=== PATIENT | female | born 1970 | race Caucasian/White ===

== ENCOUNTER → 2017-04-01 | Outpatient (CLI) | payer OTHER ==
[~2017-04-01] MED LIST: CATHETER FLUSH 10 ML SYR IV PRN; IOHEXOL 350 MG/ML 100 ML (OMNIPAQUE 350) VIAL IV ONE; NS 100 ML (IVPB) BAG IV ONE
--- NOTE | 2017-04-01 17:33 | Diagnostic Imaging Report ---
CLINICAL INDICATION: Patient with lump, right-sided tenderness under right jaw and throat. EXAM: Axial CT scan of the neck soft tissue performed with 75 cc of Omnipaque 350 IV contrast. Coronal and sagittal reformatted images are created. COMPARISON: None. FINDINGS: There is no significant neck soft tissue abnormality. There is no neck mass or lymphadenopathy. There is no fluid collection or fat stranding seen. There is no significant abnormality seen beneath the right neck skin marker of concern. There are lymph nodes in both sides of the neck which are within normal limits and subcentimeter in short axis. The bilateral salivary glands and thyroid gland shows no significant abnormality. Streak artifact obscures portions of the thyroid gland. Visualized neck vascular structures are patent. The nasopharynx, oropharynx, hypopharynx, and laryngeal soft tissue structures are relatively symmetric and unremarkable. The oral cavity, tongue, sublingual and submandibular regions show no gross abnormality. Cervical spine is unremarkable. Limited visualization of upper lung hernandez are clear. Limited visualization of intracranial structures are unremarkable. There is mild mucosal thickening involving both maxillary sinuses and ethmoid sinus. IMPRESSION: 1: There is no significant neck soft tissue abnormality. There is no abnormality seen in the right neck region of concern. 2: Paranasal sinus disease. Dictated by: Dictated on workstation # [id number]
== END ==
LOC: RAD 14:52
PROVIDERS: ATTEND Internal Medicine
DX: R22.1 Localized swelling, mass and lump, neck (principal); J32.9 Chronic sinusitis, unspecified
CPT/HCPCS: 70491

== ENCOUNTER → 2019-01-08 | Outpatient (CLI) | payer OTHER ==
[2019-01-08 12:43] LABS: BUN/CREATININE RATIO 21; CALCIUM 9.6 MG/DL (8.5-10.1); CARBON DIOXIDE 24 MMOL/L (21-32); CHLORIDE 106 MMOL/L (98-107); CREATININE SERUM 0.91 MG/DL (0.60-1.30); GFR ESTIMATED > 60; GLUCOSE 90 MG/DL (70-105); POTASSIUM 4.1 MMOL/L (3.6-5.0); SODIUM 140 MMOL/L (135-145)
--- NOTE | 2019-01-08 13:13 | Diagnostic Imaging Report ---
PROCEDURE: CT neck soft tissue with contrast. TECHNIQUE: Multiple contiguous axial images were obtained through the neck after the administration of contrast. Auto Exposure Controls were utilized during the CT exam to meet ALARA standards for radiation dose reduction. INDICATION: Lump in the right side of the neck. COMPARISON: Correlation is made with prior CT neck from 04/01/2017. FINDINGS: A BB marker was placed at the area of palpable abnormality in the right neck. At the area of the marker, no underlying abnormality is seen. No mass or fluid collection is identified. No thyroid masses are seen apart from a tiny low-density nodule in the posterior right lobe measuring 4 mm. No definite enlarged jugulodigastric or posterior cervical lymph nodes are seen. The submandibular and parotid glands are symmetric bilaterally. The posterior nasopharynx, oropharynx and larynx are unremarkable. Retropharyngeal tissues are unremarkable. Upper lung hernandez appear to be clear. IMPRESSION: Unremarkable CT soft tissue neck study. No mass is identified. Dictated by: Dictated on workstation # [id number]
== END ==
LOC: RAD 12:14
PROVIDERS: ATTEND Pediatrics
DX: R22.1 Localized swelling, mass and lump, neck (principal)
CPT/HCPCS: 36415; 70491; 80048

== ENCOUNTER → 2019-05-13 | Outpatient (CLI) | payer OTHER ==
--- NOTE | 2019-05-13 14:21 | Diagnostic Imaging Report ---
PROCEDURE: MRI lumbar spine. TECHNIQUE: Multiplanar, multisequence MRI of the lumbar spine was performed without contrast. INDICATION: Low back pain. COMPARISON: No prior studies are available for comparison. Curvature and alignment of the lumbar spine is normal. Vertebral body heights are maintained. The marrow signal intensity is unremarkable. No fracture or geographic marrow lesion is seen. Mild disc desiccation at the L3-L4 and L4-L5 levels is noted compatible with degenerative change. The conus is unremarkable at the T12-L1 level. T12-L1: Central canal and neural foramina are widely patent. L1-L2: Central canal and neural foramina are widely patent. L2-L3: Central canal and neural foramina are widely patent. L3-L4: There is some ligamentous thickening and facet changes. Central canal remains widely patent. There is some narrowing of the lateral recesses bilaterally. Neural foramina are widely patent. L4-L5: Broad-based disc/osteophyte complex is noted. There is also ligamentous thickening and hypertrophic facet degenerative changes. There is a hypoechoic circumscribed ovoid mass which appears to be extradural in location in the left lateral recess. This measures 10 mm transverse x 11 mm cephalocaudal x 6 mm AP. This most likely represents a synovial cyst arising from the left-sided facet versus partially calcified extruded disc fragment. This does occupy the left lateral recess. No neuroforaminal stenosis is seen. There is significant central canal stenosis. L5-S1: Broad-based midline disc bulging indents the ventral thecal sac. This does result in [id number] central canal narrowing. There are degenerative facet changes noted. This does narrow the lateral recesses bilaterally. Neural foramina are patent. Paraspinous tissues are unremarkable. IMPRESSION: Lower lumbar spondylosis and facet arthropathy. There is an extramedullary ovoid mass in the left lateral recess at L4-L5, as described above, most suggestive of a synovial cyst versus extruded disc fragment. There is severe trefoil stenosis of the central canal at this level as well. Bilateral lateral recess narrowing at the L3-L4 level as well as L5-S1 level with central canal narrowing is noted and described above. Dictated by: Dictated on workstation # [id number]
== END ==
LOC: RAD 12:59
PROVIDERS: ATTEND Internal Medicine
DX: M51.17 Intervertebral disc disorders with radiculopathy, lumbosacral region (principal); M48.07 Spinal stenosis, lumbosacral region; M47.27 Other spondylosis with radiculopathy, lumbosacral region; M48.8X6 Other specified spondylopathies, lumbar region
CPT/HCPCS: 72148

== ENCOUNTER → 2019-08-25 | Outpatient (CLI) | payer OTHER ==
--- NOTE | 2019-08-25 15:11 | Diagnostic Imaging Report ---
EXAMINATION: Lumbar spine at 2:17 PM. INDICATION: Postop fusion. TECHNIQUE: AP and lateral views of the lumbar spine were obtained. COMPARISON: There are no prior plain film examinations available for comparison. FINDINGS: The MRI lumbar spine exam of 05/13/2019 did show spinal stenosis at the L4-L5 level as well as a synovial cyst on the left. In the interval since the prior exam, the patient has undergone a surgical procedure. There has been a laminectomy at the L4-L5 level and there are now bilateral pedicle screws in place as well as an interbody device. The orthopedic hardware seems to be in good position. As seen on the prior exam, there is slight anterior translation of L4 with respect to L3. The alignment of the other vertebral bodies is within normal limits. The intervertebral spaces are fairly well-maintained. There is no fracture or acute bony abnormality noted. There is no sign of a paraspinal mass. IMPRESSION: 1. There are postop changes, consistent with a laminectomy and fusion, at the L4-L5 level. The orthopedic hardware appears to be in good position. 2. There is no acute bony abnormality noted. Dictated by: Dictated on workstation # [id number]
== END ==
LOC: RAD 13:56
PROVIDERS: ATTEND Neurological Surgery
DX: Z48.89 Encounter for other specified surgical aftercare (principal); M48.062 Spinal stenosis, lumbar region with neurogenic claudication; Z98.1 Arthrodesis status
CPT/HCPCS: 72100

== ENCOUNTER 2019-10-01 11:44 | Outpatient (RCR) | payer OTHER ==
[~2019-10-01] VITALS: Ht 167 cm; Wt 73.6 kg
[~2019-10-01 11:44] MED LIST changes: -CATHETER FLUSH 10 ML SYR IV PRN; +CHOL200059 PO; -IOHEXOL 350 MG/ML 100 ML (OMNIPAQUE 350) VIAL IV ONE; +LEVO100T7 PO; +METH54TA4 PO; +NF-LAMO200 PO; +NORE1CAP PO; -NS 100 ML (IVPB) BAG IV ONE
[2019-10-05] MEDS ORDERED: OXYC1TAB87 PO (08:51)
[2019-10-05] MEDS ORDERED: IBUP-1780 PO (08:51)
[2019-10-05] MEDS ORDERED: DOXY100T2 PO (08:51)
== END 2019-12-30 | disposition home or self-care (01) ==
LOC: PREOP 11:44
PROVIDERS: ATTEND Obstetrics & Gynecology
DX: Z01.818 Encounter for other preprocedural examination (principal)

== ENCOUNTER 2019-10-05 06:04 | Day surgery (SDC) | payer OTHER ==
[~2019-10-05] VITALS: Ht 167 cm; Wt 73.6 kg
[2019-10-05] VITALS (8 sets, daily range): BP systolic 130–186; BP diastolic 75–100
[2019-10-05] MEDS ORDERED: LACTATED RINGERS 1,000 ML IV PRN (06:11)
--- OUTSIDE RECORDS SUMMARY | 2019-10-05 06:18 | XMS REPORT ---
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 Name Role Phone VIKKI DINERO Unavailable PROBLEMS Type Condition ICD9-CM Code BMR05-TG Code Onset Dates Condition S tatus SNOMED Code Problem Hypothyroid E03.9 Active 81039540 Problem Systemic lupus M32.9 Active 86835 009 Problem PTSD (post-traumatic stress disorder) F43.10 Active 11976142 Problem Major depressive disorder, recurrent episode, severe F33.2 Active 220883615476 Problem ADHD, predominantly inattentive type F90.0 Active 02566386 Problem Lumbago with sciatica, right side M54.41 Active 33181367 Problem Social anxiety disorder F40.10 Active 99028701 Problem Other chronic pain G89.29 Active 8 3542276 Problem Irregular menses N92.6 Active 801 82611 Problem Moderate episode of recurrent major depressive disorder F33.1 Active 786189461 Problem Pure hypercholesterolemia E78.00 Acti ve 322297405 Problem Rosacea L71.9 Active 811433673 Problem Lumbago with sciatica, left side M54.42 Active 72749801 ALLERGIES No Information ENCOUNTERS Encounter Location Date Diagnosis [facility] [address] [facility] [id number] [address] [place] [id number] 18 Oct, 2018 [facility] [address] [facility] [id number] [address] [place] [phone] Oct, [address] [address] Oct, Breast cancer screening Z12.[address] [address] Oct, Well woman exam with routine gynecologic al exam Z01.419 and Breakthrough bleeding on control pills N92.1 [facility] [address] [facility] [id number] [address] [place] [id number] Sep, Breast cancer screening Z12. 39 [facility] [address] [id number] [address] [place] [phone] Sep, [facility] [address] [id number] [address] [place] [id number] Sep, Hypothyroid E03.9 [facility] [address] [id number] [address] [place] [phone] Sep, [facility] [address] [id number] [address] [place] [phone] Sep, Exercise counseling Z71.82 [facility] [address] [facility] [id number] [address] [place] [phone] August, Exercise counseling Z71.82 [facility] [address] [facility] [id number] [address] [place] [phone] August, Lumbago with sciatica, right side M54.41 and Lumbago with sciatica, left side M54.42 [facility] [address] [facility] [id number] [address] [place] [phone] August, Other chronic pain G89.29 ; Lumbago with sciatica, right side M54.41 and Lumbago with sciatica, left side M54.42 [facility] [address] [facility] [id number] [address] [place] [phone] August, Exercise counseling Z71.82 [facility] [address] [facility] [id number] [address] [place] [phone] August, [facility] [address] [facility] [id number] [address] [place] [phone] August, [facility] [address] [facility] [id number] [address] [place] [phone] Jul, [facility] [address] [facility] [id number] [address] [place] [id number] Jul, Lumbar radiculopathy M54.16 [facility] [address] [id number] [address] [place] [phone] Jun, [facility] [address] [id number] [address] [place] [phone] Jun, [facility] [address] [id number] [address] [place] [phone] Jun, [facility] [address] [id number] [address] [place] [id number] May, [facility] [address] [id number] [address] [place] [id number] Apr, [facility] [address] [id number] [address] [place] [phone] Feb, [facility] [address] [id number] [address] [place] [phone] Feb, Encounter for immunization Z 23 [facility] [address] [id number] [address] [place] [phone] Jan, [facility] [address] [id number] [address] [place] [phone] Jan, Encounter for immunization Z 23 [facility] [address] [id number] [address] [place] [phone] Jan, [facility] [address] [id number] [address] [place] [phone] Jan, [facility] [address] [id number] [address] [place] [phone] Dec, [facility] [address] [id number] [address] [place] [phone] Dec, Moderate episode of recurren t major depressive disorder F33.1 ; ADHD, predominantly inattentive type F90.0 ; PTSD (post-traumatic stress disorder) F43.10 and Social anxiety disorder F40.10 [facility] [address] [id number] [address] [place] [phone] Nov, [facility] [address] [id number] [address] [place] [address] Oct, Bruise T14.8XXA [facility] [address] [id number] [address] [place] [phone] Oct, Bruise T14.8XXA [facility] [address] [id number] [address] [place] [phone] Oct, [facility] [address] [id number] [address] [place] [phone] Oct, [facility] [address] [id number] [address] [place] [id number] Oct, [facility] [address] [id number] [address] [place] [phone] Sep, [facility] [address] [id number] [address] [place] [phone] Sep, Hypothyroid E03.9 [facility] [address] [id number] [address] [place] [phone] Sep, [facility] [address] [id number] [address] [place] [id number] Sep, [facility] [address] [id number] [address] [place] [phone] August, [facility] [address] [id number] [address] [place] [phone] August, PTSD (post-traumatic stress disorder) F43.10 ; Moderate episode of recurrent major depressive disorder F33.1 ; ADHD, predominantly inattentive type F90.0 and Social anxiety disorder F40.10 [facility] [address] [id number] [address] [place] [phone] August, [facility] [address] [facility] [id number] [address] [place] [phone] August, [facility] [address] [id number] [address] [place] [id number] 16 Jul, 2017 [facility] [address] [id number] [address] [place] [phone] Jul, [facility] [address] [facility] [id number] [address] [place] [id number] Jul, Rosacea L71.9 [facility] [address] [id number] [address] [place] [phone] Jun, PTSD (post-traumatic stress disorder) F43.10 [facility] [address] [id number] [address] [place] [phone] Jun, [facility] [address] [facility] [id number] [address] [place] [phone] Jun, [facility] [address] [id number] [address] [place] [phone] Jun, [facility] [address] [id number] [address] [place] [phone] Jun, [facility] [address] [id number] [address] [place] [phone] Apr, [facility] [address] [facility] [id number] [address] [place] [address] Apr, Hypothyroid E03.9 ; Pure hyp ercholesterolemia E78.00 and Systemic lupus M32.9 [facility] [address] [id number] [address] [place] [id number] Apr, Hypothyroid E03.9 ; Systemic lupus M32.9 and Pure hypercholesterolemia E78.00 [facility] [address] [id number] [address] [place] [phone] Apr, [facility] [address] [facility] [id number] [address] [place] [phone] Mar, [facility] [address] [facility] [id number] [address] [place] [id number] Mar, Pulsatile neck mass R22.1 [facility] [address] [facility] [id number] [address] [place] [phone] Feb, [facility] [address] [facility] [id number] [address] [place] [id number] Feb, Contact dermatitis and eczem a due to plant L24.7 [facility] [address] [id number] [address] [place] [phone] Feb, Systemic lupus M32.9 [facility] [address] [facility] [id number] [address] [place] [phone] Jan, [facility] [address] [id number] [address] [place] [id number] Jan, Dental examination Z01.20 [facility] [address] [id number] [address] [place] [phone] 06 Jan, 2017 Encounter for immunization Z 23 [facility] [address] [facility] [id number] [address] [place] [id number] 20 Dec, 2016 [facility] [address] [id number] [address] [place] [phone] Nov, Hypothyroid E03.9 [facility] [address] [id number] [address] [place] [phone] Nov, PTSD (post-traumatic stress disorder) F43.10 ; ADHD, predominantly inattentive type F90.0 ; Social anxiety disorder F40.10 and Moderate episode of recurrent major depressive disorder F33.1 [facility] [address] [facility] [id number] [address] [place] [phone] Nov, ADHD, predominantly inattent marzena type F90.0 [facility] [address] [facility] [id number] [address] [place] [id number] Oct, Acquired hypothyroidism E03. 9 [facility] [address] [facility] [id number] [address] [place] [phone] Oct, ADHD, predominantly inattent marzena type F90.0 [facility] [address] [id number] [address] [place] [phone] Oct, Acquired hypothyroidism E03. 9 [facility] [address] [id number] [address] [place] [address] Sep, Well woman exam Z01.419 ; Sy stemic lupus M32.9 ; Irregular menses N92.6 ; PTSD (post-traumatic stress disorder) F43.10 ; Social anxiety disorder F40.10 ; ADHD, predominantly inattentive type F90.0 ; Hypothyroid E03.9 and Generalized headaches R51 [facility] [address] [id number] [address] [place] [phone] August, ADHD, predominantly inattent marzena type F90.0 [facility] [address] [id number] [address] [place] [phone] August, [facility] [address] [id number] [address] [place] [phone] Jul, [facility] [address] [id number] [address] [place] [id number] Jun, [facility] [address] [id number] [address] [place] [phone] Jun, Hypothyroid E03.9 [facility] [address] [id number] [address] [place] [id number] Jun, ADHD, predominantly inattent marzena type F90.0 and Social anxiety disorder F40.10 [facility] [address] [id number] [address] [place] [phone] Jun, [facility] [address] [id number] [address] [place] [phone] Jun, [facility] [address] [id number] [address] [place] [id number] May, Dental examination Z01.20 [facility] [address] [id number] [address] [place] [phone] May, ADHD, predominantly inattent marzena type F90.0 ; Recurrent major depressive disorder, in partial remission F33.41 ; Social anxiety disorder F40.10 and PTSD (post-traumatic stress disorder) F43.10 [facility] [address] [id number] [address] [place] [phone] Apr, Social anxiety disorder F40. 10 [facility] [address] [id number] [address] [place] [phone] Apr, ADHD, predominantly inattent marzena type F90.0 [facility] [address] [id number] [address] [place] [phone] Apr, [facility] [address] [id number] [address] [place] [phone] Apr, [facility] [address] [id number] [address] [place] [phone] Mar, Dental examination Z01.20 [facility] [address] [id number] [address] [place] [phone] Mar, [facility] [address] [id number] [address] [place] [phone] Feb, [facility] [address] [id number] [address] [place] [phone] Feb, [facility] [address] [id number] [address] [place] [phone] Jan, Encounter for immunization Z 23 [facility] [address] [id number] [address] [place] [phone] Jan, [facility] [address] [id number] [address] [place] [phone] Jan, [facility] [address] [id number] [address] [place] [phone] Jan, Dental examination Z01.20 [facility] [address] [id number] [address] [place] [phone] Jan, [facility] [address] [id number] [address] [place] [address] Jan, Dental examination Z01.20 [facility] [address] [id number] [address] [place] [phone] 13 Jan, 2016 [facility] [address] [id number] [address] [place] [id number] 16 Dec, 2015 [facility] [address] [id number] [address] [place] [address] [id number] 16 Dec, 2015 Dental examination Z01.20 [facility] [address] [id number] [address] [place] [phone] Nov, [facility] [address] [facility] [id number] [address] [place] [phone] Nov, Social anxiety disorder F40. 10 ; PTSD (post-traumatic stress disorder) F43.10 and ADHD, predominantly inattentive type F90.0 [facility] [address] [id number] [address] [place] [phone] Oct, Social anxiety disorder F40. 10 [facility] [address] [id number] [address] [place] [phone] Oct, Hypothyroidism, unspecified type E03.9 [facility] [address] [id number] [address] [place] [phone] Oct, Hypothyroid E03.9 [facility] [address] [id number] [address] [place] [phone] Oct, Hypothyroid E03.9 [facility] [address] [id number] [address] [place] [phone] Sep, Hypothyroid E03.9 [facility] [address] [facility] [id number] [address] [place] [id number] Sep, [facility] [address] [facility] [id number] [address] [place] [phone] Sep, ADHD, predominantly inattent marzena type F90.0 [facility] [address] [id number] [address] [place] [phone] Jul, ADHD, predominantly inattent marzena type F90.0 [facility] [address] [id number] [address] [place] [phone] Jun, [facility] [address] [id number] [address] [place] [phone] Jun, Major depressive disorder, r ecurrent episode, severe F33.2 ; ADHD, predominantly inattentive type F90.0 ; PTSD (post-traumatic stress disorder) F43.10 and Social anxiety disorder F40.10 [facility] [address] [id number] [address] [place] [phone] Jun, [facility] [address] [id number] [address] [place] [phone] May, Encounter for screening mamm ogram for breast cancer Z12.31 [facility] [address] [id number] [address] [place] [phone] 15 May, 2015 [facility] [address] [id number] [address] [place] [phone] May, [facility] [address] [id number] [address] [place] [phone] May, Major depressive disorder, r ecurrent episode, severe F33.2 ; PTSD (post-traumatic stress disorder) F43.10 ; Social anxiety disorder F40.10 and ADHD, predominantly inattentive type F90.0 [facility] [address] [id number] [address] [place] [phone] Apr, [facility] [address] [id number] [address] [place] [id number] Mar, [facility] [address] [id number] [address] [place] [id number] Mar, Major depressive disorder, r ecurrent episode, severe F33.2 ; PTSD (post-traumatic stress disorder) F43.10 ; Social anxiety disorder F40.10 and ADHD, predominantly inattentive type F90.0 [facility] [id number] [place] [phone] Feb, [facility] [address] [id number] [address] [place] [phone] Feb, [facility] [address] [phone] Feb, [facility] [id number] [place] [phone] Feb, Lupus M32.9 ; Hypothyroid E0 3.9 and Irregular menses N92.6 [facility] [id number] [place] [phone] Feb, Lupus M32.9 and Hypothyroid E03.9 [facility] [address] [phone] Jan, Encounter for immunization Z 23 [facility] [id number] [place] [phone] 14 Jul, 2014 [facility] [id number] [place] [phone] Jul, [facility] [address] [id number] [address] [place] [phone] Feb, [facility] [address] [id number] [address] [place] [phone] Feb, [facility] [address] [id number] [address] [place] [phone] Feb, [facility] [id number] [place] [phone] Feb, [facility] [address] [id number] [address] [place] [phone] August, [facility] [id number] [place] [phone] Jun, [facility] [address] [id number] [address] [place] [phone] Jun, [facility] [address] [id number] [address] [place] [phone] Jun, [facility] [address] [id number] [address] [place] [phone] Jun, [facility] [address] [id number] [address] [place] [phone] May, [facility] [address] [id number] [address] [place] [phone] May, [facility] [address] [id number] [address] [place] [phone] May, [facility] [address] [id number] [address] [place] [phone] May, [facility] [address] [id number] [address] [place] [phone] Mar, [facility] [address] [id number] [address] [place] [phone] Jan, [facility] [address] [id number] [address] [place] [phone] Jan, [facility] [address] [id number] [address] [place] [phone] Jan, [facility] [address] [id number] [address] [place] [phone] Jan, [facility] [address] [id number] [address] [place] [phone] Jan, [facility] [address] [id number] [address] [place] [phone] Jan, IMMUNIZATIONS No Known Immunizations SOCIAL HISTORY Never Assessed REASON FOR VISIT [facility] 07/08/18 PLAN OF CARE VITAL SIGNS MEDICATIONS Medication Instructions Dosage Frequency Start Date End Date Elyse S tito Concerta 54 MG Orally Once a day for ADHD 1 tablet in the morning Jun, 28 days Active RESULTS No Results PROCEDURES No Known procedures INSTRUCTIONS MEDICATIONS ADMINISTERED No Known Medications MEDICAL (GENERAL) HISTORY Type Description Date Medical History Systemic lupus erythematosus, unspecifie d Medical History Hypothyroidism, unspecified Surgical History inguinal hernia repair Surgical History section Surgical History cholecystectomy Surgical History ovarian cyst resection Hospitalization History dystonia Hospitalization History pylenephritis
--- OUTSIDE RECORDS SUMMARY | 2019-10-05 06:18 | XMS REPORT ---
Author Author [facility] [place] Address [address] [address] Care Team Providers Care Cat Driver Name Role Phone BAR VIKKI Unavailable Unavailable KELLY LYNNE Unavailable Unavailable ZAHEER WORLEYE Unavailable Unavailable TONY VEGA Unavailable Unavailable KELLY LYNNE Unavailable KAVYA ROBERTS Unavailable Unavailable TONA SETH Unavailable Unavailable BAR, VIKKI Unavailable BAR, VIKKI Unavailable BAR, VIKKI Unavailable BAR, VIKKI Unavailable TONY Kimbrough Unavailable BAR, VIKKI Unavailable BRUNILDA HANK Unavailable BAR, VIKKI Unavailable BRUNILDA, HANK Unavailable Tiffany HANK Unavailable BAR, VIKKI Unavailable KELLY LYNNE Unavailable KELLY LYNNE Unavailable KELLY LYNNE Unavailable BAR, VIKKI Unavailable KELLY LYNNE Unavailable BAR, VIKKI Unavailable DEAN CORTES Unavailable KAVYA ROBERTS Unavailable BAR, VIKKI Unavailable BAR, VIKKI Unavailable KELLY LYNNE Unavailable KELLY LYNNE Unavailable KELLY LYNNE Unavailable BAR, VIKKI Unavailable ERTER, KELLY Unavailable HUERTER, KELLY Unavailable BAR, VIKKI Unavailable HUERTER, KELLY Unavailable HUERTER, KELLY Unavailable BAR, VIKKI Unavailable BAR, VIKKI Unavailable HUERTER, KELLY Unavailable ERTER, KELLY Unavailable ERTER, KELLY Unavailable ERTER, KELLY Unavailable BAR, VIKKI Unavailable ERTER, KELLY Unavailable ERTER, KELLY Unavailable ERTER, KELLY Unavailable MARIBELL, ALONZO Unavailable BAR, VIKKI Unavailable BAR, VIKKI Unavailable BAR, VIKKI Unavailable ERTJANETH, KELLY Unavailable TONA SETH Unavailable BAR, VIKKI Unavailable Migration, Doctor Unavailable Unavailable Migration, Doctor Unavailable Unavailable Migration, Doctor Unavailable Unavailable KELLY LYNNE Unavailable Unavailable MAYCOL Parra Unavailable BAR, VIKKI Unavailable BAR, VIKKI Unavailable MAJOR MCCORMACK DO Unavailable Unavailable RIMA MALDONADO MD Unavailable Unavailable KELLY LYNNE MD Unavailable Unavailable DEVORA WESTON MD Unavailable Unavailable Unavailable Unavailable JULIA PACKER DO Unavailable Unavailable Unavailable Unavailable Unavailable Unavailable Unavailable Unavailable Unavailable Unavailable Unavailable Unavailable Allergies Normalized Allergy Reported Date of Reaction(s) Care Provider Facility Allergy Type classification allergen Allergy Onset NEGATED no information No Allergy 04-01-2017 - no information n o name no information DA (4 Information sources.) Available Medications Medication Ingredient Drug Dose Dates Status Sig Sig Care Class(es) (Normalized) (Original) Provid er brimonidine brimonidine alpha-Adren 0.33 % 07-23-19 Active no Mirvaso 0.33 no 0.0033 Translation ergic 18 information % Externally name mg/mg s: [ Agonist Once a day 1 topical gel Mirvaso application (3 0.33 %] to affected sources.) area 24h Jul, Active 12 hr buPROPion Aminoketone 200 mg 01-31-20 Active no BuPRO Pion no buPROPion Translation 18 information HCl ER (SR) name hydrochlori s: [ 200 mg de 200 mg Wellbutrin Orally Once extended XL 150 MG, a day 1 release 12 HR tablet in oral tablet Bupropion the morning (2 Hydrochlori 24h Jan, sources.) de 200 MG 2017 30 Extended day(s) Release Active Oral Tablet, BuPROPion HCl ER (SR) 200 mg] 150 mg 01-09-2018 Active no Wellbutr no name inform in XL ation 150 MG Orally Once a day 1 tablet in the morning 24h Dec, 30 day(s) Active doxycycline doxycycline Tetracyclin 100 mg 08-03-19 Active no Doxycycline no hyclate 100 Translation e-class 18 - information Hyclate 10 0 name mg oral s: [ Drug 01-23-20 mg Orally capsule (5 Doxycycline 18 Once a day 1 sources.) Hyclate 100 capsule 24h mg] Jul, Jan, 30 days Active erythromyci erythromyci Macrolide, 07-09-19 Active no Erythr omycin no n 0.005 n Macrolide 18 - information 5 MG/GM name mg/mg Translation Antimicrobi 07-14-19 Ophthalmic ophthalmic s: [ al 18 Four times a ointment (1 Erythromyci day 1 source.) n 5 MG/GM] application 6h Jun, Jun, 05 days Active gabapentin gabapentin Anti-epilep 100 mg 08-30-19 Active no Neurontin no 100 mg oral Translation tic Agent 18 information 100 mg name capsule (2 s: [ Orally Three sources.) Neurontin times a day 100 mg] 1 capsule as need for anxiety 8h August, 30 day(s) Active norethindro Norethindro no 0.35 07-06-19 Active no Ort ho no ne 0.35 mg ne information mg 12 information Micronor name oral tablet Translation 0.35 mg 1 by (1 source.) s: [ Ortho Oral route 1 Micronor time per day 0.35 mg] Jun, Active Problems Active Problems Problem Normalized Date Last Normalized Normalized Provider Fa cility Classification Problem(s) Recorded Problem Problem Sta tus Duration Other Arthrodesis 08-26-2019 - Episodic Active DEVORA VC H Via connective status MD [facility] tissue disease Hospital - (4 sources.) [place] ([address]) Residual Chronic pain Chronic Active MAYCOL Community codes; Translations: [facility] unclassified [ Other [address] of [facility] (3 sources.) chronic pain] [place] ([address]) Other upper Chronic Chronic Active no name no informat ion respiratory sinusitis, infections (2 unspecified sources.) Other Encounter for 08-26-2019 - Episodic Active DEVORA HELLERH Via aftercare (4 other MD [facility] sources.) specified Hospital - surgical [place] aftercare ([address]) Other nervous Other chronic Chronic Active MAYCOL Comm unity system pain [facility] disorders (3 Translations: [address] of [facility] sources.) [ - Other [place] ([address]) chronic pain G89.29] Rheumatoid Other Chronic Active KELLY LYNNE [facility] Via arthritis and specified , MD Hand related spondylopathie Hospital - disease (2 s, lumbar [place] sources.) region ([address]) Spondylosis; Other Chronic Active KELLY LYNNE [facility] Vi a intervertebral spondylosis , MD Hand disc with Hospital - disorders; radiculopathy, [place] other back lumbosacral ([address]2638) problems (2 region sources.) Past or Other Problems Problem Normalized Date Last Normalized Normalized Provider Fa cility Classification Problem(s) Recorded Problem Problem Sta tus Duration Unclassified Other injury no information no information KELLY Gomez SUJIT [facility] (20 sources.) of unspecified [address] body region, of [facility] ([address]) encounter Translations: [ - Bruise T14.8XXA, - Bruise T14.8XXA] Procedures Procedure Normalized Procedure Procedure Result Performer Facility Date 11-14-2017 Blood count complete no information no name Co [facility] auto&auto difrntl wbc [facility] (55803) 09-10-2018 Diagnostic radiologic no information [facility] examination [facility] (49748) 10-29-2018 Mammography no information JULIA PACKER [facility] (40651) 11-14-2017 Prothrombin time no information [facility] Immunizations Normalized Immunization Date Notes Care Provider Facili ty Immunization hepatitis A vaccine, 02-27-2018 - no information TONA SETH 667 62 [facility] adult dosage 02-27-2018 [facility] Translations: [ HEP [place] ([address]13) A (ADULT)] influenza, 01-31-2018 no information KELLY LYNNE [address] [facility] injectable, [facility] quadrivalent, [place] (18580) preservative free influenza, 01-25-2017 no information no name Not Availab le injectable, (67889) quadrivalent, preservative free influenza, seasonal, 02-20-2019 no information no name [facility] (88459) influenza, seasonal, 01-31-2018 - no information KLELY LYNNE [address] [facility] injectable 01-31-2018 [facility] Translations: [ [place] ([address]006) SINGLE IMMUNIZATION ADMIN] SINGLE IMMUNIZATION 02-27-2018 - no information TONA SETH 6676 2 [facility] Health ADMIN Translations: 02-27-2018 [facility] t [ HEP A (ADULT)] [place] ([address]605) Results Test Name Value Interpretation Reference Range Date Time Fa cility (Normalized) (Normalized) (Medline Reference) inr (in house) on null INR Coag RelTime no information (no code) [facility] Hea lth (PPP) [facility] (49654) INR (IN HOUSE) no information (no code) [facility] Healt h [facility] (32741) laboratory on 2019-01-16 Calcidiol 24 ng/mL (L) 20 - 50 ng/mL [facility] [Mass/Vol] [facility] (64388) Free T4 1.2 ng/dL (N) 0.9 - 2.2 ng/dL [facility] [Mass/Vol] [facility] (20804) TSH Qn 4.95 m[IU]/L (H) 0.4 - 4 m[IU]/L [facility] (20592) not yet categorized on 2018-10-30 Clinical no information (N) [facility] information [facility] (72912) COMMENT no information (no code) [facility] (06583) Date of previous no information (N) [facility] biopsy [facility] (52486) Date of previous no information (N) [facility] hospital PAP smear [facility] (08171) Last menstrual no information (N) [facility] period start [facility] (31889) laboratory on 2018-10-30 Director Clinical Pharmacology Cyto no information (N) Critical access hospital stain Nom [facility] (Cvx/Vag) [ID] [facility] (27446) Microscopic no information (N) [facility] observation Cyto [facility] (Cvx) [facility] (03855) Specimen source Endocervix (N) Critical access hospital Cyto stain Nom [facility] (Cvx/Vag) [facility] (82436) Statement of no information (N) [facility] adequacy Cyto [facility] (Cvx/Vag) [facility] [Interp] (31535) other on 2017-11-14 CURRENT COUMADIN 0.9 (no code) Psychiatric hospital DOSE [facility] (17167) Exp date 06/2018 (no code) [facility] (71090) Lot # [id number] (no code) [facility] (97926) hematology on 2017-11-14 Basophils 0.082 10*3/uL (N) 0 - 0.3 10*3/uL [facility] (35566) Coagulation N/A (no code) [facility] factor [facility].INR [facility] assay in (02729) platelet poor plasma Eosinophils 0.122 10*3/uL (N) 0.05 - 0.5 [facility] 10*3/uL [facility] (28894) Lymphocytes 1.907 10*3/uL (N) 0.9 - 2.9 [facility] 10*3/uL [facility] (72614) Monocytes 0.775 10*3/uL (N) 0.3 - 0.9 [facility] 10*3/uL [facility] (67461) Neutrophils 7.313 10*3/uL (N) 1.7 - 7 10*3/uL [facility] (67586) Platelet mean 10.6 fL (N) 7.2 - 11.7 fL [facility] Health volume (PMV) [facility] (30164) cbc on 2017-11-14 Basophils Auto 82 10*3/uL (no code) 0 - 0.3 10*3/uL 11-14-2017 [facility] #/vol (Bld) 13:00-0400 [facility] (78019) Basophils/100 0.8 % (no code) 0.5 - 1 % 11-14-2017 [facility] WBC Auto (Bld) 13:00-0400 [facility] (36912) Eosinophils Auto 122 10*3/uL (no code) 0.05 - 0.5 11-14-2017 Co critical access hospital [facility]iSen #/vol (Bld) 10*3/uL 13:00-0400 [facility] (81918) Eosinophils/100 1.2 % (no code) 1 - 4 % 11-14-2017 Counts include 234 beds at the [facility] WBC Auto (Bld) 13:00-0400 [facility] (43581) Erythrocyte 12.0 % (no code) 11.6 - 14.6 % 11-14-2017 [facility] Health distribution 13:00-0400 [facility] width Auto Ratio [facility] (RBC) (08848) Hematocrit Auto 38.7 % (no code) 36.1 - 50.3 % 11-14-2017 [facility] Volume Fraction 13:00-0400 Center (Bld) [facility] (16044) Hemoglobin mass 12.6 g/dL (no code) 12.1 - 17.2 g/dL 11-14-2017 [facility] Health conc (Bld) 13:00-0400 [facility] (05106) Lymphocytes Auto 1907 10*3/uL (no code) 0.9 - 2.9 11-14-2017 Co [facility] #/vol (Bld) 10*3/uL 13:00-0400 [facility] (35350) Lymphocytes/100 18.7 % (no code) 20 - 40 % 11-14-2017 Commun ity ReliSen WBC Auto (Bld) 13:00-0400 [facility] (22311) MCH Auto Entitic 29.6 pg (no code) 27 - 31 pg 11-14-2017 [facility] mass (RBC) 13:00-0400 [facility] (14696) MCHC Auto mass 32.6 g/dL (no code) 32 - 36 g/dL 11-14-2017 Comm hdl therapeutics conc (RBC) 13:00-0400 [facility] (12932) MCV Auto Entitic 90.8 fL (no code) 80 - 100 fL 11-14-2017 Com [facility] volume (RBC) 13:00-0400 [facility] (12050) Monocytes Auto 775 10*3/uL (no code) 0.3 - 0.9 11-14-2017 [facility] #/vol (Bld) 10*3/uL 13:00-0400 [facility] (58161) Monocytes/100 7.6 % (no code) 2 - 8 % 11-14-2017 [facility] ReliSen WBC Auto (Bld) 13:00-0400 [facility] (83915) Neutrophils Auto 7313 10*3/uL (no code) 1.7 - 7 10*3/uL 11-15-[address] [place] [address] Health #/vol (Bld) 13:00-0400 [facility] (33826) Neutrophils/100 71.7 % (no code) 40 - 60 % 11-14-2017 [facility] it ReliSen WBC Auto (Bld) 13:00-0400 [facility] (76323) Platelet mean 10.6 fL (no code) 7.2 - 11.7 fL 11-14-2017 [facility] volume 13:00-0400 [facility] Entitic volume (96839) (Bld) Platelets Auto 436 10*3/uL (no code) 150 - 450 11-14-2017 [facility] #/vol (Bld) 10*3/uL 13:00-0400 [facility] (49439) RBC Auto #/vol 4.26 10*6/uL (no code) 4.2 - 6.1 11-14-2017 [facility] (Bld) 10*6/uL 13:00-0400 [facility] (59824) WBC Auto #/vol 10.2 10*3/uL (no code) 3.5 - 10.5 11-14-2017 Com [facility] (Bld) 10*3/uL 13:00-0400 [facility] (25960) thyroid on 2017-05-17 Thyrotropin Qn 4.21 m[IU]/L (N) 0.4 - 4 m[IU]/L [facility] (09488) other on 2017-05-17 Albumin/Globulin 1.8 (N) [facility] lt mass [facility] (73004) Cholesterol in 91 (N) [facility] LDL mass [facility] (39931) Cholesterol non 109 (N) Critical access hospital HDL mass [facility] (28570) Cholesterol.tota 3.5 (N) Psychiatric hospital l/Cholesterol in [facility] HDL mass ratio [facility] (62158) Globulin 2.4 (N) [facility] Calculated mass [facility] (S) [facility] (91296) metabolic panel on 2017-05-17 Albumin mass 4.3 g/dL (N) 3.4 - 5.4 g/dL [facility] (93716) ALP enzyme 72 U/L (N) 44 - 147 U/L [facility] He alth act/vol [facility] (22990) ALT enzyme 11 U/L (N) 4 - 40 U/L Critical access hospital act/vol [facility] (17936) AST enzyme 11 U/L (N) 10 - 34 U/L Psychiatric hospital act/vol [facility] (03097) Bilirubin mass 0.6 mg/dL (N) 0.1 - 1.2 mg/dL [facility] (22088) Calcium mass 9.0 mg/dL (N) 8.5 - 10.2 mg/dL [facility] (98385) Chloride molar 108 mmol/L (N) 95 - 106 mmol/L [facility] (44968) CO2 molar conc 21 mmol/L (N) 23 - 29 mmol/L [facility] (53685) Creatinine mass 0.84 mg/dL (N) [facility] (13436) GFR/1.73 sq M 95 (N) 90 - 120 [facility] predicted among mL/min/{1.73_m2} mL/min/{1.73_m2} [facility] MDRD [facility] rate/area (77147) (S/P/Bld) GFR/1.73 sq 82 (N) 90 - 120 [facility].predicted MDRD mL/min/{1.73_m2} mL/min/{1.73_m2} [facility] rate/area [facility] (19275) Glucose mass 87 mg/dL (N) 60 - 125 mg/dL [facility] (01424) Potassium molar 4.3 mmol/L (N) 3.7 - 5.2 mmol/L [facility] (84865) Protein mass 6.7 g/dL (N) 6.4 - 8.3 g/dL [facility] (45141) Sodium molar 140 mmol/L (N) 135 - 145 mmol/L [facility] (98435) Urea nitrogen 11 mg/dL (N) 7 - 20 mg/dL [facility] (45498) Urea NOT APPLICABLE (no code) [facility] nitrogen/Creatin [facility] (96733) cardiac on 2017-05-17 Cholesterol in 44 mg/dL (L) [facility] HDL mass [facility] (78713) Cholesterol mass 153 mg/dL (N) 180 - 200 mg/dL Comm [facility] (40691) Triglyceride 88 mg/dL (N) 0 - 150 mg/dL [facility] (86448) imm/path on 2016-09-28 Bacteria Note (no code) 09-28-2016 Not Available identified Aer 13:37-0400 ([id number]) cx Nom (Genital specimen) other on 2016-09-27 Director Clinical Pharmacology Cyto Comment (no code) 09-27-2016 Not Availa ble stain Nom 18:45-0400 ([id number]) (Cvx/Vag) [ID] Diagnosis ICD Comment (no code) 09-27-2016 Not Availabl e code 18:45-0400 (05390) [Identifier] Microscopic . (no code) 09-27-2016 Not Available observation 18:45-0400 ([id number]) Other stain Nom (Unsp spec) Note: Comment (no code) 09-27-2016 Not Available 18:45-0400 ([id number]) Statement of Comment (no code) 09-27-2016 Not Available adequacy Cyto 18:45-0400 (83405) stain (Cvx/Vag) [Interp] no information Comment (no code) 09-27-2016 Not Availab le 18:45-0400 (14788) imm/path on 2016-09-27 Pathology report Comment (no code) 09-27-2016 Not Avail able final diagnosis 18:45-0400 ([id number]) Narrative thyroid on 2016-07-07 Free T4 1.76 ng/dL (no code) 0.9 - 2.2 ng/dL 07-07-2016 Not A vailable [Mass/Vol] 08:42-0400 (31924) TSH Qn 0.174 (L) 07-07-2016 Not Available 08:42-0400 ([id number]) Vital Signs Vital Sign Value Interpretation Reference Date Time Care Prov ider Facility (Normalized) (Normalized) Range BMI (Body Mass 24.18 kg/m2 (no code) 15 - 25 kg/m2 01-09-2018 [facility] Community Index) 12:00-[id number] [place] [address] (57025) BMI (Body Mass 24.24 kg/m2 (no code) 15 - 25 kg/m2 08-29-2017 [facility] Community Index) 15:40-[address] [place] [address] (14225) BMI (Body Mass 24.37 kg/m2 (no code) 15 - 25 kg/m2 07-22-2017 [facility] Index) 12:00-[address] [place] [address] (18107) BMI (Body Mass 24.63 kg/m2 (no code) 15 - 25 kg/m2 05-10-2017 [facility] Index) 10:00-[address] [place] [address] (30606) Body 97.8 [degF] (no code) 97.8 - 99.0 07-22-2017 [facility] Temperature [degF] 12:000400 [address] [place] [address] (30288) Body 98.6 [degF] (no code) 97.8 - 99.0 05-10-2017 [facility] Temperature [degF] 10:000500 [address] [place] [address] (74565) Height 167.64 cm (no code) cm 01-09-2018 VIKKI Commu nity 12:00-[address] [place] [address] (51312) Height 167.64 cm (no code) cm 08-29-2017 VIKKI Commu nity 15:40-[address] [place] [address] (74027) Height 167.64 cm (no code) cm 07-22-2017 [facility] 12:00-[address] [place] [address] (74402) Height 167.64 cm (no code) cm 05-10-2017 [facility] 10:00-[address] [place] [address] (80093) Weight 67.95 kg (no code) kg 01-09-2018 VIKKI Commun ity 12:00-[address] [place] [address] (98565) Weight 68.13 kg (no code) kg 08-29-2017 VIKKI Commun ity 15:40-[address] [place] [address] (21082) Weight 68.49 kg (no code) kg 07-22-2017 KELLY Hong [facility]ity 12:00-0400 73757 [facility] (95628) Weight 69.22 kg (no code) kg 05-10-2017 KELLY Hong [facility]munity 10:00-0500 78765 [facility] (01337) Interventions No Information Plan of Treatment The data below is from unstructured sources Activity Details Follow Up 3 Months Reason: Activity Details Follow Up prn Reason:filling Activity Details Follow Up prn Reason: Activity Details Follow Up 1 Year Reason: Activity Details Follow Up CONOR Reason: Activity Details Follow Up 2 Months Reason: Goals No Information Social History No Information Functional Status No Information Mental Status No Information Encounters Encounter Normalized Encounter Encounter Diagnosis Care Provi abundio Organization Date Type 11-14-2017 (lab) lab Other injury of KELLY LYNNE (no [facility] unspecified body phone) (no phone) region, initial encounter 11-06-2018 [facility] no information KELLY CHAIDEZSUJIT (no [facility] phone) (no phone) 10-30-2018 [facility] no information KELLY CHAIDEZSUJIT (no [facility] phone) (no phone) 10-13-2018 [facility] no information KELLY LYNNE (no [facility] phone) (no phone) 09-26-2018 [facility] Exercise counseling KELLY VENEGAS RTER (no [facility] phone) (no phone) 09-17-2018 [facility] Exercise counseling KELLY VENEGAS RTER (no [facility] phone) (no phone) 11-14-2017 [facility] Other injury of KELLY LYNNE (no [facility] unspecified body phone) (no phone) region, initial encounter 11-11-2017 [facility] no information VIKKI Yadav (no [facility] phone) KELLY LYNNE (no phone) (no phone) VIKKI DINERO (no phone) KELLY LYNNE (no phone) KELLY LYNNE (no phone) VIKKI DINERO (no phone) 10-24-2017 [facility] no information KELLY LYNNE (no [facility] phone) (no phone) 10-14-2017 [facility] no information VIKKI MAR Yadav (no [facility] phone) (no phone) 10-08-2017 [facility] Hypothyroidism, KELLY LYNNE (no [facility] unspecified phone) (no phone) 11-14-2017 Patient encounter no information no name no or ganization name 09-09-2017 Patient encounter no information no name no or ganization name - 09-09-2017 08-29-2017 Patient encounter no information no name no or ganization name 07-22-2017 Patient encounter no information no name no or ganization name 05-17-2017 Patient encounter no information no name no or ganization name NEGATED Patient encounter no information no name no or ganization name 04-01-2017 NEGATED Patient encounter no information no name no or ganization name 06-24-2015 03-02-2015 Patient encounter no information no name no or ganization name NEGATED Patient encounter no information no name no or ganization name 10-01-2019 Patient encounter no information JULIA E SEALS DO ( no [facility] procedure phone) [facility] (no phone) 09-28-2019 Patient encounter no information JULIA E SEALS DO ( no [facility] procedure phone) [facility] (no phone) 09-28-2019 Patient encounter no information KELLY LYNNE ([facility]) (no phone) [facility] (no phone) 09-25-2019 Patient encounter no information KELLY LYNNE (n o [facility] procedure phone) (no phone) [facility] (no phone) 08-25-2019 Patient encounter no information DEVORA WESTON MD [facility] procedure (no phone) [facility] (no phone) 07-16-2019 Patient encounter no information KELLY LYNNE [facility]) [facility] (no phone) 06-24-2019 Patient encounter no information KELLY LYNNE ([facility]) [facility] (no phone) 05-13-2019 Patient encounter no information KELLY LYNNE MD (no [facility] procedure phone) [facility] (no phone) 05-11-2019 Patient encounter no information no name no or ganization name procedure 02-20-2019 Patient encounter no information no name no or ganization name procedure 02-16-2019 Patient encounter no information no name no or ganization name - procedure 02-16-2019 01-16-2019 Patient encounter no information no name no or ganization name procedure 01-16-2019 Patient encounter no information no name no or ganization name procedure 01-12-2019 Patient encounter no information no name no or ganization name - procedure 01-13-2019 01-12-2019 Patient encounter no information no name no or ganization name - procedure 01-13-2019 01-08-2019 Patient encounter no information no name no or ganization name procedure 01-08-2019 Patient encounter no information no name no or ganization name procedure 01-08-2019 Patient encounter no information no name no or ganization name procedure 11-06-2018 Patient encounter no information no name no or ganization name procedure 10-30-2018 Patient encounter no information no name no or ganization name procedure 10-29-2018 Patient encounter Encounter for JULIA PACKER (no justyna ne) [facility] - procedure gynecological (no phone) 10-29-2018 examination (general) (routine) without abnormal findings 10-13-2018 Patient encounter no information no name no or ganization name procedure 09-26-2018 Patient encounter no information no name no or ganization name procedure 09-17-2018 Patient encounter no information no name no or ganization name procedure 09-10-2018 Patient encounter no information no name no or ganization name procedure 09-08-2018 Patient encounter no information no name no or ganization name procedure 12-08-2018 Telephone encounter no information VIKKI DINERO (no [facility] phone) (no phone) 10-14-2018 Telephone encounter Encounter for other KELLY FOWLER (no [facility] screening for phone) (no phone) malignant neoplasm of breast 10-08-2018 Telephone encounter Hypothyroidism, VIKKI DINERO (no [facility] unspecified phone) KELLY LYNNE (no phone) (no phone) 09-10-2018 Telephone encounter Other chronic pain [facility]LLY Billingsley [facility] (no phone) no information Encounter for dental no name no organi zation name examination and cleaning without abnormal findings Medical Equipment No Information Payers Normalized Payer Value Private Health Insurance no information Self-pay no information Summary Purpose eClinicalWorks SubmissioneClinicalWorks SubmissioneClinicalWorks SubmissioneClinicalWorks SubmissioneClinicalWorks SubmissioneClinicalWorks SubmissioneClinicalWorks SubmissioneClinicalWorks SubmissioneClinicalWorks SubmissioneClinicalWorks SubmissioneClinicalWorks SubmissioneClinicalWorks SubmissioneClinicalWorks SubmissioneClinicalWorks SubmissioneClinicalWorks SubmissioneClinicalWorks SubmissioneClinicalWorks SubmissioneClinicalWorks SubmissioneClinicalWorks Submission Additional Source Comments This clinical document has been generated using [employer] [employer] software that has been certified by the Office of the National Coordinator for Health Information Technology (ONC 15.99.04.3023.Diam.[id number]) and the National Committee for Dietary Services Director (NCQA, as an eMeasure certified technology). FOR RECORDS PERTAINING TO PATIENTS WHO ARE OR HAVE BEEN ENROLLED IN A CHEMICAL D EPENDENCY/SUBSTANCE ABUSE PROGRAM, SOME INFORMATION MAY BE OMITTED. This clinica l summary was aggregated from multiple sources. Caution should be exercised in using it in the provision of clinical care. This summary normalizes information from multiple sources, and as a consequence, information in this document may ma terially change the coding, format and clinical context of patient data. In ana tion, data may be omitted in some cases. CLINICAL DECISIONS SHOULD BE BASED ON T HE PRIMARY CLINICAL RECORDS. [employer] provides no warranty or guara ntee of the accuracy or completeness of information in this document.The followi ng information is based on time limited clinical information UNRECOGNIZED CONTENT PROVIDED BELOW FOR UNRECOGNIZED SECTION MEDICAL (GENERAL) HISTORY Type Description Date Medical History Systemic lupus eryth ematosus, unspecified Medical History Hypothyroidism, unspecifie d Surgical History inguinal hernia repair Surgical History section Surgical History cholecystectomy Surgical History ovarian cyst resection Hospitalization History [place] Hospitalization History pylenephritis UNRECOGNIZED CONTENT PROVIDED BELOW FOR UNRECOGNIZED SECTION REASON FOR VISIT Back painStimulant refillTramadolLab (walk-in)concerta BH f/u JjournotRN, mood / anxiety / adhdMedication questionMedication questionFlu shot-twooden,RMAHep Aco ncerta 03/04/1822DZC-[id number]-Migconcerta 07/08/18Medication refill request
--- OUTSIDE RECORDS SUMMARY | 2019-10-05 06:18 | XMS REPORT ---
Author Author Meaghan DINERO [facility] Address [address] [place] [address] Care Team Providers Care Partner Integration Planner Name Role Phone VIKKI DINERO Unavailable PROBLEMS Type Condition ICD9-CM Code QXA84-GW Code Onset Dates Condition S tatus SNOMED Code Problem Hypothyroid E03.9 Active 96812026 Problem Systemic lupus M32.9 Active 55532 009 Problem PTSD (post-traumatic stress disorder) F43.10 Active 20838919 Problem Major depressive disorder, recurrent episode, severe F33.2 Active 008972222045 Problem ADHD, predominantly inattentive type F90.0 Active 10850133 Problem Lumbago with sciatica, right side M54.41 Active 94480260 Problem Social anxiety disorder F40.10 Active 78060527 Problem Other chronic pain G89.29 Active 8 7541434 Problem Irregular menses N92.6 Active 801 39360 Problem Moderate episode of recurrent major depressive disorder F33.1 Active 025993725 Problem Pure hypercholesterolemia E78.00 Acti ve 111587866 Problem Rosacea L71.9 Active 752472975 Problem Lumbago with sciatica, left side M54.42 Active 73449852 ALLERGIES No Information ENCOUNTERS Encounter Location Date Diagnosis [facility] [address] [facility] [id number] [address] [place] [address] Nov, [facility] [address] [facility] [id number] [address] [place] [address] Oct, [facility] [address] [facility] [id number] [address] [place] [address] Oct, [address] [address] Oct, Breast cancer screening Z12.[address] [address] Oct, Well woman exam with routine gynecologic al exam Z01.419 and Breakthrough bleeding on control pills N92.1 [facility] [address] [id number] [address] [place] [address] Sep, Breast cancer screening Z12. 39 [facility] [address] [id number] [address] [place] [address] Sep, [facility] [address] [facility] [id number] [address] [place] [address] Sep, Hypothyroid E03.9 [facility] [address] [id number] [address] [place] [address] Sep, [facility] [address] [id number] [address] [place] [address] Sep, Exercise counseling Z71.82 [facility] [address] [id number] [address] [place] [address] August, Exercise counseling Z71.82 [facility] [address] [id number] [address] [place] [address] August, Lumbago with sciatica, right side M54.41 and Lumbago with sciatica, left side M54.42 [facility] [address] [id number] [address] [place] [address] August, Other chronic pain G89.29 ; Lumbago with sciatica, right side M54.41 and Lumbago with sciatica, left side M54.42 [facility] [address] [id number] [address] [place] [address] August, Exercise counseling Z71.82 [facility] [address] [id number] [address] [place] [address] August, [facility] [address] [id number] [address] [place] [address] August, [facility] [address] [facility] [id number] [address] [place] [address] Jul, [facility] [address] [id number] [address] [place] [address] Jul, Lumbar radiculopathy M54.16 [facility] [address] [id number] [address] [place] [address] Jun, [facility] [address] [id number] [address] [place] [address] Jun, [facility] [address] [id number] [address] [place] [address] Jun, [facility] [address] [id number] [address] [place] [address] May, [facility] [address] [id number] [address] [place] [address] Apr, [facility] [address] [id number] [address] [place] [address] Feb, [facility] [address] [id number] [address] [place] [address] Feb, Encounter for immunization Z 23 [facility] [address] [id number] [address] [place] [address] Jan, [facility] [address] [id number] [address] [place] [address] Jan, Encounter for immunization Z 23 [facility] [address] [id number] [address] [place] [address] Jan, [facility] [address] [id number] [address] [place] [address] Jan, [facility] [address] [id number] [address] [place] [address] Dec, [facility] [address] [id number] [address] [place] [address] Dec, Moderate episode of recurren t major depressive disorder F33.1 ; ADHD, predominantly inattentive type F90.0 ; PTSD (post-traumatic stress disorder) F43.10 and Social anxiety disorder F40.10 [facility] [address] [id number] [address] [place] [address] Nov, [facility] [address] [id number] [address] [place] [address] Oct, Bruise T14.8XXA [facility] [address] [id number] [address] [place] [address] Oct, Bruise T14.8XXA [facility] [address] [id number] [address] [place] [address] Oct, [facility] [address] [id number] [address] [place] [address] Oct, [facility] [address] [id number] [address] [place] [address] Oct, [facility] [address] [id number] [address] [place] [address] Sep, [facility] [address] [id number] [address] [place] [address] Sep, Hypothyroid E03.9 [facility] [address] [id number] [address] [place] [address] Sep, [facility] [address] [id number] [address] [place] [address] Sep, [facility] [address] [id number] [address] [place] [address] August, [facility] [address] [id number] [address] [place] [address] August, PTSD (post-traumatic stress disorder) F43.10 ; Moderate episode of recurrent major depressive disorder F33.1 ; ADHD, predominantly inattentive type F90.0 and Social anxiety disorder F40.10 [facility] [address] [id number] [address] [place] [address] August, [facility] [address] [id number] [address] [place] [address] August, [facility] [address] [id number] [address] [place] [address] Jul, [facility] [address] [id number] [address] [place] [address] Jul, [facility] [address] [id number] [address] [place] [address] Jul, Rosacea L71.9 [facility] [address] [id number] [address] [place] [address] Jun, PTSD (post-traumatic stress disorder) F43.10 [facility] [address] [id number] [address] [place] [address] Jun, [facility] [address] [id number] [address] [place] [address] Jun, [facility] [address] [id number] [address] [place] [address] Jun, [facility] [address] [id number] [address] [place] [address] Jun, [facility] [address] [facility] [id number] [address] [place] [address] Apr, [facility] [address] [id number] [address] [place] [address] Apr, Hypothyroid E03.9 ; Pure hyp ercholesterolemia E78.00 and Systemic lupus M32.9 [facility] [address] [id number] [address] [place] [address] Apr, Hypothyroid E03.9 ; Systemic lupus M32.9 and Pure hypercholesterolemia E78.00 [facility] [address] [id number] [address] [place] [address] Apr, [facility] [address] [facility] [id number] [address] [place] [address] Mar, [facility] [address] [place] [id number] [address] [place] [address] 07 Mar, 2017 Pulsatile neck mass R22.1 [facility] [address] [place] [id number] [address] [place] [address] Feb, [facility] [address] [place] [id number] [place] [address] Feb, Contact dermatitis and eczem a due to plant L24.7 [facility] [address] [place] [id number] [address] [place] [address] Feb, Systemic lupus M32.9 [facility] [address] [place] [id number] [address] [place] [address] Jan, [place] [address] [address] Jan, Dental examination Z01.20 [place] [address] [place] [id number] [address] [place] [address] 06 Jan, 2017 Encounter for immunization Z 23 [place] [address] [place] [id number] [address] [place] [address] 20 Dec, 2016 [place] [address] [address] Nov, Hypothyroid E03.9 [place] [address] [place] [id number] [address] [place] [address] Nov, PTSD (post-traumatic stress disorder) F43.10 ; ADHD, predominantly inattentive type F90.0 ; Social anxiety disorder F40.10 and Moderate episode of recurrent major depressive disorder F33.1 [place] [address] [place] [id number] [address] [place] [address] Nov, ADHD, predominantly inattent marzena type F90.0 [place] [address] [place] [id number] [address] [place] [address] Oct, Acquired hypothyroidism E03. 9 [facility] [address] [id number] [address] [place] [address] Oct, ADHD, predominantly inattent marzena type F90.0 [facility] [address] [id number] [address] [place] [address] Oct, Acquired hypothyroidism E03. 9 [facility] [address] [facility] [id number] [address] [place] [address] Sep, Well woman exam Z01.419 ; Sy stemic lupus M32.9 ; Irregular menses N92.6 ; PTSD (post-traumatic stress disorder) F43.10 ; Social anxiety disorder F40.10 ; ADHD, predominantly inattentive type F90.0 ; Hypothyroid E03.9 and Generalized headaches R51 [facility] [address] [id number] [address] [place] [address] August, ADHD, predominantly inattent marzena type F90.0 [facility] [address] [id number] [address] [place] [address] August, [facility] [address] [id number] [address] [place] [address] Jul, [facility] [address] [id number] [address] [place] [address] Jun, [facility] [address] [facility] [id number] [address] [place] [address] Jun, Hypothyroid E03.9 [facility] [address] [facility] [id number] [address] [place] [address] Jun, ADHD, predominantly inattent marzena type F90.0 and Social anxiety disorder F40.10 [facility] [address] [facility] [id number] [address] [place] [address] Jun, [facility] [address] [facility] [id number] [address] [place] [address] Jun, [facility] [address] [id number] [address] [place] [id number] May, Dental examination Z01.20 [facility] [address] [id number] [address] [place] [address] 14 May, 2016 ADHD, predominantly inattent marzena type F90.0 ; Recurrent major depressive disorder, in partial remission F33.41 ; Social anxiety disorder F40.10 and PTSD (post-traumatic stress disorder) F43.10 [facility] [address] [id number] [address] [place] [address] Apr, Social anxiety disorder F40. 10 [facility] [address] [id number] [address] [place] [address] Apr, ADHD, predominantly inattent marzena type F90.0 [facility] [address] [id number] [address] [place] [address] Apr, [facility] [address] [id number] [address] [place] [address] Apr, [facility] [address] [id number] [address] [place] [address] Mar, Dental examination Z01.20 [facility] [address] [id number] [address] [place] [address] Mar, [facility] [address] [id number] [address] [place] [address] Feb, [facility] [address] [id number] [address] [place] [address] Feb, [facility] [address] [id number] [address] [place] [address] Jan, Encounter for immunization Z 23 [facility] [address] [id number] [address] [place] [address] Jan, [facility] [address] [id number] [address] [place] [address] Jan, [facility] [address] [id number] [address] [place] [address] Jan, Dental examination Z01.20 [facility] [address] [id number] [address] [place] [address] Jan, [facility] [address] [id number] [address] [place] [address] Jan, Dental examination Z01.20 [facility] [address] [id number] [address] [place] [address] Jan, [facility] [address] [id number] [address] [place] [address] Dec, [facility] [address] [id number] [address] [place] [id number] Dec, Dental examination Z01.20 [facility] [address] [id number] [address] [place] [address] Nov, [facility] [address] [id number] [address] [place] [address] Nov, Social anxiety disorder F40. 10 ; PTSD (post-traumatic stress disorder) F43.10 and ADHD, predominantly inattentive type F90.0 [facility] [address] [id number] [address] [place] [address] Oct, Social anxiety disorder F40. 10 [facility] [address] [id number] [address] [place] [address] Oct, Hypothyroidism, unspecified type E03.9 [facility] [address] [id number] [address] [place] [address] Oct, Hypothyroid E03.9 [facility] [address] [id number] [address] [place] [address] Oct, Hypothyroid E03.9 [facility] [address] [facility] [id number] [address] [place] [address] Sep, Hypothyroid E03.9 [facility] [address] [id number] [address] [place] [address] 14 Sep, 2015 [facility] [address] [id number] [address] [place] [address] Sep, ADHD, predominantly inattent marzena type F90.0 [facility] [address] [id number] [address] [place] [address] Jul, ADHD, predominantly inattent marzena type F90.0 [facility] [address] [id number] [address] [place] [address] Jun, [facility] [address] [id number] [address] [place] [address] Jun, Major depressive disorder, r ecurrent episode, severe F33.2 ; ADHD, predominantly inattentive type F90.0 ; PTSD (post-traumatic stress disorder) F43.10 and Social anxiety disorder F40.10 [place] [address] [id number] [address] [place] [address] Jun, [facility] [address] [facility] [id number] [address] [place] [address] May, Encounter for screening mamm ogram for breast cancer Z12.31 [facility] [address] [id number] [address] [place] [address] 15 May, 2015 [facility] [address] [id number] [address] [place] [address] May, [facility] [address] [id number] [address] [place] [address] May, Major depressive disorder, r ecurrent episode, severe F33.2 ; PTSD (post-traumatic stress disorder) F43.10 ; Social anxiety disorder F40.10 and ADHD, predominantly inattentive type F90.0 [facility] [address] [id number] [address] [place] [address] Apr, [facility] [address] [id number] [address] [place] [address] Mar, [facility] [address] [id number] [place] [address] Mar, Major depressive disorder, r ecurrent episode, severe F33.2 ; PTSD (post-traumatic stress disorder) F43.10 ; Social anxiety disorder F40.10 and ADHD, predominantly inattentive type F90.0 [facility] [address] [place] [id number] [place] [address] Feb, [facility] [address] [address] Feb, [facility] [address] [address] Feb, [facility] [address] [address] Feb, Lupus M32.9 ; Hypothyroid E0 3.9 and Irregular menses N92.6 [facility] [address] [address] Feb, Lupus M32.9 and Hypothyroid E03.9 [facility] [address] [address] Jan, Encounter for immunization Z 23 [facility] [address] [address] Jul, [facility] [address] [address] Jul, [facility] [address] [address] Feb, [facility] [address] [address] Feb, [facility] [address] [address] Feb, [facility] [address] [place] [id number] [place] [address] Feb, [facility] [address] [address] August, [facility] [address] [id number] [address] [place] [address], [place] [address] Jun, [facility] [address] [id number] [address] [place] [address], [place] [address] Jun, [facility] [address] [id number] [address] [place] [address], [place] [address] Jun, [facility] [address] [id number] [address] [place] [address], [place] [address] Jun, [facility] [address] [id number] [address] [place] [address], [place] [address] May, [facility] [address] [id number] [address] [place] [address], [place] [address] May, [facility] [address] [id number] [address] [place] [address], [place] [address] May, [facility] [address] [id number] [address] [place] [address], [place] [address] May, [facility] [address] [id number] [address] [place] [address], [place] [address] Mar, [facility] [address] [id number] [address] [place] [address] Jan, [facility] [address] [id number] [address] [place] [address], [place] [address] Jan, [facility] [address] [id number] [address] [place] [address] Jan, [facility] [address] [id number] [address] [place] [address] Jan, [facility] [address] [id number] [address] [place] [address] Jan, [facility] [address] [id number] [address] [place] [address] Jan, IMMUNIZATIONS No Known Immunizations SOCIAL HISTORY Never Assessed REASON FOR VISIT Medication refill request PLAN OF CARE VITAL SIGNS MEDICATIONS Medication Instructions Dosage Frequency Start Date End Date Duration S tito Lamictal 200 mg Orally Once a day 1 tablet 24h 90 da ys Active RESULTS No Results PROCEDURES No Known procedures INSTRUCTIONS MEDICATIONS ADMINISTERED No Known Medications MEDICAL (GENERAL) HISTORY Type Description Date Medical History Systemic lupus erythematosus, unspecifie d Medical History Hypothyroidism, unspecified Surgical History inguinal hernia repair Surgical History section Surgical History cholecystectomy Surgical History ovarian cyst resection Hospitalization History dystonia Hospitalization History pylenephritis
--- OUTSIDE RECORDS SUMMARY | 2019-10-05 06:18 | XMS REPORT ---
Author Author Meaghan Parra [facility] [employer] [facility] Address [address] [place] [address] Care Team Providers Care Corporate Accounting Manager Name Role Phone MAYCOL Parra Unavailable PROBLEMS Type Condition ICD9-CM Code CXL31-HI Code Onset Dates Condition S tatus SNOMED Code Problem Hypothyroid E03.9 Active 09775088 Problem Systemic lupus M32.9 Active 83730 009 Problem PTSD (post-traumatic stress disorder) F43.10 Active 58783333 Problem Major depressive disorder, recurrent episode, severe F33.2 Active 345120469205 Problem ADHD, predominantly inattentive type F90.0 Active 75580795 Problem Lumbago with sciatica, right side M54.41 Active 74897375 Problem Social anxiety disorder F40.10 Active 33198688 Problem Other chronic pain G89.29 Active 8 6132718 Problem Irregular menses N92.6 Active 801 06484 Problem Moderate episode of recurrent major depressive disorder F33.1 Active 066051018 Problem Pure hypercholesterolemia E78.00 Acti ve 052569127 Problem Rosacea L71.9 Active 411726676 Problem Lumbago with sciatica, left side M54.42 Active [id number] ALLERGIES No Information ENCOUNTERS Encounter Location Date Diagnosis [facility] [address] [facility] [id number] [address] [place] [id number] Oct, [facility] [address] [facility] [id number] [address] [place] [id number] Oct, [address] [address] Oct, Breast cancer screening Z12.[address] [address] Oct, Well woman exam with routine gynecologic al exam Z01.419 and Breakthrough bleeding on control pills N92.1 [facility] [address] [id number] [address] [place] [id number] Sep, Breast cancer screening Z12. 39 [facility] [address] [id number] [address] [place] [id number] Sep, [facility] [address] [facility] [id number] [address] [place] [id number] Sep, Hypothyroid E03.9 [facility] [address] [id number] [address] [place] [id number] Sep, [facility] [address] [facility] [id number] [address] [place] [id number] Sep, Exercise counseling Z71.82 [facility] [address] [facility] [id number] [address] [place] [id number] August, Exercise counseling Z71.82 [facility] [address] [facility] [id number] [address] [place] [id number] August, Lumbago with sciatica, right side M54.41 and Lumbago with sciatica, left side M54.42 [facility] [address] [facility] [id number] [address] [place] [id number] August, Other chronic pain G89.29 ; Lumbago with sciatica, right side M54.41 and Lumbago with sciatica, left side M54.42 [facility] [address] [facility] [id number] [address] [place] [id number] August, Exercise counseling Z71.82 [facility] [address] [facility] [id number] [address] [place] [id number] August, [facility] [address] [facility] [id number] [address] [place] [id number] August, [facility] [address] [facility] [id number] [address] [place] [id number] Jul, [facility] [address] [facility] [id number] [address] [place] [id number] Jul, Lumbar radiculopathy M54.16 [facility] [address] [id number] [address] [place] [id number] Jun, [facility] [address] [id number] [address] [place] [id number] Jun, [facility] [address] [id number] [address] [place] [id number] Jun, [facility] [address] [id number] [address] [place] [id number] May, [facility] [address] [id number] [address] [place] [id number] Apr, [facility] [address] [id number] [address] [place] [id number] Feb, [facility] [address] [id number] [address] [place] [phone] Feb, Encounter for immunization Z 23 [facility] [address] [id number] [address] [place] [id number] Jan, [facility] [address] [id number] [address] [place] [id number] Jan, Encounter for immunization Z 23 [facility] [address] [facility] [id number] [address] [place] [id number] Jan, [facility] [address] [id number] [address] [place] [id number] Jan, [facility] [address] [id number] [address] [place] [id number] Dec, [facility] [address] [facility] [id number] [address] [place] [id number] Dec, Moderate episode of recurren t major depressive disorder F33.1 ; ADHD, predominantly inattentive type F90.0 ; PTSD (post-traumatic stress disorder) F43.10 and Social anxiety disorder F40.10 [facility] [address] [id number] [address] [place] [id number] Nov, [facility] [address] [id number] [address] [place] [id number] Oct, Bruise T14.8XXA [facility] [address] [id number] [address] [place] [id number] Oct, Bruise T14.8XXA [facility] [address] [id number] [address] [place] [id number] Oct, [facility] [address] [id number] [address] [place] [id number] Oct, [facility] [address] [id number] [address] [place] [id number] Oct, [facility] [address] [id number] [address] [place] [id number] Sep, [facility] [address] [id number] [address] [place] [id number] Sep, Hypothyroid E03.9 [facility] [address] [id number] [address] [place] [id number] Sep, [facility] [address] [id number] [address] [place] [phone] Sep, [facility] [address] [id number] [address] [place] [id number] August, [facility] [address] [id number] [address] [place] [id number] August, PTSD (post-traumatic stress disorder) F43.10 ; Moderate episode of recurrent major depressive disorder F33.1 ; ADHD, predominantly inattentive type F90.0 and Social anxiety disorder F40.10 [facility] [address] [id number] [address] [place] [id number] August, [facility] [address] [facility] [id number] [address] [place] [id number] August, [facility] [address] [id number] [address] [place] [id number] Jul, [facility] [address] [id number] [address] [place] [id number] Jul, [facility] [address] [id number] [address] [place] [id number] Jul, Rosacea L71.9 [facility] [address] [id number] [address] [place] [id number] Jun, PTSD (post-traumatic stress disorder) F43.10 [facility] [address] [id number] [address] [place] [id number] Jun, [facility] [address] [id number] [address] [place] [id number] Jun, [facility] [address] [id number] [address] [place] [id number] Jun, [facility] [address] [id number] [address] [place] [id number] Jun, [facility] [address] [id number] [address] [place] [id number] Apr, [facility] [address] [id number] [address] [place] [id number] Apr, Hypothyroid E03.9 ; Pure hyp ercholesterolemia E78.00 and Systemic lupus M32.9 [facility] [address] [id number] [address] [place] [id number] Apr, Hypothyroid E03.9 ; Systemic lupus M32.9 and Pure hypercholesterolemia E78.00 [facility] [address] [id number] [address] [place] [id number] Apr, [facility] [address] [id number] [address] [place] [id number] Mar, [facility] [address] [id number] [address] [place] [id number] Mar, Pulsatile neck mass R22.1 [facility] [address] [place] [id number] [address] [place] [id number] Feb, [facility] [address] [id number] [address] [place] [phone] Feb, Contact dermatitis and eczem a due to plant L24.7 [facility] [address] [address] [id number] [place] [phone] Feb, Systemic lupus M32.9 [facility] [address] [id number] [address] [place] [phone] Jan, [place] [address] [place] [id number] [place] [phone] Jan, Dental examination Z01.20 [place] [address] [place] [id number] [place] [phone] 06 Jan, 2017 Encounter for immunization Z 23 [facility] [address] [address] [id number] [address] [place] [id number] 20 Dec, 2016 [place] [address] [place] [id number] [place] [phone] Nov, Hypothyroid E03.9 [place] [address] [place] [id number] [address] [place] [id number] Nov, PTSD (post-traumatic stress disorder) F43.10 ; ADHD, predominantly inattentive type F90.0 ; Social anxiety disorder F40.10 and Moderate episode of recurrent major depressive disorder F33.1 [facility] [address] [id number] [address] [place] [id number] Nov, ADHD, predominantly inattent marzena type F90.0 [facility] [address] [place] [id number] [address] [place] [id number] Oct, Acquired hypothyroidism E03. 9 [facility] [address] [address] [id number] [address] [place] [id number] Oct, ADHD, predominantly inattent marzena type F90.0 [facility] [address] [id number] [address] [place] [id number] Oct, Acquired hypothyroidism E03. 9 [facility] [address] [id number] [address] [place] [id number] Sep, Well woman exam Z01.419 ; Sy stemic lupus M32.9 ; Irregular menses N92.6 ; PTSD (post-traumatic stress disorder) F43.10 ; Social anxiety disorder F40.10 ; ADHD, predominantly inattentive type F90.0 ; Hypothyroid E03.9 and Generalized headaches R51 [facility] [address] [id number] [address] [place] [id number] August, ADHD, predominantly inattent marzena type F90.0 [facility] [address] [id number] [address] [place] [phone] August, [facility] [address] [id number] [address] [place] [id number] Jul, [facility] [address] [id number] [address] [place] [id number] Jun, [facility] [address] [id number] [address] [place] [id number] Jun, Hypothyroid E03.9 [facility] [address] [id number] [address] [place] [id number] Jun, ADHD, predominantly inattent marzena type F90.0 and Social anxiety disorder F40.10 [facility] [address] [id number] [address] [place] [phone] Jun, [facility] [address] [id number] [address] [place] [id number] Jun, [facility] [address] [id number] [address] [place] [id number] May, Dental examination Z01.20 [facility] [address] [id number] [address] [place] [id number] 14 May, 2016 ADHD, predominantly inattent marzena type F90.0 ; Recurrent major depressive disorder, in partial remission F33.41 ; Social anxiety disorder F40.10 and PTSD (post-traumatic stress disorder) F43.10 [facility] [address] [id number] [address] [place] [id number] Apr, Social anxiety disorder F40. 10 [facility] [address] [id number] [address] [place] [id number] Apr, ADHD, predominantly inattent marzena type F90.0 [facility] [address] [id number] [address] [place] [phone] Apr, [facility] [address] [id number] [address] [place] [id number] Apr, [facility] [address] [id number] [address] [place] [id number] Mar, Dental examination Z01.20 [facility] [address] [id number] [address] [place] [id number] Mar, [facility] [address] [id number] [address] [place] [phone] Feb, [facility] [address] [id number] [address] [place] [id number] Feb, [facility] [address] [id number] [address] [place] [id number] Jan, Encounter for immunization Z 23 [facility] [address] [id number] [address] [place] [phone] Jan, [facility] [address] [id number] [address] [place] [id number] Jan, [facility] [address] [id number] [address] [place] [id number] Jan, Dental examination Z01.20 [facility] [address] [id number] [address] [place] [id number] Jan, [facility] [address] [id number] [address] [place] [id number] Jan, Dental examination Z01.20 [facility] [address] [id number] [address] [place] [id number] 13 Jan, 2016 [facility] [address] [id number] [address] [place] [id number] 16 Dec, 2015 [facility] [address] [id number] [address] [place] [id number] 16 Dec, 2015 Dental examination Z01.20 [facility] [address] [id number] [address] [place] [id number] 31 Nov, 2015 [facility] [address] [id number] [address] [place] [id number] Nov, Social anxiety disorder F40. 10 ; PTSD (post-traumatic stress disorder) F43.10 and ADHD, predominantly inattentive type F90.0 [facility] [address] [id number] [address] [place] [id number] Oct, Social anxiety disorder F40. 10 [facility] [address] [facility] [id number] [address] [place] [id number] Oct, Hypothyroidism, unspecified type E03.9 [facility] [address] [id number] [address] [place] [id number] Oct, Hypothyroid E03.9 [facility] [address] [id number] [address] [place] [id number] Oct, Hypothyroid E03.9 [facility] [address] [facility] [id number] [address] [place] [id number] Sep, Hypothyroid E03.9 [facility] [address] [facility] [id number] [address] [place] [id number] 14 Sep, 2015 [facility] [address] [facility] [id number] [address] [place] [id number] Sep, ADHD, predominantly inattent marzena type F90.0 [facility] [address] [id number] [address] [place] [id number] Jul, ADHD, predominantly inattent marzena type F90.0 [facility] [address] [id number] [address] [place] [id number] Jun, [facility] [address] [id number] [address] [place] [id number] Jun, Major depressive disorder, r ecurrent episode, severe F33.2 ; ADHD, predominantly inattentive type F90.0 ; PTSD (post-traumatic stress disorder) F43.10 and Social anxiety disorder F40.10 [facility] [address] [id number] [address] [place] [phone] Jun, [facility] [address] [facility] [id number] [address] [place] [id number] May, Encounter for screening mamm ogram for breast cancer Z12.31 [facility] [address] [id number] [address] [place] [id number] 15 May, 2015 [facility] [address] [id number] [address] [place] [id number] May, [facility] [address] [facility] [id number] [address] [place] [id number] May, Major depressive disorder, r ecurrent episode, severe F33.2 ; PTSD (post-traumatic stress disorder) F43.10 ; Social anxiety disorder F40.10 and ADHD, predominantly inattentive type F90.0 [facility] [address] [id number] [address] [place] [id number] Apr, [facility] [address] [facility] [id number] [address] [place] [phone] Mar, [facility] [address] [id number] [address] [place] [id number] Mar, Major depressive disorder, r ecurrent episode, severe F33.2 ; PTSD (post-traumatic stress disorder) F43.10 ; Social anxiety disorder F40.10 and ADHD, predominantly inattentive type F90.0 [facility] [address] [address] Feb, [facility] [address] [id number] Feb, [facility] [address] [id number] Feb, [facility] [address] [id number] Feb, Lupus M32.9 ; Hypothyroid E0 3.9 and Irregular menses N92.6 [facility] [address] [id number] Feb, Lupus M32.9 and Hypothyroid E03.9 [facility] [address] [id number] Jan, Encounter for immunization Z 23 [facility] [address] [id number] 14 Jul, 2014 [facility] [address] [id number] Jul, [facility] [address] [id number] Feb, [facility] [address] [id number] Feb, [facility] [address] [id number] Feb, [facility] [address] [id number] Feb, [facility] [address] [id number] August, [facility] [address] [id number] [address] [place] [id number] Jun, [facility] [address] [id number] [address] [place] [id number] Jun, [facility] [address] [id number] [address] [place] [id number] Jun, [facility] [address] [id number] [address] [place] [id number] 16 Jun, 2011 [facility] [address] [id number] [address] [place] [id number] May, [facility] [address] [id number] [address] [place] [id number] May, [facility] [address] [id number] [address] [place] [phone] May, [facility] [address] [id number] [address] [place] [id number] May, [facility] [address] [id number] [address] [place] [id number] Mar, [facility] [address] [id number] [address] [place] [id number] Jan, [facility] [address] [id number] [address] [place] [id number] Jan, [facility] [address] [id number] [address] [place] [id number] Jan, [facility] [address] [id number] [address] [place] [id number] Jan, [facility] [address] [id number] [address] [place] [phone] Jan, [facility] [address] [id number] [address] [place] [phone] Jan, IMMUNIZATIONS No Known Immunizations SOCIAL HISTORY Never Assessed REASON FOR VISIT PLAN OF CARE VITAL SIGNS MEDICATIONS Unknown Medications RESULTS No Results PROCEDURES No Known procedures INSTRUCTIONS MEDICATIONS ADMINISTERED No Known Medications MEDICAL (GENERAL) HISTORY Type Description Date Medical History Systemic lupus erythematosus, unspecifie d Medical History Hypothyroidism, unspecified Surgical History inguinal hernia repair Surgical History section Surgical History cholecystectomy Surgical History ovarian cyst resection Hospitalization History dystonia Hospitalization History pylenephritis
--- OUTSIDE RECORDS SUMMARY | 2019-10-05 06:19 | XMS REPORT ---
Author Author Meaghan DINERO [facility] Address [address] [place] [address] Care Team Providers Care Shoeshiner Name Role Phone VIKKI DINERO Unavailable PROBLEMS Type Condition ICD9-CM Code RNU54-DN Code Onset Dates Condition S tatus SNOMED Code Problem Hypothyroid E03.9 Active 59354543 Problem Social anxiety disorder F40.10 Active 53609354 Problem Systemic lupus M32.9 Active 33140 009 Problem Irregular menses N92.6 Active 801 07123 Problem Rosacea L71.9 Active 032353330 Problem Pure hypercholesterolemia E78.00 Acti ve 417265242 Problem Major depressive disorder, recurrent episode, severe F33.2 Active 600963675892 Problem PTSD (post-traumatic stress disorder) F43.10 Active 05728852 Problem Moderate episode of recurrent major depressive disorder F33.1 Active 841049984 Problem ADHD, predominantly inattentive type F90.0 Active 17239791 ALLERGIES No Information ENCOUNTERS Encounter Location Date Diagnosis [place] [address] [facility] [id number] [address] [place] [phone] Feb, [facility] [address] [place] [id number] [address] [place] [phone] Feb, Encounter for immunization Z 23 [facility] [address] [facility] [id number] [address] [place] [phone] Jan, [facility] [address] [facility] [id number] [address] [place] [phone] Jan, Encounter for immunization Z 23 [facility] [address] [facility] [id number] [address] [place] [phone] Jan, [facility] [address] [facility] [id number] [address] [place] [phone] Jan, [place] [address] [id number] [address] [place] [phone] Dec, [facility] [address] [id number] [address] [place] [phone] Dec, Moderate episode of recurren t major depressive disorder F33.1 ; ADHD, predominantly inattentive type F90.0 ; PTSD (post-traumatic stress disorder) F43.10 and Social anxiety disorder F40.10 [facility] [address] [id number] [address] [place] [phone] Nov, [facility] [address] [id number] [address] [place] [phone] Oct, Bruise T14.8XXA [facility] [address] [id number] [address] [place] [phone] Oct, Bruise T14.8XXA [facility] [address] [id number] [address] [place] [phone] Oct, [facility] [address] [id number] [address] [place] [id number] Oct, [facility] [address] [id number] [address] [place] [phone] Oct, [facility] [address] [facility] [id number] [address] [place] [phone] Sep, [facility] [address] [id number] [address] [place] [id number] Sep, Hypothyroid E03.9 [facility] [address] [id number] [address] [place] [phone] Sep, [facility] [address] [id number] [address] [place] [id number] Sep, [facility] [address] [facility] [id number] [address] [place] [phone] August, [facility] [address] [id number] [address] [place] [id number] August, PTSD (post-traumatic stress disorder) F43.10 ; Moderate episode of recurrent major depressive disorder F33.1 ; ADHD, predominantly inattentive type F90.0 and Social anxiety disorder F40.10 [facility] [address] [id number] [address] [place] [phone] August, [facility] [address] [id number] [address] [place] [id number] August, [facility] [address] [id number] [address] [place] [id number] Jul, [facility] [address] [id number] [address] [place] [phone] Jul, [facility] [address] [facility] [id number] [address] [place] [id number] Jul, Rosacea L71.9 [facility] [address] [id number] [address] [place] [id number] Jun, PTSD (post-traumatic stress disorder) F43.10 [facility] [address] [id number] [address] [place] [phone] Jun, [facility] [address] [facility] [id number] [address] [place] [id number] Jun, [facility] [address] [id number] [address] [place] [phone] Jun, [facility] [address] [facility] [id number] [address] [place] [phone] Jun, [facility] [address] [id number] [address] [place] [id number] Apr, [facility] [address] [facility] [id number] [address] [place] [phone] Apr, Hypothyroid E03.9 ; Pure hyp ercholesterolemia E78.00 and Systemic lupus M32.9 [facility] [address] [id number] [address] [place] [id number] Apr, Hypothyroid E03.9 ; Systemic lupus M32.9 and Pure hypercholesterolemia E78.00 [facility] [address] [facility] [id number] [address] [place] [phone] Apr, [facility] [address] [facility] [id number] [address] [place] [id number] Mar, [facility] [address] [facility] [id number] [address] [place] [phone] Mar, Pulsatile neck mass R22.1 [facility] [address] [facility] [id number] [address] [place] [phone] Feb, [facility] [address] [place] [id number] [address] [place] [phone] Feb, Contact dermatitis and eczem a due to plant L24.7 [facility] [address] [place] [id number] [address] [place] [phone] Feb, Systemic lupus M32.9 [facility] [address] [facility] [id number] [address] [place] [phone] Jan, [facility] [address] [facility] [id number] [address] [place] [id number] Jan, Dental examination Z01.20 [place] [address] [place] [id number] [address] [place] [id number] Jan, Encounter for immunization Z 23 [facility] [address] [facility] [id number] [address] [place] [id number] Dec, [facility] [address] [facility] [id number] [address] [place] [id number] Nov, Hypothyroid E03.9 [facility] [address] [facility] [id number] [address] [place] [id number] Nov, PTSD (post-traumatic stress disorder) F43.10 ; ADHD, predominantly inattentive type F90.0 ; Social anxiety disorder F40.10 and Moderate episode of recurrent major depressive disorder F33.1 [facility] [address] [id number] [address] [place] [id number] Nov, ADHD, predominantly inattent marzena type F90.0 [facility] [address] [facility] [id number] [address] [place] [phone] Oct, Acquired hypothyroidism E03. 9 [facility] [address] [facility] [id number] [address] [place] [id number] Oct, ADHD, predominantly inattent marzena type F90.0 [facility] [address] [facility] [id number] [address] [place] [id number] Oct, Acquired hypothyroidism E03. 9 [facility] [address] [facility] [id number] [address] [place] [address] Sep, Well woman exam Z01.419 ; Sy stemic lupus M32.9 ; Irregular menses N92.6 ; PTSD (post-traumatic stress disorder) F43.10 ; Social anxiety disorder F40.10 ; ADHD, predominantly inattentive type F90.0 ; Hypothyroid E03.9 and Generalized headaches R51 [facility] [address] [id number] [address] [place] [id number] August, ADHD, predominantly inattent marzena type F90.0 [facility] [address] [facility] [id number] [address] [place] [phone] August, [facility] [address] [facility] [id number] [address] [place] [id number] Jul, [facility] [address] [id number] [address] [place] [id number] Jun, [facility] [address] [facility] [id number] [address] [place] [phone] Jun, Hypothyroid E03.9 [facility] [address] [facility] [id number] [address] [place] [id number] Jun, ADHD, predominantly inattent marzena type F90.0 and Social anxiety disorder F40.10 [facility] [address] [id number] [address] [place] [id number] Jun, [facility] [address] [id number] [address] [place] [phone] Jun, [facility] [address] [id number] [address] [place] [id number] May, Dental examination Z01.20 [facility] [address] [id number] [address] [place] [id number] 14 May, 2016 ADHD, predominantly inattent marzena type F90.0 ; Recurrent major depressive disorder, in partial remission F33.41 ; Social anxiety disorder F40.10 and PTSD (post-traumatic stress disorder) F43.10 [facility] [address] [id number] [address] [place] [id number] Apr, Social anxiety disorder F40. 10 [facility] [address] [id number] [address] [place] [id number] Apr, ADHD, predominantly inattent marzena type F90.0 [facility] [address] [id number] [address] [place] [phone] Apr, [facility] [address] [id number] [address] [place] [id number] Apr, [facility] [address] [id number] [address] [place] [id number] Mar, Dental examination Z01.20 [facility] [address] [id number] [address] [place] [id number] Mar, [facility] [address] [id number] [address] [place] [phone] Feb, [facility] [address] [id number] [address] [place] [id number] Feb, [facility] [address] [id number] [address] [place] [id number] Jan, Encounter for immunization Z 23 [facility] [address] [id number] [address] [place] [phone] Jan, [facility] [address] [id number] [address] [place] [id number] Jan, [facility] [address] [id number] [address] [place] [id number] Jan, Dental examination Z01.20 [facility] [address] [id number] [address] [place] [id number] Jan, [facility] [address] [id number] [address] [place] [id number] Jan, Dental examination Z01.20 [facility] [address] [id number] [address] [place] [id number] Jan, [facility] [address] [id number] [address] [place] [id number] Dec, [facility] [address] [id number] [address] [place] [id number] Dec, Dental examination Z01.20 [facility] [address] [id number] [address] [place] [id number] Nov, [facility] [address] [id number] [address] [place] [id number] Nov, Social anxiety disorder F40. 10 ; PTSD (post-traumatic stress disorder) F43.10 and ADHD, predominantly inattentive type F90.0 [facility] [address] [id number] [address] [place] [id number] Oct, Social anxiety disorder F40. 10 [facility] [address] [id number] [address] [place] [id number] Oct, Hypothyroidism, unspecified type E03.9 [facility] [address] [id number] [address] [place] [phone] Oct, Hypothyroid E03.9 [facility] [address] [id number] [address] [place] [id number] 05 Oct, 2015 Hypothyroid E03.9 [facility] [address] [facility] [id number] [address] [place] [id number] 17 Sep, 2015 Hypothyroid E03.9 [facility] [address] [facility] [id number] [address] [place] [id number] 14 Sep, 2015 [facility] [address] [facility] [id number] [address] [place] [id number] Sep, ADHD, predominantly inattent marzena type F90.0 [facility] [address] [facility] [id number] [address] [place] [id number] Jul, ADHD, predominantly inattent marzena type F90.0 [facility] [address] [facility] [id number] [address] [place] [id number] Jun, [place] [address] [place] [id number] [place] [phone] Jun, Major depressive disorder, r ecurrent episode, severe F33.2 ; ADHD, predominantly inattentive type F90.0 ; PTSD (post-traumatic stress disorder) F43.10 and Social anxiety disorder F40.10 [place] [address] [place] [id number] [address] [place] [id number] Jun, [place] [address] [facility] [id number] [address] [place] [id number] May, Encounter for screening mamm ogram for breast cancer Z12.31 [facility] [address] [facility] [id number] [address] [place] [id number] 15 May, 2015 [facility] [address] [facility] [id number] [address] [place] [id number] May, [facility] [address] [facility] [id number] [address] [place] [id number] May, Major depressive disorder, r ecurrent episode, severe F33.2 ; PTSD (post-traumatic stress disorder) F43.10 ; Social anxiety disorder F40.10 and ADHD, predominantly inattentive type F90.0 [facility] [address] [facility] [id number] [address] [place] [id number] Apr, [facility] [address] [place] [id number] [address] [place] [id number] Mar, [facility] [address] [place] [id number] [place] [phone] Mar, Major depressive disorder, r ecurrent episode, severe F33.2 ; PTSD (post-traumatic stress disorder) F43.10 ; Social anxiety disorder F40.10 and ADHD, predominantly inattentive type F90.0 [facility] [address] [phone] Feb, [facility] [address] [place] [id number] [place] [phone] Feb, [facility] [address] [id number] Feb, [facility] [address] [phone] Feb, Lupus M32.9 ; Hypothyroid E0 3.9 and Irregular menses N92.6 [facility] [address] [place] [id number] [place] [phone] Feb, Lupus M32.9 and Hypothyroid E03.9 [facility] [address] [place] [id number] [place] [phone] Jan, Encounter for immunization Z 23 [facility] [address] [place] [id number] [address] [place] [phone] Jul, [facility] [address] [place] [id number] [place] [phone] Jul, [facility] [address] [place] [id number] [address] [place] [phone] Feb, [facility] [address] [id number] Feb, [facility] [address] [id number] [address] [place] [address], [place] [address] Feb, [facility] [address] [id number] [address] [place] [phone] Feb, [facility] [address] [id number] [address] [place] [address], [place] [address] August, [facility] [address] [id number] [address] [place] [address], [place] [address] Jun, [facility] [address] [id number] [address] [place] [address], [place] [address] Jun, [facility] [address] [id number] [address] [place] [address], [place] [address] Jun, [facility] [address] [id number] [address] [place] [address], [place] [address] Jun, [facility] [address] [id number] [address] [place] [address], [place] [address] May, [facility] [address] [id number] [address] [place] [address], [place] [address] May, [facility] [address] [id number] [address] [place] [address], [place] [address] May, [facility] [address] [id number] [address] [place] [address], [place] [address] May, [facility] [address] [id number] [address] [place] [phone] Mar, [facility] [address] [id number] [address] [place] [address], [place] [address] Jan, [facility] [address] [id number] [address] [place] [phone] Jan, [facility] [address] [id number] [address] [place] [phone] Jan, [facility] [address] [facility] [id number] [address] [place] [phone] Jan, [facility] [address] [facility] [id number] [address] [place] [phone] Jan, [facility] [address] [facility] [id number] [address] [place] [phone] Jan, IMMUNIZATIONS No Known Immunizations SOCIAL HISTORY Never Assessed REASON FOR VISIT concerta 03/04/18 PLAN OF CARE VITAL SIGNS MEDICATIONS Medication Instructions Dosage Frequency Start Date End Date Duration S tatus Concerta 54 MG Orally Once a day for ADHD 1 tablet in the morning Feb, 28 days Active RESULTS No Results PROCEDURES No Known procedures INSTRUCTIONS MEDICATIONS ADMINISTERED No Known Medications MEDICAL (GENERAL) HISTORY Type Description Date Medical History Systemic lupus erythematosus, unspecifie d Medical History Hypothyroidism, unspecified Surgical History inguinal hernia repair Surgical History section Surgical History cholecystectomy Surgical History ovarian cyst resection Hospitalization History dystonia Hospitalization History pylenephritis
--- OUTSIDE RECORDS SUMMARY | 2019-10-05 06:19 | XMS REPORT ---
Author Author Meaghan Holder Doctor Organization [facility] Address Unknown Phone Unavailable Care Team Providers Care Policy Director Name Role Phone Migration, Doctor Unavailable Unavailable PROBLEMS Type Condition ICD9-CM Code [id number] Code Onset Dates Condition S tatus SNOMED Code Problem Hypothyroid E03.9 Active 15557543 Problem Systemic lupus M32.9 Active 57039 009 Problem Social anxiety disorder F40.10 Active 48792683 Problem Pure hypercholesterolemia E78.00 Acti ve 018312908 Problem Irregular menses N92.6 Active 801 18280 Problem Rosacea L71.9 Active 829869109 Problem PTSD (post-traumatic stress disorder) F43.10 Active 08675676 Problem Major depressive disorder, recurrent episode, severe F33.2 Active 020033092402 Problem ADHD, predominantly inattentive type F90.0 Active 29490326 Problem Moderate episode of recurrent major depressive disorder F33.1 Active [id number] ALLERGIES No Information ENCOUNTERS Encounter Location Date Diagnosis [place] [address] [facility] [id number] [address] [place] [id number] August, [facility] [address] [facility] [id number] [address] [place] [address] August, Exercise counseling Z71.82 [facility] [address] [facility] [id number] [address] [place] [phone] August, [facility] [address] [id number] [address] [place] [id number] August, [facility] [address] [facility] [id number] [address] [place] [id number] Jul, [facility] [address] [facility] [id number] [address] [place] [id number] Jul, Lumbar radiculopathy M54.16 [facility] [address] [facility] [id number] [address] [place] [id number] Jun, [facility] [address] [id number] [address] [place] [id number] Jun, [facility] [address] [id number] [address] [place] [id number] Jun, [facility] [address] [id number] [address] [place] [id number] May, [facility] [address] [id number] [address] [place] [id number] Apr, [facility] [address] [id number] [address] [place] [id number] Feb, [facility] [address] [id number] [address] [place] [id number] Feb, Encounter for immunization Z 23 [facility] [address] [id number] [address] [place] [phone] Jan, [facility] [address] [id number] [address] [place] [phone] Jan, Encounter for immunization Z 23 [facility] [address] [id number] [address] [place] [id number] Jan, [facility] [address] [id number] [address] [place] [id number] Jan, [facility] [address] [facility] [id number] [address] [place] [id number] Dec, [facility] [address] [id number] [address] [place] [id number] Dec, Moderate episode of recurren t major depressive disorder F33.1 ; ADHD, predominantly inattentive type F90.0 ; PTSD (post-traumatic stress disorder) F43.10 and Social anxiety disorder F40.10 [facility] [address] [id number] [address] [place] [id number] Nov, [facility] [address] [id number] [address] [place] [address] Oct, Bruise T14.8XXA [facility] [address] [id number] [address] [place] [id number] Oct, Bruise T14.8XXA [facility] [address] [id number] [address] [place] [id number] Oct, [facility] [address] [id number] [address] [place] [id number] Oct, [facility] [address] [id number] [address] [place] [phone] Oct, [facility] [address] [id number] [address] [place] [phone] Sep, [facility] [address] [id number] [address] [place] [id number] Sep, Hypothyroid E03.9 [facility] [address] [id number] [address] [place] [id number] Sep, [facility] [address] [id number] [address] [place] [id number] Sep, [facility] [address] [id number] [address] [place] [address] August, [facility] [address] [id number] [address] [place] [address] August, PTSD (post-traumatic stress disorder) F43.10 ; Moderate episode of recurrent major depressive disorder F33.1 ; ADHD, predominantly inattentive type F90.0 and Social anxiety disorder F40.10 [facility] [address] [id number] [address] [place] [id number] August, [facility] [address] [id number] [address] [place] [id number] August, [facility] [address] [id number] [address] [place] [id number] Jul, [facility] [address] [id number] [address] [place] [id number] Jul, [facility] [address] [facility] [id number] [address] [place] [address] Jul, Aurya L71.9 [facility] [address] [facility] [id number] [address] [place] [id number] Jun, PTSD (post-traumatic stress disorder) F43.10 [facility] [address] [id number] [address] [place] [address] Jun, [facility] [address] [id number] [address] [place] [id number] Jun, [facility] [address] [facility] [id number] [address] [place] [address] Jun, [facility] [address] [facility] [id number] [address] [place] [address] Jun, [facility] [address] [facility] [id number] [address] [place] [id number] Apr, [facility] [address] [facility] [id number] [address] [place] [address] Apr, Hypothyroid E03.9 ; Pure hyp ercholesterolemia E78.00 and Systemic lupus M32.9 [facility] [address] [facility] [id number] [address] [place] [address] Apr, Hypothyroid E03.9 ; Systemic lupus M32.9 and Pure hypercholesterolemia E78.00 [facility] [address] [id number] [address] [place] [address] Apr, [facility] [address] [facility] [id number] [address] [place] [address] Mar, [facility] [address] [facility] [id number] [address] [place] [address] Mar, Pulsatile neck mass R22.1 [facility] [address] [facility] [id number] [address] [place] [id number] Feb, [facility] [address] [place] [id number] [address] [place] [phone] Feb, Contact dermatitis and eczem a due to plant L24.7 [facility] [address] [facility] [id number] [address] [place] [id number] Feb, Systemic lupus M32.9 [facility] [address] [place] [id number] [address] [place] [id number] Jan, [place] [address] [place] [id number] [address] [place] [id number] Jan, Dental examination Z01.20 [place] [address] [place] [id number] [place] [id number] 06 Jan, 2017 Encounter for immunization Z 23 [place] [address] [place] [id number] [address] [place] [id number] Dec, [place] [address] [place] [id number] [address] [place] [id number] Nov, Hypothyroid E03.9 [place] [address] [place] [id number] [address] [place] [address] Nov, PTSD (post-traumatic stress disorder) F43.10 ; ADHD, predominantly inattentive type F90.0 ; Social anxiety disorder F40.10 and Moderate episode of recurrent major depressive disorder F33.1 [place] [address] [place] [id number] [address] [place] [id number] Nov, ADHD, predominantly inattent marzena type F90.0 [place] [address] [place] [id number] [address] [place] [id number] Oct, Acquired hypothyroidism E03. 9 [facility] [address] [place] [id number] [address] [place] [address] Oct, ADHD, predominantly inattent marzena type F90.0 [place] [address] [place] [id number] [address] [place] [id number] Oct, Acquired hypothyroidism E03. 9 [facility] [address] [id number] [address] [place] [address] Sep, Well woman exam Z01.419 ; Sy stemic lupus M32.9 ; Irregular menses N92.6 ; PTSD (post-traumatic stress disorder) F43.10 ; Social anxiety disorder F40.10 ; ADHD, predominantly inattentive type F90.0 ; Hypothyroid E03.9 and Generalized headaches R51 [facility] [address] [id number] [address] [place] [id number] August, ADHD, predominantly inattent marzena type F90.0 [facility] [address] [id number] [address] [place] [address] August, [facility] [address] [facility] [id number] [address] [place] [phone] Jul, [facility] [address] [id number] [address] [place] [id number] Jun, [facility] [address] [id number] [address] [place] [address] Jun, Hypothyroid E03.9 [facility] [address] [id number] [address] [place] [address] Jun, ADHD, predominantly inattent marzena type F90.0 and Social anxiety disorder F40.10 [facility] [address] [facility] [id number] [address] [place] [id number] Jun, [facility] [address] [id number] [address] [place] [address] Jun, [facility] [address] [id number] [address] [place] [address] [id number] May, Dental examination Z01.20 [facility] [address] [id number] [address] [place] [id number] 14 May, 2016 ADHD, predominantly inattent marzena type F90.0 ; Recurrent major depressive disorder, in partial remission F33.41 ; Social anxiety disorder F40.10 and PTSD (post-traumatic stress disorder) F43.10 [facility] [address] [id number] [address] [place] [address] Apr, Social anxiety disorder F40. 10 [facility] [address] [id number] [address] [place] [address] Apr, ADHD, predominantly inattent marzena type F90.0 [facility] [address] [id number] [address] [place] [id number] Apr, [facility] [address] [id number] [address] [place] [id number] Apr, [facility] [address] [id number] [address] [place] [address] Mar, Dental examination Z01.20 [facility] [address] [id number] [address] [place] [id number] Mar, [facility] [address] [id number] [address] [place] [phone] Feb, [facility] [address] [id number] [address] [place] [id number] Feb, [facility] [address] [id number] [address] [place] [id number] Jan, Encounter for immunization Z 23 [facility] [address] [id number] [address] [place] [phone] Jan, [facility] [address] [id number] [address] [place] [phone] Jan, [facility] [address] [id number] [address] [place] [address] Jan, Dental examination Z01.20 [facility] [address] [id number] [address] [place] [address] Jan, [facility] [address] [id number] [address] [place] [id number] 19 Jan, 2016 Dental examination Z01.20 [facility] [address] [id number] [address] [place] [phone] Jan, [facility] [address] [id number] [address] [place] [id number] Dec, [facility] [address] [id number] [address] [place] [address] [id number] Dec, Dental examination Z01.20 [facility] [address] [id number] [address] [place] [id number] Nov, [facility] [address] [id number] [address] [place] [id number] Nov, Social anxiety disorder F40. 10 ; PTSD (post-traumatic stress disorder) F43.10 and ADHD, predominantly inattentive type F90.0 [facility] [address] [id number] [address] [place] [address] Oct, Social anxiety disorder F40. 10 [facility] [address] [id number] [address] [place] [id number] Oct, Hypothyroidism, unspecified type E03.9 [facility] [address] [id number] [address] [place] [address] Oct, Hypothyroid E03.9 [facility] [address] [facility] [id number] [address] [place] [address] Oct, Hypothyroid E03.9 [facility] [address] [facility] [id number] [address] [place] [address] Sep, Hypothyroid E03.9 [facility] [address] [facility] [id number] [address] [place] [id number] Sep, [facility] [address] [facility] [id number] [address] [place] [id number] Sep, ADHD, predominantly inattent marzena type F90.0 [facility] [address] [id number] [address] [place] [id number] Jul, ADHD, predominantly inattent marzena type F90.0 [facility] [address] [id number] [address] [place] [id number] Jun, [facility] [address] [facility] [id number] [address] [place] [phone] Jun, Major depressive disorder, r ecurrent episode, severe F33.2 ; ADHD, predominantly inattentive type F90.0 ; PTSD (post-traumatic stress disorder) F43.10 and Social anxiety disorder F40.10 [facility] [address] [id number] [address] [place] [id number] Jun, [facility] [address] [id number] [address] [place] [address] May, Encounter for screening mamm ogram for breast cancer Z12.31 [facility] [address] [facility] [id number] [address] [place] [address] May, [facility] [address] [id number] [address] [place] [id number] May, [facility] [address] [id number] [address] [place] [address] May, Major depressive disorder, r ecurrent episode, severe F33.2 ; PTSD (post-traumatic stress disorder) F43.10 ; Social anxiety disorder F40.10 and ADHD, predominantly inattentive type F90.0 [facility] [address] [id number] [address] [place] [id number] Apr, [facility] [address] [id number] [address] [place] [id number] Mar, [facility] [address] [facility] [id number] [address] [place] [id number] Mar, Major depressive disorder, r ecurrent episode, severe F33.2 ; PTSD (post-traumatic stress disorder) F43.10 ; Social anxiety disorder F40.10 and ADHD, predominantly inattentive type F90.0 [facility] [address] [id number] [address] [place] [address] Feb, [facility] [address] [id number] [address] [place] [phone] Feb, [facility] [address] [id number] [address] [place] [id number] Feb, [facility] [address] [id number] [address] [place] [id number] 04 Feb, 2015 Lupus M32.9 ; Hypothyroid E0 3.9 and Irregular menses N92.6 [facility] [address] [id number] [address] [place] [phone] Feb, Lupus M32.9 and Hypothyroid E03.9 [facility] [address] [facility] [id number] [address] [place] [address] Jan, Encounter for immunization Z 23 [facility] [address] [id number] [address] [place] [id number] 14 Jul, 2014 [facility] [address] [id number] [address] [place] [id number] Jul, [facility] [address] [facility] [id number] [address] [place] [id number] Feb, [facility] [address] [id number] [address] [place] [id number] Feb, [facility] [address] [id number] [address] [place] [id number] Feb, [facility] [address] [id number] [address] [place] [id number] Feb, [facility] [address] [id number] [address] [place] [id number] August, [facility] [address] [id number] [address] [place] [id number] Jun, [facility] [address] [id number] [address] [place] [phone] Jun, [facility] [address] [id number] [address] [place] [phone] Jun, [facility] [address] [id number] [address] [place] [id number] Jun, [facility] [address] [id number] [address] [place] [id number] May, [facility] [address] [id number] [address] [place] [id number] May, [facility] [address] [id number] [address] [place] [id number] May, [facility] [address] [id number] [address] [place] [id number] May, [facility] [address] [id number] [address] [place] [id number] Mar, [facility] [address] [id number] [address] [place] [id number] Jan, [facility] [address] [id number] [address] [place] [id number] Jan, [facility] [address] [id number] [address] [place] [id number] Jan, [facility] [address] [id number] [address] [place] [id number] Jan, [facility] [address] [id number] [address] [place] [id number] Jan, [facility] [address] [id number] [address] [place] [id number] Jan, IMMUNIZATIONS No Known Immunizations SOCIAL HISTORY Never Assessed REASON FOR VISIT [facility] [place] PLAN OF CARE VITAL SIGNS MEDICATIONS Unknown [...]
--- OUTSIDE RECORDS SUMMARY | 2019-10-05 06:19 | XMS REPORT ---
Author Author Meaghan Holder Doctor Organization [facility] Address Unknown Phone Unavailable Care Team Providers Care Career Information Specialist Name Role Phone Migration, Doctor Unavailable Unavailable PROBLEMS Type Condition ICD9-CM Code CBL07-TB Code Onset Dates Condition S tatus SNOMED Code Problem Hypothyroid E03.9 Active 54388391 Problem Systemic lupus M32.9 Active 47262 009 Problem Social anxiety disorder F40.10 Active 55762400 Problem Pure hypercholesterolemia E78.00 Acti ve 876662244 Problem Irregular menses N92.6 Active 801 22605 Problem Rosacea L71.9 Active 589626325 Problem PTSD (post-traumatic stress disorder) F43.10 Active 58496723 Problem Major depressive disorder, recurrent episode, severe F33.2 Active [id number] Problem ADHD, predominantly inattentive type F90.0 Active 00379608 Problem Moderate episode of recurrent major depressive disorder F33.1 Active [id number] ALLERGIES No Information ENCOUNTERS Encounter Location Date Diagnosis [facility] [address] [facility] [id number] [address] [place] [phone] Jun, [facility] [address] [facility] [id number] [address] [place] [address] Jun, [facility] [address] [facility] [id number] [address] [place] [phone] Jun, [facility] [address] [facility] [id number] [address] [place] [phone] May, [facility] [address] [facility] [id number] [address] [place] [address] Apr, [facility] [address] [facility] [id number] [address] [place] [phone] Feb, [facility] [address] [facility] [id number] [address] [place] [address] Feb, Encounter for immunization Z 23 [facility] [address] [id number] [address] [place] [phone] 16 Jan, 2018 [facility] [address] [facility] [id number] [address] [place] [phone] Jan, Encounter for immunization Z 23 [facility] [address] [facility] [id number] [address] [place] [address] Jan, [facility] [address] [facility] [id number] [address] [place] [address] Jan, [facility] [address] [facility] [id number] [address] [place] [address] Dec, [facility] [address] [facility] [id number] [address] [place] [phone] Dec, Moderate episode of recurren t major depressive disorder F33.1 ; ADHD, predominantly inattentive type F90.0 ; PTSD (post-traumatic stress disorder) F43.10 and Social anxiety disorder F40.10 [facility] [address] [facility] [id number] [address] [place] [address] Nov, [facility] [address] [facility] [id number] [address] [place] [address] Oct, Bruise T14.8XXA [facility] [address] [facility] [id number] [address] [place] [phone] Oct, Bruise T14.8XXA [facility] [address] [facility] [id number] [address] [place] [address] Oct, [facility] [address] [facility] [id number] [address] [place] [address] Oct, [facility] [address] [facility] [id number] [address] [place] [address] Oct, [facility] [address] [facility] [id number] [address] [place] [phone] Sep, [facility] [address] [facility] [id number] [address] [place] [address] Sep, Hypothyroid E03.9 [facility] [address] [id number] [address] [place] [address] Sep, [facility] [address] [id number] [address] [place] [address] Sep, [facility] [address] [id number] [address] [place] [address] August, [facility] [address] [id number] [address] [place] [address] August, PTSD (post-traumatic stress disorder) F43.10 ; Moderate episode of recurrent major depressive disorder F33.1 ; ADHD, predominantly inattentive type F90.0 and Social anxiety disorder F40.10 [facility] [address] [id number] [address] [place] [address] August, [facility] [address] [id number] [address] [place] [address] August, [facility] [address] [id number] [address] [place] [address] Jul, [facility] [address] [id number] [address] [place] [address] Jul, [facility] [address] [id number] [address] [place] [address] Jul, Rosacea L71.9 [facility] [address] [id number] [address] [place] [address] Jun, PTSD (post-traumatic stress disorder) F43.10 [facility] [address] [id number] [address] [place] [address] Jun, [facility] [address] [id number] [address] [place] [address] Jun, [facility] [address] [id number] [address] [place] [address] Jun, [facility] [address] [id number] [address] [place] [address] Jun, [facility] [address] [id number] [address] [place] [address] Apr, [facility] [address] [facility] [id number] [address] [place] [address] Apr, Hypothyroid E03.9 ; Pure hyp ercholesterolemia E78.00 and Systemic lupus M32.9 [facility] [address] [id number] [address] [place] [address] Apr, Hypothyroid E03.9 ; Systemic lupus M32.9 and Pure hypercholesterolemia E78.00 [facility] [address] [id number] [address] [place] [address] Apr, [facility] [address] [facility] [id number] [address] [place] [address] Mar, [facility] [address] [facility] [id number] [address] [place] [address] Mar, Pulsatile neck mass R22.1 [facility] [address] [facility] [id number] [address] [place] [phone] Feb, [facility] [address] [facility] [id number] [address] [place] [address] Feb, Contact dermatitis and eczem a due to plant L24.7 [facility] [address] [facility] [id number] [address] [place] [address] Feb, Systemic lupus M32.9 [facility] [address] [facility] [id number] [address] [place] [address] Jan, [facility] [address] [facility] [id number] [address] [place] [address] Jan, Dental examination Z01.20 [facility] [address] [facility] [id number] [address] [place] [address] 06 Jan, 2017 Encounter for immunization Z 23 [facility] [address] [id number] [address] [place] [address] Dec, [facility] [address] [id number] [address] [place] [phone] Nov, Hypothyroid E03.9 [facility] [address] [id number] [address] [place] [address] Nov, PTSD (post-traumatic stress disorder) F43.10 ; ADHD, predominantly inattentive type F90.0 ; Social anxiety disorder F40.10 and Moderate episode of recurrent major depressive disorder F33.1 [facility] [address] [id number] [address] [place] [address] Nov, ADHD, predominantly inattent marzena type F90.0 [facility] [address] [facility] [id number] [address] [place] [address] Oct, Acquired hypothyroidism E03. 9 [facility] [address] [facility] [id number] [address] [place] [address] Oct, ADHD, predominantly inattent marzena type F90.0 [facility] [address] [facility] [id number] [address] [place] [address] Oct, Acquired hypothyroidism E03. 9 [facility] [address] [facility] [id number] [address] [place] [address] Sep, Well woman exam Z01.419 ; Sy stemic lupus M32.9 ; Irregular menses N92.6 ; PTSD (post-traumatic stress disorder) F43.10 ; Social anxiety disorder F40.10 ; ADHD, predominantly inattentive type F90.0 ; Hypothyroid E03.9 and Generalized headaches R51 [facility] [address] [facility] [id number] [address] [place] [address] August, ADHD, predominantly inattent marzena type F90.0 [facility] [address] [facility] [id number] [address] [place] [address] August, [facility] [address] [facility] [id number] [address] [place] [phone] Jul, [facility] [address] [id number] [address] [place] [phone] Jun, [facility] [address] [id number] [address] [place] [address] Jun, Hypothyroid E03.9 [facility] [address] [id number] [address] [place] [address] Jun, ADHD, predominantly inattent marzena type F90.0 and Social anxiety disorder F40.10 [facility] [address] [id number] [address] [place] [address] Jun, [facility] [address] [id number] [address] [place] [address] Jun, [facility] [address] [id number] [address] [place] [id number] May, Dental examination Z01.20 [facility] [address] [id number] [address] [place] [address] May, ADHD, predominantly inattent marzena type F90.0 ; Recurrent major depressive disorder, in partial remission F33.41 ; Social anxiety disorder F40.10 and PTSD (post-traumatic stress disorder) F43.10 [facility] [address] [id number] [address] [place] [address] Apr, Social anxiety disorder F40. 10 [facility] [address] [id number] [address] [place] [address] Apr, ADHD, predominantly inattent marzena type F90.0 [facility] [address] [id number] [address] [place] [address] Apr, [facility] [address] [id number] [address] [place] [address] Apr, [facility] [address] [id number] [address] [place] [address] Mar, Dental examination Z01.20 [facility] [address] [id number] [address] [place] [address] Mar, [facility] [address] [id number] [address] [place] [address] Feb, [facility] [address] [id number] [address] [place] [address] Feb, [facility] [address] [id number] [address] [place] [address] Jan, Encounter for immunization Z 23 [facility] [address] [id number] [address] [place] [address] Jan, [facility] [address] [id number] [address] [place] [address] Jan, [facility] [address] [id number] [address] [place] [address] Jan, Dental examination Z01.20 [facility] [address] [id number] [address] [place] [address] Jan, [facility] [address] [id number] [address] [place] [address] Jan, Dental examination Z01.20 [facility] [address] [id number] [address] [place] [address] Jan, [facility] [address] [id number] [address] [place] [phone] Dec, [facility] [address] [id number] [address] [place] [id number] Dec, Dental examination Z01.20 [facility] [address] [id number] [address] [place] [address] Nov, [facility] [address] [id number] [address] [place] [address] Nov, Social anxiety disorder F40. 10 ; PTSD (post-traumatic stress disorder) F43.10 and ADHD, predominantly inattentive type F90.0 [facility] [address] [id number] [address] [place] [phone] 15 Oct, 2015 Social anxiety disorder F40. 10 [facility] [address] [facility] [id number] [address] [place] [phone] Oct, Hypothyroidism, unspecified type E03.9 [facility] [address] [id number] [address] [place] [address] Oct, Hypothyroid E03.9 [facility] [address] [facility] [id number] [address] [place] [address] Oct, Hypothyroid E03.9 [facility] [address] [facility] [id number] [address] [place] [address] Sep, Hypothyroid E03.9 [facility] [address] [facility] [id number] [address] [place] [address] Sep, [facility] [address] [facility] [id number] [address] [place] [address] Sep, ADHD, predominantly inattent marzena type F90.0 [facility] [address] [id number] [address] [place] [address] Jul, ADHD, predominantly inattent marzena type F90.0 [facility] [address] [facility] [id number] [address] [place] [address] Jun, [facility] [address] [facility] [id number] [address] [place] [address] Jun, Major depressive disorder, r ecurrent episode, severe F33.2 ; ADHD, predominantly inattentive type F90.0 ; PTSD (post-traumatic stress disorder) F43.10 and Social anxiety disorder F40.10 [facility] [address] [facility] [id number] [address] [place] [id number] Jun, [facility] [address] [facility] [id number] [address] [place] [address] May, Encounter for screening mamm ogram for breast cancer Z12.31 [facility] [address] [facility] [id number] [address] [place] [address] May, [facility] [address] [facility] [id number] [address] [place] [address] May, [facility] [address] [facility] [id number] [address] [place] [phone] May, Major depressive disorder, r ecurrent episode, severe F33.2 ; PTSD (post-traumatic stress disorder) F43.10 ; Social anxiety disorder F40.10 and ADHD, predominantly inattentive type F90.0 [facility] [address] [facility] [id number] [address] [place] [address] Apr, [facility] [address] [facility] [id number] [address] [place] [address] Mar, [facility] [address] [place] [id number] [place] [address] Mar, Major depressive disorder, r ecurrent episode, severe F33.2 ; PTSD (post-traumatic stress disorder) F43.10 ; Social anxiety disorder F40.10 and ADHD, predominantly inattentive type F90.0 [facility] [address] [facility] [id number] [address] [place] [address] Feb, [facility] [address] [place] [id number] [address] [place] [address] Feb, [facility] [address] [place] [id number] [address] [place] [address] Feb, [facility] [address] [place] [id number] [address] [place] [address] Feb, Lupus M32.9 ; Hypothyroid E0 3.9 and Irregular menses N92.6 [facility] [address] [place] [id number] [address] [place] [address] Feb, Lupus M32.9 and Hypothyroid E03.9 [facility] [address] [place] [id number] [address] [place] [phone] 26 Jan, 2015 Encounter for immunization Z 23 [facility] [address] [id number] [address] [place] [address], [place] [address] 14 Jul, 2014 [facility] [address] [id number] [address] [place] [phone] 13 Jul, 2014 [facility] [address] [id number] [address] [place] [address] Feb, [facility] [address] [id number] [address] [place] [phone] Feb, [facility] [address] [id number] [address] [place] [address], [place] [address] Feb, [facility] [address] [id number] [address] [place] [address] Feb, [facility] [address] [id number] [address] [place] [address], [place] [address] August, [facility] [address] [id number] [address] [place] [phone] Jun, [facility] [address] [id number] [address] [place] [address], [place] [address] Jun, [facility] [address] [id number] [address] [place] [phone] Jun, [facility] [address] [id number] [address] [place] [address], [place] [address] 16 Jun, 2011 [facility] [address] [id number] [address] [place] [phone] May, [facility] [address] [id number] [address] [place] [address], [place] [address] May, [facility] [address] [id number] [address] [place] [address] May, [facility] [address] [id number] [address] [place] [phone] May, [facility] [address] [id number] [address] [place] [phone] Mar, [facility] [address] [id number] [address] [place] [phone] Jan, [facility] [address] [id number] [address] [place] [address] Jan, [facility] [address] [id number] [address] [place] [phone] Jan, [facility] [address] [id number] [address] [place] [address] Jan, [facility] [address] [id number] [address] [place] [address] Jan, [facility] [address] [id number] [address] [place] [phone] Jan, IMMUNIZATIONS No Known Immunizations SOCIAL HISTORY Never Assessed REASON FOR VISIT [facility] [place] PLAN OF CARE VITAL SIGNS MEDICATIONS Medication Instructions Dosage Frequency Start Date End Date Duration S tatus levothyroxine 100 mcg 1 tablet by Oral r oute 1 time per dayWill need labs before further refills Jun, Activ e Ortho Micronor 0.35 mg 1 by Oral route 1 time per day Jun, Active levothyroxine 150 mcg 1 tablet by Oral r oute 1 time per dayneeds labs drawn prior to refills May, Active RESULTS No Results PROCEDURES No Known procedures INSTRUCTIONS MEDICATIONS ADMINISTERED No Known Medications MEDICAL (GENERAL) HISTORY Type Description Date Medical History Systemic lupus erythematosus, unspecifie d Medical History Hypothyroidism, unspecified Surgical History inguinal hernia repair Surgical History section Surgical History cholecystectomy Surgical History ovarian cyst resection Hospitalization History dystonia Hospitalization History pylenephritis
--- OUTSIDE RECORDS SUMMARY | 2019-10-05 06:19 | XMS REPORT ---
Author Author Meaghan DINERO Organization [facility] Address [address] [place] [address] Care Team Providers Care Senior Systems Programmer Name Role Phone VIKKI DINERO Unavailable PROBLEMS Type Condition ICD9-CM Code JBG46-AS Code Onset Dates Condition S tatus SNOMED Code Problem Hypothyroid E03.9 Active 17284096 Problem Social anxiety disorder F40.10 Active 00369065 Problem Systemic lupus M32.9 Active 10437 009 Problem Irregular menses N92.6 Active 801 87641 Problem Rosacea L71.9 Active 188977102 Problem Pure hypercholesterolemia E78.00 Acti ve 594262627 Problem Major depressive disorder, recurrent episode, severe F33.2 Active 306368214055 Problem PTSD (post-traumatic stress disorder) F43.10 Active 00457703 Problem Moderate episode of recurrent major depressive disorder F33.1 Active 183067425 Problem ADHD, predominantly inattentive type F90.0 Active 06602078 ALLERGIES No Information ENCOUNTERS Encounter Location Date Diagnosis [facility] [address] [id number] [address] [place] [address] Jan, Encounter for immunization Z 23 [place] [address] [id number] [address] [place] [address] Jan, [facility] [address] [id number] [address] [place] [address] Jan, [facility] [address] [facility] [id number] [address] [place] [address] Dec, [place] [address] [id number] [address] [place] [address] Dec, Moderate episode of recurren t major depressive disorder F33.1 ; ADHD, predominantly inattentive type F90.0 ; PTSD (post-traumatic stress disorder) F43.10 and Social anxiety disorder F40.10 [facility] [address] [id number] [address] [place] [address] Nov, [facility] [address] [id number] [address] [place] [address] Oct, Bruise T14.8XXA [facility] [address] [id number] [address] [place] [address] Oct, Bruise T14.8XXA [facility] [address] [id number] [address] [place] [address] Oct, [facility] [address] [id number] [address] [place] [address] Oct, [facility] [address] [id number] [address] [place] [address] Oct, [facility] [address] [id number] [address] [place] [address] Sep, [facility] [address] [id number] [address] [place] [address] Sep, Hypothyroid E03.9 [facility] [address] [id number] [address] [place] [address] Sep, [facility] [address] [id number] [address] [place] [address] Sep, [facility] [address] [id number] [address] [place] [address] August, [facility] [address] [id number] [address] [place] [address] August, PTSD (post-traumatic stress disorder) F43.10 ; Moderate episode of recurrent major depressive disorder F33.1 ; ADHD, predominantly inattentive type F90.0 and Social anxiety disorder F40.10 [facility] [address] [id number] [address] [place] [address] August, [facility] [address] [id number] [address] [place] [address] August, [facility] [address] [id number] [address] [place] [address] Jul, [facility] [address] [id number] [address] [place] [address] Jul, [facility] [address] [id number] [address] [place] [address] Jul, Rosacea L71.9 [facility] [address] [id number] [address] [place] [address] Jun, PTSD (post-traumatic stress disorder) F43.10 [facility] [address] [id number] [address] [place] [address] Jun, [facility] [address] [id number] [address] [place] [address] Jun, [facility] [address] [id number] [address] [place] [address] Jun, [facility] [address] [id number] [address] [place] [address] Jun, [facility] [address] [id number] [address] [place] [address] Apr, [facility] [address] [id number] [address] [place] [address] Apr, Hypothyroid E03.9 ; Pure hyp ercholesterolemia E78.00 and Systemic lupus M32.9 [facility] [address] [id number] [address] [place] [address] Apr, Hypothyroid E03.9 ; Systemic lupus M32.9 and Pure hypercholesterolemia E78.00 [facility] [address] [id number] [address] [place] [address] Apr, [facility] [address] [id number] [address] [place] [address] Mar, [facility] [address] [facility] [id number] [address] [place] [address] 07 Mar, 2017 Pulsatile neck mass R22.1 [facility] [address] [id number] [address] [place] [address] 29 Feb, 2017 [facility] [address] [id number] [address] [place] [address] 16 Feb, 2017 Contact dermatitis and eczem a due to plant L24.7 [facility] [address] [id number] [address] [place] [address] Feb, Systemic lupus M32.9 [facility] [address] [id number] [address] [place] [address] Jan, [place] [id number] [place] [address] Jan, Dental examination Z01.20 [place] [address] [place] [id number] [address] [place] [address] 06 Jan, 2017 Encounter for immunization Z 23 [facility] [address] [id number] [address] [place] [address] 20 Dec, 2016 [place] [address] [address] Nov, Hypothyroid E03.9 [place] [address] [id number] [address] [place] [address] Nov, PTSD (post-traumatic stress disorder) F43.10 ; ADHD, predominantly inattentive type F90.0 ; Social anxiety disorder F40.10 and Moderate episode of recurrent major depressive disorder F33.1 [place] [address] [id number] [address] [place] [address] Nov, ADHD, predominantly inattent marzena type F90.0 [place] [address] [id number] [address] [place] [address] Oct, Acquired hypothyroidism E03. 9 [facility] [address] [id number] [address] [place] [address] Oct, ADHD, predominantly inattent marzena type F90.0 [facility] [address] [id number] [address] [place] [address] Oct, Acquired hypothyroidism E03. 9 [facility] [address] [facility] [id number] [address] [place] [address] Sep, Well woman exam Z01.419 ; Sy stemic lupus M32.9 ; Irregular menses N92.6 ; PTSD (post-traumatic stress disorder) F43.10 ; Social anxiety disorder F40.10 ; ADHD, predominantly inattentive type F90.0 ; Hypothyroid E03.9 and Generalized headaches R51 [facility] [address] [id number] [address] [place] [address] August, ADHD, predominantly inattent marzena type F90.0 [facility] [address] [id number] [address] [place] [address] August, [facility] [address] [id number] [address] [place] [address] Jul, [facility] [address] [id number] [address] [place] [address] Jun, [facility] [address] [id number] [address] [place] [address] Jun, Hypothyroid E03.9 [facility] [address] [id number] [address] [place] [address] Jun, ADHD, predominantly inattent marzena type F90.0 and Social anxiety disorder F40.10 [facility] [address] [id number] [address] [place] [address] Jun, [facility] [address] [facility] [id number] [address] [place] [address] Jun, [facility] [address] [id number] [address] [place] [id number] May, Dental examination Z01.20 [facility] [address] [id number] [address] [place] [address] 14 May, 2016 ADHD, predominantly inattent marzena type F90.0 ; Recurrent major depressive disorder, in partial remission F33.41 ; Social anxiety disorder F40.10 and PTSD (post-traumatic stress disorder) F43.10 [facility] [address] [id number] [address] [place] [address] Apr, Social anxiety disorder F40. 10 [facility] [address] [id number] [address] [place] [address] Apr, ADHD, predominantly inattent marzena type F90.0 [facility] [address] [id number] [address] [place] [address] Apr, [facility] [address] [id number] [address] [place] [address] Apr, [facility] [address] [id number] [address] [place] [address] Mar, Dental examination Z01.20 [facility] [address] [id number] [address] [place] [address] Mar, [facility] [address] [id number] [address] [place] [address] Feb, [facility] [address] [id number] [address] [place] [address] Feb, [facility] [address] [id number] [address] [place] [address] Jan, Encounter for immunization Z 23 [facility] [address] [id number] [address] [place] [address] Jan, [facility] [address] [id number] [address] [place] [address] Jan, [facility] [address] [id number] [address] [place] [address] Jan, Dental examination Z01.20 [facility] [address] [id number] [address] [place] [address] Jan, [facility] [address] [id number] [address] [place] [address] 19 Jan, 2016 Dental examination Z01.20 [facility] [address] [id number] [address] [place] [address] 13 Jan, 2016 [facility] [address] [id number] [address] [place] [address] 16 Dec, 2015 [facility] [address] [id number] [address] [place] [id number] 16 Dec, 2015 Dental examination Z01.20 [facility] [address] [id number] [address] [place] [address] 31 Nov, 2015 [facility] [address] [id number] [address] [place] [address] Nov, Social anxiety disorder F40. 10 ; PTSD (post-traumatic stress disorder) F43.10 and ADHD, predominantly inattentive type F90.0 [facility] [address] [id number] [address] [place] [address] Oct, Social anxiety disorder F40. 10 [facility] [address] [id number] [address] [place] [address] Oct, Hypothyroidism, unspecified type E03.9 [facility] [address] [id number] [address] [place] [address] Oct, Hypothyroid E03.9 [facility] [address] [id number] [address] [place] [address] Oct, Hypothyroid E03.9 [facility] [address] [id number] [address] [place] [phone] 17 Sep, 2015 Hypothyroid E03.9 [facility] [address] [id number] [address] [place] [address] 14 Sep, 2015 [facility] [address] [id number] [address] [place] [address] Sep, ADHD, predominantly inattent marzena type F90.0 [facility] [address] [id number] [address] [place] [address] Jul, ADHD, predominantly inattent marzena type F90.0 [facility] [address] [id number] [address] [place] [address] Jun, [facility] [address] [facility] [id number] [address] [place] [address] Jun, Major depressive disorder, r ecurrent episode, severe F33.2 ; ADHD, predominantly inattentive type F90.0 ; PTSD (post-traumatic stress disorder) F43.10 and Social anxiety disorder F40.10 [place] [address] [facility] [id number] [address] [place] [address] Jun, [place] [address] [facility] [id number] [address] [place] [address] May, Encounter for screening mamm ogram for breast cancer Z12.31 [place] [address] [id number] [address] [place] [address] 15 May, 2015 [facility] [address] [facility] [id number] [address] [place] [address] May, [facility] [address] [id number] [address] [place] [address] May, Major depressive disorder, r ecurrent episode, severe F33.2 ; PTSD (post-traumatic stress disorder) F43.10 ; Social anxiety disorder F40.10 and ADHD, predominantly inattentive type F90.0 [facility] [address] [id number] [address] [place] [address] Apr, [facility] [address] [id number] [address] [place] [address] Mar, [facility] [address] [facility] [id number] [address] [place] [address] Mar, Major depressive disorder, r ecurrent episode, severe F33.2 ; PTSD (post-traumatic stress disorder) F43.10 ; Social anxiety disorder F40.10 and ADHD, predominantly inattentive type F90.0 [facility] [address] [facility] [id number] [address] [place] [address] Feb, [facility] [id number] [place] [address] Feb, [facility] [id number] [place] [address] Feb, [facility] [address] [address] Feb, Lupus M32.9 ; Hypothyroid E0 3.9 and Irregular menses N92.6 [facility] [id number] [place] [address] Feb, Lupus M32.9 and Hypothyroid E03.9 [facility] [address] [id number] [address] [place] [address] Jan, Encounter for immunization Z 23 [facility] [id number] [place] [address] Jul, [facility] [id number] [place] [address] Jul, [facility] [address] [id number] [address] [place] [address] Feb, [facility] [address] [id number] [address] [place] [address] Feb, [facility] [id number] [place] [address] Feb, [facility] [address] [id number] [address] [place] [address] Feb, [facility] [id number] [place] [address] August, [facility] [address] [id number] [address] [place] [address], [place] [address] Jun, [facility] [address] [id number] [address] [place] [address], [place] [address] Jun, [facility] [address] [id number] [address] [place] [address], [place] [address] Jun, [facility] [address] [id number] [address] [place] [address], [place] [address] Jun, [facility] [address] [id number] [address] [place] [address], [place] [address] May, [facility] [address] [id number] [address] [place] [address], [place] [address] May, [facility] [address] [id number] [address] [place] [address], [place] [address] May, [facility] [address] [id number] [address] [place] [address] May, [facility] [address] [id number] [address] [place] [address] Mar, [facility] [address] [id number] [address] [place] [address] Jan, [facility] [address] [id number] [address] [place] [address] Jan, [facility] [address] [id number] [address] [place] [address] Jan, [facility] [address] [id number] [address] [place] [address] Jan, [facility] [address] [id number] [address] [place] [address] Jan, [facility] [address] [id number] [address] [place] [address] Jan, IMMUNIZATIONS No Known Immunizations SOCIAL HISTORY Never Assessed REASON FOR VISIT Medication question PLAN OF CARE VITAL SIGNS MEDICATIONS Medication Instructions Dosage Frequency Start Date End Date Duration S tito BuPROPion HCl ER (SR) 200 mg Orally Once a day 1 tablet in the morn ing 24h Jan, 30 day(s) Active RESULTS No Results PROCEDURES No Known procedures INSTRUCTIONS MEDICATIONS ADMINISTERED No Known Medications MEDICAL (GENERAL) HISTORY Type Description Date Medical History Systemic lupus erythematosus, unspecifie d Medical History Hypothyroidism, unspecified Surgical History inguinal hernia repair Surgical History section Surgical History cholecystectomy Surgical History ovarian cyst resection Hospitalization History dystonia Hospitalization History pylenephritis
--- OUTSIDE RECORDS SUMMARY | 2019-10-05 06:19 | XMS REPORT ---
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 [employer] Name Role Phone Migration, Doctor Unavailable Unavailable PROBLEMS Type Condition ICD9-CM Code SND30-VC Code Onset Dates Condition S tatus SNOMED Code Problem Hypothyroid E03.9 Active 23336399 Problem Systemic lupus M32.9 Active 90010 009 Problem Social anxiety disorder F40.10 Active 56422878 Problem Pure hypercholesterolemia E78.00 Acti ve 090270245 Problem Irregular menses N92.6 Active 801 44757 Problem Rosacea L71.9 Active 043093153 Problem PTSD (post-traumatic stress disorder) F43.10 Active 55912873 Problem Major depressive disorder, recurrent episode, severe F33.2 Active [id number] Problem ADHD, predominantly inattentive type F90.0 Active 77551054 Problem Moderate episode of recurrent major depressive disorder F33.1 Active [id number] ALLERGIES No Information ENCOUNTERS Encounter Location Date Diagnosis [facility] [address] [facility] [id number] [address] [place] [phone] Jun, [facility] [address] [facility] [id number] [address] [place] [phone] Jun, [facility] [address] [facility] [id number] [address] [place] [phone] Jun, [facility] [address] [facility] [id number] [address] [place] [phone] May, [facility] [address] [facility] [id number] [address] [place] [phone] Apr, [facility] [address] [facility] [id number] [address] [place] [phone] Feb, [facility] [address] [facility] [id number] [address] [place] [phone] Feb, Encounter for immunization Z 23 [facility] [address] [id number] [address] [place] [phone] 16 Jan, 2018 [facility] [address] [facility] [id number] [address] [place] [phone] Jan, Encounter for immunization Z 23 [facility] [address] [facility] [id number] [address] [place] [phone] Jan, [facility] [address] [facility] [id number] [address] [place] [phone] Jan, [facility] [address] [facility] [id number] [address] [place] [phone] Dec, [facility] [address] [facility] [id number] [address] [place] [phone] Dec, Moderate episode of recurren t major depressive disorder F33.1 ; ADHD, predominantly inattentive type F90.0 ; PTSD (post-traumatic stress disorder) F43.10 and Social anxiety disorder F40.10 [facility] [address] [facility] [id number] [address] [place] [phone] Nov, [facility] [address] [facility] [id number] [address] [place] [phone] Oct, Bruise T14.8XXA [facility] [address] [facility] [id number] [address] [place] [phone] Oct, Bruise T14.8XXA [facility] [address] [facility] [id number] [address] [place] [phone] Oct, [facility] [address] [facility] [place] [id number] [address] [place] [phone] Oct, [facility] [address] [facility] [id number] [address] [place] [phone] Oct, [facility] [address] [facility] [id number] [address] [place] [phone] Sep, [facility] [address] [facility] [id number] [address] [place] [phone] Sep, Hypothyroid E03.9 [facility] [address] [id number] [address] [place] [phone] Sep, [facility] [address] [id number] [address] [place] [phone] Sep, [facility] [address] [id number] [address] [place] [phone] August, [facility] [address] [id number] [address] [place] [phone] August, PTSD (post-traumatic stress disorder) F43.10 ; Moderate episode of recurrent major depressive disorder F33.1 ; ADHD, predominantly inattentive type F90.0 and Social anxiety disorder F40.10 [facility] [address] [id number] [address] [place] [phone] August, [facility] [address] [id number] [address] [place] [phone] August, [facility] [address] [id number] [address] [place] [phone] Jul, [facility] [address] [id number] [address] [place] [phone] Jul, [facility] [address] [id number] [address] [place] [phone] Jul, Rosacea L71.9 [facility] [address] [id number] [address] [place] [phone] Jun, PTSD (post-traumatic stress disorder) F43.10 [facility] [address] [id number] [address] [place] [phone] Jun, [facility] [address] [id number] [address] [place] [phone] Jun, [facility] [address] [id number] [address] [place] [phone] Jun, [facility] [address] [id number] [address] [place] [phone] Jun, [facility] [address] [id number] [address] [place] [phone] Apr, [facility] [address] [facility] [id number] [address] [place] [phone] Apr, Hypothyroid E03.9 ; Pure hyp ercholesterolemia E78.00 and Systemic lupus M32.9 [facility] [address] [id number] [address] [place] [phone] Apr, Hypothyroid E03.9 ; Systemic lupus M32.9 and Pure hypercholesterolemia E78.00 [facility] [address] [id number] [address] [place] [phone] Apr, [facility] [address] [facility] [id number] [address] [place] [phone] Mar, [facility] [address] [facility] [id number] [address] [place] [phone] Mar, Pulsatile neck mass R22.1 [facility] [address] [facility] [id number] [address] [place] [phone] Feb, [facility] [address] [facility] [id number] [address] [place] [phone] Feb, Contact dermatitis and eczem a due to plant L24.7 [facility] [address] [facility] [id number] [address] [place] [phone] Feb, Systemic lupus M32.9 [facility] [address] [facility] [id number] [address] [place] [phone] Jan, [facility] [address] [facility] [id number] [address] [place] [phone] Jan, Dental examination Z01.20 [facility] [address] [facility] [id number] [address] [place] [phone] 06 Jan, 2017 Encounter for immunization Z 23 [facility] [address] [id number] [address] [place] [phone] Dec, [facility] [address] [id number] [address] [place] [phone] Nov, Hypothyroid E03.9 [facility] [address] [id number] [address] [place] [phone] Nov, PTSD (post-traumatic stress disorder) F43.10 ; ADHD, predominantly inattentive type F90.0 ; Social anxiety disorder F40.10 and Moderate episode of recurrent major depressive disorder F33.1 [facility] [address] [id number] [address] [place] [phone] Nov, ADHD, predominantly inattent marzena type F90.0 [facility] [address] [facility] [id number] [address] [place] [phone] Oct, Acquired hypothyroidism E03. 9 [facility] [address] [facility] [id number] [address] [place] [phone] Oct, ADHD, predominantly inattent marzena type F90.0 [facility] [address] [facility] [id number] [address] [place] [phone] Oct, Acquired hypothyroidism E03. 9 [facility] [address] [facility] [id number] [address] [place] [phone] Sep, Well woman exam Z01.419 ; Sy stemic lupus M32.9 ; Irregular menses N92.6 ; PTSD (post-traumatic stress disorder) F43.10 ; Social anxiety disorder F40.10 ; ADHD, predominantly inattentive type F90.0 ; Hypothyroid E03.9 and Generalized headaches R51 [facility] [address] [facility] [id number] [address] [place] [phone] August, ADHD, predominantly inattent marzena type F90.0 [facility] [address] [facility] [id number] [address] [place] [phone] August, [facility] [address] [facility] [id number] [address] [place] [phone] Jul, [facility] [address] [id number] [address] [place] [phone] Jun, [facility] [address] [id number] [address] [place] [phone] Jun, Hypothyroid E03.9 [facility] [address] [id number] [address] [place] [phone] Jun, ADHD, predominantly inattent marzena type F90.0 and Social anxiety disorder F40.10 [facility] [address] [id number] [address] [place] [phone] Jun, [facility] [address] [id number] [address] [place] [phone] Jun, [facility] [address] [id number] [address] [place] [address] [id number] May, Dental examination Z01.20 [facility] [address] [id number] [address] [place] [phone] May, ADHD, predominantly inattent marzena type F90.0 ; Recurrent major depressive disorder, in partial remission F33.41 ; Social anxiety disorder F40.10 and PTSD (post-traumatic stress disorder) F43.10 [facility] [address] [id number] [address] [place] [phone] Apr, Social anxiety disorder F40. 10 [facility] [address] [id number] [address] [place] [phone] Apr, ADHD, predominantly inattent marzena type F90.0 [facility] [address] [id number] [address] [place] [phone] Apr, [facility] [address] [id number] [address] [place] [phone] Apr, [facility] [address] [id number] [address] [place] [phone] Mar, Dental examination Z01.20 [facility] [address] [id number] [address] [place] [phone] Mar, [facility] [address] [id number] [address] [place] [phone] Feb, [facility] [address] [id number] [address] [place] [phone] Feb, [facility] [address] [id number] [address] [place] [phone] Jan, Encounter for immunization Z 23 [facility] [address] [id number] [address] [place] [phone] Jan, [facility] [address] [id number] [address] [place] [phone] Jan, [facility] [address] [id number] [address] [place] [phone] Jan, Dental examination Z01.20 [facility] [address] [id number] [address] [place] [phone] Jan, [facility] [address] [id number] [address] [place] [phone] Jan, Dental examination Z01.20 [facility] [address] [id number] [address] [place] [phone] Jan, [facility] [address] [id number] [address] [place] [phone] Dec, [facility] [address] [id number] [address] [place] [address] [id number] Dec, Dental examination Z01.20 [facility] [address] [id number] [address] [place] [phone] Nov, [facility] [address] [id number] [address] [place] [phone] Nov, Social anxiety disorder F40. 10 ; PTSD (post-traumatic stress disorder) F43.10 and ADHD, predominantly inattentive type F90.0 [facility] [address] [id number] [address] [place] [phone] 15 Oct, 2015 Social anxiety disorder F40. 10 [facility] [address] [facility] [id number] [address] [place] [phone] Oct, Hypothyroidism, unspecified type E03.9 [facility] [address] [id number] [address] [place] [phone] Oct, Hypothyroid E03.9 [facility] [address] [facility] [id number] [address] [place] [phone] Oct, Hypothyroid E03.9 [facility] [address] [facility] [id number] [address] [place] [phone] Sep, Hypothyroid E03.9 [facility] [address] [facility] [id number] [address] [place] [phone] Sep, [facility] [address] [facility] [id number] [address] [place] [phone] Sep, ADHD, predominantly inattent marzena type F90.0 [facility] [address] [id number] [address] [place] [phone] Jul, ADHD, predominantly inattent marzena type F90.0 [facility] [address] [facility] [id number] [address] [place] [phone] Jun, [facility] [address] [facility] [id number] [address] [place] [phone] Jun, Major depressive disorder, r ecurrent episode, severe F33.2 ; ADHD, predominantly inattentive type F90.0 ; PTSD (post-traumatic stress disorder) F43.10 and Social anxiety disorder F40.10 [facility] [address] [facility] [id number] [address] [place] [phone] Jun, [facility] [address] [facility] [id number] [address] [place] [phone] May, Encounter for screening mamm ogram for breast cancer Z12.31 [facility] [address] [facility] [id number] [address] [place] [phone] May, [facility] [address] [facility] [id number] [address] [place] [phone] May, [facility] [address] [facility] [id number] [address] [place] [phone] May, Major depressive disorder, r ecurrent episode, severe F33.2 ; PTSD (post-traumatic stress disorder) F43.10 ; Social anxiety disorder F40.10 and ADHD, predominantly inattentive type F90.0 [facility] [address] [facility] [id number] [address] [place] [phone] Apr, [facility] [address] [facility] [id number] [address] [place] [phone] Mar, [facility] [address] [place] [id number] [place] [phone] Mar, Major depressive disorder, r ecurrent episode, severe F33.2 ; PTSD (post-traumatic stress disorder) F43.10 ; Social anxiety disorder F40.10 and ADHD, predominantly inattentive type F90.0 [facility] [address] [facility] [id number] [address] [place] [phone] Feb, [facility] [address] [place] [id number] [address] [place] [phone] Feb, [facility] [address] [place] [id number] [address] [place] [phone] Feb, [facility] [address] [place] [id number] [address] [place] [phone] Feb, Lupus M32.9 ; Hypothyroid E0 3.9 and Irregular menses N92.6 [facility] [address] [place] [id number] [address] [place] [phone] Feb, Lupus M32.9 and Hypothyroid E03.9 [facility] [address] [place] [id number] [address] [place] [phone] 26 Jan, 2015 Encounter for immunization Z 23 [facility] [address] [id number] [address] [place] [address], [place] [address] 14 Jul, 2014 [facility] [address] [id number] [address] [place] [phone] 13 Jul, 2014 [facility] [address] [id number] [address] [place] [phone] Feb, [facility] [address] [id number] [address] [place] [phone] Feb, [facility] [address] [id number] [address] [place] [address], [place] [address] Feb, [facility] [address] [id number] [address] [place] [phone] Feb, [facility] [address] [id number] [address] [place] [address], [place] [address] August, [facility] [address] [id number] [address] [place] [phone] Jun, [facility] [address] [id number] [address] [place] [address], [place] [address] Jun, [facility] [address] [id number] [address] [place] [phone] Jun, [facility] [address] [id number] [address] [place] [address], [place] [address] 16 Jun, 2011 [facility] [address] [id number] [address] [place] [phone] May, [facility] [address] [id number] [address] [place] [address], [place] [phone] May, [facility] [address] [id number] [address] [place] [phone] May, [facility] [address] [id number] [address] [place] [phone] May, [facility] [address] [id number] [address] [place] [phone] Mar, [facility] [address] [id number] [address] [place] [phone] Jan, [facility] [address] [id number] [address] [place] [phone] Jan, [facility] [address] [facility] [id number] [address] [place] [phone] Jan, [facility] [address] [facility] [id number] [address] [place] [phone] Jan, [facility] [address] [id number] [address] [place] [phone] Jan, [facility] [address] [facility] [id number] [address] [place] [phone] Jan, IMMUNIZATIONS No Known Immunizations SOCIAL HISTORY Never Assessed REASON FOR VISIT [facility] [place] PLAN OF CARE VITAL SIGNS MEDICATIONS Unknown [...]
--- OUTSIDE RECORDS SUMMARY | 2019-10-05 06:19 | XMS REPORT ---
Author Author Meaghan SETH [facility] Address [address] [place] [address] Care Team Providers Care [facility] Director Name Role Phone TONA SETH Unavailable PROBLEMS Type Condition ICD9-CM Code OFF31-DC Code Onset Dates Condition S tatus SNOMED Code Problem Hypothyroid E03.9 Active 37207228 Problem Social anxiety disorder F40.10 Active 94273955 Problem Systemic lupus M32.9 Active 08487 009 Problem Irregular menses N92.6 Active 801 41683 Problem Rosacea L71.9 Active 270186100 Problem Pure hypercholesterolemia E78.00 Acti ve 162735592 Problem Major depressive disorder, recurrent episode, severe F33.2 Active 081124753150 Problem PTSD (post-traumatic stress disorder) F43.10 Active 14864171 Problem Moderate episode of recurrent major depressive disorder F33.1 Active 751664390 Problem ADHD, predominantly inattentive type F90.0 Active 24321250 ALLERGIES No Information ENCOUNTERS Encounter Location Date Diagnosis [place] [address] [address] [facility] [id number] [address] [place] [address] Feb, Encounter for immunization Z 23 [place] [address] [address] [facility] [id number] [address] [place] [address] Jan, [place] [address] [address] [facility] [id number] [address] [place] [address] Jan, Encounter for immunization Z 23 [place] [address] [address] [facility] [id number] [address] [place] [address] Jan, [place] [address] [place] [id number] [address] [place] [address] Jan, [place] [address] [address] [facility] [id number] [address] [place] [address] Dec, [place] [address] [id number] [address] [place] [address] Dec, Moderate episode of recurren t major depressive disorder F33.1 ; ADHD, predominantly inattentive type F90.0 ; PTSD (post-traumatic stress disorder) F43.10 and Social anxiety disorder F40.10 [facility] [address] [id number] [address] [place] [address] Nov, [facility] [address] [id number] [address] [place] [address] Oct, Bruise T14.8XXA [facility] [address] [id number] [address] [place] [address] Oct, Bruise T14.8XXA [facility] [address] [id number] [address] [place] [address] Oct, [facility] [address] [id number] [address] [place] [address] Oct, [facility] [address] [id number] [address] [place] [address] Oct, [facility] [address] [id number] [address] [place] [address] Sep, [facility] [address] [id number] [address] [place] [address] Sep, Hypothyroid E03.9 [facility] [address] [id number] [address] [place] [address] Sep, [facility] [address] [id number] [address] [place] [address] Sep, [facility] [address] [id number] [address] [place] [address] August, [facility] [address] [id number] [address] [place] [address] August, PTSD (post-traumatic stress disorder) F43.10 ; Moderate episode of recurrent major depressive disorder F33.1 ; ADHD, predominantly inattentive type F90.0 and Social anxiety disorder F40.10 [facility] [address] [id number] [address] [place] [address] August, [facility] [address] [id number] [address] [place] [address] August, [facility] [address] [id number] [address] [place] [address] Jul, [facility] [address] [id number] [address] [place] [address] Jul, [facility] [address] [id number] [address] [place] [address] Jul, Rosacea L71.9 [facility] [address] [facility] [id number] [address] [place] [address] Jun, PTSD (post-traumatic stress disorder) F43.10 [facility] [address] [id number] [address] [place] [address] Jun, [facility] [address] [id number] [address] [place] [address] Jun, [facility] [address] [facility] [id number] [address] [place] [address] Jun, [facility] [address] [id number] [address] [place] [address] Jun, [facility] [address] [facility] [id number] [address] [place] [address] Apr, [facility] [address] [id number] [address] [place] [address] Apr, Hypothyroid E03.9 ; Pure hyp ercholesterolemia E78.00 and Systemic lupus M32.9 [facility] [address] [id number] [address] [place] [address] Apr, Hypothyroid E03.9 ; Systemic lupus M32.9 and Pure hypercholesterolemia E78.00 [facility] [address] [facility] [id number] [address] [place] [address] Apr, [facility] [address] [place] [id number] [address] [place] [address] Mar, [facility] [address] [facility] [id number] [address] [place] [address] Mar, Pulsatile neck mass R22.1 [place] [address] [address] [facility] [id number] [address] [place] [address] Feb, [facility] [address] [place] [id number] [place] [address] Feb, Contact dermatitis and eczem a due to plant L24.7 [place] [address] [place] [id number] [address] [place] [address] Feb, Systemic lupus M32.9 [place] [address] [place] [id number] [address] [place] [address] Jan, [place] [address] [place] [id number] [address] [place] [address] Jan, Dental examination Z01.20 [place] [address] [place] [id number] [address] [place] [address] 06 Jan, 2017 Encounter for immunization Z 23 [place] [address] [place] [id number] [address] [place] [address] 20 Dec, 2016 [place] [address] [place] [id number] [address] [place] [address] Nov, Hypothyroid E03.9 [place] [address] [address] [facility] [id number] [address] [place] [address] Nov, PTSD (post-traumatic stress disorder) F43.10 ; ADHD, predominantly inattentive type F90.0 ; Social anxiety disorder F40.10 and Moderate episode of recurrent major depressive disorder F33.1 [place] [address] [place] [id number] [address] [place] [address] Nov, ADHD, predominantly inattent marzena type F90.0 [facility] [address] [id number] [address] [place] [address] Oct, Acquired hypothyroidism E03. 9 [facility] [address] [id number] [address] [place] [address] Oct, ADHD, predominantly inattent marzena type F90.0 [facility] [address] [id number] [address] [place] [address] Oct, Acquired hypothyroidism E03. 9 [facility] [address] [facility] [id number] [address] [place] [address] Sep, Well woman exam Z01.419 ; Sy stemic lupus M32.9 ; Irregular menses N92.6 ; PTSD (post-traumatic stress disorder) F43.10 ; Social anxiety disorder F40.10 ; ADHD, predominantly inattentive type F90.0 ; Hypothyroid E03.9 and Generalized headaches R51 [facility] [address] [facility] [id number] [address] [place] [address] August, ADHD, predominantly inattent marzena type F90.0 [facility] [address] [facility] [id number] [address] [place] [address] August, [facility] [address] [facility] [id number] [address] [place] [address] Jul, [facility] [address] [facility] [id number] [address] [place] [address] Jun, [facility] [address] [id number] [address] [place] [address] Jun, Hypothyroid E03.9 [facility] [address] [facility] [id number] [address] [place] [address] Jun, ADHD, predominantly inattent marzena type F90.0 and Social anxiety disorder F40.10 [facility] [address] [facility] [id number] [address] [place] [address] Jun, [facility] [address] [id number] [address] [place] [address] Jun, [facility] [address] [id number] [address] [place] [id number] May, Dental examination Z01.20 [facility] [address] [id number] [address] [place] [address] 14 May, 2016 ADHD, predominantly inattent marzena type F90.0 ; Recurrent major depressive disorder, in partial remission F33.41 ; Social anxiety disorder F40.10 and PTSD (post-traumatic stress disorder) F43.10 [facility] [address] [id number] [address] [place] [address] Apr, Social anxiety disorder F40. 10 [facility] [address] [id number] [address] [place] [address] Apr, ADHD, predominantly inattent marzena type F90.0 [facility] [address] [id number] [address] [place] [address] Apr, [facility] [address] [id number] [address] [place] [address] Apr, [facility] [address] [id number] [address] [place] [address] Mar, Dental examination Z01.20 [facility] [address] [id number] [address] [place] [address] Mar, [facility] [address] [id number] [address] [place] [address] Feb, [facility] [address] [id number] [address] [place] [address] Feb, [facility] [address] [facility] [id number] [address] [place] [address] Jan, Encounter for immunization Z 23 [facility] [address] [id number] [address] [place] [address] Jan, [facility] [address] [id number] [address] [place] [address] Jan, [facility] [address] [id number] [address] [place] [address] Jan, Dental examination Z01.20 [facility] [address] [id number] [address] [place] [address] Jan, [facility] [address] [id number] [address] [place] [address] Jan, Dental examination Z01.20 [facility] [address] [id number] [address] [place] [address] Jan, [facility] [address] [id number] [address] [place] [address] Dec, [facility] [address] [id number] [address] [place] [id number] Dec, Dental examination Z01.20 [facility] [address] [id number] [address] [place] [address] Nov, [facility] [address] [id number] [address] [place] [address] Nov, Social anxiety disorder F40. 10 ; PTSD (post-traumatic stress disorder) F43.10 and ADHD, predominantly inattentive type F90.0 [facility] [address] [id number] [address] [place] [address] Oct, Social anxiety disorder F40. 10 [facility] [address] [id number] [address] [place] [address] Oct, Hypothyroidism, unspecified type E03.9 [facility] [address] [id number] [address] [place] [address] Oct, Hypothyroid E03.9 [facility] [address] [id number] [address] [place] [address] Oct, Hypothyroid E03.9 [facility] [address] [id number] [address] [place] [address] 17 Sep, 2015 Hypothyroid E03.9 [facility] [address] [facility] [id number] [address] [place] [address] 14 Sep, 2015 [facility] [address] [facility] [id number] [address] [place] [address] Sep, ADHD, predominantly inattent marzena type F90.0 [facility] [address] [facility] [id number] [address] [place] [address] Jul, ADHD, predominantly inattent marzena type F90.0 [facility] [address] [facility] [id number] [address] [place] [address] Jun, [facility] [address] [place] [id number] [address] [place] [address] Jun, Major depressive disorder, r ecurrent episode, severe F33.2 ; ADHD, predominantly inattentive type F90.0 ; PTSD (post-traumatic stress disorder) F43.10 and Social anxiety disorder F40.10 [facility] [address] [place] [id number] [address] [place] [address] Jun, [facility] [address] [place] [id number] [address] [place] [address] May, Encounter for screening mamm ogram for breast cancer Z12.31 [facility] [address] [place] [id number] [address] [place] [address] May, [facility] [address] [facility] [id number] [address] [place] [address] May, [facility] [address] [facility] [id number] [address] [place] [address] May, Major depressive disorder, r ecurrent episode, severe F33.2 ; PTSD (post-traumatic stress disorder) F43.10 ; Social anxiety disorder F40.10 and ADHD, predominantly inattentive type F90.0 [facility] [address] [place] [id number] [address] [place] [address] Apr, [facility] [address] [place] [id number] [address] [place] [address] Mar, [facility] [address] [place] [id number] [place] [address] Mar, Major depressive disorder, r ecurrent episode, severe F33.2 ; PTSD (post-traumatic stress disorder) F43.10 ; Social anxiety disorder F40.10 and ADHD, predominantly inattentive type F90.0 [facility] [address] [place] [id number] [place] [address] Feb, [facility] [address] [address] Feb, [facility] [address] [address] Feb, [facility] [address] [address] Feb, Lupus M32.9 ; Hypothyroid E0 3.9 and Irregular menses N92.6 [facility] [address] [address] Feb, Lupus M32.9 and Hypothyroid E03.9 [facility] [address] [place] [id number] [place] [address] Jan, Encounter for immunization Z 23 [facility] [address] [place] [id number] [address] [place] [address] 14 Jul, 2014 [facility] [address] [address] Jul, [facility] [address] [address] Feb, [facility] [address] [place] [id number] [place] [address] Feb, [facility] [address] [address] 15 Feb, 2012 [facility] [address] [id number] [address] [place] [address], [place] [address] Feb, [facility] [address] [id number] [address] [place] [address], [place] [address] August, [facility] [address] [id number] [address] [place] [address], [place] [address] Jun, [facility] [address] [id number] [address] [place] [address], [place] [address] Jun, [facility] [address] [id number] [address] [place] [address], [place] [address] Jun, [facility] [address] [id number] [address] [place] [address], [place] [address] 16 Jun, 2011 [facility] [address] [id number] [address] [place] [address], [place] [address] May, [facility] [address] [id number] [address] [place] [address], [place] [address] May, [facility] [address] [id number] [address] [place] [address], [place] [address] May, [facility] [address] [id number] [address] [place] [address], [place] [address] May, [facility] [address] [id number] [address] [place] [address], [place] [address] Mar, [facility] [address] [id number] [address] [place] [address], [place] [address] Jan, [facility] [address] [id number] [address] [place] [address], [place] [address] Jan, [facility] [address] [id number] [address] [place] [address], [place] [address] Jan, [facility] [address] [id number] [address] [place] [address], [place] [address] Jan, [facility] [address] [facility] [id number] [address] [address] Jan, [facility] [address] [facility] [id number] [address] [place] [address] Jan, IMMUNIZATIONS Vaccine Route Administration Date Status HEP A (ADULT) IM Intramuscular Feb 27, 2018 Administered SOCIAL HISTORY Never Assessed REASON FOR VISIT Hep A PLAN OF CARE VITAL SIGNS MEDICATIONS Unknown Medications RESULTS No Results PROCEDURES Procedure Date Ordered Result Body Site HEP A (ADULT) Feb 27, 2018 SINGLE IMMUNIZATION ADMIN Feb 27, 2018 INSTRUCTIONS MEDICATIONS ADMINISTERED No Known Medications MEDICAL (GENERAL) HISTORY Type Description Date Medical History Systemic lupus erythematosus, unspecifie d Medical History Hypothyroidism, unspecified Surgical History inguinal hernia repair Surgical History section Surgical History cholecystectomy Surgical History ovarian cyst resection Hospitalization History dystonia Hospitalization History pylenephritis
--- OUTSIDE RECORDS SUMMARY | 2019-10-05 06:20 | XMS REPORT ---
Author Author Meaghan DINERO [facility] Address [address] [place] [address] Care Team Providers Care [employer] Installer Name Role Phone VIKKI DINERO Unavailable PROBLEMS Type Condition ICD9-CM Code [id number] Code Onset Dates Condition S tatus SNOMED Code Problem Hypothyroid E03.9 Active 32963759 Problem Social anxiety disorder F40.10 Active 99704096 Problem Systemic lupus M32.9 Active 87527 009 Problem Irregular menses N92.6 Active 801 62570 Problem Rosacea L71.9 Active 981998561 Problem Pure hypercholesterolemia E78.00 Acti ve 855519124 Problem Major depressive disorder, recurrent episode, severe F33.2 Active [id number] Problem PTSD (post-traumatic stress disorder) F43.10 Active 10603946 Problem Moderate episode of recurrent major depressive disorder F33.1 Active 365094739 Problem ADHD, predominantly inattentive type F90.0 Active 24859873 ALLERGIES Substance Reaction Event Type Date Status Stadol halucinations Drug Allergy Dec, Active ENCOUNTERS Encounter Location Date Diagnosis [place] [address] [facility] [id number] [address] [place] [address] Jan, [facility] [address] [facility] [id number] [address] [place] [address] Dec, [facility] [address] [facility] [id number] [address] [place] [address] Dec, Moderate episode of recurren t major depressive disorder F33.1 ; ADHD, predominantly inattentive type F90.0 ; PTSD (post-traumatic stress disorder) F43.10 and Social anxiety disorder F40.10 [facility] [address] [facility] [id number] [address] [place] [address] Nov, [facility] [address] [id number] [address] [place] [address] Oct, Bruise T14.8XXA [facility] [address] [id number] [address] [place] [address] Oct, Bruise T14.8XXA [facility] [address] [id number] [address] [place] [address] Oct, [facility] [address] [id number] [address] [place] [address] Oct, [facility] [address] [id number] [address] [place] [address] Oct, [facility] [address] [id number] [address] [place] [address] Sep, [facility] [address] [id number] [address] [place] [address] Sep, Hypothyroid E03.9 [facility] [address] [id number] [address] [place] [address] Sep, [facility] [address] [id number] [address] [place] [address] Sep, [facility] [address] [id number] [address] [place] [address] August, [facility] [address] [id number] [address] [place] [address] August, PTSD (post-traumatic stress disorder) F43.10 ; Moderate episode of recurrent major depressive disorder F33.1 ; ADHD, predominantly inattentive type F90.0 and Social anxiety disorder F40.10 [facility] [address] [id number] [address] [place] [address] August, [facility] [address] [id number] [address] [place] [address] August, [facility] [address] [id number] [address] [place] [address] Jul, [facility] [address] [id number] [address] [place] [address] Jul, [facility] [address] [facility] [id number] [address] [place] [address] Jul, Candelario L71.9 [facility] [address] [facility] [id number] [address] [place] [address] Jun, PTSD (post-traumatic stress disorder) F43.10 [facility] [address] [id number] [address] [place] [address] Jun, [facility] [address] [id number] [address] [place] [address] Jun, [facility] [address] [facility] [id number] [address] [place] [address] Jun, [facility] [address] [facility] [id number] [address] [place] [address] Jun, [facility] [address] [facility] [id number] [address] [place] [address] Apr, [facility] [address] [facility] [id number] [address] [place] [address] Apr, Hypothyroid E03.9 ; Pure hyp ercholesterolemia E78.00 and Systemic lupus M32.9 [facility] [address] [facility] [id number] [address] [place] [address] Apr, Hypothyroid E03.9 ; Systemic lupus M32.9 and Pure hypercholesterolemia E78.00 [facility] [address] [facility] [id number] [address] [place] [address] Apr, [facility] [address] [facility] [id number] [address] [place] [address] Mar, [facility] [address] [facility] [id number] [address] [place] [address] Mar, Pulsatile neck mass R22.1 [facility] [address] [place] [id number] [address] [place] [address] Feb, [facility] [address] [address] Feb, Contact dermatitis and eczem a due to plant L24.7 [facility] [address] [place] [id number] [address] [place] [address] Feb, Systemic lupus M32.9 [facility] [address] [address] Jan, [place] [address] [address] Jan, Dental examination Z01.20 [place] [address] [phone] 06 Jan, 2017 Encounter for immunization Z 23 [place] [address] [address] Dec, [place] [address] [address] Nov, Hypothyroid E03.9 [place] [address] [address] Nov, PTSD (post-traumatic stress disorder) F43.10 ; ADHD, predominantly inattentive type F90.0 ; Social anxiety disorder F40.10 and Moderate episode of recurrent major depressive disorder F33.1 [place] [address] [place] [id number] [address] [place] [address] Nov, ADHD, predominantly inattent marzena type F90.0 [place] [address] [place] [id number] [place] [address] Oct, Acquired hypothyroidism E03. 9 [facility] [address] [place] [id number] [place] [address] Oct, ADHD, predominantly inattent marzena type F90.0 [place] [address] [address] Oct, Acquired hypothyroidism E03. 9 [facility] [address] [id number] [address] [place] [address] Sep, Well woman exam Z01.419 ; Sy stemic lupus M32.9 ; Irregular menses N92.6 ; PTSD (post-traumatic stress disorder) F43.10 ; Social anxiety disorder F40.10 ; ADHD, predominantly inattentive type F90.0 ; Hypothyroid E03.9 and Generalized headaches R51 [facility] [address] [id number] [address] [place] [address] August, ADHD, predominantly inattent marzena type F90.0 [facility] [address] [id number] [address] [place] [address] August, [facility] [address] [facility] [id number] [address] [place] [address] Jul, [facility] [address] [id number] [address] [place] [address] Jun, [facility] [address] [id number] [address] [place] [address] Jun, Hypothyroid E03.9 [facility] [address] [id number] [address] [place] [address] Jun, ADHD, predominantly inattent marzena type F90.0 and Social anxiety disorder F40.10 [facility] [address] [id number] [address] [place] [address] Jun, [facility] [address] [id number] [address] [place] [address] Jun, [facility] [address] [id number] [address] [place] [id number] 22 May, 2016 Dental examination Z01.20 [facility] [address] [id number] [address] [place] [phone] 14 May, 2016 ADHD, predominantly inattent marzena type F90.0 ; Recurrent major depressive disorder, in partial remission F33.41 ; Social anxiety disorder F40.10 and PTSD (post-traumatic stress disorder) F43.10 [facility] [address] [id number] [address] [place] [address] Apr, Social anxiety disorder F40. 10 [facility] [address] [id number] [address] [place] [address] Apr, ADHD, predominantly inattent marzena type F90.0 [facility] [address] [id number] [address] [place] [address] Apr, [facility] [address] [id number] [address] [place] [address] Apr, [facility] [address] [id number] [address] [place] [address] Mar, Dental examination Z01.20 [facility] [address] [id number] [address] [place] [address] Mar, [facility] [address] [id number] [address] [place] [address] Feb, [facility] [address] [id number] [address] [place] [address] Feb, [facility] [address] [id number] [address] [place] [address] Jan, Encounter for immunization Z 23 [facility] [address] [id number] [address] [place] [address] Jan, [facility] [address] [id number] [address] [place] [address] Jan, [facility] [address] [id number] [address] [place] [address] Jan, Dental examination Z01.20 [facility] [address] [id number] [address] [place] [address] Jan, [facility] [address] [id number] [address] [place] [address] 19 Jan, 2016 Dental examination Z01.20 [facility] [address] [id number] [address] [place] [id number] 13 Jan, 2016 [facility] [address] [id number] [address] [place] [id number] 16 Dec, 2015 [facility] [address] [id number] [address] [place] [id number] Dec, Dental examination Z01.20 [facility] [address] [id number] [address] [place] [address] Nov, [facility] [address] [id number] [address] [place] [address] Nov, Social anxiety disorder F40. 10 ; PTSD (post-traumatic stress disorder) F43.10 and ADHD, predominantly inattentive type F90.0 [facility] [address] [id number] [address] [place] [address] Oct, Social anxiety disorder F40. 10 [facility] [address] [id number] [address] [place] [phone] Oct, Hypothyroidism, unspecified type E03.9 [facility] [address] [id number] [address] [place] [address] Oct, Hypothyroid E03.9 [facility] [address] [id number] [address] [place] [address] Oct, Hypothyroid E03.9 [facility] [address] [id number] [address] [place] [address] Sep, Hypothyroid E03.9 [facility] [address] [id number] [address] [place] [address] Sep, [facility] [address] [id number] [address] [place] [address] Sep, ADHD, predominantly inattent marzena type F90.0 [facility] [address] [id number] [address] [place] [address] Jul, ADHD, predominantly inattent marzena type F90.0 [facility] [address] [facility] [id number] [address] [place] [address] Jun, [facility] [address] [facility] [id number] [address] [place] [address] Jun, Major depressive disorder, r ecurrent episode, severe F33.2 ; ADHD, predominantly inattentive type F90.0 ; PTSD (post-traumatic stress disorder) F43.10 and Social anxiety disorder F40.10 [facility] [address] [facility] [id number] [address] [place] [address] Jun, [facility] [address] [facility] [id number] [address] [place] [address] May, Encounter for screening mamm ogram for breast cancer Z12.31 [facility] [address] [facility] [id number] [address] [place] [phone] 15 May, 2015 [facility] [address] [facility] [id number] [address] [place] [address] May, [facility] [address] [facility] [id number] [address] [place] [address] May, Major depressive disorder, r ecurrent episode, severe F33.2 ; PTSD (post-traumatic stress disorder) F43.10 ; Social anxiety disorder F40.10 and ADHD, predominantly inattentive type F90.0 [facility] [address] [facility] [id number] [address] [place] [address] Apr, [facility] [address] [facility] [id number] [address] [place] [address] Mar, [facility] [address] [facility] [id number] [address] [place] [address] Mar, Major depressive disorder, r ecurrent episode, severe F33.2 ; PTSD (post-traumatic stress disorder) F43.10 ; Social anxiety disorder F40.10 and ADHD, predominantly inattentive type F90.0 [facility] [address] [id number] [address] [place] [address] Feb, [facility] [address] [id number] [address] [place] [address] Feb, [facility] [address] [facility] [id number] [address] [place] [address] Feb, [facility] [address] [id number] [address] [place] [address] Feb, Lupus M32.9 ; Hypothyroid E0 3.9 and Irregular menses N92.6 [facility] [address] [facility] [id number] [address] [place] [address] Feb, Lupus M32.9 and Hypothyroid E03.9 [facility] [address] [facility] [id number] [address] [place] [address] Jan, Encounter for immunization Z 23 [facility] [address] [id number] [address] [place] [address] 14 Jul, 2014 [facility] [address] [id number] [address] [place] [address] Jul, [facility] [address] [facility] [id number] [address] [place] [address] Feb, [facility] [address] [id number] [address] [place] [address] Feb, [facility] [address] [id number] [address] [place] [address] Feb, [facility] [address] [id number] [address] [place] [address] Feb, [facility] [address] [facility] [id number] [address] [place] [address] August, [facility] [address] [facility] [id number] [address] [place] [address] Jun, [facility] [address] [id number] [address] [place] [address] Jun, [facility] [address] [id number] [address] [place] [address] Jun, [facility] [address] [id number] [address] [place] [address] Jun, [facility] [address] [id number] [address] [place] [address] May, [facility] [address] [id number] [address] [place] [address] May, [facility] [address] [id number] [address] [place] [address] May, [facility] [address] [id number] [address] [place] [address] May, [facility] [address] [id number] [address] [place] [address] Mar, [facility] [address] [id number] [address] [place] [address] Jan, [facility] [address] [id number] [address] [place] [phone] Jan, [facility] [address] [id number] [address] [place] [address] Jan, [facility] [address] [id number] [address] [place] [address] Jan, [facility] [address] [id number] [address] [place] [address] Jan, [facility] [address] [id number] [address] [place] [address] Jan, IMMUNIZATIONS No Known Immunizations SOCIAL HISTORY Never Assessed REASON FOR VISIT f/u JtoniournScott, mood / anxiety / adhd PLAN OF CARE Activity Details Follow Up 2 Months Reason: VITAL SIGNS Height 66 in 2018-01-09 Weight 149.8 lbs 2018-01-09 Heart Rate 68 bpm 2018-01-09 Respiratory Rate 20 2018-01-09 BMI 24.18 kg/m2 2018-01-09 Blood pressure systolic 138 mmHg 2018-01-09 Blood pressure diastolic 82 mmHg 2018-01-09 MEDICATIONS Medication Instructions Dosage Frequency Start Date End Date Duration S tatus Concerta 54 MG Orally Once a day for ADHD 1 tablet in the morning Nov, Active Methylphenidate HCl 10 mg Orally at 4 pm for ADHD 1/2 to 1 tablet Nov, Active Propranolol HCl 20 mg Orally Twice a day 1 tablet 12h Active Neurontin 100 mg Orally Three times a day 1 capsule as need for anx iety 8h August, 30 day(s) Active Lamictal 200 mg Orally Once a day 1 tablet 24h Active Tramadol HCl 50 MG TAKE ONE TABLET BY MOUTH EVERY 6 HOURS NEE DED Active Cryselle-28 0.3-30 MG-MCG Orally, only take the active medication, not the week that is placebo Once a day 1 tablet 24h Active Doxycycline Hyclate 100 mg Orally Once a day 1 capsule 24h Jul, Jan, 30 days Active Wellbutrin XL 150 MG Orally Once a day 1 tablet in the morning 24h 20 Dec, 2017 30 day(s) Active Mirvaso 0.33 % Externally Once a day 1 application to affected area 24h 28 Active Synthroid 100 MCG Orally Once a day 1 tablet on an empty stomach in the morning 24h Active RESULTS No Results PROCEDURES No Known procedures INSTRUCTIONS MEDICATIONS ADMINISTERED No Known Medications MEDICAL (GENERAL) HISTORY Type Description Date Medical History Systemic lupus erythematosus, unspecifie d Medical History Hypothyroidism, unspecified Surgical History inguinal hernia repair Surgical History section Surgical History cholecystectomy Surgical History ovarian cyst resection Hospitalization History dystonia Hospitalization History pylenephritis
--- OUTSIDE RECORDS SUMMARY | 2019-10-05 06:20 | XMS REPORT ---
Author Author Meaghan REYNA [facility] Address [address] [place] [address] Care Team Providers Care Business Liaison Manager Name Role Phone ALONZO REYNA Unavailable PROBLEMS Type Condition ICD9-CM Code [id number] Code Onset Dates Condition S tatus SNOMED Code Problem Hypothyroid E03.9 Active 19403223 Problem Social anxiety disorder F40.10 Active 61780870 Problem Systemic lupus M32.9 Active 12724 009 Problem Irregular menses N92.6 Active 801 34719 Problem Rosacea L71.9 Active 071654495 Problem Pure hypercholesterolemia E78.00 Acti ve 878880423 Problem Major depressive disorder, recurrent episode, severe F33.2 Active 334887476049 Problem PTSD (post-traumatic stress disorder) F43.10 Active 58796629 Problem Moderate episode of recurrent major depressive disorder F33.1 Active 156259220 Problem ADHD, predominantly inattentive type F90.0 Active 57676185 ALLERGIES No Information ENCOUNTERS Encounter Location Date Diagnosis [place] [id number] [place] [phone] Dec, [place] [address] [place] [id number] [address] [place] [address] Dec, Moderate episode of recurren t major depressive disorder F33.1 ; ADHD, predominantly inattentive type F90.0 ; PTSD (post-traumatic stress disorder) F43.10 and Social anxiety disorder F40.10 [facility] [place] [address] [place] [id number] [address] [place] [phone] Nov, [place] [address] [place] [id number] [address] [place] [address] Oct, Bruise T14.8XXA [place] [id number] [place] [id number] [address] [place] [address] Oct, Bruise T14.8XXA [facility], [place] [address] [id number] [address] [place] [phone] Oct, [facility] [place] [address] [id number] [address] [place] [address] Oct, [facility] [place] [address] [id number] [address] [place] [phone] Oct, [facility] [place] [address] [id number] [address] [place] [phone] Sep, [facility] [place] [address] [id number] [address] [place] [phone] Sep, Hypothyroid E03.9 [facility] [place] [address] [id number] [address] [place] [phone] Sep, [facility] [place] [address] [id number] [address] [place] [id number] Sep, [facility] [place] [address] [id number] [address] [place] [phone] August, [facility] [place] [address] [id number] [address] [place] [address] August, PTSD (post-traumatic stress disorder) F43.10 ; Moderate episode of recurrent major depressive disorder F33.1 ; ADHD, predominantly inattentive type F90.0 and Social anxiety disorder F40.10 [facility] [place] [address] [id number] [address] [place] [id number] August, [facility] [place] [address] [id number] [address] [place] [phone] August, [facility] [place] [address] [id number] [address] [place] [phone] Jul, [facility] [place] [address] [id number] [address] [place] [address] Jul, [facility] [place] [address] [id number] [address] [place] [phone] Jul, Rosacea L71.9 [facility] [place] [address] [facility] [id number] [address] [place] [address] Jun, PTSD (post-traumatic stress disorder) F43.10 [facility], [place] [address] [facility] [id number] [address] [place] [phone] Jun, [facility] [place] [address] [place] [id number] [address] [place] [phone] Jun, [facility] [place] [address] [place] [id number] [address] [place] [phone] Jun, [facility] [place] [address] [place] [id number] [place] [phone] Jun, [facility] [place] [address] [place] [id number] [address] [place] [address] Apr, [facility] [place] [address] [place] [id number] [address] [place] [address] Apr, Hypothyroid E03.9 ; Pure hyp ercholesterolemia E78.00 and Systemic lupus M32.9 [facility] [place] [address] [place] [id number] [address] [place] [phone] Apr, Hypothyroid E03.9 ; Systemic lupus M32.9 and Pure hypercholesterolemia E78.00 [facility] [place] [address] [place] [id number] [address] [place] [address] Apr, [facility] [place] [address] [place] [id number] [address] [place] [phone] Mar, [facility] [place] [address] [place] [id number] [address] [place] [phone] Mar, Pulsatile neck mass R22.1 [facility] [place] [address] [place] [id number] [address] [place] [phone] Feb, [facility] [place] [address] [place] [id number] [place] [address] Feb, Contact dermatitis and eczem a due to plant L24.7 [facility] [place] [address] [place] [id number] [address] [place] [phone] Feb, Systemic lupus M32.9 [facility] [place] [address] [facility] [id number] [address] [place] [address] Jan, [facility] [place] [address] [place] [id number] [address] [place] [address] Jan, Dental examination Z01.20 [place] [address] [facility] [id number] [address] [place] [phone] 06 Jan, 2017 Encounter for immunization Z 23 [place] [address] [place] [id number] [address] [place] [phone] Dec, [place] [address] [place] [id number] [place] [address] Nov, Hypothyroid E03.9 [place] [address] [place] [id number] [address] [place] [phone] Nov, PTSD (post-traumatic stress disorder) F43.10 ; ADHD, predominantly inattentive type F90.0 ; Social anxiety disorder F40.10 and Moderate episode of recurrent major depressive disorder F33.1 [place] [address] [place] [id number] [address] [place] [address] Nov, ADHD, predominantly inattent marzena type F90.0 [place] [address] [place] [id number] [address] [place] [address] Oct, Acquired hypothyroidism E03. 9 [place] [address] [place] [id number] [address] [place] [address] Oct, ADHD, predominantly inattent marzena type F90.0 [place] [address] [place] [id number] [address] [place] [phone] Oct, Acquired hypothyroidism E03. 9 [place] [address] [place] [id number] [address] [place] [address] Sep, Well woman exam Z01.419 ; Sy stemic lupus M32.9 ; Irregular menses N92.6 ; PTSD (post-traumatic stress disorder) F43.10 ; Social anxiety disorder F40.10 ; ADHD, predominantly inattentive type F90.0 ; Hypothyroid E03.9 and Generalized headaches R51 [facility] [place] [address] [id number] [address] [place] [address] August, ADHD, predominantly inattent marzena type F90.0 [facility], [place] [address] [id number] [address] [place] [address] August, [facility] [place] [address] [id number] [address] [place] [address] Jul, [facility] [place] [address] [id number] [address] [place] [phone] Jun, [facility], [place] [address] [facility] [id number] [address] [place] [address] Jun, Hypothyroid E03.9 [facility], [place] [address] [id number] [address] [place] [address] Jun, ADHD, predominantly inattent marzena type F90.0 and Social anxiety disorder F40.10 [facility] [place] [address] [facility] [id number] [address] [place] [phone] Jun, [facility], [place] [address] [facility] [id number] [address] [place] [address] Jun, [facility] [address] [id number] [address] [place] [id number] May, Dental examination Z01.20 [facility], [place] [address] [facility] [id number] [address] [place] [address] May, ADHD, predominantly inattent marzena type F90.0 ; Recurrent major depressive disorder, in partial remission F33.41 ; Social anxiety disorder F40.10 and PTSD (post-traumatic stress disorder) F43.10 [facility] [place] [address] [facility] [id number] [address] [place] [phone] Apr, Social anxiety disorder F40. 10 [facility] [place] [address] [id number] [address] [place] [address] Apr, ADHD, predominantly inattent marzena type F90.0 [facility] [place] [address] [id number] [address] [place] [address] Apr, [facility] [place] [address] [id number] [address] [place] [phone] Apr, [facility] [place] [address] [id number] [address] [place] [address] Mar, Dental examination Z01.20 [facility] [place] [address] [id number] [address] [place] [phone] Mar, [facility] [place] [address] [id number] [address] [place] [phone] Feb, [facility] [place] [address] [id number] [address] [place] [phone] Feb, [facility] [place] [address] [id number] [address] [place] [address] Jan, Encounter for immunization Z 23 [facility] [place] [address] [id number] [address] [place] [phone] Jan, [facility] [place] [address] [id number] [address] [place] [phone] Jan, [facility] [place] [address] [id number] [address] [place] [address] Jan, Dental examination Z01.20 [facility] [place] [address] [id number] [address] [place] [address] Jan, [facility] [place] [address] [id number] [address] [place] [address] Jan, Dental examination Z01.20 [facility] [place] [address] [id number] [address] [place] [phone] Jan, [facility] [place] [address] [id number] [address] [place] [phone] Dec, [facility] [address] [id number] [address] [place] [address] [id number] Dec, Dental examination Z01.20 [facility] [place] [address] [id number] [address] [place] [phone] Nov, [facility] [place] [address] [facility] [id number] [address] [place] [address] Nov, Social anxiety disorder F40. 10 ; PTSD (post-traumatic stress disorder) F43.10 and ADHD, predominantly inattentive type F90.0 [facility] [place] [address] [id number] [address] [place] [address] Oct, Social anxiety disorder F40. 10 [facility] [place] [address] [id number] [address] [place] [address] Oct, Hypothyroidism, unspecified type E03.9 [facility] [place] [address] [id number] [address] [place] [address] Oct, Hypothyroid E03.9 [facility] [place] [address] [id number] [address] [place] [phone] Oct, Hypothyroid E03.9 [facility] [place] [address] [id number] [address] [place] [phone] Sep, Hypothyroid E03.9 [facility] [place] [address] [id number] [address] [place] [phone] Sep, [facility] [place] [address] [id number] [address] [place] [address] Sep, ADHD, predominantly inattent marzena type F90.0 [facility] [place] [address] [id number] [address] [place] [phone] Jul, ADHD, predominantly inattent marzena type F90.0 [facility] [place] [address] [id number] [address] [place] [phone] Jun, [facility] [place] [address] [id number] [address] [place] [address] Jun, Major depressive disorder, r ecurrent episode, severe F33.2 ; ADHD, predominantly inattentive type F90.0 ; PTSD (post-traumatic stress disorder) F43.10 and Social anxiety disorder F40.10 [facility] [place] [address] [id number] [address] [place] [address] Jun, [facility] [place] [address] [id number] [address] [place] [address] May, Encounter for screening mamm ogram for breast cancer Z12.31 [facility] [place] [address] [facility] [id number] [address] [place] [phone] 15 May, 2015 [facility] [place] [address] [facility] [id number] [address] [place] [address] May, [facility] [place] [address] [facility] [id number] [address] [place] [phone] May, Major depressive disorder, r ecurrent episode, severe F33.2 ; PTSD (post-traumatic stress disorder) F43.10 ; Social anxiety disorder F40.10 and ADHD, predominantly inattentive type F90.0 [facility] [place] [address] [id number] [address] [place] [address] Apr, [facility] [place] [address] [id number] [address] [place] [phone] Mar, [facility] [place] [address] [id number] [address] [place] [address] Mar, Major depressive disorder, r ecurrent episode, severe F33.2 ; PTSD (post-traumatic stress disorder) F43.10 ; Social anxiety disorder F40.10 and ADHD, predominantly inattentive type F90.0 [facility] [place] [address] [facility] [id number] [address] [place] [phone] Feb, [facility] [place] [address] [id number] [address] [place] [address] Feb, [facility] [place] [address] [id number] [address] [place] [phone] Feb, [facility] [place] [address] [facility] [id number] [address] [place] [phone] 04 Feb, 2015 Lupus M32.9 ; Hypothyroid E0 3.9 and Irregular menses N92.6 [facility] [place] [address] [id number] [address] [place] [phone] 03 Feb, 2015 Lupus M32.9 and Hypothyroid E03.9 [facility] [place] [address] [facility] [id number] [address] [place] [phone] 26 Jan, 2015 Encounter for immunization Z 23 [facility] [place] [address] [id number] [address] [place] [phone] 14 Jul, 2014 [facility] [place] [address] [id number] [address] [place] [address] Jul, [facility] [place] [address] [id number] [address] [place] [phone] Feb, [facility] [place] [address] [id number] [address] [place] [phone] Feb, [facility] [place] [address] [facility] [id number] [address] [place] [address] Feb, [facility] [place] [address] [id number] [address] [place] [phone] Feb, [facility] [place] [address] [id number] [address] [place] [phone] August, [facility] [place] [address] [id number] [address] [place] [phone] Jun, [facility] [place] [address] [id number] [address] [place] [phone] Jun, [facility] [place] [address] [id number] [address] [place] [phone] Jun, [facility] [place] [address] [id number] [address] [place] [phone] Jun, [facility] [place] [address] [id number] [address] [place] [phone] May, [facility] [place] [address] [id number] [address] [place] [phone] May, [facility] [place] [address] [id number] [address] [place] [phone] May, [facility] [place] [address] [id number] [address] [place] [address] May, [facility] [place] [address] [id number] [address] [place] [phone] Mar, [facility] [place] [address] [id number] [address] [place] [phone] Jan, [facility] [place] [address] [id number] [address] [place] [phone] Jan, [facility] [place] [address] [id number] [address] [place] [phone] Jan, [facility] [place] [address] [id number] [address] [place] [address] Jan, [facility] [place] [address] [id number] [address] [place] [address] Jan, [facility] [place] [address] [id number] [address] [place] [phone] Jan, IMMUNIZATIONS No Known Immunizations SOCIAL HISTORY Never Assessed REASON FOR VISIT concerta PLAN OF CARE VITAL SIGNS MEDICATIONS Medication Instructions Dosage Frequency Start Date End Date Duration S tatus Concerta 54 MG Orally Once a day for ADHD 1 tablet in the morning Nov, 28 days Active Methylphenidate HCl 10 mg Orally at 4 pm for ADHD 1/2 to 1 tablet Nov, 28 days Active RESULTS No Results PROCEDURES No Known procedures INSTRUCTIONS MEDICATIONS ADMINISTERED No Known Medications MEDICAL (GENERAL) HISTORY Type Description Date Medical History Systemic lupus erythematosus, unspecifie d Medical History Hypothyroidism, unspecified Surgical History inguinal hernia repair Surgical History section Surgical History cholecystectomy Surgical History ovarian cyst resection Hospitalization History dystonia Hospitalization History pylenephritis
--- OUTSIDE RECORDS SUMMARY | 2019-10-05 06:20 | XMS REPORT ---
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 Name Role Phone KELLY LYNNE Unavailable PROBLEMS Type Condition ICD9-CM Code IEF63-JE Code Onset Dates Condition S tatus SNOMED Code Problem Hypothyroid E03.9 Active 57183514 Problem Social anxiety disorder F40.10 Active 89868133 Problem Systemic lupus M32.9 Active 09805 009 Problem Irregular menses N92.6 Active 801 24045 Problem Rosacea L71.9 Active 220809550 Problem Pure hypercholesterolemia E78.00 Acti ve 894829877 Problem Major depressive disorder, recurrent episode, severe F33.2 Active [id number] Problem PTSD (post-traumatic stress disorder) F43.10 Active 57044792 Problem Moderate episode of recurrent major depressive disorder F33.1 Active 599664446 Problem ADHD, predominantly inattentive type F90.0 Active 08615284 ALLERGIES No Information ENCOUNTERS Encounter Location Date Diagnosis [place] [address] [place] [id number] [address] [place] [place] [address] Jan, Encounter for immunization Z 23 [place] [id number] [place] [address] Jan, [place] [address] [place] [id number] [address] [place] [address] Jan, [place] [address] [facility] [id number] [address] [place] [address] Dec, [place] [address] [place] [id number] [address] [place] [address] Dec, Moderate episode of recurren t major depressive disorder F33.1 ; ADHD, predominantly inattentive type F90.0 ; PTSD (post-traumatic stress disorder) F43.10 and Social anxiety disorder F40.10 [facility] [address] [id number] [address] [place] [address] Nov, [facility] [address] [id number] [address] [place] [address] Oct, Bruise T14.8XXA [facility] [address] [id number] [address] [place] [address] Oct, Bruise T14.8XXA [facility] [address] [id number] [address] [place] [address] Oct, [facility] [address] [id number] [address] [place] [phone] Oct, [facility] [address] [id number] [address] [place] [phone] Oct, [facility] [address] [id number] [address] [place] [address] Sep, [facility] [address] [id number] [address] [place] [address] Sep, Hypothyroid E03.9 [facility] [address] [id number] [address] [place] [address] Sep, [facility] [address] [id number] [address] [place] [address] Sep, [facility] [address] [id number] [address] [place] [address] August, [facility] [address] [id number] [address] [place] [address] August, PTSD (post-traumatic stress disorder) F43.10 ; Moderate episode of recurrent major depressive disorder F33.1 ; ADHD, predominantly inattentive type F90.0 and Social anxiety disorder F40.10 [facility] [address] [id number] [address] [place] [phone] August, [facility] [address] [id number] [address] [place] [address] August, [facility] [address] [id number] [address] [place] [address] Jul, [facility] [address] [id number] [address] [place] [address] Jul, [facility] [address] [id number] [address] [place] [address] Jul, Rosacea L71.9 [facility] [address] [id number] [address] [place] [address] Jun, PTSD (post-traumatic stress disorder) F43.10 [facility] [address] [id number] [address] [place] [address] Jun, [facility] [address] [id number] [address] [place] [phone] Jun, [facility] [address] [id number] [address] [place] [address] Jun, [facility] [address] [id number] [address] [place] [address] Jun, [facility] [address] [id number] [address] [place] [address] Apr, [facility] [address] [id number] [address] [place] [address] Apr, Hypothyroid E03.9 ; Pure hyp ercholesterolemia E78.00 and Systemic lupus M32.9 [facility] [address] [id number] [address] [place] [address] Apr, Hypothyroid E03.9 ; Systemic lupus M32.9 and Pure hypercholesterolemia E78.00 [facility] [address] [id number] [address] [place] [address] Apr, [facility] [address] [id number] [address] [place] [address] Mar, [facility] [address] [facility] [id number] [address] [place] [phone] 07 Mar, 2017 Pulsatile neck mass R22.1 [facility] [address] [place] [id number] [address] [place] [phone] 29 Feb, 2017 [facility] [address] [place] [id number] [address] [place] [address] 16 Feb, 2017 Contact dermatitis and eczem a due to plant L24.7 [facility] [address] [place] [id number] [place] [address] Feb, Systemic lupus M32.9 [facility] [address] [place] [id number] [address] [place] [address] Jan, [place] [address] [place] [id number] [place] [address] Jan, Dental examination Z01.20 [place] [address] [place] [id number] [address] [place] [phone] 06 Jan, 2017 Encounter for immunization Z 23 [facility] [address] [place] [id number] [address] [place] [address] 20 Dec, 2016 [place] [address] [address] Nov, Hypothyroid E03.9 [place] [address] [place] [id number] [address] [place] [address] Nov, PTSD (post-traumatic stress disorder) F43.10 ; ADHD, predominantly inattentive type F90.0 ; Social anxiety disorder F40.10 and Moderate episode of recurrent major depressive disorder F33.1 [place] [address] [place] [id number] [address] [place] [address] Nov, ADHD, predominantly inattent marzena type F90.0 [place] [address] [place] [id number] [address] [place] [phone] Oct, Acquired hypothyroidism E03. 9 [facility] [address] [place] [id number] [address] [place] [address] Oct, ADHD, predominantly inattent marzena type F90.0 [facility] [address] [id number] [address] [place] [address] Oct, Acquired hypothyroidism E03. 9 [facility] [address] [facility] [id number] [address] [place] [address] Sep, Well woman exam Z01.419 ; Sy stemic lupus M32.9 ; Irregular menses N92.6 ; PTSD (post-traumatic stress disorder) F43.10 ; Social anxiety disorder F40.10 ; ADHD, predominantly inattentive type F90.0 ; Hypothyroid E03.9 and Generalized headaches R51 [facility] [address] [id number] [address] [place] [address] August, ADHD, predominantly inattent marzena type F90.0 [facility] [address] [id number] [address] [place] [address] August, [facility] [address] [id number] [address] [place] [address] Jul, [facility] [address] [id number] [address] [place] [address] Jun, [facility] [address] [id number] [address] [place] [address] Jun, Hypothyroid E03.9 [facility] [address] [id number] [address] [place] [address] Jun, ADHD, predominantly inattent marzena type F90.0 and Social anxiety disorder F40.10 [facility] [address] [id number] [address] [place] [address] Jun, [facility] [address] [facility] [id number] [address] [place] [address] Jun, [facility] [address] [id number] [address] [place] [id number] May, Dental examination Z01.20 [facility] [address] [id number] [address] [place] [address] 14 May, 2016 ADHD, predominantly inattent marzena type F90.0 ; Recurrent major depressive disorder, in partial remission F33.41 ; Social anxiety disorder F40.10 and PTSD (post-traumatic stress disorder) F43.10 [facility] [address] [id number] [address] [place] [address] Apr, Social anxiety disorder F40. 10 [facility] [address] [id number] [address] [place] [address] Apr, ADHD, predominantly inattent marzena type F90.0 [facility] [address] [id number] [address] [place] [address] Apr, [facility] [address] [id number] [address] [place] [address] Apr, [facility] [address] [id number] [address] [place] [address] Mar, Dental examination Z01.20 [facility] [address] [id number] [address] [place] [address] Mar, [facility] [address] [id number] [address] [place] [address] Feb, [facility] [address] [id number] [address] [place] [phone] Feb, [facility] [address] [id number] [address] [place] [address] Jan, Encounter for immunization Z 23 [facility] [address] [id number] [address] [place] [address] Jan, [facility] [address] [id number] [address] [place] [address] Jan, [facility] [address] [id number] [address] [place] [address] Jan, Dental examination Z01.20 [facility] [address] [id number] [address] [place] [address] Jan, [facility] [address] [id number] [address] [place] [address] 19 Jan, 2016 Dental examination Z01.20 [facility] [address] [id number] [address] [place] [phone] 13 Jan, 2016 [facility] [address] [id number] [address] [place] [address] 16 Dec, 2015 [facility] [address] [id number] [address] [place] [id number] 16 Dec, 2015 Dental examination Z01.20 [facility] [address] [id number] [address] [place] [address] 31 Nov, 2015 [facility] [address] [id number] [address] [place] [address] Nov, Social anxiety disorder F40. 10 ; PTSD (post-traumatic stress disorder) F43.10 and ADHD, predominantly inattentive type F90.0 [facility] [address] [id number] [address] [place] [address] Oct, Social anxiety disorder F40. 10 [facility] [address] [id number] [address] [place] [phone] Oct, Hypothyroidism, unspecified type E03.9 [facility] [address] [id number] [address] [place] [address] Oct, Hypothyroid E03.9 [facility] [address] [id number] [address] [place] [address] Oct, Hypothyroid E03.9 [facility] [address] [id number] [address] [place] [phone] 17 Sep, 2015 Hypothyroid E03.9 [facility] [address] [id number] [address] [place] [address] 14 Sep, 2015 [facility] [address] [id number] [address] [place] [address] Sep, ADHD, predominantly inattent marzena type F90.0 [facility] [address] [id number] [address] [place] [address] Jul, ADHD, predominantly inattent marzena type F90.0 [facility] [address] [id number] [address] [place] [address] Jun, [facility] [address] [facility] [id number] [address] [place] [phone] Jun, Major depressive disorder, r ecurrent episode, severe F33.2 ; ADHD, predominantly inattentive type F90.0 ; PTSD (post-traumatic stress disorder) F43.10 and Social anxiety disorder F40.10 [place] [address] [facility] [id number] [address] [place] [phone] Jun, [place] [address] [facility] [id number] [address] [place] [address] May, Encounter for screening mamm ogram for breast cancer Z12.31 [place] [address] [id number] [address] [place] [address] 15 May, 2015 [facility] [address] [facility] [id number] [address] [place] [phone] May, [facility] [address] [id number] [address] [place] [address] May, Major depressive disorder, r ecurrent episode, severe F33.2 ; PTSD (post-traumatic stress disorder) F43.10 ; Social anxiety disorder F40.10 and ADHD, predominantly inattentive type F90.0 [facility] [address] [id number] [address] [place] [phone] Apr, [facility] [address] [id number] [address] [place] [phone] Mar, [facility] [address] [facility] [id number] [address] [place] [address] Mar, Major depressive disorder, r ecurrent episode, severe F33.2 ; PTSD (post-traumatic stress disorder) F43.10 ; Social anxiety disorder F40.10 and ADHD, predominantly inattentive type F90.0 [facility] [address] [facility] [id number] [address] [place] [address] Feb, [facility] [address] [place] [id number] [place] [phone] Feb, [facility] [address] [place] [id number] [place] [phone] Feb, [facility] [address] [phone] Feb, Lupus M32.9 ; Hypothyroid E0 3.9 and Irregular menses N92.6 [facility] [address] [place] [id number] [place] [address] Feb, Lupus M32.9 and Hypothyroid E03.9 [facility] [address] [place] [id number] [address] [place] [phone] Jan, Encounter for immunization Z 23 [facility] [address] [place] [id number] [place] [phone] Jul, [facility] [address] [place] [id number] [place] [phone] Jul, [facility] [address] [place] [id number] [address] [place] [phone] Feb, [facility] [address] [place] [id number] [address] [place] [phone] Feb, [facility] [address] [place] [id number] [place] [phone] Feb, [facility] [address] [place] [id number] [address] [place] [phone] Feb, [facility] [address] [place] [id number] [place] [phone] August, [facility] [address] [id number] [address] [place] [address], [place] [address] Jun, [facility] [address] [id number] [address] [place] [address], [place] [address] Jun, [facility] [address] [id number] [address] [place] [address], [place] [address] Jun, [facility] [address] [id number] [address] [place] [address] Jun, [facility] [address] [id number] [address] [place] [address], [place] [address] May, [facility] [address] [id number] [address] [place] [address], [place] [address] May, [facility] [address] [id number] [address] [place] [address], [place] [address] May, [facility] [address] [id number] [address] [place] [phone] May, [facility] [address] [id number] [address] [place] [phone] Mar, [facility] [address] [id number] [address] [place] [phone] Jan, [facility] [address] [id number] [address] [place] [address] Jan, [facility] [address] [id number] [address] [place] [address] Jan, [facility] [address] [id number] [address] [place] [phone] Jan, [facility] [address] [id number] [address] [place] [address] Jan, [facility] [address] [id number] [address] [place] [address] Jan, IMMUNIZATIONS Vaccine Route Administration Date Status FLULAVAL QUAD 0.5ML (6 MO & UP) 2017 IM Intramuscular Jan 31 18 Administered SOCIAL HISTORY Never Assessed REASON FOR VISIT Flu shot-faina,RMA PLAN OF CARE VITAL SIGNS MEDICATIONS Unknown Medications RESULTS No Results PROCEDURES Procedure Date Ordered Result Body Site FLULAVAL QUAD 0.5ML (6 MO AND UP) 2017Jan 31, 2018 SINGLE IMMUNIZATION ADMIN Jan 31, 2018 INSTRUCTIONS MEDICATIONS ADMINISTERED No Known Medications MEDICAL (GENERAL) HISTORY Type Description Date Medical History Systemic lupus erythematosus, unspecifie d Medical History Hypothyroidism, unspecified Surgical History inguinal hernia repair Surgical History section Surgical History cholecystectomy Surgical History ovarian cyst resection Hospitalization History dystonia Hospitalization History pylenephritis
--- OUTSIDE RECORDS SUMMARY | 2019-10-05 06:20 | XMS REPORT ---
Author Author Meaghan DINERO [facility] Address [address] [place] [address] Care Team Providers Care Directory Compiler Name Role Phone VIKKI DINERO Unavailable PROBLEMS Type Condition ICD9-CM Code CPD26-HY Code Onset Dates Condition S tatus SNOMED Code Problem Hypothyroid E03.9 Active 35784883 Problem Social anxiety disorder F40.10 Active 60419176 Problem Systemic lupus M32.9 Active 29019 009 Problem Irregular menses N92.6 Active 801 10618 Problem Rosacea L71.9 Active 074628738 Problem Pure hypercholesterolemia E78.00 Acti ve 505807954 Problem Major depressive disorder, recurrent episode, severe F33.2 Active 991212315897 Problem PTSD (post-traumatic stress disorder) F43.10 Active 44600609 Problem Moderate episode of recurrent major depressive disorder F33.1 Active 490231078 Problem ADHD, predominantly inattentive type F90.0 Active 22138538 ALLERGIES No Information ENCOUNTERS Encounter Location Date Diagnosis [facility] [address] [facility] [id number] [address] [place] [phone] Jan, [facility] [address] [facility] [id number] [address] [place] [phone] Jan, [facility] [address] [facility] [id number] [address] [place] [phone] Dec, [facility] [address] [facility] [id number] [address] [place] [phone] Dec, Moderate episode of recurren t major depressive disorder F33.1 ; ADHD, predominantly inattentive type F90.0 ; PTSD (post-traumatic stress disorder) F43.10 and Social anxiety disorder F40.10 [facility] [address] [facility] [id number] [address] [place] [phone] Nov, [facility] [address] [id number] [address] [place] [address] Oct, Bruise T14.8XXA [facility] [address] [id number] [address] [place] [address] Oct, Bruise T14.8XXA [facility] [address] [id number] [address] [place] [phone] Oct, [facility] [address] [id number] [address] [place] [phone] Oct, [facility] [address] [id number] [address] [place] [phone] Oct, [facility] [address] [id number] [address] [place] [address] Sep, [facility] [address] [id number] [address] [place] [phone] Sep, Hypothyroid E03.9 [facility] [address] [id number] [address] [place] [phone] Sep, [facility] [address] [id number] [address] [place] [phone] Sep, [facility] [address] [id number] [address] [place] [phone] August, [facility] [address] [id number] [address] [place] [address] August, PTSD (post-traumatic stress disorder) F43.10 ; Moderate episode of recurrent major depressive disorder F33.1 ; ADHD, predominantly inattentive type F90.0 and Social anxiety disorder F40.10 [facility] [address] [id number] [address] [place] [id number] August, [facility] [address] [id number] [address] [place] [phone] August, [facility] [address] [id number] [address] [place] [phone] Jul, [facility] [address] [id number] [address] [place] [id number] Jul, [facility] [address] [facility] [id number] [address] [place] [phone] Jul, Rosacea L71.9 [facility] [address] [id number] [address] [place] [phone] Jun, PTSD (post-traumatic stress disorder) F43.10 [facility] [address] [id number] [address] [place] [phone] Jun, [facility] [address] [id number] [address] [place] [phone] Jun, [facility] [address] [facility] [id number] [address] [place] [phone] Jun, [facility] [address] [facility] [id number] [address] [place] [phone] Jun, [facility] [address] [facility] [id number] [address] [place] [phone] Apr, [facility] [address] [facility] [id number] [address] [place] [address] Apr, Hypothyroid E03.9 ; Pure hyp ercholesterolemia E78.00 and Systemic lupus M32.9 [facility] [address] [id number] [address] [place] [address] Apr, Hypothyroid E03.9 ; Systemic lupus M32.9 and Pure hypercholesterolemia E78.00 [facility] [address] [id number] [address] [place] [address] Apr, [facility] [address] [facility] [id number] [address] [place] [phone] Mar, [facility] [address] [facility] [id number] [address] [place] [phone] Mar, Pulsatile neck mass R22.1 [facility] [address] [facility] [id number] [address] [place] [phone] Feb, [facility] [address] [facility] [id number] [address] [place] [address] Feb, Contact dermatitis and eczem a due to plant L24.7 [facility] [address] [facility] [id number] [address] [place] [phone] Feb, Systemic lupus M32.9 [facility] [address] [facility] [id number] [address] [place] [phone] Jan, [facility] [address] [facility] [id number] [address] [place] [address] Jan, Dental examination Z01.20 [place] [address] [facility] [id number] [address] [place] [phone] 06 Jan, 2017 Encounter for immunization Z 23 [place] [address] [place] [id number] [address] [place] [phone] 20 Dec, 2016 [facility] [address] [place] [id number] [address] [place] [phone] Nov, Hypothyroid E03.9 [facility] [address] [facility] [id number] [address] [place] [address] Nov, PTSD (post-traumatic stress disorder) F43.10 ; ADHD, predominantly inattentive type F90.0 ; Social anxiety disorder F40.10 and Moderate episode of recurrent major depressive disorder F33.1 [facility] [address] [facility] [id number] [address] [place] [phone] Nov, ADHD, predominantly inattent marzena type F90.0 [facility] [address] [facility] [id number] [address] [place] [phone] Oct, Acquired hypothyroidism E03. 9 [facility] [address] [facility] [id number] [address] [place] [phone] Oct, ADHD, predominantly inattent marzena type F90.0 [facility] [address] [id number] [address] [place] [phone] Oct, Acquired hypothyroidism E03. 9 [facility] [address] [facility] [id number] [address] [place] [phone] 06 Sep, 2016 Well woman exam Z01.419 ; Sy stemic lupus M32.9 ; Irregular menses N92.6 ; PTSD (post-traumatic stress disorder) F43.10 ; Social anxiety disorder F40.10 ; ADHD, predominantly inattentive type F90.0 ; Hypothyroid E03.9 and Generalized headaches R51 [facility] [address] [id number] [address] [place] [phone] August, ADHD, predominantly inattent marzena type F90.0 [facility] [address] [id number] [address] [place] [phone] August, [facility] [address] [id number] [address] [place] [phone] Jul, [facility] [address] [id number] [address] [place] [id number] Jun, [facility] [address] [facility] [id number] [address] [place] [phone] Jun, Hypothyroid E03.9 [facility] [address] [id number] [address] [place] [phone] Jun, ADHD, predominantly inattent marzena type F90.0 and Social anxiety disorder F40.10 [facility] [address] [facility] [id number] [address] [place] [phone] Jun, [facility] [address] [id number] [address] [place] [phone] Jun, [facility] [address] [id number] [address] [place] [id number] May, Dental examination Z01.20 [facility] [address] [facility] [id number] [address] [place] [phone] 14 Feb, 2017 ADHD, predominantly inattent marzena type F90.0 ; Recurrent major depressive disorder, in partial remission F33.41 ; Social anxiety disorder F40.10 and PTSD (post-traumatic stress disorder) F43.10 [facility] [address] [id number] [address] [place] [phone] Apr, Social anxiety disorder F40. 10 [facility] [address] [id number] [address] [place] [phone] Apr, ADHD, predominantly inattent marzena type F90.0 [facility] [address] [id number] [address] [place] [phone] Apr, [facility] [address] [id number] [address] [place] [phone] Apr, [facility] [address] [id number] [address] [place] [phone] Mar, Dental examination Z01.20 [facility] [address] [id number] [address] [place] [phone] Mar, [facility] [address] [id number] [address] [place] [phone] Feb, [facility] [address] [id number] [address] [place] [phone] Feb, [facility] [address] [id number] [address] [place] [phone] Jan, Encounter for immunization Z 23 [facility] [address] [id number] [address] [place] [phone] Jan, [facility] [address] [id number] [address] [place] [phone] Jan, [facility] [address] [id number] [address] [place] [phone] Jan, Dental examination Z01.20 [facility] [address] [id number] [address] [place] [phone] Jan, [facility] [address] [id number] [address] [place] [phone] 19 Jan, 2016 Dental examination Z01.20 [facility] [address] [id number] [address] [place] [phone] 13 Jan, 2016 [facility] [address] [id number] [address] [place] [phone] 16 Dec, 2015 [facility] [address] [id number] [address] [place] [id number] 16 Dec, 2015 Dental examination Z01.20 [facility] [address] [id number] [address] [place] [phone] Nov, [facility] [address] [facility] [id number] [address] [place] [phone] Nov, Social anxiety disorder F40. 10 ; PTSD (post-traumatic stress disorder) F43.10 and ADHD, predominantly inattentive type F90.0 [facility] [address] [id number] [address] [place] [phone] Oct, Social anxiety disorder F40. 10 [facility] [address] [id number] [address] [place] [phone] Oct, Hypothyroidism, unspecified type E03.9 [facility] [address] [id number] [address] [place] [phone] Oct, Hypothyroid E03.9 [facility] [address] [id number] [address] [place] [id number] Oct, Hypothyroid E03.9 [facility] [address] [facility] [id number] [address] [place] [phone] Sep, Hypothyroid E03.9 [facility] [address] [facility] [id number] [address] [place] [phone] Sep, [facility] [address] [facility] [id number] [address] [place] [address] Sep, ADHD, predominantly inattent marzena type F90.0 [facility] [address] [id number] [address] [place] [phone] Jul, ADHD, predominantly inattent marzena type F90.0 [facility] [address] [id number] [address] [place] [phone] Jun, [facility] [address] [facility] [id number] [address] [place] [phone] Jun, Major depressive disorder, r ecurrent episode, severe F33.2 ; ADHD, predominantly inattentive type F90.0 ; PTSD (post-traumatic stress disorder) F43.10 and Social anxiety disorder F40.10 [facility] [address] [facility] [id number] [address] [place] [phone] Jun, [facility] [address] [facility] [id number] [address] [place] [phone] May, Encounter for screening mamm ogram for breast cancer Z12.31 [facility] [address] [facility] [id number] [address] [place] [phone] 15 May, 2015 [facility] [address] [facility] [id number] [address] [place] [address] May, [facility] [address] [facility] [id number] [address] [place] [address] May, Major depressive disorder, r ecurrent episode, severe F33.2 ; PTSD (post-traumatic stress disorder) F43.10 ; Social anxiety disorder F40.10 and ADHD, predominantly inattentive type F90.0 [facility] [address] [facility] [id number] [address] [place] [address] Apr, [facility] [address] [facility] [id number] [address] [place] [id number] Mar, [facility] [address] [facility] [id number] [address] [place] [address] Mar, Major depressive disorder, r ecurrent episode, severe F33.2 ; PTSD (post-traumatic stress disorder) F43.10 ; Social anxiety disorder F40.10 and ADHD, predominantly inattentive type F90.0 [facility] [address] [place] [id number] [address] [place] [phone] Feb, [facility] [address] [place] [id number] [address] [place] [phone] Feb, [facility] [address] [place] [id number] [place] [address] Feb, [facility] [address] [place] [id number] [place] [address] Feb, Lupus M32.9 ; Hypothyroid E0 3.9 and Irregular menses N92.6 [facility] [address] [place] [id number] [place] [address] Feb, Lupus M32.9 and Hypothyroid E03.9 [facility] [address] [place] [id number] [place] [address] Jan, Encounter for immunization Z 23 [facility] [address] [place] [id number] [place] [phone] 14 Jul, 2014 [facility] [address] [phone] Jul, [facility] [address] [place] [id number] [place] [phone] Feb, [facility] [address] [place] [id number] [address] [place] [phone] Feb, [facility] [address] [place] [id number] [address] [place] [phone] Feb, [facility] [address] [place] [id number] [place] [phone] Feb, [facility] [address] [place] [id number] [address] [place] [phone] August, [facility] [address] [place] [id number] [place] [phone] Jun, [facility] [address] [id number] [address] [place] [phone] Jun, [facility] [address] [id number] [address] [place] [phone] Jun, [facility] [address] [id number] [address] [place] [phone] Jun, [facility] [address] [id number] [address] [place] [address] May, [facility] [address] [id number] [address] [place] [phone] May, [facility] [address] [id number] [address] [place] [phone] May, [facility] [address] [id number] [address] [place] [address] May, [facility] [address] [id number] [address] [place] [phone] Mar, [facility] [address] [id number] [address] [place] [phone] Jan, [facility] [address] [id number] [address] [place] [phone] Jan, [facility] [address] [id number] [address] [place] [phone] Jan, [facility] [address] [id number] [address] [place] [phone] Jan, [facility] [address] [id number] [address] [place] [id number] Jan, [facility] [address] [id number] [address] [place] [phone] Jan, IMMUNIZATIONS No Known Immunizations SOCIAL HISTORY Never Assessed REASON FOR VISIT med question PLAN OF CARE VITAL SIGNS MEDICATIONS Medication Instructions Dosage Frequency Start Date End Date Duration S tito Wellbutrin XL 300 MG Orally Once a day 1 tablet in the morning 24h 20 Dec, 2018 30 day(s) Active RESULTS No Results PROCEDURES No Known procedures INSTRUCTIONS MEDICATIONS ADMINISTERED No Known Medications MEDICAL (GENERAL) HISTORY Type Description Date Medical History Systemic lupus erythematosus, unspecifie d Medical History Hypothyroidism, unspecified Surgical History inguinal hernia repair Surgical History section Surgical History cholecystectomy Surgical History ovarian cyst resection Hospitalization History dystonia Hospitalization History pylenephritis
--- OUTSIDE RECORDS SUMMARY | 2019-10-05 06:20 | XMS REPORT ---
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
--- OUTSIDE RECORDS SUMMARY | 2019-10-05 06:20 | XMS REPORT ---
Author Author Meaghan LYNNE Organization [facility] Address [address] [place] [address] Care Team Providers [employer] Name Role Phone KELLY LYNNE Unavailable PROBLEMS Type Condition ICD9-CM Code HFD48-PF Code Onset Dates Condition S tatus SNOMED Code Problem Hypothyroid E03.9 Active 10066752 Problem Social anxiety disorder F40.10 Active 71491895 Problem Systemic lupus M32.9 Active 49974 009 Problem Irregular menses N92.6 Active 801 78409 Problem Rosacea L71.9 Active 478713487 Problem Pure hypercholesterolemia E78.00 Acti ve 488761401 Problem Major depressive disorder, recurrent episode, severe F33.2 Active [id number] Problem PTSD (post-traumatic stress disorder) F43.10 Active 39119389 Problem Moderate episode of recurrent major depressive disorder F33.1 Active 207407719 Problem ADHD, predominantly inattentive type F90.0 Active [id number] ALLERGIES No Information ENCOUNTERS Encounter Location Date Diagnosis [facility] [address] [facility] [id number] [address] [place] [phone] Nov, [facility] [address] [place] [id number] [address] [place] [address] Oct, Bruise T14.8XXA [facility] [address] [facility] [id number] [address] [place] [phone] Oct, Bruise T14.8XXA [facility] [address] [facility] [id number] [address] [place] [phone] Oct, [facility] [address] [place] [id number] [address] [place] [phone] Oct, [facility] [address] [place] [id number] [address] [place] [phone] Oct, [facility] [address] [id number] [address] [place] [phone] Sep, [facility] [address] [id number] [address] [place] [address] Sep, Hypothyroid E03.9 [facility] [address] [facility] [id number] [address] [place] [phone] Sep, [facility] [address] [id number] [address] [place] [phone] Sep, [facility] [address] [id number] [address] [place] [phone] August, [facility] [address] [facility] [id number] [address] [place] [address] August, PTSD (post-traumatic stress disorder) F43.10 ; Moderate episode of recurrent major depressive disorder F33.1 ; ADHD, predominantly inattentive type F90.0 and Social anxiety disorder F40.10 [facility] [address] [id number] [address] [place] [address] August, [facility] [address] [id number] [address] [place] [phone] August, [facility] [address] [facility] [id number] [address] [place] [phone] Jul, [facility] [address] [id number] [address] [place] [phone] Jul, [facility] [address] [facility] [id number] [address] [place] [phone] Jul, Rosacea L71.9 [facility] [address] [facility] [id number] [address] [place] [phone] Jun, PTSD (post-traumatic stress disorder) F43.10 [facility] [address] [facility] [id number] [address] [place] [phone] Jun, [facility] [address] [facility] [id number] [address] [place] [phone] Jun, [facility] [address] [facility] [id number] [address] [place] [phone] Jun, [facility] [address] [id number] [address] [place] [phone] Jun, [facility] [address] [id number] [address] [place] [phone] Apr, [facility] [address] [id number] [place] [address] Apr, Hypothyroid E03.9 ; Pure hyp ercholesterolemia E78.00 and Systemic lupus M32.9 [facility] [id number] [place] [address] Apr, Hypothyroid E03.9 ; Systemic lupus M32.9 and Pure hypercholesterolemia E78.00 [facility] [address] [id number] [address] [place] [phone] Apr, [facility] [address] [phone] Mar, [facility] [address] [address] Mar, Pulsatile neck mass R22.1 [facility] [address] [address] Feb, [facility] [id number] [place] [phone] Feb, Contact dermatitis and eczem a due to plant L24.7 [facility] [address] [id number] [address] [place] [phone] Feb, Systemic lupus M32.9 [facility] [address] [id number] [address] [place] [phone] Jan, [facility] [id number] [place] [phone] 16 Jan, 2017 Dental examination Z01.20 [facility] [address] [id number] [address] [place] [id number] 06 Jan, 2017 Encounter for immunization Z 23 [facility] [address] [facility] [id number] [address] [place] [phone] 20 Dec, 2016 [place] [address] [facility] [id number] [address] [place] [address] Nov, Hypothyroid E03.9 [place] [address] [place] [id number] [address] [place] [address] Nov, PTSD (post-traumatic stress disorder) F43.10 ; ADHD, predominantly inattentive type F90.0 ; Social anxiety disorder F40.10 and Moderate episode of recurrent major depressive disorder F33.1 [place] [address] [place] [id number] [address] [place] [address] Nov, ADHD, predominantly inattent marzena type F90.0 [place] [address] [place] [id number] [address] [place] [address] Oct, Acquired hypothyroidism E03. 9 [place] [address] [place] [id number] [place] [address] Oct, ADHD, predominantly inattent marzena type F90.0 [place] [address] [place] [id number] [address] [place] [address] Oct, Acquired hypothyroidism E03. 9 [place] [address] [place] [id number] [address] [place] [address] Sep, Well woman exam Z01.419 ; Sy stemic lupus M32.9 ; Irregular menses N92.6 ; PTSD (post-traumatic stress disorder) F43.10 ; Social anxiety disorder F40.10 ; ADHD, predominantly inattentive type F90.0 ; Hypothyroid E03.9 and Generalized headaches R51 [place] [address] [facility] [id number] [address] [place] [phone] August, ADHD, predominantly inattent marzena type F90.0 [facility] [address] [id number] [address] [place] [phone] August, [facility] [address] [id number] [address] [place] [address] Jul, [facility] [address] [id number] [address] [place] [address] Jun, [facility] [address] [id number] [address] [place] [address] Jun, Hypothyroid E03.9 [facility] [address] [id number] [address] [place] [address] Jun, ADHD, predominantly inattent marzena type F90.0 and Social anxiety disorder F40.10 [facility] [address] [facility] [id number] [address] [place] [phone] Jun, [facility] [address] [id number] [address] [place] [phone] Jun, [facility] [address] [id number] [address] [place] [id number] May, Dental examination Z01.20 [facility] [address] [facility] [id number] [address] [place] [phone] May, ADHD, predominantly inattent marzena type F90.0 ; Recurrent major depressive disorder, in partial remission F33.41 ; Social anxiety disorder F40.10 and PTSD (post-traumatic stress disorder) F43.10 [facility] [address] [id number] [address] [place] [address] Apr, Social anxiety disorder F40. 10 [facility] [address] [id number] [address] [place] [address] Apr, ADHD, predominantly inattent marzena type F90.0 [facility] [address] [id number] [address] [place] [phone] Apr, [facility] [address] [id number] [address] [place] [phone] Apr, [facility] [address] [id number] [address] [place] [address] Mar, Dental examination Z01.20 [facility] [address] [id number] [address] [place] [phone] Mar, [facility] [address] [id number] [address] [place] [phone] Feb, [facility] [address] [id number] [address] [place] [phone] Feb, [facility] [address] [id number] [address] [place] [phone] Jan, Encounter for immunization Z 23 [facility] [address] [id number] [address] [place] [phone] Jan, [facility] [address] [id number] [address] [place] [phone] Jan, [facility] [address] [id number] [address] [place] [phone] Jan, Dental examination Z01.20 [facility] [address] [id number] [address] [place] [phone] Jan, [facility] [address] [id number] [address] [place] [address] Jan, Dental examination Z01.20 [facility] [address] [id number] [address] [place] [phone] Jan, [facility] [address] [id number] [address] [place] [address] Dec, [facility] [address] [id number] [address] [place] [address] [id number] Dec, Dental examination Z01.20 [facility] [address] [id number] [address] [place] [address] Nov, [facility] [address] [id number] [address] [place] [address] Nov, Social anxiety disorder F40. 10 ; PTSD (post-traumatic stress disorder) F43.10 and ADHD, predominantly inattentive type F90.0 [facility] [address] [id number] [address] [place] [phone] Oct, Social anxiety disorder F40. 10 [facility] [address] [facility] [id number] [address] [place] [address] Oct, Hypothyroidism, unspecified type E03.9 [facility] [address] [id number] [address] [place] [phone] Oct, Hypothyroid E03.9 [facility] [address] [facility] [id number] [address] [place] [address] Oct, Hypothyroid E03.9 [facility] [address] [facility] [id number] [address] [place] [address] Sep, Hypothyroid E03.9 [facility] [address] [id number] [address] [place] [address] Sep, [facility] [address] [facility] [id number] [address] [place] [address] Sep, ADHD, predominantly inattent marzena type F90.0 [facility] [address] [facility] [id number] [address] [place] [address] Jul, ADHD, predominantly inattent marzena type F90.0 [facility] [address] [id number] [address] [place] [phone] Jun, [place] [address] [facility] [id number] [address] [place] [phone] Jun, Major depressive disorder, r ecurrent episode, severe F33.2 ; ADHD, predominantly inattentive type F90.0 ; PTSD (post-traumatic stress disorder) F43.10 and Social anxiety disorder F40.10 [facility] [address] [facility] [id number] [address] [place] [phone] Jun, [facility] [address] [facility] [id number] [address] [place] [address] May, Encounter for screening mamm ogram for breast cancer Z12.31 [facility] [address] [facility] [id number] [address] [place] [phone] 15 May, 2015 [facility] [address] [place] [id number] [address] [place] [address] May, [facility] [address] [facility] [id number] [address] [place] [address] May, Major depressive disorder, r ecurrent episode, severe F33.2 ; PTSD (post-traumatic stress disorder) F43.10 ; Social anxiety disorder F40.10 and ADHD, predominantly inattentive type F90.0 [place] [address] [place] [id number] [address] [place] [address] Apr, [facility] [address] [place] [id number] [address] [place] [address] Mar, [facility] [address] [place] [id number] [address] [place] [address] Mar, Major depressive disorder, r ecurrent episode, severe F33.2 ; PTSD (post-traumatic stress disorder) F43.10 ; Social anxiety disorder F40.10 and ADHD, predominantly inattentive type F90.0 [facility] [address] [place] [id number] [address] [place] [address] Feb, [facility] [address] [place] [id number] [address] [place] [address] Feb, [place] [address] [phone] Feb, [facility] [address] [place] [id number] [address] [place] [address] Feb, Lupus M32.9 ; Hypothyroid E0 3.9 and Irregular menses N92.6 [place] [address] [place] [id number] [address] [place] [address] 03 Feb, 2015 Lupus M32.9 and Hypothyroid E03.9 [facility] [address] [id number] [address] [place] [address] 26 Jan, 2015 Encounter for immunization Z 23 [facility] [address] [id number] [address] [place] [address] 14 Jul, 2014 [facility] [address] [id number] [address] [place] [phone] 13 Jul, 2014 [facility] [address] [id number] [address] [place] [phone] Feb, [facility] [address] [id number] [address] [place] [phone] Feb, [facility] [address] [id number] [address] [place] [phone] Feb, [facility] [address] [id number] [address] [place] [phone] Feb, [facility] [address] [id number] [address] [place] [address] August, [facility] [address] [id number] [address] [place] [phone] Jun, [facility] [address] [id number] [address] [place] [phone] Jun, [facility] [address] [id number] [address] [place] [phone] 19 Jun, 2011 [facility] [address] [id number] [address] [place] [phone] 16 Jun, 2011 [facility] [address] [id number] [address] [place] [phone] 28 May, 2011 [facility] [address] [id number] [address] [place] [phone] May, [facility] [address] [facility] [id number] [address] [place] [phone] May, [facility] [address] [facility] [id number] [address] [place] [phone] May, [facility] [address] [facility] [id number] [address] [place] [phone] Mar, [facility] [address] [facility] [id number] [address] [place] [phone] Jan, [facility] [address] [facility] [id number] [address] [place] [phone] Jan, [facility] [address] [facility] [id number] [address] [place] [address] Jan, [facility] [address] [facility] [id number] [address] [place] [phone] Jan, [facility] [address] [facility] [id number] [address] [place] [phone] Jan, [facility] [address] [facility] [id number] [address] [place] [address] Jan, IMMUNIZATIONS No Known Immunizations SOCIAL HISTORY Never Assessed REASON FOR VISIT Lab (walk-in) PLAN OF CARE VITAL SIGNS MEDICATIONS Unknown Medications RESULTS Name Result Date Reference Range INR (IN HOUSE) 2017-11-14 INR PREVIOUS INR N/A CURRENT COUMADIN DOSE 0.9 NEW COUMADIN DOSE Lot # [id number] Exp date 06/2018 CBC 2017-11-14 WHITE BLOOD CELL COUNT 10.2 3.8-10.8 RED BLOOD CELL COUNT 4.26 3.80-5.10 HEMOGLOBIN 12.6 11.7-15.5 HEMATOCRIT 38.7 35.0-45.0 MCV 90.8 80.0-100.0 MCH 29.6 27.0-33.0 MCHC 32.6 32.0-36.0 RDW 12.0 11.0-15.0 PLATELET COUNT 436 140-400 MPV 10.6 7.5-12.5 ABSOLUTE NEUTROPHILS 7313 [phone] ABSOLUTE LYMPHOCYTES [phone] ABSOLUTE MONOCYTES 775 200-950 ABSOLUTE EOSINOPHILS 122 15-500 ABSOLUTE BASOPHILS 82 0-200 NEUTROPHILS 71.7 LYMPHOCYTES 18.7 MONOCYTES 7.6 EOSINOPHILS 1.2 BASOPHILS 0.8 PROCEDURES Procedure Date Ordered Result Body Site COMPLETE CBC W/AUTO DIFF WBC November 14, 2017 PROTHROMBIN TIME November 14, 2017 INSTRUCTIONS MEDICATIONS ADMINISTERED No Known Medications MEDICAL (GENERAL) HISTORY Type Description Date Medical History Systemic lupus erythematosus, unspecifie d Medical History Hypothyroidism, unspecified Surgical History inguinal hernia repair Surgical History section Surgical History cholecystectomy Surgical History ovarian cyst resection Hospitalization History dystonia Hospitalization History pylenephritis
--- OUTSIDE RECORDS SUMMARY | 2019-10-05 06:21 | XMS REPORT ---
Author [facility] Address [address] [place] [address] Care Team Providers Care Director Of Corporate Sponsorships Name Role Phone VIKKI DINERO Unavailable PROBLEMS Type Condition ICD9-CM Code GZI29-NE Code Onset Dates Condition S tatus SNOMED Code Problem Hypothyroid E03.9 Active 68373871 Problem Social anxiety disorder F40.10 Active 75292876 Problem Systemic lupus M32.9 Active 10347 009 Problem Irregular menses N92.6 Active 801 70872 Problem Rosacea L71.9 Active 483307378 Problem Pure hypercholesterolemia E78.00 Acti ve 701537556 Problem Major depressive disorder, recurrent episode, severe F33.2 Active 349383588407 Problem PTSD (post-traumatic stress disorder) F43.10 Active 25405020 Problem Moderate episode of recurrent major depressive disorder F33.1 Active 170986483 Problem ADHD, predominantly inattentive type F90.0 Active 92973689 ALLERGIES No Information ENCOUNTERS Encounter Location Date Diagnosis [facility] [address] [facility] [id number] [address] [place] [address] Oct, Bruise T14.8XXA [facility] [address] [facility] [id number] [address] [place] [address] Oct, Bruise T14.8XXA [facility] [address] [facility] [id number] [address] [place] [address] Oct, [facility] [address] [facility] [id number] [address] [place] [address] Oct, [facility] [address] [facility] [id number] [address] [place] [address] Oct, [facility] [address] [facility] [id number] [address] [place] [address] Sep, [facility] [address] [id number] [address] [place] [address] Sep, Hypothyroid E03.9 [facility] [address] [id number] [address] [place] [address] Sep, [facility] [address] [id number] [address] [place] [address] Sep, [facility] [address] [id number] [address] [place] [address] August, [facility] [address] [id number] [address] [place] [phone] August, PTSD (post-traumatic stress disorder) F43.10 ; Moderate episode of recurrent major depressive disorder F33.1 ; ADHD, predominantly inattentive type F90.0 and Social anxiety disorder F40.10 [facility] [address] [id number] [address] [place] [address] August, [facility] [address] [id number] [address] [place] [address] August, [facility] [address] [id number] [address] [place] [address] Jul, [facility] [address] [id number] [address] [place] [address] Jul, [facility] [address] [id number] [address] [place] [address] Jul, Rosacea L71.9 [facility] [address] [id number] [address] [place] [address] Jun, PTSD (post-traumatic stress disorder) F43.10 [facility] [address] [id number] [address] [place] [address] Jun, [facility] [address] [id number] [address] [place] [address] Jun, [facility] [address] [id number] [address] [place] [address] Jun, [facility] [address] [id number] [address] [place] [address] Jun, [facility] [address] [id number] [address] [place] [address] Apr, [facility] [address] [id number] [address] [place] [address] Apr, Hypothyroid E03.9 ; Pure hyp ercholesterolemia E78.00 and Systemic lupus M32.9 [facility] [address] [id number] [address] [place] [address] Apr, Hypothyroid E03.9 ; Systemic lupus M32.9 and Pure hypercholesterolemia E78.00 [facility] [address] [facility] [id number] [address] [place] [address] Apr, [facility] [address] [id number] [address] [place] [address] Mar, [facility] [address] [id number] [address] [place] [address] Mar, Pulsatile neck mass R22.1 [facility] [address] [facility] [id number] [address] [place] [address] Feb, [facility] [address] [facility] [id number] [address] [place] [address] Feb, Contact dermatitis and eczem a due to plant L24.7 [facility] [address] [id number] [address] [place] [address] 14 Feb, 2017 Systemic lupus M32.9 [facility] [address] [facility] [id number] [address] [place] [address] Jan, [facility] [address] [facility] [id number] [address] [place] [address] Jan, Dental examination Z01.20 [facility] [address] [facility] [id number] [address] [place] [address] Jan, Encounter for immunization Z 23 [facility] [address] [place] [id number] [address] [place] [address] 20 Dec, 2016 [facility] [address] [place] [id number] [address] [place] [address] Nov, Hypothyroid E03.9 [facility] [address] [place] [id number] [place] [address] Nov, PTSD (post-traumatic stress disorder) F43.10 ; ADHD, predominantly inattentive type F90.0 ; Social anxiety disorder F40.10 and Moderate episode of recurrent major depressive disorder F33.1 [facility] [address] [place] [id number] [place] [address] Nov, ADHD, predominantly inattent marzena type F90.0 [facility] [address] [place] [id number] [place] [address] Oct, Acquired hypothyroidism E03. 9 [facility] [address] [place] [id number] [place] [address] Oct, ADHD, predominantly inattent marzena type F90.0 [facility] [address] [place] [id number] [address] [place] [address] Oct, Acquired hypothyroidism E03. 9 [facility] [address] [place] [id number] [address] [place] [address] Sep, Well woman exam Z01.419 ; Sy stemic lupus M32.9 ; Irregular menses N92.6 ; PTSD (post-traumatic stress disorder) F43.10 ; Social anxiety disorder F40.10 ; ADHD, predominantly inattentive type F90.0 ; Hypothyroid E03.9 and Generalized headaches R51 [facility] [address] [place] [id number] [address] [place] [address] August, ADHD, predominantly inattent marzena type F90.0 [facility] [address] [place] [id number] [place] [address] August, [facility] [address] [id number] [address] [place] [address] Jul, [facility] [address] [id number] [address] [place] [address] Jun, [facility] [address] [id number] [address] [place] [address] Jun, Hypothyroid E03.9 [facility] [address] [id number] [address] [place] [address] Jun, ADHD, predominantly inattent marzena type F90.0 and Social anxiety disorder F40.10 [facility] [address] [id number] [address] [place] [address] Jun, [facility] [address] [facility] [id number] [address] [place] [address] Jun, [facility] [address] [id number] [address] [place] [id number] May, Dental examination Z01.20 [facility] [address] [facility] [id number] [address] [place] [address] May, ADHD, predominantly inattent marzena type F90.0 ; Recurrent major depressive disorder, in partial remission F33.41 ; Social anxiety disorder F40.10 and PTSD (post-traumatic stress disorder) F43.10 [facility] [address] [facility] [id number] [address] [place] [address] Apr, Social anxiety disorder F40. 10 [facility] [address] [id number] [address] [place] [address] Apr, ADHD, predominantly inattent marzena type F90.0 [facility] [address] [id number] [address] [place] [address] Apr, [facility] [address] [facility] [id number] [address] [place] [address] Apr, [facility] [address] [id number] [address] [place] [address] Mar, Dental examination Z01.20 [facility] [address] [id number] [address] [place] [address] Mar, [facility] [address] [id number] [address] [place] [address] Feb, [facility] [address] [id number] [address] [place] [address] Feb, [facility] [address] [id number] [address] [place] [address] Jan, Encounter for immunization Z 23 [facility] [address] [id number] [address] [place] [address] Jan, [facility] [address] [id number] [address] [place] [address] Jan, [facility] [address] [id number] [address] [place] [address] Jan, Dental examination Z01.20 [facility] [address] [id number] [address] [place] [address] Jan, [facility] [address] [id number] [address] [place] [address] Jan, Dental examination Z01.20 [facility] [address] [id number] [address] [place] [address] Jan, [facility] [address] [id number] [address] [place] [address] Dec, [facility] [address] [id number] [address] [place] [id number] Dec, Dental examination Z01.20 [facility] [address] [id number] [address] [place] [address] Nov, [facility] [address] [id number] [address] [place] [address] Nov, Social anxiety disorder F40. 10 ; PTSD (post-traumatic stress disorder) F43.10 and ADHD, predominantly inattentive type F90.0 [facility] [address] [id number] [address] [place] [address] Oct, Social anxiety disorder F40. 10 [facility] [address] [id number] [address] [place] [address] Oct, Hypothyroidism, unspecified type E03.9 [facility] [address] [id number] [address] [place] [address] Oct, Hypothyroid E03.9 [facility] [address] [id number] [address] [place] [phone] Oct, Hypothyroid E03.9 [facility] [address] [id number] [address] [place] [address] Sep, Hypothyroid E03.9 [facility] [address] [id number] [address] [place] [address] Sep, [facility] [address] [id number] [address] [place] [address] Sep, ADHD, predominantly inattent marzena type F90.0 [facility] [address] [facility] [id number] [address] [place] [address] Jul, ADHD, predominantly inattent marzena type F90.0 [facility] [address] [id number] [address] [place] [address] Jun, [facility] [address] [id number] [address] [place] [address] 24 Jun, 2015 Major depressive disorder, r ecurrent episode, severe F33.2 ; ADHD, predominantly inattentive type F90.0 ; PTSD (post-traumatic stress disorder) F43.10 and Social anxiety disorder F40.10 [facility] [address] [id number] [address] [place] [address] Jun, [facility] [address] [facility] [id number] [address] [place] [address] May, Encounter for screening mamm ogram for breast cancer Z12.31 [facility] [address] [facility] [id number] [address] [place] [address] May, [facility] [address] [facility] [id number] [address] [place] [address] May, [facility] [address] [place] [id number] [address] [place] [address] May, Major depressive disorder, r ecurrent episode, severe F33.2 ; PTSD (post-traumatic stress disorder) F43.10 ; Social anxiety disorder F40.10 and ADHD, predominantly inattentive type F90.0 [facility] [address] [facility] [id number] [address] [place] [address] Apr, [facility] [address] [place] [id number] [address] [place] [address] Mar, [facility] [address] [place] [id number] [place] [phone] Mar, Major depressive disorder, r ecurrent episode, severe F33.2 ; PTSD (post-traumatic stress disorder) F43.10 ; Social anxiety disorder F40.10 and ADHD, predominantly inattentive type F90.0 [facility] [address] [place] [id number] [address] [place] [address] Feb, [facility] [address] [place] [id number] [address] [place] [id number] Feb, [facility] [address] [facility] [id number] [address] [place] [address] Feb, [facility] [address] [place] [id number] [place] [address] Feb, Lupus M32.9 ; Hypothyroid E0 3.9 and Irregular menses N92.6 [facility] [address] [facility] [id number] [address] [place] [address] Feb, Lupus M32.9 and Hypothyroid E03.9 [facility] [address] [id number] [address] [place] [id number] 26 Jan, 2015 Encounter for immunization Z 23 [facility] [address] [id number] [address] [place] [address], [place] [address] 14 Jul, 2014 [facility] [address] [id number] [address] [place] [id number] 13 Jul, 2014 [facility] [address] [id number] [address] [place] [address] 23 Feb, 2012 [facility] [address] [id number] [address] [place] [address], [place] [address] Feb, [facility] [address] [id number] [address] [place] [address] Feb, [facility] [address] [id number] [address] [place] [address] Feb, [facility] [address] [id number] [address] [place] [address] August, [facility] [address] [id number] [address] [place] [address] Jun, [facility] [address] [id number] [address] [place] [address] Jun, [facility] [address] [id number] [address] [place] [address] Jun, [facility] [address] [id number] [address] [place] [id number] 16 Jun, 2011 [facility] [address] [id number] [address] [place] [address], [place] [address] May, [facility] [address] [id number] [address] [place] [address] May, [facility] [address] [id number] [address] [place] [address] May, [facility] [address] [id number] [address] [place] [address] May, [facility] [address] [id number] [address] [place] [address] Mar, [facility] [address] [id number] [address] [place] [address] Jan, [facility] [address] [id number] [address] [place] [address] Jan, [facility] [address] [id number] [address] [place] [address] Jan, [facility] [address] [id number] [address] [place] [address] Jan, [facility] [address] [id number] [address] [place] [address] Jan, [facility] [address] [facility] [id number] [address] [place] [address] Jan, IMMUNIZATIONS No Known Immunizations SOCIAL HISTORY Never Assessed REASON FOR VISIT Stimulant refill PLAN OF CARE VITAL SIGNS MEDICATIONS Medication Instructions Dosage Frequency Start Date End Date Duration S tatus Concerta 54 MG Orally Once a day for ADHD 1 tablet in the morning Sep, 28 days Active Methylphenidate HCl 10 mg Orally at 4 pm for ADHD 1/2 to 1 tablet Sep, Active RESULTS No Results PROCEDURES No Known procedures INSTRUCTIONS MEDICATIONS ADMINISTERED No Known Medications MEDICAL (GENERAL) HISTORY Type Description Date Medical History Systemic lupus erythematosus, unspecifie d Medical History Hypothyroidism, unspecified Surgical History inguinal hernia repair Surgical History section Surgical History cholecystectomy Surgical History ovarian cyst resection Hospitalization History dystonia Hospitalization History pylenephritis
--- OUTSIDE RECORDS SUMMARY | 2019-10-05 06:21 | XMS REPORT ---
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 Name Role Phone KELLY LYNNE Unavailable PROBLEMS Type Condition ICD9-CM Code EFC52-ZV Code Onset Dates Condition S tatus SNOMED Code Problem Hypothyroid E03.9 Active 01860189 Problem Social anxiety disorder F40.10 Active 85683727 Problem Systemic lupus M32.9 Active 76439 009 Problem Irregular menses N92.6 Active 801 40385 Problem Rosacea L71.9 Active 174347569 Problem Pure hypercholesterolemia E78.00 Acti ve 643779525 Problem Major depressive disorder, recurrent episode, severe F33.2 Active 216022106115 Problem PTSD (post-traumatic stress disorder) F43.10 Active 87497126 Problem Moderate episode of recurrent major depressive disorder F33.1 Active 954908076 Problem ADHD, predominantly inattentive type F90.0 Active 11221464 ALLERGIES No Information ENCOUNTERS Encounter Location Date Diagnosis [facility] [address] [facility] [id number] [address] [place] [phone] Nov, [facility] [address] [place] [id number] [address] [place] [phone] Oct, Bruise T14.8XXA [facility] [address] [facility] [id number] [address] [place] [phone] Oct, Bruise T14.8XXA [facility] [address] [facility] [id number] [address] [place] [phone] Oct, [facility] [address] [place] [id number] [address] [place] [phone] Oct, [facility] [address] [place] [id number] [address] [place] [phone] Oct, [facility] [address] [id number] [address] [place] [phone] Sep, [facility] [address] [id number] [address] [place] [phone] Sep, Hypothyroid E03.9 [facility] [address] [facility] [id number] [address] [place] [phone] Sep, [facility] [address] [id number] [address] [place] [phone] Sep, [facility] [address] [id number] [address] [place] [phone] August, [facility] [address] [facility] [id number] [address] [place] [phone] August, PTSD (post-traumatic stress disorder) F43.10 ; Moderate episode of recurrent major depressive disorder F33.1 ; ADHD, predominantly inattentive type F90.0 and Social anxiety disorder F40.10 [facility] [address] [id number] [address] [place] [phone] August, [facility] [address] [id number] [address] [place] [phone] August, [facility] [address] [facility] [id number] [address] [place] [phone] Jul, [facility] [address] [id number] [address] [place] [phone] Jul, [facility] [address] [facility] [id number] [address] [place] [phone] Jul, Rosacea L71.9 [facility] [address] [facility] [id number] [address] [place] [phone] Jun, PTSD (post-traumatic stress disorder) F43.10 [facility] [address] [facility] [id number] [address] [place] [phone] Jun, [facility] [address] [facility] [id number] [address] [place] [phone] Jun, [facility] [address] [facility] [id number] [address] [place] [phone] Jun, [facility] [address] [place] [id number] [address] [place] [phone] Jun, [facility] [address] [place] [id number] [address] [place] [phone] Apr, [facility] [address] [place] [id number] [place] [phone] Apr, Hypothyroid E03.9 ; Pure hyp ercholesterolemia E78.00 and Systemic lupus M32.9 [facility] [address] [place] [id number] [place] [phone] Apr, Hypothyroid E03.9 ; Systemic lupus M32.9 and Pure hypercholesterolemia E78.00 [facility] [address] [place] [id number] [address] [place] [phone] Apr, [facility] [address] [phone] Mar, [facility] [address] [phone] Mar, Pulsatile neck mass R22.1 [facility] [address] [phone] Feb, [facility] [address] [place] [id number] [place] [phone] Feb, Contact dermatitis and eczem a due to plant L24.7 [facility] [address] [place] [id number] [address] [place] [phone] Feb, Systemic lupus M32.9 [facility] [address] [place] [id number] [address] [place] [phone] Jan, [facility] [address] [place] [id number] [place] [phone] 16 Jan, 2017 Dental examination Z01.20 [facility] [address] [place] [id number] [address] [place] [phone] 06 Jan, 2017 Encounter for immunization Z 23 [facility] [address] [facility] [id number] [address] [place] [phone] 20 Dec, [address] [place] [address] [facility] [id number] [address] [place] [phone] Nov, Hypothyroid E03.9 [place] [address] [place] [id number] [address] [place] [phone] Nov, PTSD (post-traumatic stress disorder) F43.10 ; ADHD, predominantly inattentive type F90.0 ; Social anxiety disorder F40.10 and Moderate episode of recurrent major depressive disorder F33.1 [place] [address] [place] [id number] [address] [place] [phone] Nov, ADHD, predominantly inattent marzena type F90.0 [place] [address] [place] [id number] [address] [place] [phone] Oct, Acquired hypothyroidism E03. 9 [place] [address] [place] [id number] [place] [phone] Oct, ADHD, predominantly inattent marzena type F90.0 [place] [address] [place] [id number] [address] [place] [phone] Oct, Acquired hypothyroidism E03. 9 [place] [address] [place] [id number] [address] [place] [phone] Sep, Well woman exam Z01.419 ; Sy stemic lupus M32.9 ; Irregular menses N92.6 ; PTSD (post-traumatic stress disorder) F43.10 ; Social anxiety disorder F40.10 ; ADHD, predominantly inattentive type F90.0 ; Hypothyroid E03.9 and Generalized headaches R51 [place] [address] [facility] [id number] [address] [place] [phone] August, ADHD, predominantly inattent marzena type F90.0 [facility] [address] [id number] [address] [place] [phone] August, [facility] [address] [id number] [address] [place] [phone] Jul, [facility] [address] [id number] [address] [place] [phone] Jun, [facility] [address] [id number] [address] [place] [phone] Jun, Hypothyroid E03.9 [facility] [address] [id number] [address] [place] [phone] Jun, ADHD, predominantly inattent marzena type F90.0 and Social anxiety disorder F40.10 [facility] [address] [facility] [id number] [address] [place] [phone] Jun, [facility] [address] [id number] [address] [place] [phone] Jun, [facility] [address] [id number] [address] [place] [id number] May, Dental examination Z01.20 [facility] [address] [facility] [id number] [address] [place] [phone] May, ADHD, predominantly inattent marzena type F90.0 ; Recurrent major depressive disorder, in partial remission F33.41 ; Social anxiety disorder F40.10 and PTSD (post-traumatic stress disorder) F43.10 [facility] [address] [id number] [address] [place] [phone] Apr, Social anxiety disorder F40. 10 [facility] [address] [id number] [address] [place] [phone] Apr, ADHD, predominantly inattent marzena type F90.0 [facility] [address] [id number] [address] [place] [phone] Apr, [facility] [address] [id number] [address] [place] [phone] Apr, [facility] [address] [id number] [address] [place] [phone] Mar, Dental examination Z01.20 [facility] [address] [id number] [address] [place] [phone] Mar, [facility] [address] [id number] [address] [place] [phone] Feb, [facility] [address] [id number] [address] [place] [phone] Feb, [facility] [address] [id number] [address] [place] [phone] Jan, Encounter for immunization Z 23 [facility] [address] [id number] [address] [place] [phone] Jan, [facility] [address] [id number] [address] [place] [phone] Jan, [facility] [address] [id number] [address] [place] [phone] Jan, Dental examination Z01.20 [facility] [address] [id number] [address] [place] [phone] Jan, [facility] [address] [id number] [address] [place] [phone] Jan, Dental examination Z01.20 [facility] [address] [id number] [address] [place] [phone] Jan, [facility] [address] [id number] [address] [place] [phone] Dec, [facility] [address] [id number] [address] [place] [id number] Dec, Dental examination Z01.20 [facility] [address] [id number] [address] [place] [phone] Nov, [facility] [address] [id number] [address] [place] [phone] Nov, Social anxiety disorder F40. 10 ; PTSD (post-traumatic stress disorder) F43.10 and ADHD, predominantly inattentive type F90.0 [facility] [address] [id number] [address] [place] [phone] Oct, Social anxiety disorder F40. 10 [facility] [address] [facility] [id number] [address] [place] [phone] Oct, Hypothyroidism, unspecified type E03.9 [facility] [address] [id number] [address] [place] [phone] Oct, Hypothyroid E03.9 [facility] [address] [facility] [id number] [address] [place] [phone] Oct, Hypothyroid E03.9 [facility] [address] [facility] [id number] [address] [place] [phone] Sep, Hypothyroid E03.9 [facility] [address] [id number] [address] [place] [phone] Sep, [facility] [address] [facility] [id number] [address] [place] [phone] Sep, ADHD, predominantly inattent marzena type F90.0 [facility] [address] [facility] [id number] [address] [place] [phone] Jul, ADHD, predominantly inattent marzena type F90.0 [facility] [address] [id number] [address] [place] [phone] Jun, [place] [address] [facility] [id number] [address] [place] [phone] Jun, Major depressive disorder, r ecurrent episode, severe F33.2 ; ADHD, predominantly inattentive type F90.0 ; PTSD (post-traumatic stress disorder) F43.10 and Social anxiety disorder F40.10 [facility] [address] [facility] [id number] [address] [place] [phone] Jun, [facility] [address] [facility] [id number] [address] [place] [phone] May, Encounter for screening mamm ogram for breast cancer Z12.31 [facility] [address] [facility] [id number] [address] [place] [id number] 15 May, 2015 [facility] [address] [place] [id number] [address] [place] [phone] May, [facility] [address] [facility] [id number] [address] [place] [phone] May, Major depressive disorder, r ecurrent episode, severe F33.2 ; PTSD (post-traumatic stress disorder) F43.10 ; Social anxiety disorder F40.10 and ADHD, predominantly inattentive type F90.0 [place] [address] [place] [id number] [address] [place] [phone] Apr, [facility] [address] [place] [id number] [address] [place] [phone] Mar, [facility] [address] [place] [id number] [address] [place] [phone] Mar, Major depressive disorder, r ecurrent episode, severe F33.2 ; PTSD (post-traumatic stress disorder) F43.10 ; Social anxiety disorder F40.10 and ADHD, predominantly inattentive type F90.0 [facility] [address] [place] [id number] [address] [place] [id number] Feb, [facility] [address] [place] [id number] [address] [place] [phone] Feb, [place] [address] [phone] Feb, [facility] [address] [place] [id number] [address] [place] [phone] Feb, Lupus M32.9 ; Hypothyroid E0 3.9 and Irregular menses N92.6 [place] [address] [place] [id number] [address] [place] [phone] 03 Feb, 2015 Lupus M32.9 and Hypothyroid E03.9 [facility] [address] [id number] [address] [place] [phone] 26 Jan, 2015 Encounter for immunization Z 23 [facility] [address] [id number] [address] [place] [phone] 14 Jul, 2014 [facility] [address] [id number] [address] [place] [phone] 13 Jul, 2014 [facility] [address] [id number] [address] [place] [phone] Feb, [facility] [address] [id number] [address] [place] [phone] Feb, [facility] [address] [id number] [address] [place] [phone] Feb, [facility] [address] [id number] [address] [place] [phone] Feb, [facility] [address] [id number] [address] [place] [phone] August, [facility] [address] [id number] [address] [place] [phone] Jun, [facility] [address] [id number] [address] [place] [phone] Jun, [facility] [address] [id number] [address] [place] [phone] 19 Jun, 2011 [facility] [address] [id number] [address] [place] [phone] 16 Jun, 2011 [facility] [address] [id number] [address] [place] [phone] 28 May, 2011 [facility] [address] [id number] [address] [place] [phone] May, [facility] [address] [id number] [address] [place] [phone] May, [facility] [address] [id number] [address] [place] [phone] May, [facility] [address] [id number] [address] [place] [phone] Mar, [facility] [address] [id number] [address] [place] [phone] Jan, [facility] [address] [id number] [address] [place] [phone] Jan, [facility] [address] [id number] [address] [place] [phone] Jan, [facility] [address] [id number] [address] [place] [phone] Jan, [facility] [address] [id number] [address] [place] [phone] Jan, [facility] [address] [id number] [address] [place] [phone] Jan, IMMUNIZATIONS No Known Immunizations SOCIAL HISTORY Never Assessed REASON FOR VISIT Back pain PLAN OF CARE VITAL SIGNS MEDICATIONS Medication Instructions Dosage Frequency Start Date End Date Duration S jesusitaus Tramadol HCl 50 MG TAKE ONE TABLET BY MOUTH EVERY 6 HOURS NEE DED 10 Active RESULTS No Results PROCEDURES No Known procedures INSTRUCTIONS MEDICATIONS ADMINISTERED No Known Medications MEDICAL (GENERAL) HISTORY Type Description Date Medical History Systemic lupus erythematosus, unspecifie d Medical History Hypothyroidism, unspecified Surgical History inguinal hernia repair Surgical History section Surgical History cholecystectomy Surgical History ovarian cyst resection Hospitalization History dystonia Hospitalization History pylenephritis
--- OUTSIDE RECORDS SUMMARY | 2019-10-05 06:21 | XMS REPORT ---
Author Author Meaghan LYNNE Organization [facility] Address [address] [place] [address] Care Team Providers Care Stockfeed Miller Name Role Phone KELLY LYNNE Unavailable PROBLEMS Type Condition ICD9-CM Code LTH65-AP Code Onset Dates Condition S tatus SNOMED Code Problem Hypothyroid E03.9 Active 14235530 Problem Social anxiety disorder F40.10 Active 48192044 Problem Systemic lupus M32.9 Active 83382 009 Problem Irregular menses N92.6 Active 801 96476 Problem Rosacea L71.9 Active 825369304 Problem Pure hypercholesterolemia E78.00 Acti ve 254581957 Problem Major depressive disorder, recurrent episode, severe F33.2 Active 784941317485 Problem PTSD (post-traumatic stress disorder) F43.10 Active 38026086 Problem Moderate episode of recurrent major depressive disorder F33.1 Active 395766149 Problem ADHD, predominantly inattentive type F90.0 Active 30657460 ALLERGIES No Information ENCOUNTERS Encounter Location Date Diagnosis [facility] [address] [facility] [id number] [address] [place] [phone] Oct, Bruise T14.8XXA [facility] [address] [facility] [id number] [address] [place] [address] Oct, Bruise T14.8XXA [facility] [address] [facility] [id number] [address] [place] [phone] Oct, [facility] [address] [facility] [id number] [address] [place] [id number] Oct, [facility] [address] [facility] [id number] [address] [place] [phone] Oct, [facility] [address] [facility] [id number] [address] [place] [phone] Sep, [facility] [address] [id number] [address] [place] [phone] Sep, Hypothyroid E03.9 [facility] [address] [id number] [address] [place] [phone] Sep, [facility] [address] [id number] [address] [place] [phone] Sep, [facility] [address] [id number] [address] [place] [phone] August, [facility] [address] [id number] [address] [place] [id number] August, PTSD (post-traumatic stress disorder) F43.10 ; Moderate episode of recurrent major depressive disorder F33.1 ; ADHD, predominantly inattentive type F90.0 and Social anxiety disorder F40.10 [facility] [address] [id number] [address] [place] [address] August, [facility] [address] [id number] [address] [place] [phone] August, [facility] [address] [id number] [address] [place] [address] Jul, [facility] [address] [id number] [address] [place] [phone] Jul, [facility] [address] [id number] [address] [place] [address] Jul, Rosacea L71.9 [facility] [address] [id number] [address] [place] [address] Jun, PTSD (post-traumatic stress disorder) F43.10 [facility] [address] [id number] [address] [place] [phone] Jun, [facility] [address] [id number] [address] [place] [phone] Jun, [facility] [address] [id number] [address] [place] [id number] Jun, [facility] [address] [id number] [address] [place] [phone] Jun, [facility] [address] [id number] [address] [place] [address] Apr, [facility] [address] [id number] [address] [place] [phone] Apr, Hypothyroid E03.9 ; Pure hyp ercholesterolemia E78.00 and Systemic lupus M32.9 [facility] [address] [id number] [address] [place] [address] Apr, Hypothyroid E03.9 ; Systemic lupus M32.9 and Pure hypercholesterolemia E78.00 [facility] [address] [facility] [id number] [address] [place] [phone] Apr, [facility] [address] [id number] [address] [place] [phone] Mar, [facility] [address] [id number] [address] [place] [phone] Mar, Pulsatile neck mass R22.1 [facility] [address] [facility] [id number] [address] [place] [phone] Feb, [facility] [address] [facility] [id number] [address] [place] [phone] Feb, Contact dermatitis and eczem a due to plant L24.7 [facility] [address] [id number] [address] [place] [id number] 14 Feb, 2017 Systemic lupus M32.9 [facility] [address] [facility] [id number] [address] [place] [address] Jan, [facility] [address] [facility] [id number] [address] [place] [id number] Jan, Dental examination Z01.20 [facility] [address] [facility] [id number] [address] [place] [phone] Jan, Encounter for immunization Z 23 [facility] [address] [place] [id number] [address] [place] [id number] 20 Dec, 2016 [facility] [address] [place] [id number] [address] [place] [address] Nov, Hypothyroid E03.9 [facility] [address] [place] [id number] [place] [address] Nov, PTSD (post-traumatic stress disorder) F43.10 ; ADHD, predominantly inattentive type F90.0 ; Social anxiety disorder F40.10 and Moderate episode of recurrent major depressive disorder F33.1 [facility] [address] [place] [id number] [place] [address] Nov, ADHD, predominantly inattent marzena type F90.0 [facility] [address] [place] [id number] [place] [address] Oct, Acquired hypothyroidism E03. 9 [facility] [address] [place] [id number] [place] [address] Oct, ADHD, predominantly inattent marzena type F90.0 [facility] [place] [address] [place] [id number] [address] [place] [address] Oct, Acquired hypothyroidism E03. 9 [facility] [address] [place] [id number] [address] [place] [address] Sep, Well woman exam Z01.419 ; Sy stemic lupus M32.9 ; Irregular menses N92.6 ; PTSD (post-traumatic stress disorder) F43.10 ; Social anxiety disorder F40.10 ; ADHD, predominantly inattentive type F90.0 ; Hypothyroid E03.9 and Generalized headaches R51 [facility] [address] [place] [id number] [address] [place] [address] August, ADHD, predominantly inattent marzena type F90.0 [facility] [address] [place] [id number] [place] [phone] August, [facility] [address] [id number] [address] [place] [address] Jul, [facility] [address] [id number] [address] [place] [phone] Jun, [facility] [address] [id number] [address] [place] [address] Jun, Hypothyroid E03.9 [facility] [address] [id number] [address] [place] [address] Jun, ADHD, predominantly inattent marzena type F90.0 and Social anxiety disorder F40.10 [facility] [address] [id number] [address] [place] [address] Jun, [facility] [address] [facility] [id number] [address] [place] [address] Jun, [facility] [address] [id number] [address] [place] [address] [id number] May, Dental examination Z01.20 [facility] [address] [facility] [id number] [address] [place] [address] May, ADHD, predominantly inattent marzena type F90.0 ; Recurrent major depressive disorder, in partial remission F33.41 ; Social anxiety disorder F40.10 and PTSD (post-traumatic stress disorder) F43.10 [facility] [address] [facility] [id number] [address] [place] [address] Apr, Social anxiety disorder F40. 10 [facility] [address] [id number] [address] [place] [address] Apr, ADHD, predominantly inattent marzena type F90.0 [facility] [address] [id number] [address] [place] [address] Apr, [facility] [address] [facility] [id number] [address] [place] [address] Apr, [facility] [address] [id number] [address] [place] [id number] Mar, Dental examination Z01.20 [facility] [address] [id number] [address] [place] [address] Mar, [facility] [address] [id number] [address] [place] [phone] Feb, [facility] [address] [id number] [address] [place] [phone] Feb, [facility] [address] [id number] [address] [place] [phone] Jan, Encounter for immunization Z 23 [facility] [address] [id number] [address] [place] [address] Jan, [facility] [address] [id number] [address] [place] [address] Jan, [facility] [address] [id number] [address] [place] [address] Jan, Dental examination Z01.20 [facility] [address] [id number] [address] [place] [address] Jan, [facility] [address] [id number] [address] [place] [phone] Jan, Dental examination Z01.20 [facility] [address] [id number] [address] [place] [phone] Jan, [facility] [address] [id number] [address] [place] [address] Dec, [facility] [address] [id number] [address] [place] [address] [id number] Dec, Dental examination Z01.20 [facility] [address] [id number] [address] [place] [phone] Nov, [facility] [address] [id number] [address] [place] [id number] Nov, Social anxiety disorder F40. 10 ; PTSD (post-traumatic stress disorder) F43.10 and ADHD, predominantly inattentive type F90.0 [facility] [address] [id number] [address] [place] [id number] Oct, Social anxiety disorder F40. 10 [facility] [address] [id number] [address] [place] [phone] Oct, Hypothyroidism, unspecified type E03.9 [facility] [address] [id number] [address] [place] [phone] Oct, Hypothyroid E03.9 [facility] [address] [id number] [address] [place] [id number] Oct, Hypothyroid E03.9 [facility] [address] [id number] [address] [place] [address] Sep, Hypothyroid E03.9 [facility] [address] [id number] [address] [place] [id number] Sep, [facility] [address] [id number] [address] [place] [address] Sep, ADHD, predominantly inattent marzena type F90.0 [facility] [address] [facility] [id number] [address] [place] [id number] Jul, ADHD, predominantly inattent marzena type F90.0 [facility] [address] [id number] [address] [place] [address] Jun, [facility] [address] [id number] [address] [place] [phone] 24 Jun, 2015 Major depressive disorder, r ecurrent episode, severe F33.2 ; ADHD, predominantly inattentive type F90.0 ; PTSD (post-traumatic stress disorder) F43.10 and Social anxiety disorder F40.10 [facility] [address] [id number] [address] [place] [address] Jun, [facility] [address] [facility] [id number] [address] [place] [address] May, Encounter for screening mamm ogram for breast cancer Z12.31 [facility] [address] [facility] [id number] [address] [place] [address] May, [facility] [address] [facility] [id number] [address] [place] [address] May, [facility] [address] [place] [id number] [address] [place] [phone] May, Major depressive disorder, r ecurrent episode, severe F33.2 ; PTSD (post-traumatic stress disorder) F43.10 ; Social anxiety disorder F40.10 and ADHD, predominantly inattentive type F90.0 [facility] [address] [facility] [id number] [address] [place] [phone] Apr, [facility] [address] [place] [id number] [address] [place] [address] Mar, [facility] [address] [place] [id number] [place] [phone] Mar, Major depressive disorder, r ecurrent episode, severe F33.2 ; PTSD (post-traumatic stress disorder) F43.10 ; Social anxiety disorder F40.10 and ADHD, predominantly inattentive type F90.0 [facility] [address] [place] [id number] [address] [place] [id number] Feb, [facility] [address] [place] [id number] [address] [place] [address] Feb, [facility] [address] [facility] [id number] [address] [place] [phone] Feb, [facility] [address] [place] [id number] [place] [address] Feb, Lupus M32.9 ; Hypothyroid E0 3.9 and Irregular menses N92.6 [facility] [address] [facility] [id number] [address] [place] [address] Feb, Lupus M32.9 and Hypothyroid E03.9 [facility] [address] [id number] [address] [place] [phone] 26 Jan, 2015 Encounter for immunization Z 23 [facility] [address] [id number] [address] [place] [address], [place] [address] 14 Jul, 2014 [facility] [address] [id number] [address] [place] [phone] 13 Jul, 2014 [facility] [address] [id number] [address] [place] [id number] 23 Feb, 2012 [facility] [address] [id number] [address] [place] [address], [place] [address] Feb, [facility] [address] [id number] [address] [place] [phone] Feb, [facility] [address] [id number] [address] [place] [address] Feb, [facility] [address] [id number] [address] [place] [phone] August, [facility] [address] [id number] [address] [place] [address] Jun, [facility] [address] [id number] [address] [place] [phone] Jun, [facility] [address] [id number] [address] [place] [phone] Jun, [facility] [address] [id number] [address] [place] [id number] 16 Jun, 2011 [facility] [address] [id number] [address] [place] [address], [place] [address] May, [facility] [address] [id number] [address] [place] [address] May, [facility] [address] [id number] [address] [place] [phone] May, [facility] [address] [facility] [id number] [address] [place] [phone] May, [facility] [address] [id number] [address] [place] [id number] Mar, [facility] [address] [id number] [address] [place] [phone] Jan, [facility] [address] [facility] [id number] [address] [place] [phone] Jan, [facility] [address] [facility] [id number] [address] [place] [phone] Jan, [facility] [address] [facility] [id number] [address] [place] [phone] Jan, [facility] [address] [facility] [id number] [address] [place] [phone] Jan, [facility] [address] [facility] [id number] [address] [place] [phone] Jan, IMMUNIZATIONS No Known Immunizations SOCIAL HISTORY [...]
--- OUTSIDE RECORDS SUMMARY | 2019-10-05 06:21 | XMS REPORT ---
Author Author Meaghan LYNNE Organization [facility] Address [address] [place] [address] Care Team Providers Care Movement Assembler Name Role Phone KELLY LYNNE Unavailable PROBLEMS Type Condition ICD9-CM Code FDP23-PR Code Onset Dates Condition S tatus SNOMED Code Problem Hypothyroid E03.9 Active 87120101 Problem Social anxiety disorder F40.10 Active 72286700 Problem Systemic lupus M32.9 Active 70721 009 Problem Irregular menses N92.6 Active 801 79089 Problem Rosacea L71.9 Active 841489088 Problem Pure hypercholesterolemia E78.00 Acti ve 360333106 Problem Major depressive disorder, recurrent episode, severe F33.2 Active 321874306285 Problem PTSD (post-traumatic stress disorder) F43.10 Active 24864694 Problem Moderate episode of recurrent major depressive disorder F33.1 Active 141412329 Problem ADHD, predominantly inattentive type F90.0 Active [id number] ALLERGIES No Information ENCOUNTERS Encounter Location Date Diagnosis [facility] [address] [facility] [id number] [address] [place] [address] Nov, [facility] [address] [place] [id number] [address] [place] [address] Oct, Bruise T14.8XXA [facility] [address] [facility] [id number] [address] [place] [phone] Oct, Bruise T14.8XXA [facility] [address] [facility] [id number] [address] [place] [phone] Oct, [facility] [address] [place] [id number] [address] [place] [phone] Oct, [facility] [address] [place] [id number] [address] [place] [phone] Oct, [facility] [address] [id number] [address] [place] [phone] Sep, [facility] [address] [id number] [address] [place] [phone] Sep, Hypothyroid E03.9 [facility] [address] [facility] [id number] [address] [place] [phone] Sep, [facility] [address] [id number] [address] [place] [phone] Sep, [facility] [address] [id number] [address] [place] [phone] August, [facility] [address] [facility] [id number] [address] [place] [phone] August, PTSD (post-traumatic stress disorder) F43.10 ; Moderate episode of recurrent major depressive disorder F33.1 ; ADHD, predominantly inattentive type F90.0 and Social anxiety disorder F40.10 [facility] [address] [id number] [address] [place] [phone] August, [facility] [address] [id number] [address] [place] [phone] August, [facility] [address] [facility] [id number] [address] [place] [phone] Jul, [facility] [address] [id number] [address] [place] [phone] Jul, [facility] [address] [facility] [id number] [address] [place] [phone] Jul, Rosacea L71.9 [facility] [address] [facility] [id number] [address] [place] [phone] Jun, PTSD (post-traumatic stress disorder) F43.10 [facility] [address] [facility] [id number] [address] [place] [phone] Jun, [facility] [address] [facility] [id number] [address] [place] [phone] Jun, [facility] [address] [facility] [id number] [address] [place] [phone] Jun, [facility] [address] [place] [id number] [address] [place] [phone] Jun, [facility] [address] [place] [id number] [address] [place] [phone] Apr, [facility] [address] [place] [id number] [place] [phone] Apr, Hypothyroid E03.9 ; Pure hyp ercholesterolemia E78.00 and Systemic lupus M32.9 [facility] [address] [place] [id number] [place] [phone] Apr, Hypothyroid E03.9 ; Systemic lupus M32.9 and Pure hypercholesterolemia E78.00 [facility] [address] [place] [id number] [address] [place] [address] Apr, [facility] [address] [address] Mar, [facility] [address] [address] Mar, Pulsatile neck mass R22.1 [facility] [address] [address] Feb, [facility] [address] [place] [id number] [place] [phone] Feb, Contact dermatitis and eczem a due to plant L24.7 [facility] [address] [place] [id number] [address] [place] [phone] Feb, Systemic lupus M32.9 [facility] [address] [place] [id number] [address] [place] [phone] Jan, [facility] [address] [place] [id number] [place] [phone] 16 Jan, 2017 Dental examination Z01.20 [facility] [address] [place] [id number] [address] [place] [phone] 06 Jan, 2017 Encounter for immunization Z 23 [facility] [address] [facility] [id number] [address] [place] [address] 20 Dec, 2016 [place] [address] [facility] [id number] [address] [place] [address] Nov, Hypothyroid E03.9 [place] [address] [place] [id number] [address] [place] [address] Nov, PTSD (post-traumatic stress disorder) F43.10 ; ADHD, predominantly inattentive type F90.0 ; Social anxiety disorder F40.10 and Moderate episode of recurrent major depressive disorder F33.1 [place] [address] [place] [id number] [address] [place] [address] Nov, ADHD, predominantly inattent marzena type F90.0 [place] [address] [place] [id number] [address] [place] [address] Oct, Acquired hypothyroidism E03. 9 [place] [address] [place] [id number] [place] [address] Oct, ADHD, predominantly inattent marzena type F90.0 [place] [address] [place] [id number] [address] [place] [phone] Oct, Acquired hypothyroidism E03. 9 [place] [address] [place] [id number] [address] [place] [address] Sep, Well woman exam Z01.419 ; Sy stemic lupus M32.9 ; Irregular menses N92.6 ; PTSD (post-traumatic stress disorder) F43.10 ; Social anxiety disorder F40.10 ; ADHD, predominantly inattentive type F90.0 ; Hypothyroid E03.9 and Generalized headaches R51 [place] [id number] [facility] [id number] [address] [place] [phone] August, ADHD, predominantly inattent marzena type F90.0 [facility] [address] [id number] [address] [place] [phone] August, [facility] [address] [id number] [address] [place] [phone] Jul, [facility] [address] [id number] [address] [place] [address] Jun, [facility] [address] [id number] [address] [place] [address] Jun, Hypothyroid E03.9 [facility] [address] [id number] [address] [place] [phone] Jun, ADHD, predominantly inattent marzena type F90.0 and Social anxiety disorder F40.10 [facility] [address] [facility] [id number] [address] [place] [phone] Jun, [facility] [address] [id number] [address] [place] [phone] Jun, [facility] [address] [id number] [address] [place] [id number] May, Dental examination Z01.20 [facility] [address] [facility] [id number] [address] [place] [phone] May, ADHD, predominantly inattent marzena type F90.0 ; Recurrent major depressive disorder, in partial remission F33.41 ; Social anxiety disorder F40.10 and PTSD (post-traumatic stress disorder) F43.10 [facility] [address] [id number] [address] [place] [phone] Apr, Social anxiety disorder F40. 10 [facility] [address] [id number] [address] [place] [address] Apr, ADHD, predominantly inattent marzena type F90.0 [facility] [address] [id number] [address] [place] [phone] Apr, [facility] [address] [id number] [address] [place] [phone] Apr, [facility] [address] [id number] [address] [place] [phone] Mar, Dental examination Z01.20 [facility] [address] [id number] [address] [place] [phone] Mar, [facility] [address] [id number] [address] [place] [phone] Feb, [facility] [address] [id number] [address] [place] [address] Feb, [facility] [address] [id number] [address] [place] [phone] Jan, Encounter for immunization Z 23 [facility] [address] [id number] [address] [place] [phone] Jan, [facility] [address] [id number] [address] [place] [phone] Jan, [facility] [address] [id number] [address] [place] [address] Jan, Dental examination Z01.20 [facility] [address] [id number] [address] [place] [phone] Jan, [facility] [address] [id number] [address] [place] [address] Jan, Dental examination Z01.20 [facility] [address] [id number] [address] [place] [phone] Jan, [facility] [address] [id number] [address] [place] [address] Dec, [facility] [address] [id number] [address] [place] [id number] Dec, Dental examination Z01.20 [facility] [address] [id number] [address] [place] [phone] Nov, [facility] [address] [id number] [address] [place] [phone] Nov, Social anxiety disorder F40. 10 ; PTSD (post-traumatic stress disorder) F43.10 and ADHD, predominantly inattentive type F90.0 [facility] [address] [id number] [address] [place] [phone] Oct, Social anxiety disorder F40. 10 [facility] [address] [facility] [id number] [address] [place] [phone] Oct, Hypothyroidism, unspecified type E03.9 [facility] [address] [id number] [address] [place] [phone] Oct, Hypothyroid E03.9 [facility] [address] [facility] [id number] [address] [place] [phone] Oct, Hypothyroid E03.9 [facility] [address] [facility] [id number] [address] [place] [address] Sep, Hypothyroid E03.9 [facility] [address] [id number] [address] [place] [phone] Sep, [facility] [address] [facility] [id number] [address] [place] [address] Sep, ADHD, predominantly inattent marzena type F90.0 [facility] [address] [facility] [id number] [address] [place] [phone] Jul, ADHD, predominantly inattent marzena type F90.0 [facility] [address] [id number] [address] [place] [address] Jun, [place] [address] [facility] [id number] [address] [place] [phone] Jun, Major depressive disorder, r ecurrent episode, severe F33.2 ; ADHD, predominantly inattentive type F90.0 ; PTSD (post-traumatic stress disorder) F43.10 and Social anxiety disorder F40.10 [facility] [address] [facility] [id number] [address] [place] [phone] Jun, [facility] [address] [facility] [id number] [address] [place] [address] May, Encounter for screening mamm ogram for breast cancer Z12.31 [facility] [address] [facility] [id number] [address] [place] [phone] 15 May, 2015 [facility] [address] [place] [id number] [address] [place] [phone] May, [facility] [address] [facility] [id number] [address] [place] [phone] May, Major depressive disorder, r ecurrent episode, severe F33.2 ; PTSD (post-traumatic stress disorder) F43.10 ; Social anxiety disorder F40.10 and ADHD, predominantly inattentive type F90.0 [place] [address] [place] [id number] [address] [place] [address] Apr, [facility] [address] [place] [id number] [address] [place] [phone] Mar, [facility] [address] [place] [id number] [address] [place] [phone] Mar, Major depressive disorder, r ecurrent episode, severe F33.2 ; PTSD (post-traumatic stress disorder) F43.10 ; Social anxiety disorder F40.10 and ADHD, predominantly inattentive type F90.0 [facility] [address] [place] [id number] [address] [place] [address] Feb, [facility] [address] [place] [id number] [address] [place] [phone] Feb, [place] [address] [phone] Feb, [facility] [address] [place] [id number] [address] [place] [address] Feb, Lupus M32.9 ; Hypothyroid E0 3.9 and Irregular menses N92.6 [place] [address] [place] [id number] [address] [place] [phone] 03 Feb, 2015 Lupus M32.9 and Hypothyroid E03.9 [facility] [address] [id number] [address] [place] [phone] 26 Jan, 2015 Encounter for immunization Z 23 [facility] [address] [id number] [address] [place] [phone] 14 Jul, 2014 [facility] [address] [id number] [address] [place] [phone] 13 Jul, 2014 [facility] [address] [id number] [address] [place] [phone] Feb, [facility] [address] [id number] [address] [place] [phone] Feb, [facility] [address] [id number] [address] [place] [phone] Feb, [facility] [address] [id number] [address] [place] [phone] Feb, [facility] [address] [id number] [address] [place] [phone] August, [facility] [address] [id number] [address] [place] [phone] Jun, [facility] [address] [id number] [address] [place] [phone] Jun, [facility] [address] [id number] [address] [place] [phone] 19 Jun, 2011 [facility] [address] [id number] [address] [place] [phone] 16 Jun, 2011 [facility] [address] [id number] [address] [place] [phone] 28 May, 2011 [facility] [address] [id number] [address] [place] [phone] May, [facility] [address] [id number] [address] [place] [phone] May, [facility] [address] [id number] [address] [place] [phone] May, [facility] [address] [id number] [address] [place] [phone] Mar, [facility] [address] [id number] [address] [place] [phone] Jan, [facility] [address] [id number] [address] [place] [phone] Jan, [facility] [address] [id number] [address] [place] [phone] Jan, [facility] [address] [id number] [address] [place] [phone] Jan, [facility] [address] [facility] [id number] [address] [place] [phone] Jan, [facility] [address] [id number] [address] [place] [phone] Jan, IMMUNIZATIONS No Known Immunizations SOCIAL HISTORY [...]
--- OUTSIDE RECORDS SUMMARY | 2019-10-05 06:21 | XMS REPORT ---
Author Author Meaghan DINERO [facility] Address [address] [place] [address] Care Team Providers Care Diet Aid Name Role Phone VIKKI DINERO Unavailable PROBLEMS Type Condition ICD9-CM Code UFI29-YO Code Onset Dates Condition S tatus SNOMED Code Problem Hypothyroid E03.9 Active 28921511 Problem Social anxiety disorder F40.10 Active 20192241 Problem Systemic lupus M32.9 Active 35100 009 Problem Irregular menses N92.6 Active 801 58053 Problem Rosacea L71.9 Active 829891979 Problem Pure hypercholesterolemia E78.00 Acti ve 890327866 Problem Major depressive disorder, recurrent episode, severe F33.2 Active [id number] Problem PTSD (post-traumatic stress disorder) F43.10 Active 88553678 Problem Moderate episode of recurrent major depressive disorder F33.1 Active 746313781 Problem ADHD, predominantly inattentive type F90.0 Active 58258150 ALLERGIES No Information ENCOUNTERS Encounter Location Date Diagnosis [facility] [address] [facility] [id number] [address] [place] [phone] Nov, [facility] [address] [place] [id number] [address] [place] [phone] Oct, Bruise T14.8XXA [facility] [address] [facility] [id number] [address] [place] [phone] Oct, Bruise T14.8XXA [facility] [address] [facility] [id number] [address] [place] [phone] Oct, [facility] [address] [place] [id number] [address] [place] [phone] Oct, [facility] [address] [id number] [address] [place] [phone] Oct, [facility] [address] [id number] [address] [place] [address] Sep, [facility] [address] [id number] [address] [place] [id number] Sep, Hypothyroid E03.9 [facility] [address] [facility] [id number] [address] [place] [phone] Sep, [facility] [address] [id number] [address] [place] [address] Sep, [facility] [address] [id number] [address] [place] [address] August, [facility] [address] [facility] [id number] [address] [place] [address] August, PTSD (post-traumatic stress disorder) F43.10 ; Moderate episode of recurrent major depressive disorder F33.1 ; ADHD, predominantly inattentive type F90.0 and Social anxiety disorder F40.10 [facility] [address] [id number] [address] [place] [phone] August, [facility] [address] [id number] [address] [place] [address] August, [facility] [address] [facility] [id number] [address] [place] [phone] Jul, [facility] [address] [id number] [address] [place] [phone] Jul, [facility] [address] [facility] [id number] [address] [place] [phone] Jul, Rosacea L71.9 [facility] [address] [facility] [id number] [address] [place] [phone] Jun, PTSD (post-traumatic stress disorder) F43.10 [facility] [address] [facility] [id number] [address] [place] [phone] Jun, [facility] [address] [facility] [id number] [address] [place] [phone] Jun, [facility] [address] [facility] [id number] [address] [place] [phone] Jun, [facility] [address] [id number] [address] [place] [phone] Jun, [facility] [address] [id number] [address] [place] [address] Apr, [facility] [id number] [place] [phone] Apr, Hypothyroid E03.9 ; Pure hyp ercholesterolemia E78.00 and Systemic lupus M32.9 [facility] [id number] [place] [phone] Apr, Hypothyroid E03.9 ; Systemic lupus M32.9 and Pure hypercholesterolemia E78.00 [facility] [address] [id number] [address] [place] [address] Apr, [facility] [address] [phone] Mar, [facility] [address] [phone] Mar, Pulsatile neck mass R22.1 [facility] [address] [address] Feb, [facility] [id number] [place] [phone] Feb, Contact dermatitis and eczem a due to plant L24.7 [facility] [address] [id number] [address] [place] [address] Feb, Systemic lupus M32.9 [facility] [address] [id number] [address] [place] [phone] Jan, [facility] [id number] [place] [phone] 16 Jan, 2017 Dental examination Z01.20 [facility] [address] [id number] [address] [place] [phone] 06 Jan, 2017 Encounter for immunization Z 23 [facility] [address] [facility] [id number] [address] [place] [address] 20 Dec, 2016 [place] [address] [facility] [id number] [address] [place] [address] Nov, Hypothyroid E03.9 [place] [address] [place] [id number] [address] [place] [address] Nov, PTSD (post-traumatic stress disorder) F43.10 ; ADHD, predominantly inattentive type F90.0 ; Social anxiety disorder F40.10 and Moderate episode of recurrent major depressive disorder F33.1 [place] [address] [place] [id number] [address] [place] [phone] Nov, ADHD, predominantly inattent marzena type F90.0 [place] [address] [place] [id number] [address] [place] [address] Oct, Acquired hypothyroidism E03. 9 [place] [address] [place] [id number] [place] [address] Oct, ADHD, predominantly inattent marzena type F90.0 [place] [address] [place] [id number] [address] [place] [phone] Oct, Acquired hypothyroidism E03. 9 [place] [address] [place] [id number] [address] [place] [address] Sep, Well woman exam Z01.419 ; Sy stemic lupus M32.9 ; Irregular menses N92.6 ; PTSD (post-traumatic stress disorder) F43.10 ; Social anxiety disorder F40.10 ; ADHD, predominantly inattentive type F90.0 ; Hypothyroid E03.9 and Generalized headaches R51 [place] [id number] [facility] [id number] [address] [place] [address] August, ADHD, predominantly inattent marzena type F90.0 [facility] [address] [id number] [address] [place] [address] August, [facility] [address] [id number] [address] [place] [address] Jul, [facility] [address] [id number] [address] [place] [address] Jun, [facility] [address] [id number] [address] [place] [address] Jun, Hypothyroid E03.9 [facility] [address] [id number] [address] [place] [address] Jun, ADHD, predominantly inattent marzena type F90.0 and Social anxiety disorder F40.10 [facility] [address] [facility] [id number] [address] [place] [address] Jun, [facility] [address] [id number] [address] [place] [phone] Jun, [facility] [address] [id number] [address] [place] [id number] May, Dental examination Z01.20 [facility] [address] [facility] [id number] [address] [place] [address] May, ADHD, predominantly inattent marzena type F90.0 ; Recurrent major depressive disorder, in partial remission F33.41 ; Social anxiety disorder F40.10 and PTSD (post-traumatic stress disorder) F43.10 [facility] [address] [id number] [address] [place] [phone] Apr, Social anxiety disorder F40. 10 [facility] [address] [id number] [address] [place] [address] Apr, ADHD, predominantly inattent marzena type F90.0 [facility] [address] [id number] [address] [place] [address] Apr, [facility] [address] [id number] [address] [place] [address] Apr, [facility] [address] [id number] [address] [place] [address] Mar, Dental examination Z01.20 [facility] [address] [id number] [address] [place] [address] Mar, [facility] [address] [id number] [address] [place] [phone] Feb, [facility] [address] [id number] [address] [place] [phone] Feb, [facility] [address] [id number] [address] [place] [phone] Jan, Encounter for immunization Z 23 [facility] [address] [id number] [address] [place] [address] Jan, [facility] [address] [id number] [address] [place] [phone] Jan, [facility] [address] [id number] [address] [place] [address] Jan, Dental examination Z01.20 [facility] [address] [id number] [address] [place] [address] Jan, [facility] [address] [id number] [address] [place] [address] Jan, Dental examination Z01.20 [facility] [address] [id number] [address] [place] [phone] Jan, [facility] [address] [id number] [address] [place] [phone] Dec, [facility] [address] [id number] [address] [place] [id number] Dec, Dental examination Z01.20 [facility] [address] [id number] [address] [place] [address] Nov, [facility] [address] [id number] [address] [place] [address] Nov, Social anxiety disorder F40. 10 ; PTSD (post-traumatic stress disorder) F43.10 and ADHD, predominantly inattentive type F90.0 [facility] [address] [id number] [address] [place] [phone] Oct, Social anxiety disorder F40. 10 [facility] [address] [facility] [id number] [address] [place] [phone] Oct, Hypothyroidism, unspecified type E03.9 [facility] [address] [id number] [address] [place] [address] Oct, Hypothyroid E03.9 [facility] [address] [facility] [id number] [address] [place] [address] Oct, Hypothyroid E03.9 [facility] [address] [facility] [id number] [address] [place] [phone] Sep, Hypothyroid E03.9 [facility] [address] [id number] [address] [place] [address] Sep, [facility] [address] [facility] [id number] [address] [place] [address] Sep, ADHD, predominantly inattent marzena type F90.0 [facility] [address] [facility] [id number] [address] [place] [address] Jul, ADHD, predominantly inattent marzena type F90.0 [facility] [address] [id number] [address] [place] [address] Jun, [place] [address] [facility] [id number] [address] [place] [address] Jun, Major depressive disorder, r ecurrent episode, severe F33.2 ; ADHD, predominantly inattentive type F90.0 ; PTSD (post-traumatic stress disorder) F43.10 and Social anxiety disorder F40.10 [facility] [address] [facility] [id number] [address] [place] [address] Jun, [facility] [address] [facility] [id number] [address] [place] [address] May, Encounter for screening mamm ogram for breast cancer Z12.31 [facility] [address] [facility] [id number] [address] [place] [address] 15 May, 2015 [facility] [address] [id number] [address] [place] [address] May, [facility] [address] [facility] [id number] [address] [place] [phone] May, Major depressive disorder, r ecurrent episode, severe F33.2 ; PTSD (post-traumatic stress disorder) F43.10 ; Social anxiety disorder F40.10 and ADHD, predominantly inattentive type F90.0 [place] [address] [place] [id number] [address] [place] [phone] Apr, [facility] [address] [id number] [address] [place] [address] Mar, [facility] [address] [id number] [address] [place] [phone] Mar, Major depressive disorder, r ecurrent episode, severe F33.2 ; PTSD (post-traumatic stress disorder) F43.10 ; Social anxiety disorder F40.10 and ADHD, predominantly inattentive type F90.0 [facility] [address] [place] [id number] [address] [place] [address] Feb, [facility] [address] [place] [id number] [address] [place] [address] Feb, [place] [address] [phone] Feb, [facility] [address] [place] [id number] [address] [place] [address] Feb, Lupus M32.9 ; Hypothyroid E0 3.9 and Irregular menses N92.6 [place] [address] [place] [id number] [address] [place] [phone] 03 Feb, 2015 Lupus M32.9 and Hypothyroid E03.9 [facility] [address] [id number] [address] [place] [phone] 26 Jan, 2015 Encounter for immunization Z 23 [facility] [address] [id number] [address] [place] [phone] 14 Jul, 2014 [facility] [address] [id number] [address] [place] [phone] 13 Jul, 2014 [facility] [address] [id number] [address] [place] [phone] Feb, [facility] [address] [id number] [address] [place] [address] Feb, [facility] [address] [id number] [address] [place] [phone] Feb, [facility] [address] [id number] [address] [place] [phone] Feb, [facility] [address] [id number] [address] [place] [address] August, [facility] [address] [id number] [address] [place] [address] Jun, [facility] [address] [id number] [address] [place] [address] Jun, [facility] [address] [id number] [address] [place] [phone] 19 Jun, 2011 [facility] [address] [id number] [address] [place] [phone] 16 Jun, 2011 [facility] [address] [id number] [address] [place] [phone] 28 May, 2011 [facility] [address] [id number] [address] [place] [phone] May, [facility] [address] [id number] [address] [place] [address] May, [facility] [address] [id number] [address] [place] [phone] May, [facility] [address] [id number] [address] [place] [address] Mar, [facility] [address] [id number] [address] [place] [phone] Jan, [facility] [address] [id number] [address] [place] [address] Jan, [facility] [address] [id number] [address] [place] [address] Jan, [facility] [address] [id number] [address] [place] [phone] Jan, [facility] [address] [id number] [address] [place] [phone] Jan, [facility] [address] [id number] [address] [place] [phone] Jan, IMMUNIZATIONS No Known Immunizations SOCIAL HISTORY Never Assessed REASON FOR VISIT concerta 11/12/17 PLAN OF CARE VITAL SIGNS MEDICATIONS Medication Instructions Dosage Frequency Start Date End Date Duration S tito Concerta 54 MG Orally Once a day for ADHD 1 tablet in the morning Oct, 28 days Active Methylphenidate HCl 10 mg Orally at 4 pm for ADHD 1/2 to 1 tablet Oct, 28 days Active RESULTS No Results PROCEDURES No Known procedures INSTRUCTIONS MEDICATIONS ADMINISTERED No Known Medications MEDICAL (GENERAL) HISTORY Type Description Date Medical History Systemic lupus erythematosus, unspecifie d Medical History Hypothyroidism, unspecified Surgical History inguinal hernia repair Surgical History section Surgical History cholecystectomy Surgical History ovarian cyst resection Hospitalization History dystonia Hospitalization History pylenephritis
--- OUTSIDE RECORDS SUMMARY | 2019-10-05 06:21 | XMS REPORT ---
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 Name Role Phone KELLY LYNNE Unavailable PROBLEMS Type Condition ICD9-CM Code [id number] Code Onset Dates Condition S tatus SNOMED Code Problem Hypothyroid E03.9 Active 67356963 Problem Social anxiety disorder F40.10 Active 05857140 Problem Systemic lupus M32.9 Active 80238 009 Problem Irregular menses N92.6 Active 801 05119 Problem Rosacea L71.9 Active 828426122 Problem Pure hypercholesterolemia E78.00 Acti ve 184807696 Problem Major depressive disorder, recurrent episode, severe F33.2 Active [id number] Problem PTSD (post-traumatic stress disorder) F43.10 Active 68606646 Problem Moderate episode of recurrent major depressive disorder F33.1 Active 895484473 Problem ADHD, predominantly inattentive type F90.0 Active [id number] ALLERGIES No Information ENCOUNTERS Encounter Location Date Diagnosis [facility] [address] [facility] [id number] [address] [place] [phone] Nov, [facility] [address] [place] [id number] [address] [place] [address] Oct, Bruise T14.8XXA [facility] [address] [facility] [id number] [address] [place] [phone] Oct, Bruise T14.8XXA [facility] [address] [facility] [id number] [address] [place] [phone] Oct, [facility] [address] [place] [id number] [address] [place] [phone] Oct, [facility] [address] [place] [id number] [address] [place] [address] Oct, [facility] [address] [id number] [address] [place] [phone] Sep, [facility] [address] [id number] [address] [place] [phone] Sep, Hypothyroid E03.9 [facility] [address] [facility] [id number] [address] [place] [phone] Sep, [facility] [address] [id number] [address] [place] [phone] Sep, [facility] [address] [id number] [address] [place] [phone] August, [facility] [address] [facility] [id number] [address] [place] [phone] August, PTSD (post-traumatic stress disorder) F43.10 ; Moderate episode of recurrent major depressive disorder F33.1 ; ADHD, predominantly inattentive type F90.0 and Social anxiety disorder F40.10 [facility] [address] [id number] [address] [place] [address] August, [facility] [address] [id number] [address] [place] [address] August, [facility] [address] [facility] [id number] [address] [place] [phone] Jul, [facility] [address] [id number] [address] [place] [phone] Jul, [facility] [address] [facility] [id number] [address] [place] [address] Jul, Rosacea L71.9 [facility] [address] [facility] [id number] [address] [place] [phone] Jun, PTSD (post-traumatic stress disorder) F43.10 [facility] [address] [facility] [id number] [address] [place] [phone] Jun, [facility] [address] [facility] [id number] [address] [place] [phone] Jun, [facility] [address] [facility] [id number] [address] [place] [phone] Jun, [facility] [address] [place] [id number] [address] [place] [phone] Jun, [facility] [address] [place] [id number] [address] [place] [phone] Apr, [facility] [address] [place] [id number] [place] [address] Apr, Hypothyroid E03.9 ; Pure hyp ercholesterolemia E78.00 and Systemic lupus M32.9 [facility] [address] [place] [id number] [place] [address] Apr, Hypothyroid E03.9 ; Systemic lupus M32.9 and Pure hypercholesterolemia E78.00 [facility] [address] [place] [id number] [address] [place] [phone] Apr, [facility] [address] [phone] Mar, [facility] [address] [phone] Mar, Pulsatile neck mass R22.1 [facility] [address] [phone] Feb, [facility] [address] [place] [id number] [place] [phone] Feb, Contact dermatitis and eczem a due to plant L24.7 [facility] [address] [place] [id number] [address] [place] [address] Feb, Systemic lupus M32.9 [facility] [address] [place] [id number] [address] [place] [address] Jan, [facility] [address] [place] [id number] [place] [address] 16 Jan, 2017 Dental examination Z01.20 [facility] [address] [place] [id number] [address] [place] [phone] 06 Jan, 2017 Encounter for immunization Z 23 [facility] [address] [facility] [id number] [address] [place] [address] 20 Dec, 2016 [place] [address] [facility] [id number] [address] [place] [address] Nov, Hypothyroid E03.9 [place] [address] [place] [id number] [address] [place] [address] Nov, PTSD (post-traumatic stress disorder) F43.10 ; ADHD, predominantly inattentive type F90.0 ; Social anxiety disorder F40.10 and Moderate episode of recurrent major depressive disorder F33.1 [place] [address] [place] [id number] [address] [place] [phone] Nov, ADHD, predominantly inattent marzena type F90.0 [place] [address] [place] [id number] [address] [place] [address] Oct, Acquired hypothyroidism E03. 9 [place] [address] [place] [id number] [place] [address] Oct, ADHD, predominantly inattent marzena type F90.0 [place] [address] [place] [id number] [address] [place] [address] Oct, Acquired hypothyroidism E03. 9 [place] [address] [place] [id number] [address] [place] [address] Sep, Well woman exam Z01.419 ; Sy stemic lupus M32.9 ; Irregular menses N92.6 ; PTSD (post-traumatic stress disorder) F43.10 ; Social anxiety disorder F40.10 ; ADHD, predominantly inattentive type F90.0 ; Hypothyroid E03.9 and Generalized headaches R51 [place] [id number] [facility] [id number] [address] [place] [phone] August, ADHD, predominantly inattent marzena type F90.0 [facility] [address] [id number] [address] [place] [phone] August, [facility] [address] [id number] [address] [place] [phone] Jul, [facility] [address] [id number] [address] [place] [address] Jun, [facility] [address] [id number] [address] [place] [address] Jun, Hypothyroid E03.9 [facility] [address] [id number] [address] [place] [address] Jun, ADHD, predominantly inattent marzena type F90.0 and Social anxiety disorder F40.10 [facility] [address] [facility] [id number] [address] [place] [address] Jun, [facility] [address] [id number] [address] [place] [address] Jun, [facility] [address] [id number] [address] [place] [address] [id number] May, Dental examination Z01.20 [facility] [address] [facility] [id number] [address] [place] [phone] May, ADHD, predominantly inattent marzena type F90.0 ; Recurrent major depressive disorder, in partial remission F33.41 ; Social anxiety disorder F40.10 and PTSD (post-traumatic stress disorder) F43.10 [facility] [address] [id number] [address] [place] [address] Apr, Social anxiety disorder F40. 10 [facility] [address] [id number] [address] [place] [phone] Apr, ADHD, predominantly inattent marzena type F90.0 [facility] [address] [id number] [address] [place] [address] Apr, [facility] [address] [id number] [address] [place] [address] Apr, [facility] [address] [id number] [address] [place] [address] Mar, Dental examination Z01.20 [facility] [address] [id number] [address] [place] [phone] Mar, [facility] [address] [id number] [address] [place] [phone] Feb, [facility] [address] [id number] [address] [place] [phone] Feb, [facility] [address] [id number] [address] [place] [phone] Jan, Encounter for immunization Z 23 [facility] [address] [id number] [address] [place] [phone] Jan, [facility] [address] [id number] [address] [place] [phone] Jan, [facility] [address] [id number] [address] [place] [address] Jan, Dental examination Z01.20 [facility] [address] [id number] [address] [place] [phone] Jan, [facility] [address] [id number] [address] [place] [phone] Jan, Dental examination Z01.20 [facility] [address] [id number] [address] [place] [phone] Jan, [facility] [address] [id number] [address] [place] [phone] Dec, [facility] [address] [id number] [address] [place] [address] [id number] Dec, Dental examination Z01.20 [facility] [address] [id number] [address] [place] [phone] Nov, [facility] [address] [id number] [address] [place] [phone] Nov, Social anxiety disorder F40. 10 ; PTSD (post-traumatic stress disorder) F43.10 and ADHD, predominantly inattentive type F90.0 [facility] [address] [id number] [address] [place] [phone] Oct, Social anxiety disorder F40. 10 [facility] [address] [facility] [id number] [address] [place] [phone] Oct, Hypothyroidism, unspecified type E03.9 [facility] [address] [id number] [address] [place] [phone] Oct, Hypothyroid E03.9 [facility] [address] [facility] [id number] [address] [place] [address] Oct, Hypothyroid E03.9 [facility] [address] [facility] [id number] [address] [place] [phone] Sep, Hypothyroid E03.9 [facility] [address] [id number] [address] [place] [phone] Sep, [facility] [address] [facility] [id number] [address] [place] [phone] Sep, ADHD, predominantly inattent marzena type F90.0 [facility] [address] [facility] [id number] [address] [place] [address] Jul, ADHD, predominantly inattent marzena type F90.0 [facility] [address] [id number] [address] [place] [phone] Jun, [place] [id number] [facility] [id number] [address] [place] [address] Jun, Major depressive disorder, r ecurrent episode, severe F33.2 ; ADHD, predominantly inattentive type F90.0 ; PTSD (post-traumatic stress disorder) F43.10 and Social anxiety disorder F40.10 [facility] [address] [facility] [id number] [address] [place] [address] Jun, [facility] [address] [facility] [id number] [address] [place] [address] May, Encounter for screening mamm ogram for breast cancer Z12.31 [facility] [address] [facility] [id number] [address] [place] [phone] 15 May, 2015 [facility] [address] [place] [id number] [address] [place] [phone] May, [facility] [address] [facility] [id number] [address] [place] [address] May, Major depressive disorder, r ecurrent episode, severe F33.2 ; PTSD (post-traumatic stress disorder) F43.10 ; Social anxiety disorder F40.10 and ADHD, predominantly inattentive type F90.0 [place] [address] [place] [id number] [address] [place] [phone] Apr, [facility] [address] [place] [id number] [address] [place] [phone] Mar, [facility] [address] [place] [id number] [address] [place] [phone] Mar, Major depressive disorder, r ecurrent episode, severe F33.2 ; PTSD (post-traumatic stress disorder) F43.10 ; Social anxiety disorder F40.10 and ADHD, predominantly inattentive type F90.0 [facility] [address] [place] [id number] [address] [place] [address] Feb, [facility] [address] [place] [id number] [address] [place] [phone] Feb, [place] [address] [phone] Feb, [facility] [address] [place] [id number] [address] [place] [phone] Feb, Lupus M32.9 ; Hypothyroid E0 3.9 and Irregular menses N92.6 [place] [address] [place] [id number] [address] [place] [phone] 03 Feb, 2015 Lupus M32.9 and Hypothyroid E03.9 [facility] [address] [id number] [address] [place] [phone] 26 Jan, 2015 Encounter for immunization Z 23 [facility] [address] [id number] [address] [place] [phone] 14 Jul, 2014 [facility] [address] [id number] [address] [place] [id number] 13 Jul, 2014 [facility] [address] [id number] [address] [place] [phone] Feb, [facility] [address] [id number] [address] [place] [phone] Feb, [facility] [address] [id number] [address] [place] [phone] Feb, [facility] [address] [id number] [address] [place] [phone] Feb, [facility] [address] [id number] [address] [place] [phone] August, [facility] [address] [id number] [address] [place] [phone] Jun, [facility] [address] [id number] [address] [place] [phone] Jun, [facility] [address] [id number] [address] [place] [phone] 19 Jun, 2011 [facility] [address] [id number] [address] [place] [id number] 16 Jun, 2011 [facility] [address] [id number] [address] [place] [phone] 28 May, 2011 [facility] [address] [id number] [address] [place] [phone] May, [facility] [address] [id number] [address] [place] [phone] May, [facility] [address] [id number] [address] [place] [address] May, [facility] [address] [id number] [address] [place] [phone] Mar, [facility] [address] [id number] [address] [place] [phone] Jan, [facility] [address] [id number] [address] [place] [phone] Jan, [facility] [address] [facility] [id number] [address] [place] [phone] Jan, [facility] [address] [facility] [id number] [address] [place] [phone] Jan, [facility] [address] [facility] [id number] [address] [place] [phone] Jan, [facility] [address] [id number] [address] [place] [phone] Jan, IMMUNIZATIONS No Known Immunizations SOCIAL HISTORY Never Assessed REASON FOR VISIT Tramadol PLAN OF CARE VITAL SIGNS MEDICATIONS Unknown [...]
--- OUTSIDE RECORDS SUMMARY | 2019-10-05 06:22 | XMS REPORT ---
Author Author Meaghan LYNNE Organization [facility] Address [address] [place] [address] Care Team Providers Care Arborist Name Role Phone KELLY LYNNE Unavailable PROBLEMS Type Condition ICD9-CM Code [id number] Code Onset Dates Condition S tatus SNOMED Code Problem Hypothyroid E03.9 Active 95814729 Problem Social anxiety disorder F40.10 Active 91813607 Problem Systemic lupus M32.9 Active 36827 009 Problem Irregular menses N92.6 Active 801 23114 Problem Rosacea L71.9 Active 746539031 Problem Pure hypercholesterolemia E78.00 Acti ve 538887116 Problem Major depressive disorder, recurrent episode, severe F33.2 Active 460624726128 Problem PTSD (post-traumatic stress disorder) F43.10 Active 64387702 Problem Moderate episode of recurrent major depressive disorder F33.1 Active 421004282 Problem ADHD, predominantly inattentive type F90.0 Active 52889512 ALLERGIES No Information ENCOUNTERS Encounter Location Date Diagnosis [facility] [address] [facility] [place] [id number] [address] [place] [phone] Oct, Bruise T14.8XXA [facility] [address] [facility] [place] [id number] [address] [place] [phone] Oct, Bruise T14.8XXA [facility] [address] [facility] [place] [id number] [address] [place] [phone] Oct, [facility] [address] [facility] [place] [id number] [address] [place] [phone] Oct, [facility] [address] [facility] [place] [facility] [id number] [address] [place] [phone] Oct, [facility] [address] [facility] [place] [id number] [address] [place] [phone] Sep, [facility] [address] [id number] [address] [place] [phone] Sep, Hypothyroid E03.9 [facility] [address] [id number] [address] [place] [phone] Sep, [facility] [address] [id number] [address] [place] [phone] Sep, [facility] [address] [id number] [address] [place] [phone] August, [facility] [address] [id number] [address] [place] [phone] August, PTSD (post-traumatic stress disorder) F43.10 ; Moderate episode of recurrent major depressive disorder F33.1 ; ADHD, predominantly inattentive type F90.0 and Social anxiety disorder F40.10 [facility] [address] [id number] [address] [place] [phone] August, [facility] [address] [id number] [address] [place] [phone] August, [facility] [address] [id number] [address] [place] [phone] Jul, [facility] [address] [id number] [address] [place] [phone] Jul, [facility] [address] [id number] [address] [place] [phone] Jul, Rosacea L71.9 [facility] [address] [id number] [address] [place] [phone] Jun, PTSD (post-traumatic stress disorder) F43.10 [facility] [address] [id number] [address] [place] [phone] Jun, [facility] [address] [id number] [address] [place] [phone] Jun, [facility] [address] [id number] [address] [place] [phone] Jun, [facility] [address] [id number] [address] [place] [phone] Jun, [facility] [address] [id number] [address] [place] [phone] Apr, [facility] [address] [id number] [address] [place] [phone] Apr, Hypothyroid E03.9 ; Pure hyp ercholesterolemia E78.00 and Systemic lupus M32.9 [facility] [address] [id number] [address] [place] [phone] Apr, Hypothyroid E03.9 ; Systemic lupus M32.9 and Pure hypercholesterolemia E78.00 [facility] [address] [facility] [place] [facility] [id number] [address] [place] [phone] Apr, [facility] [address] [id number] [address] [place] [phone] Mar, [facility] [address] [id number] [address] [place] [phone] Mar, Pulsatile neck mass R22.1 [facility] [address] [facility] [place] [id number] [address] [place] [phone] Feb, [facility] [address] [facility] [place] [id number] [address] [place] [phone] Feb, Contact dermatitis and eczem a due to plant L24.7 [facility] [address] [id number] [address] [place] [phone] 14 Feb, 2017 Systemic lupus M32.9 [facility] [address] [facility] [place] [id number] [address] [place] [phone] Jan, [facility] [address] [facility] [place] [id number] [address] [place] [phone] Jan, Dental examination Z01.20 [facility] [address] [facility] [place] [id number] [address] [place] [phone] Jan, Encounter for immunization Z 23 [facility] [address] [place] [id number] [address] [place] [phone] 20 Dec, 2016 [facility] [address] [place] [id number] [address] [place] [phone] Nov, Hypothyroid E03.9 [place] [address] [place] [id number] [place] [phone] Nov, PTSD (post-traumatic stress disorder) F43.10 ; ADHD, predominantly inattentive type F90.0 ; Social anxiety disorder F40.10 and Moderate episode of recurrent major depressive disorder F33.1 [place] [address] [place] [id number] [place] [phone] Nov, ADHD, predominantly inattent marzena type F90.0 [place] [address] [place] [id number] [place] [phone] Oct, Acquired hypothyroidism E03. 9 [place] [address] [place] [id number] [place] [phone] Oct, ADHD, predominantly inattent marzena type F90.0 [place] [address] [place] [id number] [address] [place] [phone] Oct, Acquired hypothyroidism E03. 9 [place] [address] [place] [id number] [address] [place] [phone] Sep, Well woman exam Z01.419 ; Sy stemic lupus M32.9 ; Irregular menses N92.6 ; PTSD (post-traumatic stress disorder) F43.10 ; Social anxiety disorder F40.10 ; ADHD, predominantly inattentive type F90.0 ; Hypothyroid E03.9 and Generalized headaches R51 [place] [address] [place] [id number] [address] [place] [phone] August, ADHD, predominantly inattent marzena type F90.0 [place] [address] [place] [id number] [place] [phone] August, [facility] [address] [id number] [address] [place] [phone] Jul, [facility] [address] [id number] [address] [place] [phone] Jun, [facility] [address] [id number] [address] [place] [phone] Jun, Hypothyroid E03.9 [facility] [address] [id number] [address] [place] [phone] Jun, ADHD, predominantly inattent marzena type F90.0 and Social anxiety disorder F40.10 [facility] [address] [id number] [address] [place] [phone] Jun, [facility] [address] [facility] [place] [id number] [address] [place] [phone] Jun, [facility] [address] [id number] [address] [place] [id number] May, Dental examination Z01.20 [facility] [address] [facility] [place] [id number] [address] [place] [phone] May, ADHD, predominantly inattent marzena type F90.0 ; Recurrent major depressive disorder, in partial remission F33.41 ; Social anxiety disorder F40.10 and PTSD (post-traumatic stress disorder) F43.10 [facility] [address] [facility] [place] [id number] [address] [place] [phone] Apr, Social anxiety disorder F40. 10 [facility] [address] [id number] [address] [place] [phone] Apr, ADHD, predominantly inattent marzena type F90.0 [facility] [address] [id number] [address] [place] [phone] Apr, [facility] [address] [facility] [place] [id number] [address] [place] [phone] Apr, [facility] [address] [id number] [address] [place] [phone] Mar, Dental examination Z01.20 [facility] [address] [id number] [address] [place] [phone] Mar, [facility] [address] [id number] [address] [place] [phone] Feb, [facility] [address] [id number] [address] [place] [phone] Feb, [facility] [address] [id number] [address] [place] [phone] Jan, Encounter for immunization Z 23 [facility] [address] [id number] [address] [place] [phone] Jan, [facility] [address] [id number] [address] [place] [phone] Jan, [facility] [address] [id number] [address] [place] [phone] Jan, Dental examination Z01.20 [facility] [address] [id number] [address] [place] [phone] Jan, [facility] [address] [id number] [address] [place] [phone] Jan, Dental examination Z01.20 [facility] [address] [id number] [address] [place] [phone] Jan, [facility] [address] [id number] [address] [place] [phone] Dec, [facility] [address] [id number] [address] [place] [phone] Dec, Dental examination Z01.20 [facility] [address] [id number] [address] [place] [phone] Nov, [facility] [address] [id number] [address] [place] [phone] Nov, Social anxiety disorder F40. 10 ; PTSD (post-traumatic stress disorder) F43.10 and ADHD, predominantly inattentive type F90.0 [facility] [address] [id number] [address] [place] [phone] Oct, Social anxiety disorder F40. 10 [facility] [address] [id number] [address] [place] [phone] Oct, Hypothyroidism, unspecified type E03.9 [facility] [address] [id number] [address] [place] [phone] Oct, Hypothyroid E03.9 [facility] [address] [id number] [address] [place] [phone] Oct, Hypothyroid E03.9 [facility] [address] [id number] [address] [place] [phone] Sep, Hypothyroid E03.9 [facility] [address] [id number] [address] [place] [phone] Sep, [facility] [address] [id number] [address] [place] [phone] Sep, ADHD, predominantly inattent marzena type F90.0 [facility] [address] [facility] [place] [id number] [address] [place] [phone] Jul, ADHD, predominantly inattent marzena type F90.0 [facility] [address] [id number] [address] [place] [phone] Jun, [facility] [address] [id number] [address] [place] [phone] 24 Jun, 2015 Major depressive disorder, r ecurrent episode, severe F33.2 ; ADHD, predominantly inattentive type F90.0 ; PTSD (post-traumatic stress disorder) F43.10 and Social anxiety disorder F40.10 [facility] [address] [id number] [address] [place] [phone] Jun, [facility] [address] [facility] [place] [id number] [address] [place] [phone] May, Encounter for screening mamm ogram for breast cancer Z12.31 [facility] [address] [facility] [place] [id number] [address] [place] [phone] May, [facility] [address] [facility] [place] [id number] [address] [place] [phone] May, [facility] [address] [place] [id number] [address] [place] [phone] May, Major depressive disorder, r ecurrent episode, severe F33.2 ; PTSD (post-traumatic stress disorder) F43.10 ; Social anxiety disorder F40.10 and ADHD, predominantly inattentive type F90.0 [facility] [address] [facility] [place] [id number] [address] [place] [phone] Apr, [facility] [address] [place] [id number] [address] [place] [phone] Mar, [facility] [address] [place] [id number] [place] [phone] Mar, Major depressive disorder, r ecurrent episode, severe F33.2 ; PTSD (post-traumatic stress disorder) F43.10 ; Social anxiety disorder F40.10 and ADHD, predominantly inattentive type F90.0 [facility] [address] [place] [id number] [address] [place] [phone] Feb, [facility] [address] [place] [id number] [address] [place] [phone] Feb, [facility] [address] [facility] [place] [id number] [address] [place] [phone] Feb, [facility] [address] [place] [id number] [place] [phone] Feb, Lupus M32.9 ; Hypothyroid E0 3.9 and Irregular menses N92.6 [facility] [address] [facility] [place] [id number] [address] [place] [phone] Feb, Lupus M32.9 and Hypothyroid E03.9 [facility] [place] [address] [id number] [address] [place] [phone] 26 Jan, 2015 Encounter for immunization Z 23 [facility] [address] [id number] [address] [place] [address], [place] [address] 14 Jul, 2014 [facility] [address] [id number] [address] [place] [phone] 13 Jul, 2014 [facility] [address] [id number] [address] [place] [phone] 23 Feb, 2012 [facility] [address] [id number] [address] [place] [address], [place] [address] Feb, [facility] [address] [id number] [address] [place] [phone] Feb, [facility] [address] [id number] [address] [place] [phone] Feb, [facility] [address] [id number] [address] [place] [phone] August, [facility] [address] [id number] [address] [place] [phone] Jun, [facility] [address] [id number] [address] [place] [phone] Jun, [facility] [address] [id number] [address] [place] [phone] Jun, [facility] [address] [id number] [address] [place] [phone] 16 Jun, 2011 [facility] [address] [id number] [address] [place] [address], [place] [phone] May, [facility] [address] [id number] [address] [place] [phone] May, [facility] [address] [id number] [address] [place] [phone] May, [facility] [address] [id number] [address] [place] [phone] May, [facility] [address] [id number] [address] [place] [phone] Mar, [facility] [address] [id number] [address] [place] [phone] Jan, [facility] [address] [id number] [address] [place] [phone] Jan, [facility] [address] [id number] [address] [place] [phone] Jan, [facility] [address] [id number] [address] [place] [phone] Jan, [facility] [address] [id number] [address] [place] [phone] Jan, [facility] [address] [id number] [address] [place] [phone] Jan, IMMUNIZATIONS No Known Immunizations SOCIAL HISTORY Never Assessed REASON FOR VISIT Facial bumps PLAN OF CARE VITAL SIGNS MEDICATIONS Medication Instructions Dosage Frequency Start Date End Date Duration S jesusitaus Doxycycline Hyclate 100 mg Orally Once a day 1 capsule 24h Jul, 3 Jan, 2018 30 days Active RESULTS No Results PROCEDURES No Known procedures INSTRUCTIONS MEDICATIONS ADMINISTERED No Known Medications MEDICAL (GENERAL) HISTORY Type Description Date Medical History Systemic lupus erythematosus, unspecifie d Medical History Hypothyroidism, unspecified Surgical History inguinal hernia repair Surgical History section Surgical History cholecystectomy Surgical History ovarian cyst resection Hospitalization History dystonia Hospitalization History pylenephritis
--- OUTSIDE RECORDS SUMMARY | 2019-10-05 06:22 | XMS REPORT ---
Author Author Meaghan LYNNE Organization [facility] Address [address] [place] [address] Care Team Providers Care Doll Surgeon Name Role Phone KELLY LYNNE Unavailable PROBLEMS Type Condition ICD9-CM Code BFS90-MR Code Onset Dates Condition S tatus SNOMED Code Problem Hypothyroid E03.9 Active 73892536 Problem Social anxiety disorder F40.10 Active 09302271 Problem Systemic lupus M32.9 Active 03079 009 Problem Irregular menses N92.6 Active 801 57769 Problem Rosacea L71.9 Active 909687399 Problem Pure hypercholesterolemia E78.00 Acti ve 107996311 Problem Major depressive disorder, recurrent episode, severe F33.2 Active [id number] Problem PTSD (post-traumatic stress disorder) F43.10 Active 36725132 Problem Moderate episode of recurrent major depressive disorder F33.1 Active 428975881 Problem ADHD, predominantly inattentive type F90.0 Active 83132602 ALLERGIES No Information ENCOUNTERS Encounter Location Date Diagnosis [facility] [address] [facility] [id number] [address] [place] [address] Oct, Bruise T14.8XXA [facility] [address] [facility] [id number] [address] [place] [address] Oct, Bruise T14.8XXA [facility] [address] [facility] [id number] [address] [place] [address] Oct, [facility] [address] [facility] [id number] [address] [place] [address] Oct, [facility] [address] [facility] [id number] [address] [place] [address] Oct, [facility] [address] [facility] [id number] [address] [place] [address] Sep, [facility] [address] [id number] [address] [place] [address] Sep, Hypothyroid E03.9 [facility] [address] [id number] [address] [place] [address] Sep, [facility] [address] [id number] [address] [place] [address] Sep, [facility] [address] [id number] [address] [place] [address] August, [facility] [address] [id number] [address] [place] [address] August, PTSD (post-traumatic stress disorder) F43.10 ; Moderate episode of recurrent major depressive disorder F33.1 ; ADHD, predominantly inattentive type F90.0 and Social anxiety disorder F40.10 [facility] [address] [id number] [address] [place] [address] August, [facility] [address] [id number] [address] [place] [address] August, [facility] [address] [id number] [address] [place] [address] Jul, [facility] [address] [id number] [address] [place] [address] Jul, [facility] [address] [id number] [address] [place] [address] Jul, Rosacea L71.9 [facility] [address] [id number] [address] [place] [address] Jun, PTSD (post-traumatic stress disorder) F43.10 [facility] [address] [id number] [address] [place] [address] Jun, [facility] [address] [id number] [address] [place] [address] Jun, [facility] [address] [id number] [address] [place] [address] Jun, [facility] [address] [id number] [address] [place] [address] Jun, [facility] [address] [id number] [address] [place] [address] Apr, [facility] [address] [id number] [address] [place] [address] Apr, Hypothyroid E03.9 ; Pure hyp ercholesterolemia E78.00 and Systemic lupus M32.9 [facility] [address] [id number] [address] [place] [address] Apr, Hypothyroid E03.9 ; Systemic lupus M32.9 and Pure hypercholesterolemia E78.00 [facility] [address] [facility] [id number] [address] [place] [address] Apr, [facility] [address] [id number] [address] [place] [address] Mar, [facility] [address] [id number] [address] [place] [address] Mar, Pulsatile neck mass R22.1 [facility] [address] [facility] [id number] [address] [place] [address] Feb, [facility] [address] [facility] [id number] [address] [place] [address] Feb, Contact dermatitis and eczem a due to plant L24.7 [facility] [address] [id number] [address] [place] [address] 14 Feb, 2017 Systemic lupus M32.9 [facility] [address] [facility] [id number] [address] [place] [address] Jan, [facility] [address] [facility] [id number] [address] [place] [address] Jan, Dental examination Z01.20 [facility] [address] [facility] [id number] [address] [place] [address] Jan, Encounter for immunization Z 23 [facility] [address] [place] [id number] [address] [place] [address] 20 Dec, 2016 [facility] [address] [place] [id number] [address] [place] [address] Nov, Hypothyroid E03.9 [facility] [address] [place] [id number] [place] [address] Nov, PTSD (post-traumatic stress disorder) F43.10 ; ADHD, predominantly inattentive type F90.0 ; Social anxiety disorder F40.10 and Moderate episode of recurrent major depressive disorder F33.1 [facility] [address] [place] [id number] [place] [address] Nov, ADHD, predominantly inattent marzena type F90.0 [facility] [address] [place] [id number] [place] [address] Oct, Acquired hypothyroidism E03. 9 [facility] [address] [place] [id number] [place] [address] Oct, ADHD, predominantly inattent marzena type F90.0 [facility] [address] [place] [id number] [address] [place] [address] Oct, Acquired hypothyroidism E03. 9 [facility] [address] [place] [id number] [address] [place] [address] Sep, Well woman exam Z01.419 ; Sy stemic lupus M32.9 ; Irregular menses N92.6 ; PTSD (post-traumatic stress disorder) F43.10 ; Social anxiety disorder F40.10 ; ADHD, predominantly inattentive type F90.0 ; Hypothyroid E03.9 and Generalized headaches R51 [facility] [address] [place] [id number] [address] [place] [address] August, ADHD, predominantly inattent marzena type F90.0 [facility] [place] [address] [place] [id number] [place] [address] August, [facility] [address] [id number] [address] [place] [address] Jul, [facility] [address] [id number] [address] [place] [address] Jun, [facility] [address] [id number] [address] [place] [address] Jun, Hypothyroid E03.9 [facility] [address] [id number] [address] [place] [address] Jun, ADHD, predominantly inattent marzena type F90.0 and Social anxiety disorder F40.10 [facility] [address] [id number] [address] [place] [address] Jun, [facility] [address] [facility] [id number] [address] [place] [address] Jun, [facility] [address] [id number] [address] [place] [id number] May, Dental examination Z01.20 [facility] [address] [facility] [id number] [address] [place] [address] May, ADHD, predominantly inattent marzena type F90.0 ; Recurrent major depressive disorder, in partial remission F33.41 ; Social anxiety disorder F40.10 and PTSD (post-traumatic stress disorder) F43.10 [facility] [address] [facility] [id number] [address] [place] [address] Apr, Social anxiety disorder F40. 10 [facility] [address] [id number] [address] [place] [address] Apr, ADHD, predominantly inattent marzena type F90.0 [facility] [address] [id number] [address] [place] [address] Apr, [facility] [address] [facility] [id number] [address] [place] [address] Apr, [facility] [address] [id number] [address] [place] [address] Mar, Dental examination Z01.20 [facility] [address] [id number] [address] [place] [address] Mar, [facility] [address] [id number] [address] [place] [address] Feb, [facility] [address] [id number] [address] [place] [address] Feb, [facility] [address] [id number] [address] [place] [address] Jan, Encounter for immunization Z 23 [facility] [address] [id number] [address] [place] [address] Jan, [facility] [address] [id number] [address] [place] [address] Jan, [facility] [address] [id number] [address] [place] [address] Jan, Dental examination Z01.20 [facility] [address] [id number] [address] [place] [address] Jan, [facility] [address] [id number] [address] [place] [address] Jan, Dental examination Z01.20 [facility] [address] [id number] [address] [place] [address] Jan, [facility] [address] [id number] [address] [place] [address] Dec, [facility] [address] [id number] [address] [place] [id number] Dec, Dental examination Z01.20 [facility] [address] [id number] [address] [place] [address] Nov, [facility] [address] [id number] [address] [place] [address] Nov, Social anxiety disorder F40. 10 ; PTSD (post-traumatic stress disorder) F43.10 and ADHD, predominantly inattentive type F90.0 [facility] [address] [id number] [address] [place] [address] Oct, Social anxiety disorder F40. 10 [facility] [address] [id number] [address] [place] [address] Oct, Hypothyroidism, unspecified type E03.9 [facility] [address] [id number] [address] [place] [address] Oct, Hypothyroid E03.9 [facility] [address] [id number] [address] [place] [address] Oct, Hypothyroid E03.9 [facility] [address] [id number] [address] [place] [address] Sep, Hypothyroid E03.9 [facility] [address] [id number] [address] [place] [address] Sep, [facility] [address] [id number] [address] [place] [address] Sep, ADHD, predominantly inattent marzena type F90.0 [facility] [address] [facility] [id number] [address] [place] [address] Jul, ADHD, predominantly inattent marzena type F90.0 [facility] [address] [id number] [address] [place] [address] Jun, [facility] [address] [id number] [address] [place] [address] 24 Jun, 2015 Major depressive disorder, r ecurrent episode, severe F33.2 ; ADHD, predominantly inattentive type F90.0 ; PTSD (post-traumatic stress disorder) F43.10 and Social anxiety disorder F40.10 [facility] [address] [id number] [address] [place] [address] Jun, [facility] [address] [facility] [id number] [address] [place] [address] May, Encounter for screening mamm ogram for breast cancer Z12.31 [facility] [address] [facility] [id number] [address] [place] [address] May, [facility] [address] [facility] [id number] [address] [place] [address] May, [facility] [address] [place] [id number] [address] [place] [address] May, Major depressive disorder, r ecurrent episode, severe F33.2 ; PTSD (post-traumatic stress disorder) F43.10 ; Social anxiety disorder F40.10 and ADHD, predominantly inattentive type F90.0 [facility] [address] [facility] [id number] [address] [place] [address] Apr, [facility] [address] [place] [id number] [address] [place] [address] Mar, [facility] [address] [place] [id number] [place] [address] Mar, Major depressive disorder, r ecurrent episode, severe F33.2 ; PTSD (post-traumatic stress disorder) F43.10 ; Social anxiety disorder F40.10 and ADHD, predominantly inattentive type F90.0 [facility] [address] [place] [id number] [address] [place] [address] Feb, [facility] [address] [place] [id number] [address] [place] [address] Feb, [facility] [address] [facility] [id number] [address] [place] [address] Feb, [facility] [address] [place] [id number] [place] [address] Feb, Lupus M32.9 ; Hypothyroid E0 3.9 and Irregular menses N92.6 [facility] [address] [facility] [id number] [address] [place] [address] Feb, Lupus M32.9 and Hypothyroid E03.9 [facility] [address] [id number] [address] [place] [address] 26 Jan, 2015 Encounter for immunization Z 23 [facility] [address] [id number] [address] [place] [address], [place] [address] 14 Jul, 2014 [facility] [address] [id number] [address] [place] [address] 13 Jul, [address] [facility] [address] [id number] [address] [place] [address] 23 Feb, 2012 [facility] [address] [id number] [address] [place] [address], [place] [address] Feb, [facility] [address] [id number] [address] [place] [address] Feb, [facility] [address] [id number] [address] [place] [address] Feb, [facility] [address] [id number] [address] [place] [address] August, [facility] [address] [id number] [address] [place] [address] Jun, [facility] [address] [id number] [address] [place] [address] Jun, [facility] [address] [id number] [address] [place] [address] Jun, [facility] [address] [id number] [address] [place] [address] 16 Jun, [address] [facility] [address] [id number] [address] [place] [address], [place] [address] May, [facility] [address] [id number] [address] [place] [address] May, [facility] [address] [id number] [address] [place] [address] May, [facility] [address] [id number] [address] [place] [address] May, [facility] [address] [id number] [address] [place] [address] Mar, [facility] [address] [id number] [address] [place] [address] Jan, [facility] [address] [id number] [address] [place] [address] Jan, [facility] [address] [id number] [address] [place] [address] Jan, [facility] [address] [id number] [address] [place] [address] Jan, [facility] [address] [id number] [address] [place] [address] Jan, [facility] [address] [facility] [id number] [address] [place] [address] Jan, IMMUNIZATIONS No Known Immunizations SOCIAL HISTORY Never Assessed REASON FOR VISIT PLAN OF CARE VITAL SIGNS MEDICATIONS Medication Instructions Dosage Frequency Start Date End Date Duration S tatus Doxycycline Hyclate 100 mg Orally Once a day 1 capsule 24h 13 Ap 2017 14 days Active RESULTS No Results PROCEDURES No Known procedures INSTRUCTIONS MEDICATIONS ADMINISTERED No Known Medications MEDICAL (GENERAL) HISTORY Type Description Date Medical History Systemic lupus erythematosus, unspecifie d Medical History Hypothyroidism, unspecified Surgical History inguinal hernia repair Surgical History section Surgical History cholecystectomy Surgical History ovarian cyst resection Hospitalization History dystonia Hospitalization History pylenephritis
--- OUTSIDE RECORDS SUMMARY | 2019-10-05 06:22 | XMS REPORT ---
Author Author Meaghan LYNNE Organization [facility] Address [address] [place] [address] Care Team Providers Care Web Application Dev Specialist Name Role Phone KELLY LYNNE Unavailable PROBLEMS Type Condition ICD9-CM Code NOH47-VU Code Onset Dates Condition S tatus SNOMED Code Problem Hypothyroid E03.9 Active 56681694 Problem Social anxiety disorder F40.10 Active 89443371 Problem Systemic lupus M32.9 Active 96681 009 Problem Irregular menses N92.6 Active 801 06428 Problem Rosacea L71.9 Active 675924129 Problem Pure hypercholesterolemia E78.00 Acti ve 825157846 Problem Major depressive disorder, recurrent episode, severe F33.2 Active [id number] Problem PTSD (post-traumatic stress disorder) F43.10 Active 56535590 Problem Moderate episode of recurrent major depressive disorder F33.1 Active 592389508 Problem ADHD, predominantly inattentive type F90.0 Active [id number] ALLERGIES No Information ENCOUNTERS Encounter Location Date Diagnosis [facility] [address] [facility] [id number] [address] [place] [phone] Oct, Bruise T14.8XXA [facility] [address] [facility] [id number] [address] [place] [address] Oct, Bruise T14.8XXA [facility] [address] [facility] [id number] [address] [place] [phone] Oct, [facility] [address] [facility] [id number] [address] [place] [phone] Oct, [facility] [address] [facility] [id number] [address] [place] [id number] Oct, [facility] [address] [facility] [id number] [address] [place] [address] Sep, [facility] [address] [id number] [address] [place] [id number] Sep, Hypothyroid E03.9 [facility] [address] [id number] [address] [place] [id number] Sep, [facility] [address] [id number] [address] [place] [phone] Sep, [facility] [address] [id number] [address] [place] [phone] August, [facility] [address] [id number] [address] [place] [phone] August, PTSD (post-traumatic stress disorder) F43.10 ; Moderate episode of recurrent major depressive disorder F33.1 ; ADHD, predominantly inattentive type F90.0 and Social anxiety disorder F40.10 [facility] [address] [id number] [address] [place] [address] August, [facility] [address] [id number] [address] [place] [phone] August, [facility] [address] [id number] [address] [place] [phone] Jul, [facility] [address] [id number] [address] [place] [address] Jul, [facility] [address] [id number] [address] [place] [address] Jul, Rosacea L71.9 [facility] [address] [id number] [address] [place] [address] Jun, PTSD (post-traumatic stress disorder) F43.10 [facility] [address] [id number] [address] [place] [address] Jun, [facility] [address] [id number] [address] [place] [phone] Jun, [facility] [address] [id number] [address] [place] [phone] Jun, [facility] [address] [id number] [address] [place] [phone] Jun, [facility] [address] [id number] [address] [place] [phone] Apr, [facility] [address] [id number] [address] [place] [address] Apr, Hypothyroid E03.9 ; Pure hyp ercholesterolemia E78.00 and Systemic lupus M32.9 [facility] [address] [id number] [address] [place] [address] Apr, Hypothyroid E03.9 ; Systemic lupus M32.9 and Pure hypercholesterolemia E78.00 [facility] [address] [facility] [id number] [address] [place] [phone] Apr, [facility] [address] [id number] [address] [place] [address] Mar, [facility] [address] [id number] [address] [place] [address] Mar, Pulsatile neck mass R22.1 [facility] [address] [facility] [id number] [address] [place] [phone] Feb, [facility] [address] [facility] [id number] [address] [place] [address] Feb, Contact dermatitis and eczem a due to plant L24.7 [facility] [address] [id number] [address] [place] [phone] 14 Feb, 2017 Systemic lupus M32.9 [facility] [address] [facility] [id number] [address] [place] [phone] Jan, [facility] [address] [facility] [id number] [address] [place] [address] Jan, Dental examination Z01.20 [facility] [address] [facility] [id number] [address] [place] [phone] Jan, Encounter for immunization Z 23 [facility] [address] [place] [place] [id number] [address] [place] [phone] 20 Dec, 2016 [facility] [address] [place] [id number] [address] [place] [address] Nov, Hypothyroid E03.9 [place] [address] [place] [id number] [place] [address] Nov, PTSD (post-traumatic stress disorder) F43.10 ; ADHD, predominantly inattentive type F90.0 ; Social anxiety disorder F40.10 and Moderate episode of recurrent major depressive disorder F33.1 [facility] [address] [place] [id number] [place] [phone] Nov, ADHD, predominantly inattent marzena type F90.0 [place] [address] [place] [place] [id number] [place] [phone] Oct, Acquired hypothyroidism E03. 9 [place] [address] [place] [id number] [place] [phone] Oct, ADHD, predominantly inattent marzena type F90.0 [place] [address] [place] [place] [id number] [address] [place] [phone] Oct, Acquired hypothyroidism E03. 9 [place] [address] [place] [place] [id number] [address] [place] [address] Sep, Well woman exam Z01.419 ; Sy stemic lupus M32.9 ; Irregular menses N92.6 ; PTSD (post-traumatic stress disorder) F43.10 ; Social anxiety disorder F40.10 ; ADHD, predominantly inattentive type F90.0 ; Hypothyroid E03.9 and Generalized headaches R51 [place] [address] [place] [place] [id number] [address] [place] [phone] August, ADHD, predominantly inattent marzena type F90.0 [place] [address] [place] [place] [id number] [place] [phone] August, [facility] [address] [id number] [address] [place] [phone] Jul, [facility] [address] [id number] [address] [place] [address] Jun, [facility] [address] [id number] [address] [place] [address] Jun, Hypothyroid E03.9 [facility] [address] [id number] [address] [place] [phone] Jun, ADHD, predominantly inattent marzena type F90.0 and Social anxiety disorder F40.10 [facility] [address] [id number] [address] [place] [phone] Jun, [facility] [address] [facility] [id number] [address] [place] [address] Jun, [facility] [address] [id number] [address] [place] [id number] May, Dental examination Z01.20 [facility] [address] [facility] [id number] [address] [place] [id number] May, ADHD, predominantly inattent marzena type F90.0 ; Recurrent major depressive disorder, in partial remission F33.41 ; Social anxiety disorder F40.10 and PTSD (post-traumatic stress disorder) F43.10 [facility] [address] [facility] [id number] [address] [place] [address] Apr, Social anxiety disorder F40. 10 [facility] [address] [id number] [address] [place] [phone] Apr, ADHD, predominantly inattent marzena type F90.0 [facility] [address] [id number] [address] [place] [phone] Apr, [facility] [address] [facility] [id number] [address] [place] [id number] Apr, [facility] [address] [id number] [address] [place] [phone] Mar, Dental examination Z01.20 [facility] [address] [id number] [address] [place] [phone] Mar, [facility] [address] [id number] [address] [place] [phone] Feb, [facility] [address] [id number] [address] [place] [address] Feb, [facility] [address] [id number] [address] [place] [phone] Jan, Encounter for immunization Z 23 [facility] [address] [id number] [address] [place] [phone] Jan, [facility] [address] [id number] [address] [place] [phone] Jan, [facility] [address] [id number] [address] [place] [address] Jan, Dental examination Z01.20 [facility] [address] [id number] [address] [place] [id number] Jan, [facility] [address] [id number] [address] [place] [phone] Jan, Dental examination Z01.20 [facility] [address] [id number] [address] [place] [phone] Jan, [facility] [address] [id number] [address] [place] [phone] Dec, [facility] [address] [id number] [address] [place] [address] [id number] Dec, Dental examination Z01.20 [facility] [address] [id number] [address] [place] [phone] Nov, [facility] [address] [id number] [address] [place] [phone] Nov, Social anxiety disorder F40. 10 ; PTSD (post-traumatic stress disorder) F43.10 and ADHD, predominantly inattentive type F90.0 [facility] [address] [id number] [address] [place] [id number] Oct, Social anxiety disorder F40. 10 [facility] [address] [id number] [address] [place] [phone] Oct, Hypothyroidism, unspecified type E03.9 [facility] [address] [id number] [address] [place] [id number] Oct, Hypothyroid E03.9 [facility] [address] [id number] [address] [place] [phone] Oct, Hypothyroid E03.9 [facility] [address] [id number] [address] [place] [phone] Sep, Hypothyroid E03.9 [facility] [address] [id number] [address] [place] [phone] Sep, [facility] [address] [id number] [address] [place] [phone] Sep, ADHD, predominantly inattent marzena type F90.0 [facility] [address] [facility] [id number] [address] [place] [phone] Jul, ADHD, predominantly inattent marzena type F90.0 [facility] [address] [id number] [address] [place] [address] Jun, [facility] [address] [id number] [address] [place] [phone] 24 Jun, 2015 Major depressive disorder, r ecurrent episode, severe F33.2 ; ADHD, predominantly inattentive type F90.0 ; PTSD (post-traumatic stress disorder) F43.10 and Social anxiety disorder F40.10 [facility] [address] [id number] [address] [place] [phone] Jun, [facility] [address] [facility] [id number] [address] [place] [phone] May, Encounter for screening mamm ogram for breast cancer Z12.31 [facility] [address] [facility] [id number] [address] [place] [id number] May, [facility] [address] [facility] [id number] [address] [place] [phone] May, [facility] [address] [place] [id number] [address] [place] [id number] May, Major depressive disorder, r ecurrent episode, severe F33.2 ; PTSD (post-traumatic stress disorder) F43.10 ; Social anxiety disorder F40.10 and ADHD, predominantly inattentive type F90.0 [facility] [address] [facility] [id number] [address] [place] [phone] Apr, [facility] [address] [place] [id number] [address] [place] [phone] Mar, [facility] [address] [place] [id number] [place] [phone] Mar, Major depressive disorder, r ecurrent episode, severe F33.2 ; PTSD (post-traumatic stress disorder) F43.10 ; Social anxiety disorder F40.10 and ADHD, predominantly inattentive type F90.0 [facility] [address] [place] [id number] [address] [place] [phone] Feb, [facility] [address] [place] [id number] [address] [place] [phone] Feb, [facility] [address] [facility] [id number] [address] [place] [phone] Feb, [facility] [address] [id number] [place] [address] Feb, Lupus M32.9 ; Hypothyroid E0 3.9 and Irregular menses N92.6 [facility] [address] [facility] [id number] [address] [place] [phone] Feb, Lupus M32.9 and Hypothyroid E03.9 [facility] [address] [id number] [address] [place] [phone] 26 Jan, 2015 Encounter for immunization Z 23 [facility] [address] [id number] [address] [place] [address], [place] [address] 14 Jul, 2014 [facility] [address] [id number] [address] [place] [id number] 13 Jul, 2014 [facility] [address] [id number] [address] [place] [phone] 23 Feb, 2012 [facility] [address] [id number] [address] [place] [address], [place] [address] Feb, [facility] [address] [id number] [address] [place] [phone] Feb, [facility] [address] [id number] [address] [place] [phone] Feb, [facility] [address] [id number] [address] [place] [phone] August, [facility] [address] [id number] [address] [place] [phone] Jun, [facility] [address] [id number] [address] [place] [phone] Jun, [facility] [address] [id number] [address] [place] [phone] Jun, [facility] [address] [id number] [address] [place] [phone] 16 Jun, 2011 [facility] [address] [id number] [address] [place] [address], [place] [address] May, [facility] [address] [id number] [address] [place] [id number] May, [facility] [address] [id number] [address] [place] [phone] May, [facility] [address] [id number] [address] [place] [phone] May, [facility] [address] [id number] [address] [place] [phone] Mar, [facility] [address] [id number] [address] [place] [phone] Jan, [facility] [address] [facility] [id number] [address] [place] [phone] Jan, [facility] [address] [id number] [address] [place] [id number] Jan, [facility] [address] [facility] [id number] [address] [place] [phone] Jan, [facility] [address] [facility] [id number] [address] [place] [phone] Jan, [facility] [address] [facility] [id number] [address] [place] [phone] Jan, IMMUNIZATIONS No Known Immunizations SOCIAL HISTORY Never Assessed REASON FOR VISIT facial bumps PLAN OF CARE VITAL SIGNS MEDICATIONS Unknown [...]
--- OUTSIDE RECORDS SUMMARY | 2019-10-05 06:22 | XMS REPORT ---
Author Author Meaghan LYNNE Organization [facility] Address [address] [place] [address] Care Team Providers Care Backend Python Developer Name Role Phone KELLY LYNNE Unavailable PROBLEMS Type Condition ICD9-CM Code BIH36-WH Code Onset Dates Condition S tatus SNOMED Code Problem Hypothyroid E03.9 Active 27095443 Problem Social anxiety disorder F40.10 Active 64721273 Problem Systemic lupus M32.9 Active 75757 009 Problem Irregular menses N92.6 Active 801 61006 Problem Rosacea L71.9 Active 338172726 Problem Pure hypercholesterolemia E78.00 Acti ve 210564884 Problem Major depressive disorder, recurrent episode, severe F33.2 Active [id number] Problem PTSD (post-traumatic stress disorder) F43.10 Active 56309569 Problem Moderate episode of recurrent major depressive disorder F33.1 Active 424372920 Problem ADHD, predominantly inattentive type F90.0 Active 66375830 ALLERGIES No Information ENCOUNTERS Encounter Location Date Diagnosis [facility] [address] [facility] [id number] [address] [place] [phone] Oct, Bruise T14.8XXA [facility] [address] [facility] [id number] [address] [place] [phone] Oct, Bruise T14.8XXA [facility] [address] [facility] [id number] [address] [place] [phone] Oct, [facility] [address] [facility] [id number] [address] [place] [phone] Oct, [facility] [address] [facility] [id number] [address] [place] [phone] Oct, [facility] [address] [facility] [id number] [address] [place] [phone] Sep, [facility] [address] [id number] [address] [place] [phone] Sep, Hypothyroid E03.9 [facility] [address] [id number] [address] [place] [phone] Sep, [facility] [address] [id number] [address] [place] [phone] Sep, [facility] [address] [id number] [address] [place] [phone] August, [facility] [address] [id number] [address] [place] [id number] August, PTSD (post-traumatic stress disorder) F43.10 ; Moderate episode of recurrent major depressive disorder F33.1 ; ADHD, predominantly inattentive type F90.0 and Social anxiety disorder F40.10 [facility] [address] [id number] [address] [place] [phone] August, [facility] [address] [id number] [address] [place] [phone] August, [facility] [address] [id number] [address] [place] [phone] Jul, [facility] [address] [id number] [address] [place] [phone] Jul, [facility] [address] [id number] [address] [place] [phone] Jul, Rosacea L71.9 [facility] [address] [id number] [address] [place] [phone] Jun, PTSD (post-traumatic stress disorder) F43.10 [facility] [address] [id number] [address] [place] [phone] Jun, [facility] [address] [id number] [address] [place] [phone] Jun, [facility] [address] [id number] [address] [place] [phone] Jun, [facility] [address] [id number] [address] [place] [phone] Jun, [facility] [address] [id number] [address] [place] [phone] Apr, [facility] [address] [id number] [address] [place] [phone] Apr, Hypothyroid E03.9 ; Pure hyp ercholesterolemia E78.00 and Systemic lupus M32.9 [facility] [address] [id number] [address] [place] [phone] Apr, Hypothyroid E03.9 ; Systemic lupus M32.9 and Pure hypercholesterolemia E78.00 [facility] [address] [facility] [id number] [address] [place] [phone] Apr, [facility] [address] [id number] [address] [place] [phone] Mar, [facility] [address] [id number] [address] [place] [phone] Mar, Pulsatile neck mass R22.1 [facility] [address] [facility] [id number] [address] [place] [phone] Feb, [facility] [address] [facility] [id number] [address] [place] [phone] Feb, Contact dermatitis and eczem a due to plant L24.7 [facility] [address] [id number] [address] [place] [phone] 14 Feb, 2017 Systemic lupus M32.9 [facility] [address] [facility] [id number] [address] [place] [phone] Jan, [facility] [address] [facility] [id number] [address] [place] [phone] Jan, Dental examination Z01.20 [facility] [address] [facility] [id number] [address] [place] [phone] Jan, Encounter for immunization Z 23 [facility] [address] [place] [id number] [address] [place] [phone] 20 Dec, 2016 [facility] [address] [place] [id number] [address] [place] [phone] Nov, Hypothyroid E03.9 [place] [address] [place] [id number] [place] [phone] Nov, PTSD (post-traumatic stress disorder) F43.10 ; ADHD, predominantly inattentive type F90.0 ; Social anxiety disorder F40.10 and Moderate episode of recurrent major depressive disorder F33.1 [facility] [address] [place] [id number] [place] [phone] Nov, ADHD, predominantly inattent marzena type F90.0 [facility] [address] [place] [id number] [place] [phone] Oct, Acquired hypothyroidism E03. 9 [facility] [address] [place] [id number] [place] [phone] Oct, ADHD, predominantly inattent marzena type F90.0 [facility] [address] [place] [id number] [address] [place] [phone] Oct, Acquired hypothyroidism E03. 9 [facility] [address] [place] [id number] [address] [place] [phone] Sep, Well woman exam Z01.419 ; Sy stemic lupus M32.9 ; Irregular menses N92.6 ; PTSD (post-traumatic stress disorder) F43.10 ; Social anxiety disorder F40.10 ; ADHD, predominantly inattentive type F90.0 ; Hypothyroid E03.9 and Generalized headaches R51 [facility] [address] [place] [id number] [address] [place] [phone] August, ADHD, predominantly inattent marzena type F90.0 [facility] [address] [place] [id number] [place] [phone] August, [facility] [address] [id number] [address] [place] [phone] Jul, [facility] [address] [id number] [address] [place] [phone] Jun, [facility] [address] [id number] [address] [place] [phone] Jun, Hypothyroid E03.9 [facility] [address] [id number] [address] [place] [phone] Jun, ADHD, predominantly inattent marzena type F90.0 and Social anxiety disorder F40.10 [facility] [address] [id number] [address] [place] [phone] Jun, [facility] [address] [facility] [id number] [address] [place] [phone] Jun, [facility] [address] [id number] [address] [place] [id number] May, Dental examination Z01.20 [facility] [address] [facility] [id number] [address] [place] [phone] May, ADHD, predominantly inattent marzena type F90.0 ; Recurrent major depressive disorder, in partial remission F33.41 ; Social anxiety disorder F40.10 and PTSD (post-traumatic stress disorder) F43.10 [facility] [address] [facility] [id number] [address] [place] [phone] Apr, Social anxiety disorder F40. 10 [facility] [address] [id number] [address] [place] [phone] Apr, ADHD, predominantly inattent marzena type F90.0 [facility] [address] [id number] [address] [place] [phone] Apr, [facility] [address] [facility] [id number] [address] [place] [phone] Apr, [facility] [address] [id number] [address] [place] [phone] Mar, Dental examination Z01.20 [facility] [address] [id number] [address] [place] [phone] Mar, [facility] [address] [id number] [address] [place] [phone] Feb, [facility] [address] [id number] [address] [place] [phone] Feb, [facility] [address] [id number] [address] [place] [phone] Jan, Encounter for immunization Z 23 [facility] [address] [id number] [address] [place] [phone] Jan, [facility] [address] [id number] [address] [place] [phone] Jan, [facility] [address] [id number] [address] [place] [phone] Jan, Dental examination Z01.20 [facility] [address] [id number] [address] [place] [phone] Jan, [facility] [address] [id number] [address] [place] [phone] Jan, Dental examination Z01.20 [facility] [address] [id number] [address] [place] [phone] Jan, [facility] [address] [id number] [address] [place] [phone] Dec, [facility] [address] [id number] [address] [place] [id number] Dec, Dental examination Z01.20 [facility] [address] [id number] [address] [place] [phone] Nov, [facility] [address] [id number] [address] [place] [phone] Nov, Social anxiety disorder F40. 10 ; PTSD (post-traumatic stress disorder) F43.10 and ADHD, predominantly inattentive type F90.0 [facility] [address] [id number] [address] [place] [phone] Oct, Social anxiety disorder F40. 10 [facility] [address] [id number] [address] [place] [phone] Oct, Hypothyroidism, unspecified type E03.9 [facility] [address] [id number] [address] [place] [phone] Oct, Hypothyroid E03.9 [facility] [address] [id number] [address] [place] [id number] Oct, Hypothyroid E03.9 [facility] [address] [id number] [address] [place] [phone] Sep, Hypothyroid E03.9 [facility] [address] [id number] [address] [place] [phone] Sep, [facility] [address] [id number] [address] [place] [phone] Sep, ADHD, predominantly inattent marzena type F90.0 [facility] [address] [facility] [id number] [address] [place] [phone] Jul, ADHD, predominantly inattent marzena type F90.0 [facility] [address] [id number] [address] [place] [phone] Jun, [facility] [address] [id number] [address] [place] [phone] 24 Jun, 2015 Major depressive disorder, r ecurrent episode, severe F33.2 ; ADHD, predominantly inattentive type F90.0 ; PTSD (post-traumatic stress disorder) F43.10 and Social anxiety disorder F40.10 [facility] [address] [id number] [address] [place] [phone] Jun, [facility] [address] [facility] [id number] [address] [place] [phone] May, Encounter for screening mamm ogram for breast cancer Z12.31 [facility] [address] [facility] [id number] [address] [place] [phone] May, [facility] [address] [facility] [id number] [address] [place] [phone] May, [facility] [address] [place] [id number] [address] [place] [phone] May, Major depressive disorder, r ecurrent episode, severe F33.2 ; PTSD (post-traumatic stress disorder) F43.10 ; Social anxiety disorder F40.10 and ADHD, predominantly inattentive type F90.0 [facility] [address] [facility] [id number] [address] [place] [phone] Apr, [facility] [address] [place] [id number] [address] [place] [phone] Mar, [facility] [address] [place] [id number] [place] [phone] Mar, Major depressive disorder, r ecurrent episode, severe F33.2 ; PTSD (post-traumatic stress disorder) F43.10 ; Social anxiety disorder F40.10 and ADHD, predominantly inattentive type F90.0 [facility] [address] [place] [id number] [address] [place] [phone] Feb, [facility] [address] [place] [id number] [address] [place] [phone] Feb, [facility] [address] [facility] [id number] [address] [place] [phone] Feb, [facility] [address] [place] [id number] [place] [phone] Feb, Lupus M32.9 ; Hypothyroid E0 3.9 and Irregular menses N92.6 [facility] [address] [facility] [id number] [address] [place] [phone] Feb, Lupus M32.9 and Hypothyroid E03.9 [facility] [address] [id number] [address] [place] [phone] 26 Jan, 2015 Encounter for immunization Z 23 [facility] [address] [id number] [address] [place] [address], [place] [address] 14 Jul, 2014 [facility] [address] [id number] [address] [place] [phone] 13 Jul, 2014 [facility] [address] [id number] [address] [place] [phone] 23 Feb, 2012 [facility] [address] [id number] [address] [place] [address], [place] [address] Feb, [facility] [address] [id number] [address] [place] [phone] Feb, [facility] [address] [id number] [address] [place] [phone] Feb, [facility] [address] [id number] [address] [place] [phone] August, [facility] [address] [id number] [address] [place] [phone] Jun, [facility] [address] [id number] [address] [place] [phone] Jun, [facility] [address] [id number] [address] [place] [phone] Jun, [facility] [address] [id number] [address] [place] [phone] 16 Jun, 2011 [facility] [address] [id number] [address] [place] [address], [place] [address] May, [facility] [address] [id number] [address] [place] [phone] May, [facility] [address] [id number] [address] [place] [phone] May, [facility] [address] [id number] [address] [place] [phone] May, [facility] [address] [id number] [address] [place] [phone] Mar, [facility] [address] [id number] [address] [place] [phone] Jan, [facility] [address] [facility] [id number] [address] [place] [phone] Jan, [facility] [address] [id number] [address] [place] [phone] Jan, [facility] [address] [facility] [id number] [address] [place] [phone] Jan, [facility] [address] [facility] [id number] [address] [place] [phone] Jan, [facility] [address] [facility] [id number] [address] [place] [phone] Jan, IMMUNIZATIONS No Known Immunizations SOCIAL HISTORY Never Assessed REASON FOR VISIT PLAN OF CARE VITAL SIGNS MEDICATIONS Medication Instructions Dosage Frequency Start Date End Date Duration S tito Crooksharishmahesh-28 0.3-30 MG-MCG Orally, only take the active medication, not the week that is placebo Once a day 1 tablet 24h Active RESULTS No Results PROCEDURES No Known procedures INSTRUCTIONS MEDICATIONS ADMINISTERED No Known Medications MEDICAL (GENERAL) HISTORY Type Description Date Medical History Systemic lupus erythematosus, unspecifie d Medical History Hypothyroidism, unspecified Surgical History inguinal hernia repair Surgical History section Surgical History cholecystectomy Surgical History ovarian cyst resection Hospitalization History dystonia Hospitalization History pylenephritis
--- OUTSIDE RECORDS SUMMARY | 2019-10-05 06:22 | XMS REPORT ---
Author Author Meaghan DINERO [facility] Address [address] [place] [address] Care Team Providers Care Operations Scheduler Name Role Phone VIKKI DINERO Unavailable PROBLEMS Type Condition ICD9-CM Code [id number] Code Onset Dates Condition S tatus SNOMED Code Problem Hypothyroid E03.9 Active 27503708 Problem Social anxiety disorder F40.10 Active 80385868 Problem Systemic lupus M32.9 Active 25252 009 Problem Irregular menses N92.6 Active 801 54383 Problem Rosacea L71.9 Active 816605390 Problem Pure hypercholesterolemia E78.00 Acti ve 711830165 Problem Major depressive disorder, recurrent episode, severe F33.2 Active 182252092991 Problem PTSD (post-traumatic stress disorder) F43.10 Active 88020130 Problem Moderate episode of recurrent major depressive disorder F33.1 Active 927264381 Problem ADHD, predominantly inattentive type F90.0 Active 06375712 ALLERGIES Substance Reaction Event Type Date Status Stadol halucinations Drug Allergy August, Active ENCOUNTERS Encounter Location Date Diagnosis [facility] [address] [facility] [id number] [address] [place] [phone] Oct, Bruise T14.8XXA [facility] [address] [facility] [id number] [address] [place] [phone] Oct, Bruise T14.8XXA [facility] [address] [facility] [id number] [address] [place] [phone] Oct, [facility] [address] [facility] [id number] [address] [place] [phone] Oct, [facility] [address] [facility] [id number] [address] [place] [phone] Oct, [facility] [address] [id number] [address] [place] [phone] Sep, [facility] [address] [id number] [address] [place] [phone] Sep, Hypothyroid E03.9 [facility] [address] [facility] [id number] [address] [place] [phone] Sep, [facility] [address] [id number] [address] [place] [phone] Sep, [facility] [address] [id number] [address] [place] [phone] August, [facility] [address] [id number] [address] [place] [phone] August, PTSD (post-traumatic stress disorder) F43.10 ; Moderate episode of recurrent major depressive disorder F33.1 ; ADHD, predominantly inattentive type F90.0 and Social anxiety disorder F40.10 [facility] [address] [facility] [id number] [address] [place] [phone] August, [facility] [address] [facility] [id number] [address] [place] [phone] August, [facility] [address] [facility] [id number] [address] [place] [phone] Jul, [facility] [address] [id number] [address] [place] [phone] Jul, [facility] [address] [facility] [id number] [address] [place] [phone] Jul, Rosacea L71.9 [facility] [address] [id number] [address] [place] [phone] Jun, PTSD (post-traumatic stress disorder) F43.10 [facility] [address] [facility] [id number] [address] [place] [phone] Jun, [facility] [address] [facility] [id number] [address] [place] [phone] Jun, [facility] [address] [id number] [address] [place] [phone] Jun, [facility] [address] [id number] [address] [place] [phone] Jun, [facility] [address] [facility] [id number] [address] [place] [phone] Apr, [facility] [address] [facility] [id number] [address] [place] [phone] Apr, Hypothyroid E03.9 ; Pure hyp ercholesterolemia E78.00 and Systemic lupus M32.9 [facility] [address] [id number] [address] [place] [phone] Apr, Hypothyroid E03.9 ; Systemic lupus M32.9 and Pure hypercholesterolemia E78.00 [facility] [address] [facility] [id number] [address] [place] [phone] Apr, [facility] [address] [id number] [address] [place] [phone] Mar, [facility] [address] [facility] [id number] [address] [place] [phone] Mar, Pulsatile neck mass R22.1 [facility] [address] [facility] [id number] [address] [place] [phone] Feb, [facility] [address] [facility] [id number] [address] [place] [phone] 16 Feb, 2017 Contact dermatitis and eczem a due to plant L24.7 [facility] [address] [id number] [address] [place] [phone] Feb, Systemic lupus M32.9 [facility] [address] [facility] [id number] [address] [place] [phone] Jan, [facility] [address] [facility] [id number] [address] [place] [phone] Jan, Dental examination Z01.20 [place] [address] [facility] [id number] [address] [place] [phone] 06 Jan, 2017 Encounter for immunization Z 23 [facility] [address] [facility] [id number] [address] [place] [phone] 20 Dec, 2016 [facility] [address] [facility] [id number] [address] [place] [phone] Nov, Hypothyroid E03.9 [place] [address] [facility] [id number] [address] [place] [address] Nov, PTSD (post-traumatic stress disorder) F43.10 ; ADHD, predominantly inattentive type F90.0 ; Social anxiety disorder F40.10 and Moderate episode of recurrent major depressive disorder F33.1 [place] [address] [facility] [id number] [address] [place] [phone] Nov, ADHD, predominantly inattent marzena type F90.0 [place] [address] [facility] [id number] [address] [place] [phone] Oct, Acquired hypothyroidism E03. 9 [place] [address] [facility] [id number] [address] [place] [phone] Oct, ADHD, predominantly inattent marzena type F90.0 [place] [address] [facility] [id number] [address] [place] [phone] Oct, Acquired hypothyroidism E03. 9 [place] [address] [facility] [id number] [address] [place] [phone] Sep, Well woman exam Z01.419 ; Sy stemic lupus M32.9 ; Irregular menses N92.6 ; PTSD (post-traumatic stress disorder) F43.10 ; Social anxiety disorder F40.10 ; ADHD, predominantly inattentive type F90.0 ; Hypothyroid E03.9 and Generalized headaches R51 [facility] [address] [facility] [id number] [address] [place] [phone] August, ADHD, predominantly inattent marzena type F90.0 [place] [address] [facility] [id number] [address] [place] [phone] August, [facility] [address] [id number] [address] [place] [phone] Jul, [facility] [address] [id number] [address] [place] [phone] Jun, [facility] [address] [facility] [id number] [address] [place] [phone] Jun, Hypothyroid E03.9 [facility] [address] [id number] [address] [place] [phone] Jun, ADHD, predominantly inattent marzena type F90.0 and Social anxiety disorder F40.10 [facility] [address] [facility] [id number] [address] [place] [phone] Jun, [facility] [address] [facility] [id number] [address] [place] [phone] Jun, [facility] [address] [facility] [id number] [address] [place] [id number] May, Dental examination Z01.20 [facility] [address] [facility] [id number] [address] [place] [phone] May, ADHD, predominantly inattent marzena type F90.0 ; Recurrent major depressive disorder, in partial remission F33.41 ; Social anxiety disorder F40.10 and PTSD (post-traumatic stress disorder) F43.10 [facility] [address] [facility] [id number] [address] [place] [phone] Apr, Social anxiety disorder F40. 10 [facility] [address] [id number] [address] [place] [phone] Apr, ADHD, predominantly inattent marzena type F90.0 [facility] [address] [facility] [id number] [address] [place] [phone] Apr, [facility] [address] [facility] [id number] [address] [place] [phone] Apr, [facility] [address] [id number] [address] [place] [phone] Mar, Dental examination Z01.20 [facility] [address] [id number] [address] [place] [phone] Mar, [facility] [address] [id number] [address] [place] [phone] Feb, [facility] [address] [id number] [address] [place] [phone] Feb, [facility] [address] [id number] [address] [place] [phone] Jan, Encounter for immunization Z 23 [facility] [address] [id number] [address] [place] [phone] Jan, [facility] [address] [id number] [address] [place] [phone] Jan, [facility] [address] [id number] [address] [place] [phone] Jan, Dental examination Z01.20 [facility] [address] [id number] [address] [place] [phone] Jan, [facility] [address] [id number] [address] [place] [phone] Jan, Dental examination Z01.20 [facility] [address] [id number] [address] [place] [phone] Jan, [facility] [address] [id number] [address] [place] [phone] Dec, [facility] [address] [id number] [address] [place] [id number] Dec, Dental examination Z01.20 [facility] [address] [id number] [address] [place] [phone] Nov, [facility] [address] [id number] [address] [place] [phone] Nov, Social anxiety disorder F40. 10 ; PTSD (post-traumatic stress disorder) F43.10 and ADHD, predominantly inattentive type F90.0 [facility] [address] [id number] [address] [place] [phone] Oct, Social anxiety disorder F40. 10 [facility] [address] [id number] [address] [place] [phone] Oct, Hypothyroidism, unspecified type E03.9 [facility] [address] [id number] [address] [place] [phone] Oct, Hypothyroid E03.9 [facility] [address] [id number] [address] [place] [phone] Oct, Hypothyroid E03.9 [facility] [address] [facility] [id number] [address] [place] [phone] Sep, Hypothyroid E03.9 [facility] [address] [id number] [address] [place] [phone] Sep, [facility] [address] [id number] [address] [place] [phone] Sep, ADHD, predominantly inattent marzena type F90.0 [facility] [address] [id number] [address] [place] [phone] Jul, ADHD, predominantly inattent marzena type F90.0 [facility] [address] [id number] [address] [place] [phone] Jun, [facility] [address] [facility] [id number] [address] [place] [phone] Jun, Major depressive disorder, r ecurrent episode, severe F33.2 ; ADHD, predominantly inattentive type F90.0 ; PTSD (post-traumatic stress disorder) F43.10 and Social anxiety disorder F40.10 [facility] [address] [facility] [id number] [address] [place] [phone] Jun, [facility] [address] [place] [id number] [address] [place] [phone] 19 May, 2015 Encounter for screening mamm ogram for breast cancer Z12.31 [facility] [address] [facility] [id number] [address] [place] [phone] 15 May, 2015 [facility] [address] [place] [id number] [address] [place] [phone] May, [facility] [address] [place] [id number] [address] [place] [phone] May, Major depressive disorder, r ecurrent episode, severe F33.2 ; PTSD (post-traumatic stress disorder) F43.10 ; Social anxiety disorder F40.10 and ADHD, predominantly inattentive type F90.0 [place] [address] [place] [id number] [place] [phone] Apr, [place] [address] [place] [id number] [place] [phone] Mar, [place] [address] [place] [id number] [place] [phone] Mar, Major depressive disorder, r ecurrent episode, severe F33.2 ; PTSD (post-traumatic stress disorder) F43.10 ; Social anxiety disorder F40.10 and ADHD, predominantly inattentive type F90.0 [place] [address] [place] [id number] [address] [place] [phone] Feb, [place] [address] [place] [id number] [place] [phone] Feb, [place] [address] [phone] Feb, [place] [address] [address] Feb, Lupus M32.9 ; Hypothyroid E0 3.9 and Irregular menses N92.6 [place] [address] [place] [id number] [place] [phone] 03 Feb, 2015 Lupus M32.9 and Hypothyroid E03.9 [facility] [address] [id number] [address] [place] [phone] 26 Jan, 2015 Encounter for immunization Z 23 [facility] [address] [id number] [address] [place] [phone] 14 Jul, 2014 [facility] [address] [id number] [address] [place] [phone] 13 Jul, 2014 [facility] [address] [id number] [address] [place] [phone] Feb, [facility] [address] [id number] [address] [place] [phone] Feb, [facility] [address] [id number] [address] [place] [phone] Feb, [facility] [address] [id number] [address] [place] [phone] Feb, [facility] [address] [id number] [address] [place] [phone] August, [facility] [address] [id number] [address] [place] [phone] Jun, [facility] [address] [id number] [address] [place] [phone] Jun, [facility] [address] [id number] [address] [place] [phone] 19 Jun, 2011 [facility] [address] [id number] [address] [place] [phone] 16 Jun, 2011 [facility] [address] [id number] [address] [place] [phone] 28 May, 2011 [facility] [address] [id number] [address] [place] [phone] May, [facility] [address] [id number] [address] [place] [phone] May, [facility] [address] [id number] [address] [place] [phone] May, [facility] [address] [id number] [address] [place] [phone] Mar, [facility] [address] [id number] [address] [place] [phone] Jan, [facility] [address] [id number] [address] [place] [phone] Jan, [facility] [address] [id number] [address] [place] [phone] Jan, [facility] [address] [id number] [address] [place] [phone] Jan, [facility] [address] [id number] [address] [place] [phone] Jan, [facility] [address] [id number] [address] [place] [phone] Jan, IMMUNIZATIONS No Known Immunizations SOCIAL HISTORY Never Assessed REASON FOR VISIT f/u Justin PLAN OF CARE Activity Details Follow Up 2 Months Reason: VITAL SIGNS Height 66 in 2017-08-29 Weight 150.2 lbs 2017-08-29 Heart Rate 72 bpm 2017-08-29 Respiratory Rate 18 2017-08-29 BMI 24.24 kg/m2 2017-08-29 Blood pressure systolic 122 mmHg 2017-08-29 Blood pressure diastolic 82 mmHg 2017-08-29 MEDICATIONS Medication Instructions Dosage Frequency Start Date End Date Duration S tatus Synthroid 100 MCG Orally Once a day 1 tablet on an empty stomach in the morning 24h Active Lamictal 200 mg Orally Once a day 1 tablet 24h Mar, 90 days Active Doxycycline Hyclate 100 mg Orally Once a day 1 capsule 24h 13 2017 14 days Active Mirvaso 0.33 % Externally Once a day 1 application to affected area 24h Jul, Active Tramadol HCl 50 MG TAKE ONE TABLET BY MOUTH EVERY 6 HOURS NEE DED 10 Not-Taking Propranolol HCl 20 mg Orally Twice a day 1 tablet 12h Jan, Active Neurontin 100 mg Orally Three times a day 1 capsule as need for anx iety 8h August, 30 day(s) Active Cryselle-28 0.3-30 MG-MCG Orally Once a day 1 tablet 24h 28 Active Methylphenidate HCl 10 mg Orally at 4 pm for ADHD 1/2 to 1 tablet August, Active Concerta 54 MG Orally Once a day for ADHD 1 tablet in the morning Jul, August, Active RESULTS No Results PROCEDURES No Known procedures INSTRUCTIONS MEDICATIONS ADMINISTERED No Known Medications MEDICAL (GENERAL) HISTORY Type Description Date Medical History Systemic lupus erythematosus, unspecifie d Medical History Hypothyroidism, unspecified Surgical History inguinal hernia repair Surgical History section Surgical History cholecystectomy Surgical History ovarian cyst resection Hospitalization History dystonia Hospitalization History pylenephritis
--- OUTSIDE RECORDS SUMMARY | 2019-10-05 06:22 | XMS REPORT ---
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 Name Role Phone VIKKI DINERO Unavailable PROBLEMS Type Condition ICD9-CM Code [id number] Code Onset Dates Condition S tatus SNOMED Code Problem Hypothyroid E03.9 Active 13914564 Problem Social anxiety disorder F40.10 Active 21345214 Problem Systemic lupus M32.9 Active 30108 009 Problem Irregular menses N92.6 Active 801 94160 Problem Rosacea L71.9 Active 245902001 Problem Pure hypercholesterolemia E78.00 Acti ve 996536979 Problem Major depressive disorder, recurrent episode, severe F33.2 Active [id number] Problem PTSD (post-traumatic stress disorder) F43.10 Active 74726523 Problem Moderate episode of recurrent major depressive disorder F33.1 Active 912170296 Problem ADHD, predominantly inattentive type F90.0 Active [id number] ALLERGIES No Information ENCOUNTERS Encounter Location Date Diagnosis [facility] [address] [facility] [id number] [address] [place] [phone] Oct, Bruise T14.8XXA [facility] [address] [facility] [id number] [address] [place] [phone] Oct, Bruise T14.8XXA [facility] [address] [facility] [id number] [address] [place] [phone] Oct, [facility] [address] [facility] [id number] [address] [place] [phone] Oct, [facility] [address] [facility] [id number] [address] [place] [phone] Oct, [facility] [address] [facility] [id number] [address] [place] [phone] Sep, [facility] [address] [id number] [address] [place] [phone] Sep, Hypothyroid E03.9 [facility] [address] [id number] [address] [place] [phone] Sep, [facility] [address] [id number] [address] [place] [phone] Sep, [facility] [address] [id number] [address] [place] [phone] August, [facility] [address] [id number] [address] [place] [phone] August, PTSD (post-traumatic stress disorder) F43.10 ; Moderate episode of recurrent major depressive disorder F33.1 ; ADHD, predominantly inattentive type F90.0 and Social anxiety disorder F40.10 [facility] [address] [id number] [address] [place] [phone] August, [facility] [address] [id number] [address] [place] [phone] August, [facility] [address] [id number] [address] [place] [phone] Jul, [facility] [address] [id number] [address] [place] [phone] Jul, [facility] [address] [id number] [address] [place] [phone] Jul, Rosacea L71.9 [facility] [address] [id number] [address] [place] [phone] Jun, PTSD (post-traumatic stress disorder) F43.10 [facility] [address] [id number] [address] [place] [phone] Jun, [facility] [address] [id number] [address] [place] [phone] Jun, [facility] [address] [id number] [address] [place] [phone] Jun, [facility] [address] [id number] [address] [place] [phone] Jun, [facility] [address] [id number] [address] [place] [phone] Apr, [facility] [address] [id number] [address] [place] [phone] Apr, Hypothyroid E03.9 ; Pure hyp ercholesterolemia E78.00 and Systemic lupus M32.9 [facility] [address] [id number] [address] [place] [phone] Apr, Hypothyroid E03.9 ; Systemic lupus M32.9 and Pure hypercholesterolemia E78.00 [facility] [address] [facility] [id number] [address] [place] [phone] Apr, [facility] [address] [id number] [address] [place] [phone] Mar, [facility] [address] [id number] [address] [place] [phone] Mar, Pulsatile neck mass R22.1 [facility] [address] [facility] [id number] [address] [place] [phone] Feb, [facility] [address] [facility] [id number] [address] [place] [phone] Feb, Contact dermatitis and eczem a due to plant L24.7 [facility] [address] [id number] [address] [place] [phone] 14 Feb, 2017 Systemic lupus M32.9 [facility] [address] [facility] [id number] [address] [place] [phone] Jan, [facility] [address] [facility] [id number] [address] [place] [phone] Jan, Dental examination Z01.20 [facility] [address] [facility] [id number] [address] [place] [phone] Jan, Encounter for immunization Z 23 [facility] [address] [place] [id number] [address] [place] [phone] 20 Dec, 2016 [facility] [address] [place] [id number] [address] [place] [phone] Nov, Hypothyroid E03.9 [place] [address] [place] [id number] [place] [phone] Nov, PTSD (post-traumatic stress disorder) F43.10 ; ADHD, predominantly inattentive type F90.0 ; Social anxiety disorder F40.10 and Moderate episode of recurrent major depressive disorder F33.1 [place] [address] [place] [id number] [place] [phone] Nov, ADHD, predominantly inattent marzena type F90.0 [place] [address] [place] [id number] [place] [phone] Oct, Acquired hypothyroidism E03. 9 [place] [address] [place] [id number] [place] [phone] Oct, ADHD, predominantly inattent marzena type F90.0 [place] [address] [place] [id number] [address] [place] [phone] Oct, Acquired hypothyroidism E03. 9 [place] [address] [place] [id number] [address] [place] [phone] Sep, Well woman exam Z01.419 ; Sy stemic lupus M32.9 ; Irregular menses N92.6 ; PTSD (post-traumatic stress disorder) F43.10 ; Social anxiety disorder F40.10 ; ADHD, predominantly inattentive type F90.0 ; Hypothyroid E03.9 and Generalized headaches R51 [place] [address] [place] [id number] [address] [place] [phone] August, ADHD, predominantly inattent marzena type F90.0 [place] [address] [place] [id number] [place] [phone] August, [facility] [address] [id number] [address] [place] [phone] Jul, [facility] [address] [id number] [address] [place] [phone] Jun, [facility] [address] [id number] [address] [place] [phone] Jun, Hypothyroid E03.9 [facility] [address] [id number] [address] [place] [phone] Jun, ADHD, predominantly inattent marzena type F90.0 and Social anxiety disorder F40.10 [facility] [address] [id number] [address] [place] [phone] Jun, [facility] [address] [facility] [id number] [address] [place] [phone] Jun, [facility] [address] [id number] [address] [place] [id number] May, Dental examination Z01.20 [facility] [address] [facility] [id number] [address] [place] [phone] May, ADHD, predominantly inattent marzena type F90.0 ; Recurrent major depressive disorder, in partial remission F33.41 ; Social anxiety disorder F40.10 and PTSD (post-traumatic stress disorder) F43.10 [facility] [address] [facility] [id number] [address] [place] [phone] Apr, Social anxiety disorder F40. 10 [facility] [address] [id number] [address] [place] [phone] Apr, ADHD, predominantly inattent marzena type F90.0 [facility] [address] [id number] [address] [place] [phone] Apr, [facility] [address] [facility] [id number] [address] [place] [phone] Apr, [facility] [address] [id number] [address] [place] [phone] Mar, Dental examination Z01.20 [facility] [address] [id number] [address] [place] [phone] Mar, [facility] [address] [id number] [address] [place] [phone] Feb, [facility] [address] [id number] [address] [place] [phone] Feb, [facility] [address] [id number] [address] [place] [phone] Jan, Encounter for immunization Z 23 [facility] [address] [id number] [address] [place] [phone] Jan, [facility] [address] [id number] [address] [place] [phone] Jan, [facility] [address] [id number] [address] [place] [phone] Jan, Dental examination Z01.20 [facility] [address] [id number] [address] [place] [phone] Jan, [facility] [address] [id number] [address] [place] [phone] Jan, Dental examination Z01.20 [facility] [address] [id number] [address] [place] [phone] Jan, [facility] [address] [id number] [address] [place] [phone] Dec, [facility] [address] [id number] [address] [place] [id number] Dec, Dental examination Z01.20 [facility] [address] [id number] [address] [place] [phone] Nov, [facility] [address] [id number] [address] [place] [phone] Nov, Social anxiety disorder F40. 10 ; PTSD (post-traumatic stress disorder) F43.10 and ADHD, predominantly inattentive type F90.0 [facility] [address] [id number] [address] [place] [phone] Oct, Social anxiety disorder F40. 10 [facility] [address] [id number] [address] [place] [phone] Oct, Hypothyroidism, unspecified type E03.9 [facility] [address] [id number] [address] [place] [phone] Oct, Hypothyroid E03.9 [facility] [address] [id number] [address] [place] [phone] Oct, Hypothyroid E03.9 [facility] [address] [id number] [address] [place] [phone] Sep, Hypothyroid E03.9 [facility] [address] [id number] [address] [place] [phone] Sep, [facility] [address] [id number] [address] [place] [phone] Sep, ADHD, predominantly inattent marzena type F90.0 [facility] [address] [facility] [id number] [address] [place] [phone] Jul, ADHD, predominantly inattent marzena type F90.0 [facility] [address] [id number] [address] [place] [phone] Jun, [facility] [address] [id number] [address] [place] [phone] 24 Jun, 2015 Major depressive disorder, r ecurrent episode, severe F33.2 ; ADHD, predominantly inattentive type F90.0 ; PTSD (post-traumatic stress disorder) F43.10 and Social anxiety disorder F40.10 [facility] [address] [id number] [address] [place] [phone] Jun, [facility] [address] [facility] [id number] [address] [place] [phone] May, Encounter for screening mamm ogram for breast cancer Z12.31 [facility] [address] [facility] [id number] [address] [place] [phone] May, [facility] [address] [facility] [id number] [address] [place] [phone] May, [facility] [address] [place] [id number] [address] [place] [phone] May, Major depressive disorder, r ecurrent episode, severe F33.2 ; PTSD (post-traumatic stress disorder) F43.10 ; Social anxiety disorder F40.10 and ADHD, predominantly inattentive type F90.0 [facility] [address] [facility] [id number] [address] [place] [phone] Apr, [facility] [address] [place] [id number] [address] [place] [phone] Mar, [facility] [address] [place] [id number] [place] [phone] Mar, Major depressive disorder, r ecurrent episode, severe F33.2 ; PTSD (post-traumatic stress disorder) F43.10 ; Social anxiety disorder F40.10 and ADHD, predominantly inattentive type F90.0 [facility] [address] [place] [id number] [address] [place] [phone] Feb, [facility] [address] [place] [id number] [address] [place] [phone] Feb, [facility] [address] [facility] [id number] [address] [place] [phone] Feb, [facility] [address] [place] [id number] [place] [phone] Feb, Lupus M32.9 ; Hypothyroid E0 3.9 and Irregular menses N92.6 [facility] [address] [facility] [id number] [address] [place] [phone] Feb, Lupus M32.9 and Hypothyroid E03.9 [facility] [address] [id number] [address] [place] [phone] 26 Jan, 2015 Encounter for immunization Z 23 [facility] [address] [id number] [address] [place] [address], [place] [phone] 14 Jul, 2014 [facility] [address] [id number] [address] [place] [phone] 13 Jul, 2014 [facility] [address] [id number] [address] [place] [phone] 23 Feb, 2012 [facility] [address] [id number] [address] [place] [address], [place] [address] Feb, [facility] [address] [id number] [address] [place] [phone] Feb, [facility] [address] [id number] [address] [place] [phone] Feb, [facility] [address] [id number] [address] [place] [phone] August, [facility] [address] [id number] [address] [place] [phone] Jun, [facility] [address] [id number] [address] [place] [phone] Jun, [facility] [address] [id number] [address] [place] [phone] Jun, [facility] [address] [id number] [address] [place] [phone] 16 Jun, 2011 [facility] [address] [id number] [address] [place] [address], [place] [address] May, [facility] [address] [id number] [address] [place] [phone] May, [facility] [address] [id number] [address] [place] [phone] May, [facility] [address] [id number] [address] [place] [phone] May, [facility] [address] [id number] [address] [place] [phone] Mar, [facility] [address] [id number] [address] [place] [phone] Jan, [facility] [address] [id number] [address] [place] [phone] Jan, [facility] [address] [id number] [address] [place] [phone] Jan, [facility] [address] [id number] [address] [place] [phone] Jan, [facility] [address] [id number] [address] [place] [phone] Jan, [facility] [address] [facility] [id number] [address] [place] [phone] Jan, IMMUNIZATIONS No Known Immunizations SOCIAL HISTORY Never Assessed REASON FOR VISIT [id number] PLAN OF CARE VITAL SIGNS MEDICATIONS Medication Instructions Dosage Frequency Start Date End Date Duration S tatus Concerta 54 MG Orally Once a day for ADHD 1 tablet in the morning August, Sep, 28 days Active RESULTS No Results PROCEDURES No Known procedures INSTRUCTIONS MEDICATIONS ADMINISTERED No Known Medications MEDICAL (GENERAL) HISTORY Type Description Date Medical History Systemic lupus erythematosus, unspecifie d Medical History Hypothyroidism, unspecified Surgical History inguinal hernia repair Surgical History section Surgical History cholecystectomy Surgical History ovarian cyst resection Hospitalization History dystonia Hospitalization History pylenephritis
--- OUTSIDE RECORDS SUMMARY | 2019-10-05 06:23 | XMS REPORT ---
Author Author Meaghan DINERO [facility] Address [address] [place] [address] Care Team Providers Care Subscription Clerk Name Role Phone VIKKI DINERO Unavailable PROBLEMS Type Condition ICD9-CM Code HOS01-MC Code Onset Dates Condition S tatus SNOMED Code Problem Hypothyroid E03.9 Active 03631389 Problem Social anxiety disorder F40.10 Active 00646088 Problem Systemic lupus M32.9 Active 21233 009 Problem Irregular menses N92.6 Active 801 03655 Problem Rosacea L71.9 Active 304066536 Problem Pure hypercholesterolemia E78.00 Acti ve 255567278 Problem Major depressive disorder, recurrent episode, severe F33.2 Active [id number] Problem PTSD (post-traumatic stress disorder) F43.10 Active 40709291 Problem Moderate episode of recurrent major depressive disorder F33.1 Active 878271376 Problem ADHD, predominantly inattentive type F90.0 Active [id number] ALLERGIES No Information ENCOUNTERS Encounter Location Date Diagnosis [facility] [place] [address] [facility] [id number] [address] [place] [phone] Oct, [facility] [place] [address] [facility] [id number] [address] [place] [phone] Sep, [facility] [place] [address] [facility] [id number] [address] [place] [phone] Sep, Hypothyroid E03.9 [facility] [place] [address] [facility] [id number] [address] [place] [phone] Sep, [facility] [place] [address] [facility] [id number] [address] [place] [phone] Sep, [facility] [place] [address] [facility] [id number] [address] [place] [phone] August, [facility] [place] [address] [place] [id number] [address] [place] [phone] August, PTSD (post-traumatic stress disorder) F43.10 ; Moderate episode of recurrent major depressive disorder F33.1 ; ADHD, predominantly inattentive type F90.0 and Social anxiety disorder F40.10 [facility] [place] [address] [id number] [address] [place] [phone] August, [facility] [place] [address] [id number] [address] [place] [phone] August, [facility] [place] [address] [id number] [address] [place] [phone] Jul, [facility] [place] [address] [id number] [address] [place] [phone] Jul, [facility] [place] [address] [facility] [id number] [address] [place] [phone] Jul, Rosacea L71.9 [facility] [place] [address] [facility] [id number] [address] [place] [phone] Jun, PTSD (post-traumatic stress disorder) F43.10 [facility] [place] [address] [facility] [id number] [address] [place] [phone] Jun, [facility] [place] [address] [facility] [id number] [address] [place] [phone] Jun, [facility] [place] [address] [facility] [id number] [address] [place] [phone] Jun, [facility] [place] [address] [id number] [address] [place] [phone] Jun, [facility] [place] [address] [facility] [id number] [address] [place] [phone] Apr, [facility] [place] [address] [facility] [id number] [address] [place] [phone] Apr, Hypothyroid E03.9 ; Pure hyp ercholesterolemia E78.00 and Systemic lupus M32.9 [facility] [place] [address] [facility] [id number] [address] [place] [phone] Apr, Hypothyroid E03.9 ; Systemic lupus M32.9 and Pure hypercholesterolemia E78.00 [facility] [place] [address] [facility] [id number] [address] [place] [phone] Apr, [facility] [place] [address] [place] [id number] [address] [place] [phone] Mar, [facility] [place] [address] [phone] Mar, Pulsatile neck mass R22.1 [facility] [place] [address] [place] [id number] [place] [phone] Feb, [facility] [place] [address] [place] [id number] [place] [phone] Feb, Contact dermatitis and eczem a due to plant L24.7 [facility] [place] [address] [place] [id number] [place] [phone] Feb, Systemic lupus M32.9 [facility] [place] [address] [place] [phone] Jan, [facility] [place] [address] [address] Jan, Dental examination Z01.20 [place] [address] [phone] 06 Jan, 2017 Encounter for immunization Z 23 [facility] [place] [address] [place] [id number] [address] [place] [phone] Dec, [facility] [place] [address] [address] Nov, Hypothyroid E03.9 [facility] [place] [address] [place] [id number] [address] [place] [phone] Nov, PTSD (post-traumatic stress disorder) F43.10 ; ADHD, predominantly inattentive type F90.0 ; Social anxiety disorder F40.10 and Moderate episode of recurrent major depressive disorder F33.1 [facility] [place] [address] [id number] [address] [place] [phone] Nov, ADHD, predominantly inattent marzena type F90.0 [facility] [place] [address] [id number] [address] [place] [phone] Oct, Acquired hypothyroidism E03. 9 [facility] [place] [address] [facility] [id number] [address] [place] [phone] Oct, ADHD, predominantly inattent marzena type F90.0 [facility] [place] [address] [id number] [address] [place] [phone] Oct, Acquired hypothyroidism E03. 9 [facility] [place] [address] [facility] [id number] [address] [place] [phone] Sep, Well woman exam Z01.419 ; Sy stemic lupus M32.9 ; Irregular menses N92.6 ; PTSD (post-traumatic stress disorder) F43.10 ; Social anxiety disorder F40.10 ; ADHD, predominantly inattentive type F90.0 ; Hypothyroid E03.9 and Generalized headaches R51 [facility] [place] [address] [id number] [address] [place] [phone] August, ADHD, predominantly inattent marzena type F90.0 [facility] [place] [address] [facility] [id number] [address] [place] [phone] August, [facility] [place] [address] [facility] [id number] [address] [place] [phone] Jul, [facility] [place] [address] [id number] [address] [place] [phone] Jun, [facility] [place] [address] [facility] [id number] [address] [place] [phone] Jun, Hypothyroid E03.9 [facility] [place] [address] [facility] [id number] [address] [place] [phone] Jun, ADHD, predominantly inattent marzena type F90.0 and Social anxiety disorder F40.10 [facility] [place] [address] [id number] [address] [place] [phone] Jun, [facility] [place] [address] [id number] [address] [place] [phone] Jun, [facility] [address] [id number] [address] [place] [id number] May, Dental examination Z01.20 [facility] [place] [address] [id number] [address] [place] [phone] 14 May, 2016 ADHD, predominantly inattent marzena type F90.0 ; Recurrent major depressive disorder, in partial remission F33.41 ; Social anxiety disorder F40.10 and PTSD (post-traumatic stress disorder) F43.10 [facility] [place] [address] [id number] [address] [place] [phone] Apr, Social anxiety disorder F40. 10 [facility] [place] [address] [id number] [address] [place] [phone] Apr, ADHD, predominantly inattent marzena type F90.0 [facility] [place] [address] [id number] [address] [place] [phone] Apr, [facility] [place] [address] [id number] [address] [place] [phone] Apr, [facility] [place] [address] [id number] [address] [place] [phone] Mar, Dental examination Z01.20 [facility] [place] [address] [id number] [address] [place] [phone] Mar, [facility] [place] [address] [id number] [address] [place] [phone] Feb, [facility] [place] [address] [id number] [address] [place] [phone] Feb, [facility] [place] [address] [id number] [address] [place] [phone] Jan, Encounter for immunization Z 23 [facility] [place] [address] [id number] [address] [place] [phone] Jan, [facility] [place] [address] [id number] [address] [place] [phone] Jan, [facility] [place] [address] [id number] [address] [place] [phone] Jan, Dental examination Z01.20 [facility] [place] [address] [id number] [address] [place] [phone] Jan, [facility] [place] [address] [id number] [address] [place] [phone] Jan, Dental examination Z01.20 [facility] [place] [address] [id number] [address] [place] [phone] Jan, [facility] [place] [address] [id number] [address] [place] [phone] Dec, [facility] [address] [id number] [address] [place] [id number] Dec, Dental examination Z01.20 [facility] [place] [address] [id number] [address] [place] [phone] Nov, [facility] [place] [address] [id number] [address] [place] [phone] Nov, Social anxiety disorder F40. 10 ; PTSD (post-traumatic stress disorder) F43.10 and ADHD, predominantly inattentive type F90.0 [facility] [place] [address] [id number] [address] [place] [phone] Oct, Social anxiety disorder F40. 10 [facility] [place] [address] [id number] [address] [place] [phone] Oct, Hypothyroidism, unspecified type E03.9 [facility] [place] [address] [id number] [address] [place] [phone] Oct, Hypothyroid E03.9 [facility] [place] [address] [facility] [id number] [address] [place] [phone] Oct, Hypothyroid E03.9 [facility] [place] [address] [facility] [id number] [address] [place] [phone] Sep, Hypothyroid E03.9 [facility] [place] [address] [place] [id number] [address] [place] [phone] Sep, [facility] [place] [address] [place] [id number] [place] [phone] Sep, ADHD, predominantly inattent marzena type F90.0 [place] [address] [place] [id number] [place] [phone] Jul, ADHD, predominantly inattent marzena type F90.0 [place] [address] [place] [id number] [address] [place] [phone] Jun, [place] [address] [place] [id number] [place] [phone] Jun, Major depressive disorder, r ecurrent episode, severe F33.2 ; ADHD, predominantly inattentive type F90.0 ; PTSD (post-traumatic stress disorder) F43.10 and Social anxiety disorder F40.10 [place] [address] [place] [id number] [address] [place] [phone] Jun, [place] [address] [place] [id number] [address] [place] [phone] May, Encounter for screening mamm ogram for breast cancer Z12.31 [facility] [place] [address] [place] [id number] [address] [place] [phone] May, [facility] [place] [address] [place] [id number] [address] [place] [phone] May, [facility] [place] [address] [place] [id number] [address] [place] [phone] May, Major depressive disorder, r ecurrent episode, severe F33.2 ; PTSD (post-traumatic stress disorder) F43.10 ; Social anxiety disorder F40.10 and ADHD, predominantly inattentive type F90.0 [facility] [place] [address] [place] [id number] [place] [phone] Apr, [facility] [place] [address] [place] [id number] [place] [phone] Mar, [facility] [place] [address] [address] Mar, Major depressive disorder, r ecurrent episode, severe F33.2 ; PTSD (post-traumatic stress disorder) F43.10 ; Social anxiety disorder F40.10 and ADHD, predominantly inattentive type F90.0 [place] [address] [address] Feb, [place] [address] [phone] Feb, [place] [address] [phone] Feb, [facility] [place] [address] [phone] Feb, Lupus M32.9 ; Hypothyroid E0 3.9 and Irregular menses N92.6 [place] [address] [address] Feb, Lupus M32.9 and Hypothyroid E03.9 [place] [address] [place] [id number] [place] [phone] Jan, Encounter for immunization Z 23 [facility] [place] [address] [place] [id number] [place] [phone] 14 Jul, 2014 [facility] [place] [address] [place] [id number] [place] [phone] Jul, [facility] [place] [address] [place] [id number] [place] [phone] Feb, [facility] [address] [id number] [address] [place] [address], [place] [phone] Feb, [facility] [address] [id number] [address] [place] [address], [place] [phone] Feb, [facility] [address] [id number] [address] [place] [address], [place] [phone] Feb, [facility] [address] [id number] [address] [place] [address], [place] [address] August, [facility] [address] [id number] [address] [place] [address], [place] [address] Jun, [facility] [address] [id number] [address] [place] [address], [place] [phone] Jun, [facility] [address] [id number] [address] [place] [address], [place] [address] Jun, [facility] [address] [id number] [address] [place] [address], [place] [phone] 16 Jun, 2011 [facility] [address] [id number] [address] [place] [address], [place] [address] May, [facility] [address] [id number] [address] [place] [address], [place] [address] May, [facility] [address] [id number] [address] [place] [address], [place] [address] May, [facility] [address] [id number] [address] [place] [address], [place] [address] May, [facility] [address] [id number] [address] [place] [address], [place] [address] Mar, [facility] [address] [id number] [address] [place] [address], [place] [address] Jan, [facility] [address] [id number] [address] [place] [address], [place] [address] Jan, [facility] [address] [id number] [address] [place] [address], [place] [address] Jan, [facility] [place] [address] [facility] [id number] [address] [place] [address] Jan, [facility] [place] [address] [facility] [id number] [address] [place] [phone] Jan, [facility] [place] [address] [facility] [id number] [address] [place] [phone] Jan, IMMUNIZATIONS No Known Immunizations SOCIAL HISTORY Never Assessed REASON FOR VISIT PLAN OF CARE VITAL SIGNS MEDICATIONS Medication Instructions Dosage Frequency Start Date End Date Duration S tatus Lamictal 200 mg Orally Once a day 1 tablet 24h Mar, 90 days Active Propranolol HCl 20 mg Orally Twice a day 1 tablet 12h Jan, 90 days Active RESULTS No Results PROCEDURES No Known procedures INSTRUCTIONS MEDICATIONS ADMINISTERED No Known Medications MEDICAL (GENERAL) HISTORY Type Description Date Medical History Systemic lupus erythematosus, unspecifie d Medical History Hypothyroidism, unspecified Surgical History inguinal hernia repair Surgical History section Surgical History cholecystectomy Surgical History ovarian cyst resection Hospitalization History dystonia Hospitalization History pylenephritis
--- OUTSIDE RECORDS SUMMARY | 2019-10-05 06:23 | XMS REPORT ---
Author Author Meaghan LYNNE Organization [facility] Address [address] [place] [address] Care Team Providers Care Senior It Architect Name Role Phone KELLY LYNNE Unavailable PROBLEMS Type Condition ICD9-CM Code [id number] Code Onset Dates Condition S tatus SNOMED Code Problem Hypothyroid E03.9 Active 49665518 Problem Social anxiety disorder F40.10 Active 66516407 Problem Systemic lupus M32.9 Active 20874 009 Problem Irregular menses N92.6 Active 801 30013 Problem Rosacea L71.9 Active 751933299 Problem Pure hypercholesterolemia E78.00 Acti ve 084765086 Problem Major depressive disorder, recurrent episode, severe F33.2 Active 297742663501 Problem PTSD (post-traumatic stress disorder) F43.10 Active 57508263 Problem Moderate episode of recurrent major depressive disorder F33.1 Active 940171595 Problem ADHD, predominantly inattentive type F90.0 Active 04908246 ALLERGIES No Information ENCOUNTERS Encounter Location Date Diagnosis [facility] [address] [facility] [id number] [address] [place] [phone] Oct, Bruise T14.8XXA [facility] [address] [facility] [id number] [address] [place] [address] Oct, Bruise T14.8XXA [facility] [address] [facility] [id number] [address] [place] [phone] Oct, [facility] [address] [facility] [id number] [address] [place] [phone] Oct, [facility] [address] [facility] [id number] [address] [place] [phone] Oct, [facility] [address] [facility] [id number] [address] [place] [phone] Sep, [facility] [address] [id number] [address] [place] [phone] Sep, Hypothyroid E03.9 [facility] [address] [id number] [address] [place] [phone] Sep, [facility] [address] [id number] [address] [place] [phone] Sep, [facility] [address] [id number] [address] [place] [phone] August, [facility] [address] [id number] [address] [place] [phone] August, PTSD (post-traumatic stress disorder) F43.10 ; Moderate episode of recurrent major depressive disorder F33.1 ; ADHD, predominantly inattentive type F90.0 and Social anxiety disorder F40.10 [facility] [address] [id number] [address] [place] [phone] August, [facility] [address] [id number] [address] [place] [phone] August, [facility] [address] [id number] [address] [place] [phone] Jul, [facility] [address] [id number] [address] [place] [phone] Jul, [facility] [address] [id number] [address] [place] [address] Jul, Rosacea L71.9 [facility] [address] [id number] [address] [place] [phone] Jun, PTSD (post-traumatic stress disorder) F43.10 [facility] [address] [id number] [address] [place] [phone] Jun, [facility] [address] [id number] [address] [place] [phone] Jun, [facility] [address] [id number] [address] [place] [phone] Jun, [facility] [address] [id number] [address] [place] [phone] Jun, [facility] [address] [id number] [address] [place] [address] Apr, [facility] [address] [id number] [address] [place] [address] Apr, Hypothyroid E03.9 ; Pure hyp ercholesterolemia E78.00 and Systemic lupus M32.9 [facility] [address] [id number] [address] [place] [phone] Apr, Hypothyroid E03.9 ; Systemic lupus M32.9 and Pure hypercholesterolemia E78.00 [facility] [address] [facility] [id number] [address] [place] [phone] Apr, [facility] [address] [id number] [address] [place] [phone] Mar, [facility] [address] [id number] [address] [place] [phone] Mar, Pulsatile neck mass R22.1 [facility] [address] [facility] [id number] [address] [place] [phone] Feb, [facility] [address] [facility] [id number] [address] [place] [phone] Feb, Contact dermatitis and eczem a due to plant L24.7 [facility] [address] [id number] [address] [place] [phone] 14 Feb, 2017 Systemic lupus M32.9 [facility] [address] [facility] [id number] [address] [place] [phone] Jan, [facility] [address] [facility] [id number] [address] [place] [phone] Jan, Dental examination Z01.20 [facility] [address] [facility] [id number] [address] [place] [phone] Jan, Encounter for immunization Z 23 [facility] [address] [place] [id number] [address] [place] [phone] 20 Dec, 2016 [facility] [address] [place] [place] [id number] [address] [place] [phone] Nov, Hypothyroid E03.9 [place] [address] [place] [id number] [place] [phone] Nov, PTSD (post-traumatic stress disorder) F43.10 ; ADHD, predominantly inattentive type F90.0 ; Social anxiety disorder F40.10 and Moderate episode of recurrent major depressive disorder F33.1 [facility] [address] [place] [id number] [place] [phone] Nov, ADHD, predominantly inattent marzena type F90.0 [facility] [address] [place] [id number] [place] [phone] Oct, Acquired hypothyroidism E03. 9 [place] [place] [address] [place] [id number] [place] [phone] Oct, ADHD, predominantly inattent marzena type F90.0 [place] [address] [place] [id number] [address] [place] [phone] Oct, Acquired hypothyroidism E03. 9 [place] [address] [place] [id number] [address] [place] [address] Sep, Well woman exam Z01.419 ; Sy stemic lupus M32.9 ; Irregular menses N92.6 ; PTSD (post-traumatic stress disorder) F43.10 ; Social anxiety disorder F40.10 ; ADHD, predominantly inattentive type F90.0 ; Hypothyroid E03.9 and Generalized headaches R51 [facility] [address] [place] [id number] [address] [place] [phone] August, ADHD, predominantly inattent marzena type F90.0 [place] [address] [place] [id number] [place] [phone] August, [facility] [address] [id number] [address] [place] [phone] Jul, [facility] [address] [id number] [address] [place] [phone] Jun, [facility] [address] [id number] [address] [place] [address] Jun, Hypothyroid E03.9 [facility] [address] [id number] [address] [place] [address] Jun, ADHD, predominantly inattent marzena type F90.0 and Social anxiety disorder F40.10 [facility] [address] [id number] [address] [place] [phone] Jun, [facility] [address] [facility] [id number] [address] [place] [phone] Jun, [facility] [address] [id number] [address] [place] [phone] May, Dental examination Z01.20 [facility] [address] [facility] [id number] [address] [place] [address] May, ADHD, predominantly inattent marzena type F90.0 ; Recurrent major depressive disorder, in partial remission F33.41 ; Social anxiety disorder F40.10 and PTSD (post-traumatic stress disorder) F43.10 [facility] [address] [facility] [id number] [address] [place] [phone] Apr, Social anxiety disorder F40. 10 [facility] [address] [id number] [address] [place] [phone] Apr, ADHD, predominantly inattent marzena type F90.0 [facility] [address] [id number] [address] [place] [phone] Apr, [facility] [address] [facility] [id number] [address] [place] [phone] Apr, [facility] [address] [id number] [address] [place] [address] Mar, Dental examination Z01.20 [facility] [address] [id number] [address] [place] [phone] Mar, [facility] [address] [id number] [address] [place] [phone] Feb, [facility] [address] [id number] [address] [place] [phone] Feb, [facility] [address] [id number] [address] [place] [phone] Jan, Encounter for immunization Z 23 [facility] [address] [id number] [address] [place] [address] Jan, [facility] [address] [id number] [address] [place] [phone] Jan, [facility] [address] [id number] [address] [place] [phone] Jan, Dental examination Z01.20 [facility] [address] [id number] [address] [place] [phone] Jan, [facility] [address] [id number] [address] [place] [address] Jan, Dental examination Z01.20 [facility] [address] [id number] [address] [place] [phone] Jan, [facility] [address] [id number] [address] [place] [phone] Dec, [facility] [address] [id number] [address] [place] [phone] Dec, Dental examination Z01.20 [facility] [address] [id number] [address] [place] [phone] Nov, [facility] [address] [id number] [address] [place] [phone] Nov, Social anxiety disorder F40. 10 ; PTSD (post-traumatic stress disorder) F43.10 and ADHD, predominantly inattentive type F90.0 [facility] [address] [id number] [address] [place] [phone] Oct, Social anxiety disorder F40. 10 [facility] [address] [id number] [address] [place] [phone] Oct, Hypothyroidism, unspecified type E03.9 [facility] [address] [id number] [address] [place] [phone] Oct, Hypothyroid E03.9 [facility] [address] [id number] [address] [place] [phone] Oct, Hypothyroid E03.9 [facility] [address] [id number] [address] [place] [phone] Sep, Hypothyroid E03.9 [facility] [address] [id number] [address] [place] [phone] Sep, [facility] [address] [id number] [address] [place] [phone] Sep, ADHD, predominantly inattent marzena type F90.0 [facility] [address] [facility] [id number] [address] [place] [phone] Jul, ADHD, predominantly inattent marzena type F90.0 [facility] [address] [id number] [address] [place] [phone] Jun, [facility] [address] [id number] [address] [place] [phone] 24 Jun, 2015 Major depressive disorder, r ecurrent episode, severe F33.2 ; ADHD, predominantly inattentive type F90.0 ; PTSD (post-traumatic stress disorder) F43.10 and Social anxiety disorder F40.10 [facility] [address] [id number] [address] [place] [phone] Jun, [facility] [address] [facility] [id number] [address] [place] [phone] May, Encounter for screening mamm ogram for breast cancer Z12.31 [facility] [address] [facility] [id number] [address] [place] [phone] May, [facility] [address] [facility] [id number] [address] [place] [phone] May, [facility] [address] [place] [id number] [address] [place] [phone] May, Major depressive disorder, r ecurrent episode, severe F33.2 ; PTSD (post-traumatic stress disorder) F43.10 ; Social anxiety disorder F40.10 and ADHD, predominantly inattentive type F90.0 [facility] [address] [facility] [id number] [address] [place] [phone] Apr, [facility] [address] [place] [id number] [address] [place] [phone] Mar, [facility] [address] [id number] [place] [phone] Mar, Major depressive disorder, r ecurrent episode, severe F33.2 ; PTSD (post-traumatic stress disorder) F43.10 ; Social anxiety disorder F40.10 and ADHD, predominantly inattentive type F90.0 [facility] [address] [place] [id number] [address] [place] [phone] Feb, [facility] [address] [place] [id number] [address] [place] [phone] Feb, [facility] [address] [facility] [id number] [address] [place] [phone] Feb, [facility] [address] [place] [id number] [place] [address] Feb, Lupus M32.9 ; Hypothyroid E0 3.9 and Irregular menses N92.6 [facility] [address] [facility] [id number] [address] [place] [phone] Feb, Lupus M32.9 and Hypothyroid E03.9 [facility] [address] [id number] [address] [place] [phone] 26 Jan, 2015 Encounter for immunization Z 23 [facility] [address] [id number] [address] [place] [address], [place] [address] 14 Jul, 2014 [facility] [address] [id number] [address] [place] [phone] 13 Jul, 2014 [facility] [address] [id number] [address] [place] [phone] 23 Feb, 2012 [facility] [address] [id number] [address] [place] [address], [place] [address] Feb, [facility] [address] [id number] [address] [place] [phone] Feb, [facility] [address] [id number] [address] [place] [phone] Feb, [facility] [address] [id number] [address] [place] [phone] August, [facility] [address] [id number] [address] [place] [phone] Jun, [facility] [address] [id number] [address] [place] [phone] Jun, [facility] [address] [id number] [address] [place] [phone] Jun, [facility] [address] [id number] [address] [place] [phone] 16 Jun, 2011 [facility] [address] [id number] [address] [place] [address], [place] [address] May, [facility] [address] [id number] [address] [place] [phone] May, [facility] [address] [id number] [address] [place] [phone] May, [facility] [address] [id number] [address] [place] [phone] May, [facility] [address] [id number] [address] [place] [phone] Mar, [facility] [address] [id number] [address] [place] [phone] Jan, [facility] [address] [id number] [address] [place] [phone] Jan, [facility] [address] [id number] [address] [place] [phone] Jan, [facility] [address] [facility] [id number] [address] [place] [phone] Jan, [facility] [address] [facility] [id number] [address] [place] [phone] Jan, [facility] [address] [facility] [id number] [address] [place] [phone] Jan, IMMUNIZATIONS No Known Immunizations SOCIAL HISTORY Never Assessed REASON FOR VISIT PLAN OF CARE VITAL SIGNS MEDICATIONS Medication Instructions Dosage Frequency Start Date End Date Duration S jesusitaus Doxycycline Hyclate 100 mg Orally Once a day 1 capsule 24h Jul, Jul, 14 days Active RESULTS No Results PROCEDURES No Known procedures INSTRUCTIONS MEDICATIONS ADMINISTERED No Known Medications MEDICAL (GENERAL) HISTORY Type Description Date Medical History Systemic lupus erythematosus, unspecifie d Medical History Hypothyroidism, unspecified Surgical History inguinal hernia repair Surgical History section Surgical History cholecystectomy Surgical History ovarian cyst resection Hospitalization History dystonia Hospitalization History pylenephritis
--- OUTSIDE RECORDS SUMMARY | 2019-10-05 06:23 | XMS REPORT ---
Author Author Meaghan LYNNE Organization [facility] Address [address] [place] [address] Care Team Providers Care Beauty Therapist Name Role Phone KELLY LYNNE Unavailable PROBLEMS Type Condition ICD9-CM Code BBE39-UK Code Onset Dates Condition S tatus SNOMED Code Problem Hypothyroid E03.9 Active 25582962 Problem Social anxiety disorder F40.10 Active 59221711 Problem Systemic lupus M32.9 Active 21505 009 Problem Irregular menses N92.6 Active 801 37503 Problem Rosacea L71.9 Active 258958809 Problem Pure hypercholesterolemia E78.00 Acti ve 202340183 Problem Major depressive disorder, recurrent episode, severe F33.2 Active [id number] Problem PTSD (post-traumatic stress disorder) F43.10 Active 57682148 Problem Moderate episode of recurrent major depressive disorder F33.1 Active 819004773 Problem ADHD, predominantly inattentive type F90.0 Active 35234216 ALLERGIES Substance Reaction Event Type Date Status Stadol halucinations Drug Allergy Jul, Active ENCOUNTERS Encounter Location Date Diagnosis [facility] [address] [facility] [id number] [address] [place] [address] Oct, Bruise T14.8XXA [facility] [address] [facility] [id number] [address] [place] [address] Oct, Bruise T14.8XXA [facility] [address] [facility] [id number] [address] [place] [phone] Oct, [facility] [address] [facility] [id number] [address] [place] [address] Oct, [facility] [address] [facility] [id number] [address] [place] [address] Oct, [facility] [address] [id number] [address] [place] [id number] Sep, [facility] [address] [id number] [address] [place] [id number] Sep, Hypothyroid E03.9 [facility] [address] [facility] [id number] [address] [place] [phone] Sep, [facility] [address] [id number] [address] [place] [address] Sep, [facility] [address] [id number] [address] [place] [id number] August, [facility] [address] [id number] [address] [place] [id number] August, PTSD (post-traumatic stress disorder) F43.10 ; Moderate episode of recurrent major depressive disorder F33.1 ; ADHD, predominantly inattentive type F90.0 and Social anxiety disorder F40.10 [facility] [address] [facility] [id number] [address] [place] [phone] August, [facility] [address] [facility] [id number] [address] [place] [address] August, [facility] [address] [facility] [id number] [address] [place] [address] Jul, [facility] [address] [id number] [address] [place] [id number] Jul, [facility] [address] [facility] [id number] [address] [place] [phone] Jul, Rosacea L71.9 [facility] [address] [id number] [address] [place] [address] Jun, PTSD (post-traumatic stress disorder) F43.10 [facility] [address] [facility] [id number] [address] [place] [id number] Jun, [facility] [address] [facility] [id number] [address] [place] [phone] Jun, [facility] [address] [id number] [address] [place] [id number] Jun, [facility] [address] [id number] [address] [place] [id number] Jun, [facility] [address] [facility] [id number] [address] [place] [address] Apr, [facility] [address] [facility] [id number] [address] [place] [address] Apr, Hypothyroid E03.9 ; Pure hyp ercholesterolemia E78.00 and Systemic lupus M32.9 [facility] [address] [id number] [address] [place] [phone] Apr, Hypothyroid E03.9 ; Systemic lupus M32.9 and Pure hypercholesterolemia E78.00 [facility] [address] [facility] [id number] [address] [place] [phone] Apr, [facility] [address] [id number] [address] [place] [phone] Mar, [facility] [address] [facility] [id number] [address] [place] [id number] Mar, Pulsatile neck mass R22.1 [facility] [address] [facility] [id number] [address] [place] [phone] Feb, [facility] [address] [facility] [id number] [address] [place] [id number] 16 Feb, 2017 Contact dermatitis and eczem a due to plant L24.7 [facility] [address] [id number] [address] [place] [address] Feb, Systemic lupus M32.9 [facility] [address] [facility] [id number] [address] [place] [phone] Jan, [facility] [address] [facility] [id number] [address] [place] [address] Jan, Dental examination Z01.20 [place] [id number] [facility] [id number] [address] [place] [address] 06 Jan, 2017 Encounter for immunization Z 23 [facility] [address] [facility] [id number] [address] [place] [id number] 20 Dec, 2016 [facility] [address] [facility] [id number] [address] [place] [address] Nov, Hypothyroid E03.9 [place] [address] [facility] [id number] [address] [place] [address] Nov, PTSD (post-traumatic stress disorder) F43.10 ; ADHD, predominantly inattentive type F90.0 ; Social anxiety disorder F40.10 and Moderate episode of recurrent major depressive disorder F33.1 [place] [address] [facility] [id number] [address] [place] [address] Nov, ADHD, predominantly inattent marzena type F90.0 [place] [address] [facility] [id number] [address] [place] [id number] Oct, Acquired hypothyroidism E03. 9 [place] [address] [facility] [id number] [address] [place] [address] Oct, ADHD, predominantly inattent marzena type F90.0 [place] [address] [facility] [id number] [address] [place] [address] Oct, Acquired hypothyroidism E03. 9 [place] [address] [facility] [id number] [address] [place] [address] Sep, Well woman exam Z01.419 ; Sy stemic lupus M32.9 ; Irregular menses N92.6 ; PTSD (post-traumatic stress disorder) F43.10 ; Social anxiety disorder F40.10 ; ADHD, predominantly inattentive type F90.0 ; Hypothyroid E03.9 and Generalized headaches R51 [facility] [address] [facility] [id number] [address] [place] [address] August, ADHD, predominantly inattent marzena type F90.0 [place] [address] [facility] [id number] [address] [place] [address] August, [facility] [address] [id number] [address] [place] [id number] Jul, [facility] [address] [id number] [address] [place] [address] Jun, [facility] [address] [facility] [id number] [address] [place] [address] Jun, Hypothyroid E03.9 [facility] [address] [id number] [address] [place] [address] Jun, ADHD, predominantly inattent marzena type F90.0 and Social anxiety disorder F40.10 [facility] [address] [facility] [id number] [address] [place] [id number] Jun, [facility] [address] [facility] [id number] [address] [place] [address] Jun, [facility] [address] [facility] [id number] [address] [place] [id number] May, Dental examination Z01.20 [facility] [address] [facility] [id number] [address] [place] [id number] May, ADHD, predominantly inattent marzena type F90.0 ; Recurrent major depressive disorder, in partial remission F33.41 ; Social anxiety disorder F40.10 and PTSD (post-traumatic stress disorder) F43.10 [facility] [address] [facility] [id number] [address] [place] [address] Apr, Social anxiety disorder F40. 10 [facility] [address] [id number] [address] [place] [id number] Apr, ADHD, predominantly inattent marzena type F90.0 [facility] [address] [facility] [id number] [address] [place] [id number] Apr, [facility] [address] [facility] [id number] [address] [place] [id number] Apr, [facility] [address] [id number] [address] [place] [id number] Mar, Dental examination Z01.20 [facility] [address] [id number] [address] [place] [phone] Mar, [facility] [address] [id number] [address] [place] [address] Feb, [facility] [address] [id number] [address] [place] [phone] Feb, [facility] [address] [id number] [address] [place] [phone] Jan, Encounter for immunization Z 23 [facility] [address] [id number] [address] [place] [id number] Jan, [facility] [address] [id number] [address] [place] [id number] Jan, [facility] [address] [id number] [address] [place] [address] Jan, Dental examination Z01.20 [facility] [address] [id number] [address] [place] [id number] Jan, [facility] [address] [id number] [address] [place] [phone] Jan, Dental examination Z01.20 [facility] [address] [id number] [address] [place] [phone] Jan, [facility] [address] [id number] [address] [place] [id number] Dec, [facility] [address] [id number] [address] [place] [id number] Dec, Dental examination Z01.20 [facility] [address] [id number] [address] [place] [id number] Nov, [facility] [address] [id number] [address] [place] [id number] Nov, Social anxiety disorder F40. 10 ; PTSD (post-traumatic stress disorder) F43.10 and ADHD, predominantly inattentive type F90.0 [facility] [address] [id number] [address] [place] [id number] Oct, Social anxiety disorder F40. 10 [facility] [address] [id number] [address] [place] [address] Oct, Hypothyroidism, unspecified type E03.9 [facility] [address] [id number] [address] [place] [address] Oct, Hypothyroid E03.9 [facility] [address] [id number] [address] [place] [id number] Oct, Hypothyroid E03.9 [facility] [address] [facility] [id number] [address] [place] [phone] Sep, Hypothyroid E03.9 [facility] [address] [id number] [address] [place] [phone] Sep, [facility] [address] [id number] [address] [place] [address] Sep, ADHD, predominantly inattent marzena type F90.0 [facility] [address] [id number] [address] [place] [id number] Jul, ADHD, predominantly inattent marzena type F90.0 [facility] [address] [id number] [address] [place] [id number] Jun, [facility] [address] [facility] [id number] [address] [place] [id number] Jun, Major depressive disorder, r ecurrent episode, severe F33.2 ; ADHD, predominantly inattentive type F90.0 ; PTSD (post-traumatic stress disorder) F43.10 and Social anxiety disorder F40.10 [facility] [address] [facility] [id number] [address] [place] [address] Jun, [facility] [address] [place] [id number] [address] [place] [id number] 19 May, 2015 Encounter for screening mamm ogram for breast cancer Z12.31 [facility] [address] [facility] [id number] [address] [place] [phone] 15 May, 2015 [facility] [address] [place] [id number] [address] [place] [address] May, [facility] [address] [place] [id number] [address] [place] [phone] May, Major depressive disorder, r ecurrent episode, severe F33.2 ; PTSD (post-traumatic stress disorder) F43.10 ; Social anxiety disorder F40.10 and ADHD, predominantly inattentive type F90.0 [place] [address] [place] [id number] [place] [address] Apr, [place] [address] [place] [id number] [place] [phone] Mar, [place] [address] [place] [id number] [place] [phone] Mar, Major depressive disorder, r ecurrent episode, severe F33.2 ; PTSD (post-traumatic stress disorder) F43.10 ; Social anxiety disorder F40.10 and ADHD, predominantly inattentive type F90.0 [place] [address] [place] [id number] [address] [place] [phone] Feb, [place] [address] [place] [id number] [place] [id number] Feb, [place] [address] [id number] Feb, [place] [address] [id number] Feb, Lupus M32.9 ; Hypothyroid E0 3.9 and Irregular menses N92.6 [place] [address] [place] [id number] [place] [id number] 03 Feb, 2015 Lupus M32.9 and Hypothyroid E03.9 [facility] [address] [id number] [address] [place] [phone] 26 Jan, 2015 Encounter for immunization Z 23 [facility] [address] [id number] [address] [place] [id number] 14 Jul, 2014 [facility] [address] [id number] [address] [place] [id number] 13 Jul, 2014 [facility] [address] [id number] [address] [place] [phone] Feb, [facility] [address] [id number] [address] [place] [phone] Feb, [facility] [address] [id number] [address] [place] [address] Feb, [facility] [address] [id number] [address] [place] [address] Feb, [facility] [address] [id number] [address] [place] [phone] August, [facility] [address] [id number] [address] [place] [phone] Jun, [facility] [address] [id number] [address] [place] [address] Jun, [facility] [address] [id number] [address] [place] [phone] 19 Jun, 2011 [facility] [address] [id number] [address] [place] [id number] 16 Jun, 2011 [facility] [address] [id number] [address] [place] [id number] 28 May, 2011 [facility] [address] [id number] [address] [place] [address] May, [facility] [address] [id number] [address] [place] [phone] May, [facility] [address] [id number] [address] [place] [address] May, [facility] [address] [id number] [address] [place] [phone] Mar, [facility] [address] [id number] [address] [place] [id number] Jan, [facility] [address] [id number] [address] [place] [address] Jan, [facility] [address] [id number] [address] [place] [phone] Jan, [facility] [address] [id number] [address] [place] [id number] Jan, [facility] [address] [id number] [address] [place] [id number] Jan, [facility] [address] [id number] [address] [place] [phone] Jan, IMMUNIZATIONS No Known Immunizations SOCIAL HISTORY Never Assessed REASON FOR VISIT rash- Facial - Ashley Kruger RN PLAN OF CARE Activity Details Follow Up prn Reason: VITAL SIGNS Height 66 in 2017-07-22 Weight 151 lbs 2017-07-22 Temperature 97.8 degrees Fahrenheit 2017-07-22 Heart Rate 80 bpm 2017-07-22 Respiratory Rate 16 2017-07-22 BMI 24.37 kg/m2 2017-07-22 Blood pressure systolic 108 mmHg 2017-07-22 Blood pressure diastolic 62 mmHg 2017-07-22 MEDICATIONS Medication Instructions Dosage Frequency Start Date End Date Duration S tatus Tramadol HCl 50 MG TAKE ONE TABLET BY MOUTH EVERY 6 HOURS NEE DED 10 Not-Taking Propranolol HCl 20 mg Orally Twice a day 1 tablet 12h 21 Jan, 2016 90 days Active Mirvaso 0.33 % Externally Once a day 1 application to affected area 24h Jul, Active Synthroid 100 MCG Orally Once a day 1 tablet on an empty stomach in the morning 24h Active HydrOXYzine HCl 25 MG TAKE ONE TO TWO TA BLETS BY MOUTH AT BEDTIME FOR SLEEP (MAY TAKE ONE TABLET DAILY NEEDED ANXIETY) Active Cryselle-28 0.3-30 MG-MCG Orally Once a day 1 tablet 24h 28 Active Concerta 54 MG Orally Once a day for ADHD 1 tablet in the morning Jun, Active Lamictal 200 mg Orally Once a day 1 tablet 24h Mar, 90 days Active RESULTS No Results PROCEDURES No Known procedures INSTRUCTIONS MEDICATIONS ADMINISTERED No Known Medications MEDICAL (GENERAL) HISTORY Type Description Date Medical History Systemic lupus erythematosus, unspecifie d Medical History Hypothyroidism, unspecified Surgical History inguinal hernia repair Surgical History section Surgical History cholecystectomy Surgical History ovarian cyst resection Hospitalization History dystonia Hospitalization History pylenephritis
--- OUTSIDE RECORDS SUMMARY | 2019-10-05 06:23 | XMS REPORT ---
Author Author Meaghan LYNNE Organization [facility] Address [address] [place] [address] Care Team Providers Care Museum Assistant Name Role Phone KELLY LYNNE Unavailable PROBLEMS Type Condition ICD9-CM Code QCI36-AP Code Onset Dates Condition S tatus SNOMED Code Problem Hypothyroid E03.9 Active 38526322 Problem Social anxiety disorder F40.10 Active 62190216 Problem Systemic lupus M32.9 Active 06668 009 Problem Irregular menses N92.6 Active 801 85438 Problem Rosacea L71.9 Active 652578006 Problem Pure hypercholesterolemia E78.00 Acti ve 043564002 Problem Major depressive disorder, recurrent episode, severe F33.2 Active [id number] Problem PTSD (post-traumatic stress disorder) F43.10 Active 51778933 Problem Moderate episode of recurrent major depressive disorder F33.1 Active 439275247 Problem ADHD, predominantly inattentive type F90.0 Active [id number] ALLERGIES No Information ENCOUNTERS Encounter Location Date Diagnosis [facility] [address] [facility] [id number] [address] [place] [address] Oct, [facility] [address] [facility] [id number] [address] [place] [address] Sep, [facility] [address] [facility] [id number] [address] [place] [address] Sep, Hypothyroid E03.9 [facility] [address] [facility] [id number] [address] [place] [address] Sep, [facility] [address] [facility] [id number] [address] [place] [phone] Sep, [facility] [address] [facility] [id number] [address] [place] [address] August, [facility] [address] [place] [id number] [address] [place] [phone] August, PTSD (post-traumatic stress disorder) F43.10 ; Moderate episode of recurrent major depressive disorder F33.1 ; ADHD, predominantly inattentive type F90.0 and Social anxiety disorder F40.10 [facility] [address] [id number] [address] [place] [address] August, [facility] [address] [id number] [address] [place] [address] August, [facility] [address] [id number] [address] [place] [phone] Jul, [facility] [address] [id number] [address] [place] [address] Jul, [facility] [address] [facility] [id number] [address] [place] [address] Jul, Rosacea L71.9 [facility] [address] [facility] [id number] [address] [place] [address] Jun, PTSD (post-traumatic stress disorder) F43.10 [facility] [address] [facility] [id number] [address] [place] [phone] Jun, [facility] [address] [facility] [id number] [address] [place] [phone] Jun, [facility] [address] [facility] [id number] [address] [place] [address] Jun, [facility] [address] [id number] [address] [place] [address] Jun, [facility] [address] [facility] [id number] [address] [place] [address] Apr, [facility] [address] [facility] [id number] [address] [place] [address] Apr, Hypothyroid E03.9 ; Pure hyp ercholesterolemia E78.00 and Systemic lupus M32.9 [facility] [address] [facility] [id number] [address] [place] [address] Apr, Hypothyroid E03.9 ; Systemic lupus M32.9 and Pure hypercholesterolemia E78.00 [facility] [address] [facility] [id number] [address] [place] [phone] Apr, [facility] [address] [place] [id number] [address] [place] [address] Mar, [facility] [address] [address] Mar, Pulsatile neck mass R22.1 [facility] [address] [place] [id number] [place] [address] Feb, [facility] [address] [place] [id number] [place] [phone] Feb, Contact dermatitis and eczem a due to plant L24.7 [facility] [address] [place] [id number] [place] [address] Feb, Systemic lupus M32.9 [facility] [address] [place] [address] Jan, [facility] [address] [address] Jan, Dental examination Z01.20 [place] [address] [phone] 06 Jan, 2017 Encounter for immunization Z 23 [facility] [address] [place] [id number] [address] [place] [phone] Dec, [facility] [address] [address] Nov, Hypothyroid E03.9 [facility] [address] [place] [id number] [address] [place] [address] Nov, PTSD (post-traumatic stress disorder) F43.10 ; ADHD, predominantly inattentive type F90.0 ; Social anxiety disorder F40.10 and Moderate episode of recurrent major depressive disorder F33.1 [facility] [address] [id number] [address] [place] [address] Nov, ADHD, predominantly inattent marzena type F90.0 [facility] [address] [id number] [address] [place] [phone] Oct, Acquired hypothyroidism E03. 9 [facility] [address] [facility] [id number] [address] [place] [phone] Oct, ADHD, predominantly inattent marzena type F90.0 [facility] [address] [id number] [address] [place] [id number] Oct, Acquired hypothyroidism E03. 9 [facility] [address] [facility] [id number] [address] [place] [address] Sep, Well woman exam Z01.419 ; Sy stemic lupus M32.9 ; Irregular menses N92.6 ; PTSD (post-traumatic stress disorder) F43.10 ; Social anxiety disorder F40.10 ; ADHD, predominantly inattentive type F90.0 ; Hypothyroid E03.9 and Generalized headaches R51 [facility] [address] [id number] [address] [place] [phone] August, ADHD, predominantly inattent marzena type F90.0 [facility] [address] [facility] [id number] [address] [place] [address] August, [facility] [address] [facility] [id number] [address] [place] [address] Jul, [facility] [address] [id number] [address] [place] [phone] Jun, [facility] [address] [facility] [id number] [address] [place] [address] Jun, Hypothyroid E03.9 [facility] [address] [facility] [id number] [address] [place] [address] Jun, ADHD, predominantly inattent marzena type F90.0 and Social anxiety disorder F40.10 [facility] [address] [id number] [address] [place] [address] Jun, [facility] [address] [id number] [address] [place] [address] Jun, [facility] [address] [id number] [address] [place] [id number] May, Dental examination Z01.20 [facility] [address] [id number] [address] [place] [phone] 14 May, 2016 ADHD, predominantly inattent marzena type F90.0 ; Recurrent major depressive disorder, in partial remission F33.41 ; Social anxiety disorder F40.10 and PTSD (post-traumatic stress disorder) F43.10 [facility] [address] [id number] [address] [place] [address] Apr, Social anxiety disorder F40. 10 [facility] [address] [id number] [address] [place] [address] Apr, ADHD, predominantly inattent marzena type F90.0 [facility] [address] [id number] [address] [place] [id number] Apr, [facility] [address] [id number] [address] [place] [phone] Apr, [facility] [address] [id number] [address] [place] [address] Mar, Dental examination Z01.20 [facility] [address] [id number] [address] [place] [address] Mar, [facility] [address] [id number] [address] [place] [phone] Feb, [facility] [address] [id number] [address] [place] [address] Feb, [facility] [address] [id number] [address] [place] [address] Jan, Encounter for immunization Z 23 [facility] [address] [id number] [address] [place] [address] Jan, [facility] [address] [id number] [address] [place] [address] Jan, [facility] [address] [id number] [address] [place] [address] Jan, Dental examination Z01.20 [facility] [address] [id number] [address] [place] [address] Jan, [facility] [address] [id number] [address] [place] [address] Jan, Dental examination Z01.20 [facility] [address] [id number] [address] [place] [phone] Jan, [facility] [address] [id number] [address] [place] [phone] Dec, [facility] [address] [id number] [address] [place] [address] [id number] Dec, Dental examination Z01.20 [facility] [address] [id number] [address] [place] [address] Nov, [facility] [address] [id number] [address] [place] [phone] Nov, Social anxiety disorder F40. 10 ; PTSD (post-traumatic stress disorder) F43.10 and ADHD, predominantly inattentive type F90.0 [facility] [address] [id number] [address] [place] [phone] Oct, Social anxiety disorder F40. 10 [facility] [address] [id number] [address] [place] [phone] Oct, Hypothyroidism, unspecified type E03.9 [facility] [address] [id number] [address] [place] [phone] Oct, Hypothyroid E03.9 [facility] [address] [facility] [id number] [address] [place] [phone] Oct, Hypothyroid E03.9 [facility] [address] [facility] [id number] [address] [place] [phone] Sep, Hypothyroid E03.9 [facility] [address] [place] [id number] [address] [place] [id number] Sep, [facility] [address] [place] [id number] [place] [phone] Sep, ADHD, predominantly inattent marzena type F90.0 [place] [address] [place] [id number] [place] [phone] Jul, ADHD, predominantly inattent marzena type F90.0 [place] [address] [place] [id number] [address] [place] [phone] Jun, [place] [address] [place] [id number] [place] [phone] Jun, Major depressive disorder, r ecurrent episode, severe F33.2 ; ADHD, predominantly inattentive type F90.0 ; PTSD (post-traumatic stress disorder) F43.10 and Social anxiety disorder F40.10 [place] [address] [place] [id number] [address] [place] [address] Jun, [place] [address] [place] [id number] [address] [place] [phone] May, Encounter for screening mamm ogram for breast cancer Z12.31 [facility] [address] [place] [id number] [address] [place] [address] May, [facility] [address] [place] [id number] [address] [place] [address] May, [facility] [address] [place] [id number] [address] [place] [address] May, Major depressive disorder, r ecurrent episode, severe F33.2 ; PTSD (post-traumatic stress disorder) F43.10 ; Social anxiety disorder F40.10 and ADHD, predominantly inattentive type F90.0 [facility] [address] [place] [id number] [place] [phone] Apr, [facility] [address] [place] [id number] [place] [phone] Mar, [facility] [address] [phone] Mar, Major depressive disorder, r ecurrent episode, severe F33.2 ; PTSD (post-traumatic stress disorder) F43.10 ; Social anxiety disorder F40.10 and ADHD, predominantly inattentive type F90.0 [place] [address] [address] Feb, [place] [address] [address] Feb, [place] [address] [address] Feb, [facility] [address] [address] Feb, Lupus M32.9 ; Hypothyroid E0 3.9 and Irregular menses N92.6 [place] [address] [phone] Feb, Lupus M32.9 and Hypothyroid E03.9 [place] [address] [place] [id number] [place] [phone] Jan, Encounter for immunization Z 23 [facility] [address] [place] [id number] [place] [phone] 14 Jul, 2014 [facility] [address] [place] [id number] [place] [phone] Jul, [facility] [address] [place] [id number] [place] [phone] Feb, [facility] [address] [id number] [address] [place] [address], [place] [address] Feb, [facility] [address] [id number] [address] [place] [address], [place] [address] Feb, [facility] [address] [id number] [address] [place] [address], [place] [address] Feb, [facility] [address] [id number] [address] [place] [address], [place] [address] August, [facility] [address] [id number] [address] [place] [address], [place] [address] Jun, [facility] [address] [id number] [address] [place] [address], [place] [address] Jun, [facility] [address] [id number] [address] [place] [address], [place] [address] Jun, [facility] [address] [id number] [address] [place] [address], [place] [address] 16 Jun, 2011 [facility] [address] [id number] [address] [place] [address], [place] [address] May, [facility] [address] [id number] [address] [place] [address], [place] [address] May, [facility] [address] [id number] [address] [place] [address], [place] [address] May, [facility] [address] [id number] [address] [place] [address], [place] [address] May, [facility] [address] [id number] [address] [place] [address], [place] [address] Mar, [facility] [address] [id number] [address] [place] [address], [place] [address] Jan, [facility] [address] [id number] [address] [place] [address], [place] [address] Jan, [facility] [address] [id number] [address] [place] [address], [place] [address] Jan, [facility] [address] [facility] [id number] [address] [place] [phone] Jan, [facility] [address] [facility] [id number] [address] [place] [phone] Jan, [facility] [address] [facility] [id number] [address] [place] [phone] Jan, IMMUNIZATIONS No Known Immunizations SOCIAL HISTORY Never Assessed REASON FOR VISIT PLAN OF CARE VITAL SIGNS MEDICATIONS Medication Instructions Dosage Frequency Start Date End Date Duration S tat Cryselle-28 0.3-30 MG-MCG Orally Once a day 1 tablet 24h 28 Active RESULTS No Results PROCEDURES No Known procedures INSTRUCTIONS MEDICATIONS ADMINISTERED No Known Medications MEDICAL (GENERAL) HISTORY Type Description Date Medical History Systemic lupus erythematosus, unspecifie d Medical History Hypothyroidism, unspecified Surgical History inguinal hernia repair Surgical History section Surgical History cholecystectomy Surgical History ovarian cyst resection Hospitalization History dystonia Hospitalization History pylenephritis
--- OUTSIDE RECORDS SUMMARY | 2019-10-05 06:23 | XMS REPORT ---
Author Author Meaghan DINERO [facility] Address [address] [place] [address] Care Team Providers Care Portal Administrator Name Role Phone VIKKI DINERO Unavailable PROBLEMS Type Condition ICD9-CM Code KST44-WC Code Onset Dates Condition S tatus SNOMED Code Problem Hypothyroid E03.9 Active 13265219 Problem Social anxiety disorder F40.10 Active 78784849 Problem Systemic lupus M32.9 Active 25161 009 Problem Irregular menses N92.6 Active 801 34706 Problem Rosacea L71.9 Active 064509377 Problem Pure hypercholesterolemia E78.00 Acti ve 423083722 Problem Major depressive disorder, recurrent episode, severe F33.2 Active [id number] Problem PTSD (post-traumatic stress disorder) F43.10 Active 89774043 Problem Moderate episode of recurrent major depressive disorder F33.1 Active 733096907 Problem ADHD, predominantly inattentive type F90.0 Active [id number] ALLERGIES No Information ENCOUNTERS Encounter Location Date Diagnosis [facility] [address] [facility] [id number] [address] [place] [phone] Oct, Bruise T14.8XXA [facility] [address] [facility] [id number] [address] [place] [phone] Oct, Bruise T14.8XXA [facility] [address] [facility] [id number] [address] [place] [phone] Oct, [facility] [address] [facility] [id number] [address] [place] [phone] Oct, [facility] [address] [facility] [id number] [address] [place] [address] Oct, [facility] [address] [facility] [id number] [address] [place] [phone] Sep, [facility] [address] [id number] [address] [place] [phone] Sep, Hypothyroid E03.9 [facility] [address] [id number] [address] [place] [phone] Sep, [facility] [address] [id number] [address] [place] [phone] Sep, [facility] [address] [id number] [address] [place] [phone] August, [facility] [address] [id number] [address] [place] [phone] August, PTSD (post-traumatic stress disorder) F43.10 ; Moderate episode of recurrent major depressive disorder F33.1 ; ADHD, predominantly inattentive type F90.0 and Social anxiety disorder F40.10 [facility] [address] [id number] [address] [place] [phone] August, [facility] [address] [id number] [address] [place] [phone] August, [facility] [address] [id number] [address] [place] [phone] Jul, [facility] [address] [id number] [address] [place] [phone] Jul, [facility] [address] [id number] [address] [place] [address] Jul, Rosacea L71.9 [facility] [address] [id number] [address] [place] [phone] Jun, PTSD (post-traumatic stress disorder) F43.10 [facility] [address] [id number] [address] [place] [phone] Jun, [facility] [address] [id number] [address] [place] [phone] Jun, [facility] [address] [id number] [address] [place] [phone] Jun, [facility] [address] [id number] [address] [place] [phone] Jun, [facility] [address] [id number] [address] [place] [phone] Apr, [facility] [address] [id number] [address] [place] [phone] Apr, Hypothyroid E03.9 ; Pure hyp ercholesterolemia E78.00 and Systemic lupus M32.9 [facility] [address] [id number] [address] [place] [address] Apr, Hypothyroid E03.9 ; Systemic lupus M32.9 and Pure hypercholesterolemia E78.00 [facility] [address] [facility] [id number] [address] [place] [phone] Apr, [facility] [address] [id number] [address] [place] [phone] Mar, [facility] [address] [id number] [address] [place] [phone] Mar, Pulsatile neck mass R22.1 [facility] [address] [facility] [id number] [address] [place] [phone] Feb, [facility] [address] [facility] [id number] [address] [place] [phone] Feb, Contact dermatitis and eczem a due to plant L24.7 [facility] [address] [id number] [address] [place] [phone] 14 Feb, 2017 Systemic lupus M32.9 [facility] [address] [facility] [id number] [address] [place] [address] Jan, [facility] [address] [facility] [id number] [address] [place] [phone] Jan, Dental examination Z01.20 [facility] [address] [facility] [id number] [address] [place] [phone] Jan, Encounter for immunization Z 23 [facility] [address] [place] [id number] [address] [place] [phone] 20 Dec, 2016 [facility] [address] [place] [id number] [address] [place] [address] Nov, Hypothyroid E03.9 [place] [address] [place] [id number] [place] [phone] Nov, PTSD (post-traumatic stress disorder) F43.10 ; ADHD, predominantly inattentive type F90.0 ; Social anxiety disorder F40.10 and Moderate episode of recurrent major depressive disorder F33.1 [place] [address] [place] [id number] [place] [phone] Nov, ADHD, predominantly inattent marzena type F90.0 [place] [address] [place] [id number] [place] [address] Oct, Acquired hypothyroidism E03. 9 [place] [address] [place] [id number] [place] [phone] Oct, ADHD, predominantly inattent marzena type F90.0 [place] [address] [place] [id number] [address] [place] [address] Oct, Acquired hypothyroidism E03. 9 [place] [address] [place] [id number] [address] [place] [address] Sep, Well woman exam Z01.419 ; Sy stemic lupus M32.9 ; Irregular menses N92.6 ; PTSD (post-traumatic stress disorder) F43.10 ; Social anxiety disorder F40.10 ; ADHD, predominantly inattentive type F90.0 ; Hypothyroid E03.9 and Generalized headaches R51 [place] [address] [place] [id number] [address] [place] [phone] August, ADHD, predominantly inattent marzena type F90.0 [place] [address] [place] [id number] [place] [phone] August, [facility] [address] [id number] [address] [place] [address] Jul, [facility] [address] [id number] [address] [place] [address] Jun, [facility] [address] [id number] [address] [place] [phone] Jun, Hypothyroid E03.9 [facility] [address] [id number] [address] [place] [phone] Jun, ADHD, predominantly inattent marzena type F90.0 and Social anxiety disorder F40.10 [facility] [address] [id number] [address] [place] [phone] Jun, [facility] [address] [facility] [id number] [address] [place] [address] Jun, [facility] [address] [id number] [address] [place] [phone] May, Dental examination Z01.20 [facility] [address] [facility] [id number] [address] [place] [phone] May, ADHD, predominantly inattent marzena type F90.0 ; Recurrent major depressive disorder, in partial remission F33.41 ; Social anxiety disorder F40.10 and PTSD (post-traumatic stress disorder) F43.10 [facility] [address] [facility] [id number] [address] [place] [address] Apr, Social anxiety disorder F40. 10 [facility] [address] [id number] [address] [place] [address] Apr, ADHD, predominantly inattent marzena type F90.0 [facility] [address] [id number] [address] [place] [address] Apr, [facility] [address] [facility] [id number] [address] [place] [phone] Apr, [facility] [address] [id number] [address] [place] [address] Mar, Dental examination Z01.20 [facility] [address] [id number] [address] [place] [phone] Mar, [facility] [address] [id number] [address] [place] [address] Feb, [facility] [address] [id number] [address] [place] [address] Feb, [facility] [address] [id number] [address] [place] [phone] Jan, Encounter for immunization Z 23 [facility] [address] [id number] [address] [place] [phone] Jan, [facility] [address] [id number] [address] [place] [phone] Jan, [facility] [address] [id number] [address] [place] [phone] Jan, Dental examination Z01.20 [facility] [address] [id number] [address] [place] [address] Jan, [facility] [address] [id number] [address] [place] [address] Jan, Dental examination Z01.20 [facility] [address] [id number] [address] [place] [phone] Jan, [facility] [address] [id number] [address] [place] [address] Dec, [facility] [address] [id number] [address] [place] [phone] Dec, Dental examination Z01.20 [facility] [address] [id number] [address] [place] [phone] Nov, [facility] [address] [id number] [address] [place] [phone] Nov, Social anxiety disorder F40. 10 ; PTSD (post-traumatic stress disorder) F43.10 and ADHD, predominantly inattentive type F90.0 [facility] [address] [id number] [address] [place] [phone] Oct, Social anxiety disorder F40. 10 [facility] [address] [id number] [address] [place] [phone] Oct, Hypothyroidism, unspecified type E03.9 [facility] [address] [id number] [address] [place] [phone] Oct, Hypothyroid E03.9 [facility] [address] [id number] [address] [place] [address] Oct, Hypothyroid E03.9 [facility] [address] [id number] [address] [place] [phone] Sep, Hypothyroid E03.9 [facility] [address] [id number] [address] [place] [phone] Sep, [facility] [address] [id number] [address] [place] [phone] Sep, ADHD, predominantly inattent marzena type F90.0 [facility] [address] [facility] [id number] [address] [place] [address] Jul, ADHD, predominantly inattent marzena type F90.0 [facility] [address] [id number] [address] [place] [address] Jun, [facility] [address] [id number] [address] [place] [phone] 24 Jun, 2015 Major depressive disorder, r ecurrent episode, severe F33.2 ; ADHD, predominantly inattentive type F90.0 ; PTSD (post-traumatic stress disorder) F43.10 and Social anxiety disorder F40.10 [facility] [address] [id number] [address] [place] [address] Jun, [facility] [address] [facility] [id number] [address] [place] [address] May, Encounter for screening mamm ogram for breast cancer Z12.31 [facility] [address] [facility] [id number] [address] [place] [phone] May, [facility] [address] [facility] [id number] [address] [place] [address] May, [facility] [address] [place] [id number] [address] [place] [phone] May, Major depressive disorder, r ecurrent episode, severe F33.2 ; PTSD (post-traumatic stress disorder) F43.10 ; Social anxiety disorder F40.10 and ADHD, predominantly inattentive type F90.0 [facility] [address] [facility] [id number] [address] [place] [phone] Apr, [facility] [address] [place] [id number] [address] [place] [phone] Mar, [facility] [address] [place] [id number] [place] [phone] Mar, Major depressive disorder, r ecurrent episode, severe F33.2 ; PTSD (post-traumatic stress disorder) F43.10 ; Social anxiety disorder F40.10 and ADHD, predominantly inattentive type F90.0 [facility] [address] [place] [id number] [address] [place] [address] Feb, [facility] [address] [place] [id number] [address] [place] [phone] Feb, [facility] [address] [facility] [id number] [address] [place] [address] Feb, [facility] [address] [place] [id number] [place] [address] Feb, Lupus M32.9 ; Hypothyroid E0 3.9 and Irregular menses N92.6 [facility] [address] [facility] [id number] [address] [place] [phone] Feb, Lupus M32.9 and Hypothyroid E03.9 [facility] [address] [id number] [address] [place] [phone] 26 Jan, 2015 Encounter for immunization Z 23 [facility] [address] [id number] [address] [place] [address], [place] [address] 14 Jul, 2014 [facility] [address] [id number] [address] [place] [phone] 13 Jul, 2014 [facility] [address] [id number] [address] [place] [id number] 23 Feb, 2012 [facility] [address] [id number] [address] [place] [address], [place] [address] Feb, [facility] [address] [id number] [address] [place] [phone] Feb, [facility] [address] [id number] [address] [place] [phone] Feb, [facility] [address] [id number] [address] [place] [phone] August, [facility] [address] [id number] [address] [place] [phone] Jun, [facility] [address] [id number] [address] [place] [phone] Jun, [facility] [address] [id number] [address] [place] [phone] Jun, [facility] [address] [id number] [address] [place] [phone] 16 Jun, 2011 [facility] [address] [id number] [address] [place] [address], [place] [address] May, [facility] [address] [id number] [address] [place] [phone] May, [facility] [address] [id number] [address] [place] [phone] May, [facility] [address] [id number] [address] [place] [address] May, [facility] [address] [id number] [address] [place] [address] Mar, [facility] [address] [id number] [address] [place] [phone] Jan, [facility] [address] [id number] [address] [place] [phone] Jan, [facility] [address] [id number] [address] [place] [phone] Jan, [facility] [address] [id number] [address] [place] [phone] Jan, [facility] [address] [facility] [id number] [address] [place] [phone] Jan, [facility] [address] [facility] [id number] [address] [place] [phone] Jan, IMMUNIZATIONS No Known Immunizations SOCIAL HISTORY Never Assessed REASON FOR VISIT Controlled Med Refill PLAN OF CARE VITAL SIGNS MEDICATIONS Medication Instructions Dosage Frequency Start Date End Date Duration S tatus Concerta 54 MG Orally Once a day for ADHD 1 tablet in the morning Jul, August, 28 days Active RESULTS No Results PROCEDURES No Known procedures INSTRUCTIONS MEDICATIONS ADMINISTERED No Known Medications MEDICAL (GENERAL) HISTORY Type Description Date Medical History Systemic lupus erythematosus, unspecifie d Medical History Hypothyroidism, unspecified Surgical History inguinal hernia repair Surgical History section Surgical History cholecystectomy Surgical History ovarian cyst resection Hospitalization History dystonia Hospitalization History pylenephritis
--- OUTSIDE RECORDS SUMMARY | 2019-10-05 06:23 | XMS REPORT ---
Author Author Meaghan LYNNE Organization [facility] Address [address] [place] [address] Care Team Providers Care Criminal Researcher Name Role Phone KELLY LYNNE Unavailable PROBLEMS Type Condition ICD9-CM Code DMC90-OZ Code Onset Dates Condition S tatus SNOMED Code Problem Hypothyroid E03.9 Active 35480653 Problem Social anxiety disorder F40.10 Active 08302525 Problem Systemic lupus M32.9 Active 62493 009 Problem Irregular menses N92.6 Active 801 88351 Problem Rosacea L71.9 Active 623369736 Problem Pure hypercholesterolemia E78.00 Acti ve 686145212 Problem Major depressive disorder, recurrent episode, severe F33.2 Active [id number] Problem PTSD (post-traumatic stress disorder) F43.10 Active 77984204 Problem Moderate episode of recurrent major depressive disorder F33.1 Active 483292885 Problem ADHD, predominantly inattentive type F90.0 Active 38467635 ALLERGIES No Information ENCOUNTERS Encounter Location Date Diagnosis [facility] [address] [facility] [id number] [address] [place] [phone] Oct, [facility] [address] [facility] [id number] [address] [place] [phone] Sep, [facility] [address] [facility] [id number] [address] [place] [phone] Sep, Hypothyroid E03.9 [facility] [address] [facility] [id number] [address] [place] [phone] Sep, [facility] [address] [facility] [id number] [address] [place] [phone] Sep, [facility] [address] [facility] [id number] [address] [place] [phone] August, [facility] [address] [place] [id number] [address] [place] [phone] August, PTSD (post-traumatic stress disorder) F43.10 ; Moderate episode of recurrent major depressive disorder F33.1 ; ADHD, predominantly inattentive type F90.0 and Social anxiety disorder F40.10 [facility] [address] [id number] [address] [place] [phone] August, [facility] [address] [id number] [address] [place] [phone] August, [facility] [address] [id number] [address] [place] [phone] Jul, [facility] [address] [id number] [address] [place] [phone] Jul, [facility] [address] [facility] [id number] [address] [place] [phone] Jul, Rosacea L71.9 [facility] [address] [facility] [id number] [address] [place] [phone] Jun, PTSD (post-traumatic stress disorder) F43.10 [facility] [address] [facility] [id number] [address] [place] [phone] Jun, [facility] [address] [facility] [id number] [address] [place] [phone] Jun, [facility] [address] [facility] [id number] [address] [place] [phone] Jun, [facility] [address] [id number] [address] [place] [phone] Jun, [facility] [address] [facility] [id number] [address] [place] [phone] Apr, [facility] [address] [facility] [id number] [address] [place] [phone] Apr, Hypothyroid E03.9 ; Pure hyp ercholesterolemia E78.00 and Systemic lupus M32.9 [facility] [address] [facility] [id number] [address] [place] [phone] Apr, Hypothyroid E03.9 ; Systemic lupus M32.9 and Pure hypercholesterolemia E78.00 [facility] [address] [facility] [id number] [address] [place] [phone] Apr, [facility] [address] [place] [id number] [address] [place] [phone] Mar, [facility] [address] [phone] Mar, Pulsatile neck mass R22.1 [facility] [address] [place] [id number] [place] [phone] Feb, [facility] [address] [place] [id number] [place] [phone] Feb, Contact dermatitis and eczem a due to plant L24.7 [facility] [address] [place] [id number] [place] [address] Feb, Systemic lupus M32.9 [facility] [address] [place] [address] Jan, [facility] [address] [address] Jan, Dental examination Z01.20 [place] [address] [phone] 06 Jan, 2017 Encounter for immunization Z 23 [facility] [address] [place] [id number] [address] [place] [phone] Dec, [facility] [address] [phone] Nov, Hypothyroid E03.9 [facility] [address] [place] [id number] [address] [place] [phone] Nov, PTSD (post-traumatic stress disorder) F43.10 ; ADHD, predominantly inattentive type F90.0 ; Social anxiety disorder F40.10 and Moderate episode of recurrent major depressive disorder F33.1 [facility] [address] [id number] [address] [place] [phone] Nov, ADHD, predominantly inattent marzena type F90.0 [facility] [address] [id number] [address] [place] [phone] Oct, Acquired hypothyroidism E03. 9 [facility] [address] [facility] [id number] [address] [place] [phone] Oct, ADHD, predominantly inattent marzena type F90.0 [facility] [address] [id number] [address] [place] [phone] Oct, Acquired hypothyroidism E03. 9 [facility] [address] [facility] [id number] [address] [place] [phone] Sep, Well woman exam Z01.419 ; Sy stemic lupus M32.9 ; Irregular menses N92.6 ; PTSD (post-traumatic stress disorder) F43.10 ; Social anxiety disorder F40.10 ; ADHD, predominantly inattentive type F90.0 ; Hypothyroid E03.9 and Generalized headaches R51 [facility] [address] [id number] [address] [place] [phone] August, ADHD, predominantly inattent marzena type F90.0 [facility] [address] [facility] [id number] [address] [place] [phone] August, [facility] [address] [facility] [id number] [address] [place] [phone] Jul, [facility] [address] [id number] [address] [place] [phone] Jun, [facility] [address] [facility] [id number] [address] [place] [phone] Jun, Hypothyroid E03.9 [facility] [address] [facility] [id number] [address] [place] [phone] Jun, ADHD, predominantly inattent marzena type F90.0 and Social anxiety disorder F40.10 [facility] [address] [id number] [address] [place] [phone] Jun, [facility] [address] [id number] [address] [place] [phone] Jun, [facility] [address] [id number] [address] [place] [id number] May, Dental examination Z01.20 [facility] [address] [id number] [address] [place] [phone] 14 May, 2016 ADHD, predominantly inattent marzena type F90.0 ; Recurrent major depressive disorder, in partial remission F33.41 ; Social anxiety disorder F40.10 and PTSD (post-traumatic stress disorder) F43.10 [facility] [address] [id number] [address] [place] [phone] Apr, Social anxiety disorder F40. 10 [facility] [address] [id number] [address] [place] [phone] Apr, ADHD, predominantly inattent marzena type F90.0 [facility] [address] [id number] [address] [place] [phone] Apr, [facility] [address] [id number] [address] [place] [phone] Apr, [facility] [address] [id number] [address] [place] [phone] Mar, Dental examination Z01.20 [facility] [address] [id number] [address] [place] [phone] Mar, [facility] [address] [id number] [address] [place] [phone] Feb, [facility] [address] [id number] [address] [place] [phone] Feb, [facility] [address] [id number] [address] [place] [phone] Jan, Encounter for immunization Z 23 [facility] [address] [id number] [address] [place] [phone] Jan, [facility] [address] [id number] [address] [place] [phone] Jan, [facility] [address] [id number] [address] [place] [phone] Jan, Dental examination Z01.20 [facility] [address] [id number] [address] [place] [phone] Jan, [facility] [address] [id number] [address] [place] [phone] Jan, Dental examination Z01.20 [facility] [address] [id number] [address] [place] [phone] Jan, [facility] [address] [id number] [address] [place] [phone] Dec, [facility] [address] [id number] [address] [place] [id number] Dec, Dental examination Z01.20 [facility] [address] [id number] [address] [place] [phone] Nov, [facility] [address] [id number] [address] [place] [phone] Nov, Social anxiety disorder F40. 10 ; PTSD (post-traumatic stress disorder) F43.10 and ADHD, predominantly inattentive type F90.0 [facility] [address] [id number] [address] [place] [phone] Oct, Social anxiety disorder F40. 10 [facility] [address] [id number] [address] [place] [phone] Oct, Hypothyroidism, unspecified type E03.9 [facility] [address] [id number] [address] [place] [id number] Oct, Hypothyroid E03.9 [facility] [address] [facility] [id number] [address] [place] [phone] Oct, Hypothyroid E03.9 [facility] [address] [facility] [id number] [address] [place] [phone] Sep, Hypothyroid E03.9 [facility] [address] [place] [id number] [address] [place] [phone] Sep, [facility] [address] [place] [id number] [place] [phone] Sep, ADHD, predominantly inattent marzena type F90.0 [place] [address] [place] [id number] [place] [phone] Jul, ADHD, predominantly inattent marzena type F90.0 [place] [address] [place] [id number] [address] [place] [phone] Jun, [place] [address] [place] [id number] [place] [phone] Jun, Major depressive disorder, r ecurrent episode, severe F33.2 ; ADHD, predominantly inattentive type F90.0 ; PTSD (post-traumatic stress disorder) F43.10 and Social anxiety disorder F40.10 [place] [address] [place] [id number] [address] [place] [phone] Jun, [place] [address] [place] [id number] [address] [place] [phone] May, Encounter for screening mamm ogram for breast cancer Z12.31 [facility] [address] [place] [id number] [address] [place] [phone] May, [facility] [address] [place] [id number] [address] [place] [phone] May, [facility] [address] [place] [id number] [address] [place] [phone] May, Major depressive disorder, r ecurrent episode, severe F33.2 ; PTSD (post-traumatic stress disorder) F43.10 ; Social anxiety disorder F40.10 and ADHD, predominantly inattentive type F90.0 [facility] [address] [place] [id number] [place] [phone] Apr, [facility] [address] [place] [id number] [place] [phone] Mar, [facility] [address] [id number] Mar, Major depressive disorder, r ecurrent episode, severe F33.2 ; PTSD (post-traumatic stress disorder) F43.10 ; Social anxiety disorder F40.10 and ADHD, predominantly inattentive type F90.0 [place] [address] [id number] Feb, [place] [address] [phone] Feb, [place] [address] [phone] Feb, [facility] [address] [phone] Feb, Lupus M32.9 ; Hypothyroid E0 3.9 and Irregular menses N92.6 [place] [address] [phone] Feb, Lupus M32.9 and Hypothyroid E03.9 [place] [address] [place] [id number] [place] [phone] Jan, Encounter for immunization Z 23 [facility] [address] [place] [id number] [place] [phone] 14 Jul, 2014 [facility] [address] [place] [id number] [place] [phone] Jul, [facility] [address] [place] [id number] [place] [phone] Feb, [facility] [address] [id number] [address] [place] [address], [place] [address] Feb, [facility] [address] [id number] [address] [place] [address], [place] [address] Feb, [facility] [address] [id number] [address] [place] [address], [place] [address] Feb, [facility] [address] [id number] [address] [place] [address], [place] [address] August, [facility] [address] [id number] [address] [place] [address], [place] [address] Jun, [facility] [address] [id number] [address] [place] [address], [place] [address] Jun, [facility] [address] [id number] [address] [place] [address], [place] [address] Jun, [facility] [address] [id number] [address] [place] [address], [place] [address] 16 Jun, 2011 [facility] [address] [id number] [address] [place] [address], [place] [address] May, [facility] [address] [id number] [address] [place] [address], [place] [address] May, [facility] [address] [id number] [address] [place] [address], [place] [address] May, [facility] [address] [id number] [address] [place] [address], [place] [address] May, [facility] [address] [id number] [address] [place] [address], [place] [address] Mar, [facility] [address] [id number] [address] [place] [address], [place] [address] Jan, [facility] [address] [id number] [address] [place] [address], [place] [address] Jan, [facility] [address] [id number] [address] [place] [address], [place] [address] Jan, [facility] [address] [facility] [id number] [address] [address] Jan, [facility] [address] [facility] [id number] [address] [place] [phone] Jan, [facility] [address] [facility] [id number] [address] [place] [phone] Jan, IMMUNIZATIONS No Known Immunizations SOCIAL HISTORY Never Assessed REASON FOR VISIT 90 day supply PLAN OF CARE VITAL SIGNS MEDICATIONS Medication [...]
--- OUTSIDE RECORDS SUMMARY | 2019-10-05 06:24 | XMS REPORT ---
Author Meaghan Cruz [facility] e[employer] Address Unknown Phone Unavailable Care Team Providers Care Bridge Construction Inspector Name Role Phone VIKKI DINERO CP Unavailable Allergies No Known Allergies Problems Problem Type Condition Code Onset Dates Condition Statu s Problem Screening for malignant neoplasm of the cervix V76.2 Active Problem Irregular menses N92.6 Active Problem Routine general medical examination at [facility] V70.0 Active Problem Disruption of wound, unspecified as to episode of care 674.10 Active Problem PTSD (post-traumatic stress disorder) F43.10 Active Problem Social anxiety disorder F40.10 Acti ve Problem Major depressive disorder, recurrent episode, severe F 33.2 Active Problem Hypothyroid E03.9 Active Problem Lupus M32.9 Active Problem ADHD, predominantly inattentive type F90.0 Active Problem Systemic lupus M32.9 Active Medications Medication Code System Code Instructions Start Date End Date Status Dosage ChlorproMAZINE HCl [facility] [address]-18 10 MG Orally Once a day a t HS Apr 26, 2015 1 tablet Results No Known Results Summary Purpose eClinical[employer] Submission
--- OUTSIDE RECORDS SUMMARY | 2019-10-05 06:24 | XMS REPORT ---
Author Author Meaghan WORLEY Organization [facility] Address [address] [place] [address] Care Team Providers Care Balance Wheel Hand Filer Name Role Phone HANK WORLEY Unavailable PROBLEMS Type Condition ICD9-CM Code OPS63-[place] Code Onset Dates Condition S tatus SNOMED Code Problem Hypothyroid E03.9 Active 29003495 Problem Systemic lupus M32.9 Active 32891 009 Problem Irregular menses N92.6 Active 801 41143 Problem Lupus M32.9 Active 391981856 Problem Moderate episode of recurrent major depressive disorder F33.1 Active 013453257 Problem Acquired hypothyroidism E03.9 Active 647919038 Problem Major depressive disorder, recurrent episode, severe F33.2 Active 488457254259 Problem Social anxiety disorder F40.10 Active 43083476 Problem ADHD, predominantly inattentive type F90.0 Active 61774072 Problem PTSD (post-traumatic stress disorder) F43.10 Active 64013369 ALLERGIES No Information SOCIAL HISTORY Never Assessed PLAN OF CARE VITAL SIGNS MEDICATIONS Medication Instructions Dosage Frequency Start Date End Date Duration S tatus Azithromycin 250 MG Orally Once a day 2 tablets on the fi rst day, then 1 tablet daily for 4 days 24h Jun, Jun, 5 day(s) Active RESULTS No Results PROCEDURES No Known procedures IMMUNIZATIONS No Known Immunizations MEDICAL (GENERAL) HISTORY Type Description Date Medical History Systemic lupus erythematosus, unspecifie d Medical History Hypothyroidism, unspecified Surgical History inguinal hernia repair Surgical History section Surgical History cholecystectomy Surgical History ovarian cyst resection Hospitalization History dystonia Hospitalization History pylenephritis
--- OUTSIDE RECORDS SUMMARY | 2019-10-05 06:24 | XMS REPORT ---
Author Meaghan Santos Organization [employer] Address Unknown Phone Unavailable Care Team Providers Care Certified Welding Inspector Name Role Phone TONA SETH CP Unavailable Allergies No Known Allergies Problems Problem Type Condition Code Onset Dates Condition Statu s Problem Screening for malignant neoplasm of the cervix V76.2 Active Problem Disruption of wound, unspecified as to episode of care 674.10 Active Problem Routine general medical examination at [facility] V70.0 Active Assessment Encounter for immunization Z23 A ctive Medications No Known Medications Procedures Procedure Coding System Code Date SINGLE IMMUNIZATION ADMIN CPT-4 20358 Jan FLUARIX QUAD (3 & UP)-GSK-2014 CPT-[address] 2014 Results No Known Results Immunizations Vaccine Administration Date FLUARIX QUAD (3 & UP)-GSK-2014Feb 14, 2015 Summary Purpose eClinicalWorks Submission
--- OUTSIDE RECORDS SUMMARY | 2019-10-05 06:24 | XMS REPORT ---
Author Author Meaghan WORLEY [facility] Address [address] [place] [address] Care Team Providers Care Acquisitions Analyst Name Role Phone HANK WORLEY Unavailable PROBLEMS Type Condition ICD9-CM Code TLM20-DA Code Onset Dates Condition S tatus SNOMED Code Problem Hypothyroid E03.9 Active 82443856 Problem Systemic lupus M32.9 Active 44496 009 Problem Irregular menses N92.6 Active 801 69960 Problem Lupus M32.9 Active 072007764 Problem Moderate episode of recurrent major depressive disorder F33.1 Active 658584493 Problem Acquired hypothyroidism E03.9 Active 615617453 Problem Major depressive disorder, recurrent episode, severe F33.2 Active 738572853228 Problem Social anxiety disorder F40.10 Active 27342304 Problem ADHD, predominantly inattentive type F90.0 Active 13123913 Problem PTSD (post-traumatic stress disorder) F43.10 Active 31242540 ALLERGIES Substance Reaction Event Type Date Status Stadol halucinations Drug Allergy Sep, Active SOCIAL HISTORY Never Assessed PLAN OF CARE Activity Details Follow Up 3 Months Reason:lupus VITAL SIGNS Height 66 in 2016-09-25 Weight 189.1 lbs 2016-09-25 Temperature 98.6 degrees Fahrenheit 2016-09-25 Heart Rate 68 bpm 2016-09-25 Respiratory Rate 20 2016-09-25 BMI 30.52 kg/m2 2016-09-25 Blood pressure systolic 131 mmHg 2016-09-25 Blood pressure diastolic 82 mmHg 2016-09-25 MEDICATIONS Medication Instructions Dosage Frequency Start Date End Date Duration S tatus Ddzmyxjqfa-EBWG-Dhqxmfgo 50-325-40 MG Orally every 4 hrs 1 capsule as needed 4h August, Active ChlorproMAZINE HCl 10 mg Orally Once a day 1 tablet at bedtime as n eeded 24h Apr, Active Synthroid 100 MCG Orally Once a day 1 tablet on an empty stomach in the morning 24h Jun, Active Meclizine HCl 25 MG Orally Once a day 1 tablet as needed 24h 11 Feb, 2016 Active Ultram 50 mg Orally every 6 hrs 1 tablet as needed 6h 28 Jun, 2015 Active Cryselle-28 0.3-30 MG-MCG TAKE ONE TABLET BY MOUTH ONCE DAILY Active Adderall XR 20 MG Orally In the morning for ADHD 2 capsule 26 2016 Active HydrOXYzine HCl 25 MG Orally TAke 1-2 tablets at H S for sleep and 1 additional tab during the PRN for anxiety 1 tablet Active Propranolol HCl 20 mg Orally Twice a day 1 tablet 12h Jan, Active Lamictal 200 mg Orally once a day 1 tablet 24h Mar, Active RESULTS Name Result Date Reference Range TEST, URINE (IN HOUSE) 2016-09-25 RESULTS Negative Lot # [id number] Control + Exp date CULTURE, GENITAL 2016-09-25 Genital Culture, Routine Preliminary report Result 1 PAP TEST, HPV IF ASCUS 2016-09-25 DIAGNOSIS: Specimen adequacy: Clinician provided ICD10: Performed by: . . Note: . CULTURE, GENITAL 2016-09-25 Genital Culture, Routine Final report Result 1 PDF Report 2016-09-25 PDF Report1 LCLS GC/CHLAM PROBE (STATE) 2016-09-25 CHLAMYDIA GC TRICHOMONAS (IN HOUSE) 2016-10-18 TRICHOMONAS negative Control + Lot # [id number] Exp date 09/2017 BACTERIAL VAGINOSIS (IN HOUSE) 2016-09-25 RESULTS negatove Control + Lot # [id number] Exp date 04/2017 PROCEDURES Procedure Date Ordered Result Body Site URINE TEST September 25, 2016 No Charge September 25, 2016 CULTURE, BACTERIA, OTHER September 25, 2016 TRICHOMONAS ASSAY W/OPTIC September 25, 2016 SPECIMEN HANDLING September 25, 2016 BELTRAN VAG, DNA, DIR PROBE September 25, 2016 IMMUNIZATIONS No Known Immunizations MEDICAL (GENERAL) HISTORY Type Description Date Medical History Systemic lupus erythematosus, unspecifie d Medical History Hypothyroidism, unspecified Surgical History inguinal hernia repair Surgical History section Surgical History cholecystectomy Surgical History ovarian cyst resection Hospitalization History dystonia Hospitalization History pylenephritis
--- OUTSIDE RECORDS SUMMARY | 2019-10-05 06:24 | XMS REPORT ---
Author Author Meaghan DINERO [facility] Address [address] [place] [address] Care Team Providers Care Assistant Professor Of Chemistry Name Role Phone BAR VIKKI Unavailable PROBLEMS Type Condition ICD9-CM Code CMQ10-MX Code Onset Dates Condition S tatus SNOMED Code Problem Hypothyroid E03.9 Active 78015909 Problem Social anxiety disorder F40.10 Active 66615779 Problem Systemic lupus M32.9 Active 04657 009 Problem Irregular menses N92.6 Active 801 88900 Problem Rosacea L71.9 Active 475327409 Problem Pure hypercholesterolemia E78.00 Acti ve 945279904 Problem Major depressive disorder, recurrent episode, severe F33.2 Active 725821315812 Problem PTSD (post-traumatic stress disorder) F43.10 Active 51568901 Problem Moderate episode of recurrent major depressive disorder F33.1 Active 653300539 Problem ADHD, predominantly inattentive type F90.0 Active 95239420 ALLERGIES No Information ENCOUNTERS Encounter Location Date Diagnosis [facility] [address] [facility] [id number] [address] [place] [phone] August, PTSD (post-traumatic stress disorder) F43.10 ; Moderate episode of recurrent major depressive disorder F33.1 ; ADHD, predominantly inattentive type F90.0 and Social anxiety disorder F40.10 [facility] [address] [facility] [id number] [address] [place] [phone] August, [facility] [address] [facility] [id number] [address] [place] [phone] August, [facility] [address] [facility] [id number] [address] [place] [phone] Jul, [facility] [address] [facility] [id number] [address] [place] [address] Jul, [place] [address] [facility] [id number] [address] [place] [address] Jul, Rosacea L71.9 [facility] [address] [facility] [id number] [address] [place] [phone] Jun, PTSD (post-traumatic stress disorder) F43.10 [facility] [address] [facility] [id number] [address] [place] [phone] Jun, [facility] [address] [facility] [id number] [address] [place] [phone] Jun, [facility] [address] [facility] [id number] [address] [place] [address] Jun, [facility] [address] [place] [id number] [address] [place] [phone] Jun, [facility] [address] [place] [id number] [address] [place] [phone] Apr, [facility] [address] [facility] [id number] [address] [place] [phone] Apr, Hypothyroid E03.9 ; Pure hyp ercholesterolemia E78.00 and Systemic lupus M32.9 [facility] [address] [place] [id number] [address] [place] [phone] Apr, Hypothyroid E03.9 ; Systemic lupus M32.9 and Pure hypercholesterolemia E78.00 [facility] [address] [facility] [id number] [address] [place] [phone] Apr, [facility] [address] [facility] [id number] [address] [place] [address] Mar, [facility] [address] [place] [id number] [address] [place] [phone] Mar, Pulsatile neck mass R22.1 [facility] [address] [place] [id number] [address] [place] [phone] Feb, [facility] [id number] [place] [address] Feb, Contact dermatitis and eczem a due to plant L24.7 [facility] [address] [address] Feb, Systemic lupus M32.9 [facility] [address] [place] [id number] [address] [place] [phone] Jan, [facility] [address] [address] Jan, Dental examination Z01.20 [place] [address] [address] Jan, Encounter for immunization Z 23 [place] [address] [place] [id number] [place] [phone] Dec, [place] [address] [address] Nov, Hypothyroid E03.9 [facility] [address] [address] Nov, PTSD (post-traumatic stress disorder) F43.10 ; ADHD, predominantly inattentive type F90.0 ; Social anxiety disorder F40.10 and Moderate episode of recurrent major depressive disorder F33.1 [place] [address] [address] Nov, ADHD, predominantly inattent marzena type F90.0 [facility] [address] [address] Oct, Acquired hypothyroidism E03. 9 [facility] [address] [address] Oct, ADHD, predominantly inattent marzena type F90.0 [place] [address] [place] [id number] [place] [address] Oct, Acquired hypothyroidism E03. 9 [facility] [address] [place] [id number] [place] [address] [place] [address] Sep, Well woman exam Z01.419 ; Sy stemic lupus M32.9 ; Irregular menses N92.6 ; PTSD (post-traumatic stress disorder) F43.10 ; Social anxiety disorder F40.10 ; ADHD, predominantly inattentive type F90.0 ; Hypothyroid E03.9 and Generalized headaches R51 [facility] [address] [id number] [address] [place] [phone] August, ADHD, predominantly inattent marzena type F90.0 [facility] [address] [id number] [address] [place] [phone] August, [facility] [address] [facility] [id number] [address] [place] [phone] Jul, [facility] [address] [facility] [id number] [address] [place] [phone] Jun, [facility] [address] [facility] [id number] [address] [place] [address] Jun, Hypothyroid E03.9 [facility] [address] [facility] [id number] [address] [place] [phone] Jun, ADHD, predominantly inattent marzena type F90.0 and Social anxiety disorder F40.10 [facility] [address] [facility] [id number] [address] [place] [phone] Jun, [facility] [address] [facility] [id number] [address] [place] [phone] Jun, [facility] [address] [id number] [address] [place] [id number] May, Dental examination Z01.20 [facility] [address] [facility] [id number] [address] [place] [address] May, ADHD, predominantly inattent marzena type F90.0 ; Recurrent major depressive disorder, in partial remission F33.41 ; Social anxiety disorder F40.10 and PTSD (post-traumatic stress disorder) F43.10 [facility] [address] [id number] [address] [place] [address] Apr, Social anxiety disorder F40. 10 [facility] [address] [id number] [address] [place] [address] Apr, ADHD, predominantly inattent marzena type F90.0 [facility] [address] [id number] [address] [place] [address] Apr, [facility] [address] [id number] [address] [place] [address] Apr, [facility] [address] [id number] [address] [place] [address] Mar, Dental examination Z01.20 [facility] [address] [id number] [address] [place] [phone] Mar, [facility] [address] [id number] [address] [place] [phone] Feb, [facility] [address] [id number] [address] [place] [phone] Feb, [facility] [address] [id number] [address] [place] [address] Jan, Encounter for immunization Z 23 [facility] [address] [id number] [address] [place] [phone] Jan, [facility] [address] [id number] [address] [place] [phone] Jan, [facility] [address] [id number] [address] [place] [phone] Jan, Dental examination Z01.20 [facility] [address] [id number] [address] [place] [address] Jan, [facility] [address] [id number] [address] [place] [address] Jan, Dental examination Z01.20 [facility] [address] [id number] [address] [place] [phone] Jan, [facility] [address] [id number] [address] [place] [address] Dec, [facility] [address] [id number] [address] [place] [id number] Dec, Dental examination Z01.20 [facility] [address] [id number] [address] [place] [phone] Nov, [facility] [address] [facility] [id number] [address] [place] [phone] Nov, Social anxiety disorder F40. 10 ; PTSD (post-traumatic stress disorder) F43.10 and ADHD, predominantly inattentive type F90.0 [facility] [address] [facility] [id number] [address] [place] [address] Oct, Social anxiety disorder F40. 10 [facility] [address] [facility] [id number] [address] [place] [phone] Oct, Hypothyroidism, unspecified type E03.9 [facility] [address] [id number] [address] [place] [id number] Oct, Hypothyroid E03.9 [facility] [address] [facility] [id number] [address] [place] [phone] Oct, Hypothyroid E03.9 [facility] [address] [facility] [id number] [address] [place] [phone] Sep, Hypothyroid E03.9 [facility] [address] [id number] [address] [place] [phone] Sep, [facility] [address] [facility] [id number] [address] [place] [phone] Sep, ADHD, predominantly inattent marzena type F90.0 [facility] [address] [id number] [address] [place] [phone] Jul, ADHD, predominantly inattent marzena type F90.0 [facility] [address] [id number] [address] [place] [phone] Jun, [facility] [address] [facility] [id number] [address] [place] [address] Jun, Major depressive disorder, r ecurrent episode, severe F33.2 ; ADHD, predominantly inattentive type F90.0 ; PTSD (post-traumatic stress disorder) F43.10 and Social anxiety disorder F40.10 [facility] [address] [id number] [address] [place] [phone] Jun, [facility] [address] [facility] [id number] [address] [place] [phone] May, Encounter for screening mamm ogram for breast cancer Z12.31 [facility] [address] [facility] [id number] [address] [place] [phone] 15 May, 2015 [facility] [address] [facility] [id number] [address] [place] [address] May, [facility] [address] [facility] [id number] [address] [place] [phone] May, Major depressive disorder, r ecurrent episode, severe F33.2 ; PTSD (post-traumatic stress disorder) F43.10 ; Social anxiety disorder F40.10 and ADHD, predominantly inattentive type F90.0 [facility] [address] [facility] [id number] [address] [place] [phone] Apr, [facility] [address] [facility] [id number] [address] [place] [phone] Mar, [facility] [address] [facility] [id number] [address] [place] [phone] Mar, Major depressive disorder, r ecurrent episode, severe F33.2 ; PTSD (post-traumatic stress disorder) F43.10 ; Social anxiety disorder F40.10 and ADHD, predominantly inattentive type F90.0 [facility] [address] [facility] [id number] [address] [place] [phone] Feb, [facility] [address] [id number] [address] [place] [phone] Feb, [facility] [address] [id number] [address] [place] [phone] Feb, [facility] [address] [facility] [id number] [address] [place] [phone] 04 Feb, 2015 Lupus M32.9 ; Hypothyroid E0 3.9 and Irregular menses N92.6 [facility] [address] [id number] [address] [place] [phone] 03 Feb, 2015 Lupus M32.9 and Hypothyroid E03.9 [facility] [address] [id number] [address] [place] [phone] 26 Jan, 2015 Encounter for immunization Z 23 [facility] [address] [id number] [address] [place] [id number] 14 Jul, 2014 [facility] [address] [id number] [address] [place] [phone] Jul, [facility] [address] [id number] [address] [place] [phone] Feb, [facility] [address] [id number] [address] [place] [phone] Feb, [facility] [address] [id number] [address] [place] [phone] Feb, [facility] [address] [id number] [address] [place] [phone] Feb, [facility] [address] [id number] [address] [place] [phone] August, [facility] [address] [id number] [address] [place] [phone] Jun, [facility] [address] [id number] [address] [place] [phone] Jun, [facility] [address] [id number] [address] [place] [phone] Jun, [facility] [address] [id number] [address] [place] [phone] Jun, [facility] [address] [id number] [address] [place] [phone] May, [facility] [address] [id number] [address] [place] [phone] May, [facility] [address] [id number] [address] [place] [phone] May, [facility] [address] [id number] [address] [place] [phone] May, [facility] [address] [id number] [address] [place] [phone] Mar, [facility] [address] [id number] [address] [place] [phone] Jan, [facility] [address] [id number] [address] [place] [phone] Jan, [facility] [address] [id number] [address] [place] [phone] Jan, [facility] [address] [id number] [address] [place] [phone] Jan, [facility] [address] [id number] [address] [place] [phone] Jan, [facility] [address] [id number] [address] [place] [phone] Jan, IMMUNIZATIONS No Known Immunizations SOCIAL HISTORY Never Assessed REASON FOR VISIT Concerta- 02/12 PLAN OF CARE VITAL SIGNS MEDICATIONS Medication Instructions Dosage Frequency Start Date End Date Duration S tatus Concerta 54 MG Orally Once a day for ADHD 1 tablet in the morning Jan, Active RESULTS No Results PROCEDURES No Known procedures INSTRUCTIONS MEDICATIONS ADMINISTERED No Known Medications MEDICAL (GENERAL) HISTORY Type Description Date Medical History Systemic lupus erythematosus, unspecifie d Medical History Hypothyroidism, unspecified Surgical History inguinal hernia repair Surgical History section Surgical History cholecystectomy Surgical History ovarian cyst resection Hospitalization History dystonia Hospitalization History pylenephritis
--- OUTSIDE RECORDS SUMMARY | 2019-10-05 06:24 | XMS REPORT ---
Author Author Meaghan LYNNE Organization [facility] Address [address] [place] [address] Care Team Providers Care Psychiatric Specialist Name Role Phone KELLY LYNNE Unavailable PROBLEMS Type Condition ICD9-CM Code RAS21-ZF Code Onset Dates Condition S tatus SNOMED Code Problem Routine general medical examination at [facility] y V70.0 Active 879271749 Problem Lupus M32.9 Active 906662691 Problem Irregular menses N92.6 Active 801 12038 Problem Disruption of wound, unspecified as to episode of care 674.10 Active 215017955 Problem Screening for malignant neoplasm of the cervix V76.2 Active 725349174 Problem Major depressive disorder, recurrent episode, severe F33.2 Active 386337623670 Problem PTSD (post-traumatic stress disorder) F43.10 Active 22626226 Problem Systemic lupus M32.9 Active 12115 009 Problem Hypothyroid E03.9 Active 06086613 Problem Social anxiety disorder F40.10 Active 68615663 Problem ADHD, predominantly inattentive type F90.0 Active 29382840 ALLERGIES Unknown Allergies SOCIAL HISTORY No smoking Hx information available PLAN OF CARE VITAL SIGNS MEDICATIONS Medication Instructions Dosage Frequency Start Date End Date Duration S tatus Concerta 54 MG Orally Once a day for ADHD 1 tablet in the morning Jun, Active RESULTS No Results PROCEDURES No Known procedures IMMUNIZATIONS No Known Immunizations
--- OUTSIDE RECORDS SUMMARY | 2019-10-05 06:24 | XMS REPORT ---
Author Author Meaghan ROBERTS [facility] Address [address] [place] [address] Care Team Providers Care Software Clerk Name Role Phone ARMANDOANTHONYA Unavailable PROBLEMS Type Condition ICD9-CM Code LZR35-EC Code Onset Dates Condition S tatus SNOMED Code Problem Hypothyroid E03.9 Active 90025252 Problem Social anxiety disorder F40.10 Active 13274785 Problem Systemic lupus M32.9 Active 20186 009 Problem Irregular menses N92.6 Active 801 76719 Problem Rosacea L71.9 Active 666321628 Problem Pure hypercholesterolemia E78.00 Acti ve 123625580 Problem Major depressive disorder, recurrent episode, severe F33.2 Active 128677558508 Problem PTSD (post-traumatic stress disorder) F43.10 Active 60599107 Problem Moderate episode of recurrent major depressive disorder F33.1 Active 234714711 Problem ADHD, predominantly inattentive type F90.0 Active 33225084 ALLERGIES Substance Reaction Event Type Date Status Stadol halucinations Drug Allergy Jan, Active ENCOUNTERS Encounter Location Date Diagnosis [facility] [address] [id number] [address] [place] [phone] August, PTSD (post-traumatic stress disorder) F43.10 ; Moderate episode of recurrent major depressive disorder F33.1 ; ADHD, predominantly inattentive type F90.0 and Social anxiety disorder F40.10 [facility] [address] [id number] [address] [place] [phone] August, [facility] [address] [id number] [address] [place] [phone] August, [facility] [address] [id number] [address] [place] [phone] Jul, [facility] [address] [id number] [address] [place] [phone] Jul, [facility] [address] [id number] [address] [place] [phone] Jul, Candelario L71.9 [facility] [address] [id number] [address] [place] [phone] Jun, PTSD (post-traumatic stress disorder) F43.10 [facility] [address] [id number] [address] [place] [phone] Jun, [facility] [address] [id number] [address] [place] [phone] Jun, [facility] [address] [id number] [address] [place] [phone] Jun, [facility] [address] [id number] [address] [place] [phone] Jun, [facility] [address] [id number] [address] [place] [phone] Apr, [facility] [address] [id number] [address] [place] [phone] Apr, Hypothyroid E03.9 ; Pure hyp ercholesterolemia E78.[address] M32.9 [facility] [address] [id number] [address] [place] [phone] Apr, Hypothyroid E03.9 ; Systemic lupus M32.9 and Pure hypercholesterolemia E78.00 [facility] [address] [id number] [address] [place] [phone] Apr, [facility] [address] [id number] [address] [place] [phone] Mar, [facility] [address] [id number] [address] [place] [phone] Mar, Pulsatile neck mass R22.1 [facility] [address] [id number] [address] [place] [phone] Feb, [facility] [address] [id number] [address] [place] [phone] Feb, Contact dermatitis and eczem a due to plant L24.7 [facility] [address] [place] [id number] [address] [place] [phone] Feb, Systemic lupus M32.9 [facility] [address] [id number] [address] [place] [phone] Jan, [facility] [address] [place] [id number] [address] [place] [phone] Jan, Dental examination Z01.20 [place] [address] [place] [id number] [place] [phone] 06 Jan, 2017 Encounter for immunization Z 23 [facility] [address] [place] [id number] [address] [place] [phone] Dec, [place] [address] [place] [id number] [place] [phone] Nov, Hypothyroid E03.9 [facility] [address] [place] [id number] [address] [place] [phone] Nov, PTSD (post-traumatic stress disorder) F43.10 ; ADHD, predominantly inattentive type F90.0 ; Social anxiety disorder F40.10 and Moderate episode of recurrent major depressive disorder F33.1 [place] [address] [place] [id number] [address] [place] [phone] Nov, ADHD, predominantly inattent marzena type F90.0 [facility] [address] [place] [id number] [address] [place] [phone] Oct, Acquired hypothyroidism E03. 9 [facility] [address] [place] [id number] [address] [place] [phone] Oct, ADHD, predominantly inattent marzena type F90.0 [facility] [address] [place] [id number] [address] [place] [phone] Oct, Acquired hypothyroidism E03. 9 [facility] [address] [id number] [address] [place] [phone] 06 Sep, 2016 Well woman exam Z01.419 ; Sy stemic lupus M32.9 ; Irregular menses N92.6 ; PTSD (post-traumatic stress disorder) F43.10 ; Social anxiety disorder F40.10 ; ADHD, predominantly inattentive type F90.0 ; Hypothyroid E03.[address] R51 [facility] [address] [id number] [address] [place] [phone] August, ADHD, predominantly inattent marzena type F90.0 [facility] [address] [id number] [address] [place] [phone] August, [facility] [address] [id number] [address] [place] [phone] Jul, [facility] [address] [id number] [address] [place] [phone] Jun, [facility] [address] [id number] [address] [place] [phone] Jun, Hypothyroid E03.9 [facility] [address] [id number] [address] [place] [phone] Jun, ADHD, predominantly inattent marzena type F90.0 and Social anxiety disorder F40.10 [facility] [address] [id number] [address] [place] [phone] Jun, [facility] [address] [id number] [address] [place] [phone] Jun, [facility] [address] [id number] [address] [place] [id number] May, Dental examination Z01.20 [facility] [address] [id number] [address] [place] [phone] 14 May, 2016 ADHD, predominantly inattent marzena type F90.0 ; Recurrent major depressive disorder, in partial remission F33.41 ; Social anxiety disorder F40.10 and PTSD (post-traumatic stress disorder) F43.10 [facility] [address] [id number] [address] [place] [phone] Apr, Social anxiety disorder F40. 10 [facility] [address] [id number] [address] [place] [phone] Apr, ADHD, predominantly inattent marzena type F90.0 [facility] [address] [id number] [address] [place] [phone] Apr, [facility] [address] [id number] [address] [place] [phone] Apr, [facility] [address] [id number] [address] [place] [phone] Mar, Dental examination Z01.20 [facility] [address] [id number] [address] [place] [phone] Mar, [facility] [address] [id number] [address] [place] [phone] Feb, [facility] [address] [id number] [address] [place] [phone] Feb, [facility] [address] [id number] [address] [place] [phone] Jan, Encounter for immunization Z 23 [facility] [address] [id number] [address] [place] [phone] Jan, [facility] [address] [id number] [address] [place] [phone] Jan, [facility] [address] [id number] [address] [place] [phone] Jan, Dental examination Z01.20 [facility] [address] [id number] [address] [place] [phone] Jan, [facility] [address] [id number] [address] [place] [phone] Jan, Dental examination Z01.20 [facility] [address] [id number] [address] [place] [phone] Jan, [facility] [address] [id number] [address] [place] [phone] Dec, [facility] [address] [id number] [address] [place] [id number] Dec, Dental examination Z01.20 [facility] [address] [id number] [address] [place] [phone] Nov, [facility] [address] [id number] [address] [place] [phone] Nov, Social anxiety disorder F40. 10 ; PTSD (post-traumatic stress disorder) F43.10 and ADHD, predominantly inattentive type F90.0 [facility] [address] [id number] [address] [place] [phone] Oct, Social anxiety disorder F40. 10 [facility] [address] [id number] [address] [place] [phone] Oct, Hypothyroidism, unspecified type E03.9 [facility] [address] [id number] [address] [place] [phone] Oct, Hypothyroid E03.9 [facility] [address] [id number] [address] [place] [phone] Oct, Hypothyroid E03.9 [facility] [address] [id number] [address] [place] [phone] Sep, Hypothyroid E03.9 [facility] [address] [id number] [address] [place] [phone] Sep, [facility] [address] [id number] [address] [place] [phone] Sep, ADHD, predominantly inattent marzena type F90.0 [facility] [address] [id number] [address] [place] [phone] Jul, ADHD, predominantly inattent marzena type F90.0 [facility] [address] [id number] [address] [place] [phone] Jun, [facility] [address] [id number] [address] [place] [phone] Jun, Major depressive disorder, r ecurrent episode, severe F33.2 ; ADHD, predominantly inattentive type F90.0 ; PTSD (post-traumatic stress disorder) F43.10 and Social anxiety disorder F40.10 [facility] [address] [id number] [address] [place] [phone] Jun, [facility] [address] [id number] [address] [place] [phone] May, Encounter for screening mamm ogram for breast cancer Z12.31 [facility] [address] [id number] [address] [place] [phone] May, [facility] [address] [id number] [address] [place] [phone] May, [facility] [address] [id number] [address] [place] [phone] May, Major depressive disorder, r ecurrent episode, severe F33.2 ; PTSD (post-traumatic stress disorder) F43.10 ; Social anxiety disorder F40.10 and ADHD, predominantly inattentive type F90.0 [facility] [address] [id number] [address] [place] [phone] Apr, [facility] [address] [id number] [address] [place] [phone] Mar, [facility] [address] [id number] [address] [place] [phone] Mar, Major depressive disorder, r ecurrent episode, severe F33.2 ; PTSD (post-traumatic stress disorder) F43.10 ; Social anxiety disorder F40.10 and ADHD, predominantly inattentive type F90.0 [facility] [address] [id number] [address] [place] [phone] Feb, [facility] [address] [id number] [address] [place] [phone] Feb, [facility] [address] [id number] [address] [place] [phone] Feb, [facility] [address] [id number] [address] [place] [phone] Feb, Lupus M32.9 ; Hypothyroid E0 3.[address]6 [facility] [address] [id number] [address] [place] [phone] Feb, Lupus M32.[address] [facility] [address] [id number] [address] [place] [phone] Jan, Encounter for immunization Z 23 [facility] [address] [id number] [address] [place] [phone] [address], 2014 [facility] [address] [id number] [address] [place] [phone] Jul, [facility] [address] [id number] [address] [place] [phone] Feb, [facility] [address] [id number] [address] [place] [phone] Feb, [facility] [address] [id number] [address] [place] [phone] Feb, [facility] [address] [id number] [address] [place] [phone] Feb, [facility] [address] [id number] [address] [place] [phone] August, [facility] [address] [id number] [address] [place] [phone] Jun, [facility] [address] [id number] [address] [place] [phone] Jun, [facility] [address] [id number] [address] [place] [phone] Jun, [facility] [address] [id number] [address] [place] [phone] Jun, [facility] [address] [id number] [address] [place] [phone] May, [facility] [address] [id number] [address] [place] [phone] May, [facility] [address] [id number] [address] [place] [phone] May, [facility] [address] [id number] [address] [place] [phone] May, [facility] [address] [id number] [address] [place] [phone] Mar, [facility] [address] [id number] [address] [place] [phone] Jan, [facility] [address] [id number] [address] [place] [phone] Jan, [facility] [address] [id number] [address] [place] [phone] Jan, [facility] [address] [id number] [address] [place] [phone] Jan, [facility] [address] [id number] [address] [place] [phone] Jan, [facility] [address] [id number] [address] [place] [phone] Jan, IMMUNIZATIONS No Known Immunizations SOCIAL HISTORY Never Assessed REASON FOR VISIT Dental Hygiene Recare PLAN OF CARE Activity Details Follow Up CONOR Reason: VITAL SIGNS MEDICATIONS Medication Instructions Dosage Frequency Start Date End Date Duration S tito Muniz-28 0.3-30 MG-MCG TAKE ONE TABLET BY MOUTH ONCE DAILY Active Propranolol HCl 20 mg Orally Twice a day 1 tablet 12h Jan, Active Concerta 54 MG Orally Once a day for ADHD 1 tablet in the morning Dec, Active HydrOXYzine HCl 25 MG TAKE ONE TO TWO TA BLETS BY MOUTH AT BEDTIME FOR SLEEP (MAY TAKE ONE TABLET DAILY NEEDED ANXIETY) Active Synthroid 100 MCG Orally Once a day 1 tablet on an empty stomach in the morning 24h Jun, 30 days Active Lamictal 200 MG Orally Take 1/4 tablet for 2 weeks then 1/2 tablet for 2 weeks then 1 tablet and continue 1 tablet Mar, Active Tramadol HCl 50 MG TAKE ONE TABLET BY MOUTH EVERY 6 HOURS NEE DED 10 Active Adderall XR 20 mg Orally In the morning for ADHD 2 capsule 2016 Active Ultram 50 mg Orally every 6 hrs 1 tablet as needed 6h Jun, Active RESULTS No Results PROCEDURES Procedure Date Ordered Result Body Site Periodontal maint procedures Feb 04, 2017 TOPICAL FLUORIDE VARNISH Feb 04, 2017 [employer] Employee/Board adjustment Feb 04, 2017 Billing Notes on claim Feb 04, 2017 INSTRUCTIONS MEDICATIONS ADMINISTERED No Known Medications MEDICAL (GENERAL) HISTORY Type Description Date Medical History Systemic lupus erythematosus, unspecifie d Medical History Hypothyroidism, unspecified Surgical History inguinal hernia repair Surgical History section Surgical History cholecystectomy Surgical History ovarian cyst resection Hospitalization History dystonia Hospitalization History pylenephritis
--- OUTSIDE RECORDS SUMMARY | 2019-10-05 06:24 | XMS REPORT ---
Author Meaghan Reynoso Organization [employer] Address Unknown Phone Unavailable Care Team Providers Care Engine Mechanic Name Role Phone HANK WORLEY CP Unavailable Allergies No Known Allergies Problems Problem Type Condition Code Onset Dates Condition Statu s Problem Screening for malignant neoplasm of the cervix V76.2 Active Problem Disruption of wound, unspecified as to episode of care 674.10 Active Problem Routine general medical examination at [facility] V70.0 Active Assessment Lupus M32.9 Active Assessment Hypothyroid E03.9 Active Medications No Known Medications Procedures Procedure Coding System Code Date ASSAY THYROID STIM HORMONE CPT-4 72754 Feb ASSAY OF FREE THYROXINE CPT-4 76592 Feb 22, 2015 ANTINUCLEAR ANTIBODIES CPT-4 18398 Feb 22, 2 015 MANUAL CELL COUNT, EACH CPT-4 23471 Feb 22, 2015 COMPREHEN METABOLIC PANEL CPT-4 51997 Feb VENIPUNCT, ROUTINE* CPT-4 22959 Feb 22, 2015 BLOOD TYPING, RH (D) CPT-4 63788 Feb 22, 201 5 RBC SED RATE, AUTOMATED CPT-4 60711 Feb 22, 2015 LIPID PANEL CPT-4 38132 Feb 22, 2015 C-REACTIVE PROTEIN CPT-4 40200 Feb 22, 2015 Results Name Result Date Reference Range Unit Abnormali ty Flag ROUTINE VENIPUNCTURE Summary Purpose [employer] Submission
--- OUTSIDE RECORDS SUMMARY | 2019-10-05 06:24 | XMS REPORT ---
Author Author Meaghan Kimbrough Organization [facility] Address Unknown Care Team Providers Care Fleecer Name Role Phone TONY Kimbrough Unavailable PROBLEMS Type Condition ICD9-CM Code [id number] Code Onset Dates Condition S tatus SNOMED Code Problem Hypothyroid E03.9 Active 89196949 Problem Systemic lupus M32.9 Active 89157 009 Problem Irregular menses N92.6 Active 801 27805 Problem Lupus M32.9 Active 816708038 Problem Moderate episode of recurrent major depressive disorder F33.1 Active 069256207 Problem Acquired hypothyroidism E03.9 Active 885615237 Problem Major depressive disorder, recurrent episode, severe F33.2 Active 251086394159 Problem Social anxiety disorder F40.10 Active 48726730 Problem ADHD, predominantly inattentive type F90.0 Active 85072221 Problem PTSD (post-traumatic stress disorder) F43.10 Active 95909612 ALLERGIES Substance Reaction Event Type Date Status Stadol halucinations Drug Allergy May, Active SOCIAL HISTORY Never Assessed PLAN OF CARE Activity Details Follow Up prn Reason:filling VITAL SIGNS Height 66 in 2016-06-13 Blood pressure systolic 132 mmHg 2016-06-13 Blood pressure diastolic 79 mmHg 2016-06-13 MEDICATIONS Medication Instructions Dosage Frequency Start Date End Date Duration S tatus Ultram 50 mg Orally every 6 hrs 1 tablet as needed 6h 28 Jun, 2015 Active Propranolol HCl 20 mg Orally Twice a day 1 tablet 12h Jan, Active ChlorproMAZINE HCl 10 mg Orally Once a day 1 tablet at bedtime as n eeded 24h Apr, Active Cryselle-28 0.3-30 MG-MCG TAKE ONE TABLET BY MOUTH ONCE DAILY 28 Active Lamictal 200 mg Orally once a day 1 tablet 24h Mar, Active Meclizine HCl 25 MG Orally Once a day 1 tablet as needed 24h Feb, Active HydrOXYzine HCl 25 MG Orally TAke 1-2 tablets at H S for sleep and 1 additional tab during the PRN for anxiety 1 tablet Active Focalin XR 30 MG Orally Once a day for ADHD 1 capsule in the mornin g 14 May, 2016 Jun, 28 days Active Levothyroxine Sodium 150 MCG Orally Once a day 1 tablet 24h 30 Active RESULTS No Results PROCEDURES Procedure Date Ordered Result Body Site LTD ORAL EVALUATION - PROBLEM FOCUS Jun 13, 2016 INTRAORL-PERIAPICAL 1 FILM [id number] Jun 13, 2016 Billing Notes on claim Jun 13, 2016 BITEWING - SINGLE FILM Jun 13, 2016 [employer] Employee/Board adjustment Jun 13, 2016 IMMUNIZATIONS No Known Immunizations MEDICAL (GENERAL) HISTORY Type Description Date Medical History Systemic lupus erythematosus, unspecifie d Medical History Hypothyroidism, unspecified Surgical History inguinal hernia repair Surgical History section Surgical History cholecystectomy Surgical History ovarian cyst resection Hospitalization History dystonia Hospitalization History pylenephritis
--- OUTSIDE RECORDS SUMMARY | 2019-10-05 06:24 | XMS REPORT ---
Author Author Meaghan DINERO [facility] Address [address] [place] [address] Care Team Providers Care Oceanography Professor Name Role Phone VIKKI DINERO Unavailable PROBLEMS Type Condition ICD9-CM Code [id number] Code Onset Dates Condition S tatus SNOMED Code Problem Hypothyroid E03.9 Active 88738554 Problem Social anxiety disorder F40.10 Active 24428588 Problem Systemic lupus M32.9 Active 56267 009 Problem Irregular menses N92.6 Active 801 83464 Problem Rosacea L71.9 Active 276762147 Problem Pure hypercholesterolemia E78.00 Acti ve 010886576 Problem Major depressive disorder, recurrent episode, severe F33.2 Active 024660361935 Problem PTSD (post-traumatic stress disorder) F43.10 Active 29130646 Problem Moderate episode of recurrent major depressive disorder F33.1 Active 494031595 Problem ADHD, predominantly inattentive type F90.0 Active 25801544 ALLERGIES No Information ENCOUNTERS Encounter Location Date Diagnosis [facility] [address] [facility] [id number] [address] [place] [address] Oct, [facility] [address] [facility] [id number] [address] [place] [address] Sep, [facility] [address] [facility] [id number] [address] [place] [address] Sep, Hypothyroid E03.9 [facility] [address] [facility] [id number] [address] [place] [address] Sep, [facility] [address] [facility] [id number] [address] [place] [address] Sep, [facility] [address] [facility] [id number] [address] [place] [address] August, [facility] [address] [place] [id number] [address] [place] [address] August, PTSD (post-traumatic stress disorder) F43.10 ; Moderate episode of recurrent major depressive disorder F33.1 ; ADHD, predominantly inattentive type F90.0 and Social anxiety disorder F40.10 [facility] [address] [id number] [address] [place] [address] August, [facility] [address] [id number] [address] [place] [address] August, [facility] [address] [id number] [address] [place] [address] Jul, [facility] [address] [id number] [address] [place] [address] Jul, [facility] [address] [facility] [id number] [address] [place] [address] Jul, Rosacea L71.9 [facility] [address] [facility] [id number] [address] [place] [address] Jun, PTSD (post-traumatic stress disorder) F43.10 [facility] [address] [facility] [id number] [address] [place] [address] Jun, [facility] [address] [facility] [id number] [address] [place] [address] Jun, [facility] [address] [facility] [id number] [address] [place] [address] Jun, [facility] [address] [id number] [address] [place] [address] Jun, [facility] [address] [facility] [id number] [address] [place] [address] Apr, [facility] [address] [facility] [id number] [address] [place] [address] Apr, Hypothyroid E03.9 ; Pure hyp ercholesterolemia E78.00 and Systemic lupus M32.9 [facility] [address] [facility] [id number] [address] [place] [address] Apr, Hypothyroid E03.9 ; Systemic lupus M32.9 and Pure hypercholesterolemia E78.00 [facility] [address] [facility] [id number] [address] [place] [address] Apr, [facility] [address] [place] [id number] [address] [place] [address] Mar, [facility] [address] [address] Mar, Pulsatile neck mass R22.1 [facility] [address] [place] [id number] [place] [address] Feb, [facility] [address] [place] [id number] [place] [address] Feb, Contact dermatitis and eczem a due to plant L24.7 [facility] [address] [place] [id number] [place] [address] Feb, Systemic lupus M32.9 [facility] [address] [place] [address] Jan, [facility] [address] [address] Jan, Dental examination Z01.20 [place] [address] [id number] 06 Jan, 2017 Encounter for immunization Z 23 [facility] [address] [place] [id number] [address] [place] [address] Dec, [facility] [address] [address] Nov, Hypothyroid E03.9 [facility] [address] [place] [id number] [address] [place] [address] Nov, PTSD (post-traumatic stress disorder) F43.10 ; ADHD, predominantly inattentive type F90.0 ; Social anxiety disorder F40.10 and Moderate episode of recurrent major depressive disorder F33.1 [facility] [address] [id number] [address] [place] [address] Nov, ADHD, predominantly inattent marzena type F90.0 [facility] [address] [id number] [address] [place] [address] Oct, Acquired hypothyroidism E03. 9 [facility] [address] [facility] [id number] [address] [place] [address] Oct, ADHD, predominantly inattent marzena type F90.0 [facility] [address] [id number] [address] [place] [address] Oct, Acquired hypothyroidism E03. 9 [facility] [address] [facility] [id number] [address] [place] [address] Sep, Well woman exam Z01.419 ; Sy stemic lupus M32.9 ; Irregular menses N92.6 ; PTSD (post-traumatic stress disorder) F43.10 ; Social anxiety disorder F40.10 ; ADHD, predominantly inattentive type F90.0 ; Hypothyroid E03.9 and Generalized headaches R51 [facility] [address] [id number] [address] [place] [address] August, ADHD, predominantly inattent marzena type F90.0 [facility] [address] [facility] [id number] [address] [place] [address] August, [facility] [address] [facility] [id number] [address] [place] [address] Jul, [facility] [address] [id number] [address] [place] [address] Jun, [facility] [address] [facility] [id number] [address] [place] [address] Jun, Hypothyroid E03.9 [facility] [address] [facility] [id number] [address] [place] [address] Jun, ADHD, predominantly inattent marzena type F90.0 and Social anxiety disorder F40.10 [facility] [address] [id number] [address] [place] [address] Jun, [facility] [address] [id number] [address] [place] [address] Jun, [facility] [address] [id number] [address] [place] [id number] May, Dental examination Z01.20 [facility] [address] [id number] [address] [place] [address] 14 May, 2016 ADHD, predominantly inattent marzena type F90.0 ; Recurrent major depressive disorder, in partial remission F33.41 ; Social anxiety disorder F40.10 and PTSD (post-traumatic stress disorder) F43.10 [facility] [address] [id number] [address] [place] [address] Apr, Social anxiety disorder F40. 10 [facility] [address] [id number] [address] [place] [address] Apr, ADHD, predominantly inattent marzena type F90.0 [facility] [address] [id number] [address] [place] [address] Apr, [facility] [address] [id number] [address] [place] [address] Apr, [facility] [address] [id number] [address] [place] [address] Mar, Dental examination Z01.20 [facility] [address] [id number] [address] [place] [address] Mar, [facility] [address] [id number] [address] [place] [address] Feb, [facility] [address] [id number] [address] [place] [address] Feb, [facility] [address] [id number] [address] [place] [address] Jan, Encounter for immunization Z 23 [facility] [address] [id number] [address] [place] [address] Jan, [facility] [address] [id number] [address] [place] [address] Jan, [facility] [address] [id number] [address] [place] [address] Jan, Dental examination Z01.20 [facility] [address] [id number] [address] [place] [address] Jan, [facility] [address] [id number] [address] [place] [address] Jan, Dental examination Z01.20 [facility] [address] [id number] [address] [place] [address] Jan, [facility] [address] [id number] [address] [place] [address] Dec, [facility] [address] [id number] [address] [place] [id number] Dec, Dental examination Z01.20 [facility] [address] [id number] [address] [place] [address] Nov, [facility] [address] [id number] [address] [place] [address] Nov, Social anxiety disorder F40. 10 ; PTSD (post-traumatic stress disorder) F43.10 and ADHD, predominantly inattentive type F90.0 [facility] [address] [id number] [address] [place] [address] Oct, Social anxiety disorder F40. 10 [facility] [address] [id number] [address] [place] [address] Oct, Hypothyroidism, unspecified type E03.9 [facility] [address] [id number] [address] [place] [address] Oct, Hypothyroid E03.9 [facility] [address] [facility] [id number] [address] [place] [address] Oct, Hypothyroid E03.9 [facility] [address] [facility] [id number] [address] [place] [address] Sep, Hypothyroid E03.9 [facility] [address] [place] [id number] [address] [place] [address] Sep, [facility] [address] [place] [id number] [place] [address] Sep, ADHD, predominantly inattent marzena type F90.0 [place] [address] [place] [id number] [place] [address] Jul, ADHD, predominantly inattent marzena type F90.0 [place] [address] [place] [id number] [address] [place] [address] Jun, [place] [address] [place] [id number] [place] [address] Jun, Major depressive disorder, r ecurrent episode, severe F33.2 ; ADHD, predominantly inattentive type F90.0 ; PTSD (post-traumatic stress disorder) F43.10 and Social anxiety disorder F40.10 [place] [address] [place] [id number] [address] [place] [address] Jun, [place] [address] [place] [id number] [address] [place] [address] May, Encounter for screening mamm ogram for breast cancer Z12.31 [facility] [address] [place] [id number] [address] [place] [address] May, [facility] [address] [place] [id number] [address] [place] [address] May, [facility] [address] [place] [id number] [address] [place] [address] May, Major depressive disorder, r ecurrent episode, severe F33.2 ; PTSD (post-traumatic stress disorder) F43.10 ; Social anxiety disorder F40.10 and ADHD, predominantly inattentive type F90.0 [facility] [address] [place] [id number] [place] [address] Apr, [facility] [address] [place] [id number] [place] [address] Mar, [facility] [address] [address] Mar, Major depressive disorder, r ecurrent episode, severe F33.2 ; PTSD (post-traumatic stress disorder) F43.10 ; Social anxiety disorder F40.10 and ADHD, predominantly inattentive type F90.0 [place] [address] [address] Feb, [place] [address] [address] Feb, [place] [address] [address] Feb, [facility] [address] [address] Feb, Lupus M32.9 ; Hypothyroid E0 3.9 and Irregular menses N92.6 [place] [address] [address] Feb, Lupus M32.9 and Hypothyroid E03.9 [place] [address] [place] [id number] [place] [address] Jan, Encounter for immunization Z 23 [facility] [address] [place] [id number] [place] [address] 14 Jul, 2014 [facility] [address] [place] [id number] [place] [address] Jul, [facility] [address] [place] [id number] [place] [address] Feb, [facility] [address] [id number] [address] [place] [address], [place] [address] Feb, [facility] [address] [id number] [address] [place] [address], [place] [address] Feb, [facility] [address] [id number] [address] [place] [address], [place] [address] Feb, [facility] [address] [id number] [address] [place] [address], [place] [address] August, [facility] [address] [id number] [address] [place] [address], [place] [address] Jun, [facility] [address] [id number] [address] [place] [address], [place] [address] Jun, [facility] [address] [id number] [address] [place] [address], [place] [address] Jun, [facility] [address] [id number] [address] [place] [address], [place] [address] 16 Jun, 2011 [facility] [address] [id number] [address] [place] [address], [place] [address] May, [facility] [address] [id number] [address] [place] [address], [place] [address] May, [facility] [address] [id number] [address] [place] [address], [place] [address] May, [facility] [address] [id number] [address] [place] [address], [place] [address] May, [facility] [address] [id number] [address] [place] [address], [place] [address] Mar, [facility] [address] [id number] [address] [place] [address], [place] [address] Jan, [facility] [address] [id number] [address] [place] [address], [place] [address] Jan, [facility] [address] [id number] [address] [place] [address], [place] [address] Jan, [facility] [address] [facility] [id number] [address] [place] [address] Jan, [facility] [address] [facility] [id number] [address] [place] [address] Jan, [facility] [address] [facility] [id number] [address] [place] [address] Jan, IMMUNIZATIONS No Known Immunizations SOCIAL HISTORY Never Assessed REASON FOR VISIT Concerta- 07/01/17 PLAN OF CARE VITAL SIGNS MEDICATIONS Medication [...]
--- OUTSIDE RECORDS SUMMARY | 2019-10-05 06:24 | XMS REPORT ---
Author Author Meaghan DINERO [facility] Address [address] [place] [address] Care Team Providers Care Car Unloader Name Role Phone VIKKI DINERO Unavailable PROBLEMS Type Condition ICD9-CM Code MVI07-XC Code Onset Dates Condition S tatus SNOMED Code Problem Hypothyroid E03.9 Active 26569910 Problem Systemic lupus M32.9 Active 01803 009 Problem Irregular menses N92.6 Active 801 60376 Problem Lupus M32.9 Active 882418254 Problem Moderate episode of recurrent major depressive disorder F33.1 Active 707135878 Problem Acquired hypothyroidism E03.9 Active 230539195 Problem Major depressive disorder, recurrent episode, severe F33.2 Active 769925107459 Problem Social anxiety disorder F40.10 Active 75789247 Problem ADHD, predominantly inattentive type F90.0 Active 75155664 Problem PTSD (post-traumatic stress disorder) F43.10 Active 18558955 ALLERGIES Unknown Allergies SOCIAL HISTORY No smoking Hx information available PLAN OF CARE VITAL SIGNS MEDICATIONS Medication Instructions Dosage Frequency Start Date End Date Duration S tatus Concerta 54 MG Orally Once a day for ADHD 1 tablet in the morning Jun, Active RESULTS No Results PROCEDURES No Known procedures IMMUNIZATIONS No Known Immunizations
--- OUTSIDE RECORDS SUMMARY | 2019-10-05 06:24 | XMS REPORT ---
Author Author Meaghan DINERO [facility] Address [address] [place] [address] Care Team Providers Care Defensive Secondary Coach Name Role Phone VIKKI DINERO Unavailable PROBLEMS Type Condition ICD9-CM Code TAU79-MS Code Onset Dates Condition S tatus SNOMED Code Problem Hypothyroid E03.9 Active 15173425 Problem Systemic lupus M32.9 Active 30301 009 Problem Irregular menses N92.6 Active 801 17177 Problem Lupus M32.9 Active 897979941 Problem Moderate episode of recurrent major depressive disorder F33.1 Active 846512138 Problem Acquired hypothyroidism E03.9 Active 638808206 Problem Major depressive disorder, recurrent episode, severe F33.2 Active 471188192864 Problem Social anxiety disorder F40.10 Active 45361194 Problem ADHD, predominantly inattentive type F90.0 Active 39330103 Problem PTSD (post-traumatic stress disorder) F43.10 Active 17730144 ALLERGIES Substance Reaction Event Type Date Status Stadol halucinations Drug Allergy May, Active SOCIAL HISTORY Never Assessed PLAN OF CARE Activity Details Follow Up 3 Months Reason: VITAL SIGNS Height 66 in 2016-06-05 Weight 187.5 lbs 2016-06-05 Heart Rate 80 bpm 2016-06-05 Respiratory Rate 20 2016-06-05 BMI 30.26 kg/m2 2016-06-05 MEDICATIONS Medication Instructions Dosage Frequency Start Date End Date Duration S tatus ChlorproMAZINE HCl 10 mg Orally Once a day 1 tablet at bedtime as n eeded 24h Apr, Active Cryselle-28 0.3-30 MG-MCG TAKE ONE TABLET BY MOUTH ONCE DAILY 28 Active Ultram 50 mg Orally every 6 hrs 1 tablet as needed 6h Jun, Active HydrOXYzine HCl 25 MG Orally TAke 1-2 tablets at H S for sleep and 1 additional tab during the PRN for anxiety 1 tablet Active Meclizine HCl 25 MG Orally Once a day 1 tablet as needed 24h Feb, Active Levothyroxine Sodium 150 MCG Orally Once a day 1 tablet 24h 30 Active Focalin XR 30 MG Orally Once a day for ADHD 1 capsule in the mornin g 14 May, 2016 Jun, 28 days Active Lamictal 200 mg Orally once a day 1 tablet 24h 31 Mar, 2015 Active Propranolol HCl 20 mg Orally Twice a day 1 tablet 12h 21 Jan, 2016 Active RESULTS No Results PROCEDURES No Known procedures IMMUNIZATIONS No Known Immunizations MEDICAL (GENERAL) HISTORY Type Description Date Medical History Systemic lupus erythematosus, unspecifie d Medical History Hypothyroidism, unspecified Surgical History inguinal hernia repair Surgical History section Surgical History cholecystectomy Surgical History ovarian cyst resection Hospitalization History dystonia Hospitalization History pylenephritis
--- OUTSIDE RECORDS SUMMARY | 2019-10-05 06:24 | XMS REPORT ---
Author Meaghan Cruz [facility] eClinical[employer] Address Unknown Phone Unavailable Care Team Providers Care Habilitative Interventionist Name Role Phone VIKKI DINERO CP Unavailable Allergies No Known Allergies Problems Problem Type Condition Code Onset Dates Condition Statu s Problem Screening for malignant neoplasm of the cervix V76.2 Active Problem Irregular menses N92.6 Active Problem Routine general medical examination at [facility] V70.0 Active Assessment ADHD, predominantly inattentive type F90.0 Active Problem Disruption of wound, unspecified as [...] Instructions Start Date End Date Status Dosage Concerta [facility] [address]-19 36 MG Orally Once a day for ADHD June 1 tablet in the morning Results No Known Results Summary Purpose eClinicalWorks Submission
--- OUTSIDE RECORDS SUMMARY | 2019-10-05 06:24 | XMS REPORT ---
Author Author Meaghan LYNNE Organization [facility] Address [address] [place] [address] Care Team Providers Care Mission Support Specialist Name Role Phone KELLY LYNNE Unavailable PROBLEMS Type Condition ICD9-CM Code [id number] Code Onset Dates Condition S tatus SNOMED Code Problem Hypothyroid E03.9 Active 90417533 Problem Social anxiety disorder F40.10 Active 96378217 Problem Systemic lupus M32.9 Active 76254 009 Problem Irregular menses N92.6 Active 801 86755 Problem Rosacea L71.9 Active 586431967 Problem Pure hypercholesterolemia E78.00 Acti ve 261044825 Problem Major depressive disorder, recurrent episode, severe F33.2 Active 151963928461 Problem PTSD (post-traumatic stress disorder) F43.10 Active 30169631 Problem Moderate episode of recurrent major depressive disorder F33.1 Active 393313744 Problem ADHD, predominantly inattentive type F90.0 Active 71364496 ALLERGIES Substance Reaction Event Type Date Status Stadol halucinations Drug Allergy Mar, Active ENCOUNTERS Encounter Location Date Diagnosis [place] [id number] [facility] [id number] [address] [place] [phone] Sep, [facility] [address] [facility] [id number] [address] [place] [phone] August, [facility] [address] [facility] [id number] [address] [place] [address] August, PTSD (post-traumatic stress disorder) F43.10 ; Moderate episode of recurrent major depressive disorder F33.1 ; ADHD, predominantly inattentive type F90.0 and Social anxiety disorder F40.10 [facility] [address] [facility] [id number] [address] [place] [phone] August, [facility] [address] [facility] [id number] [address] [place] [phone] August, [facility] [address] [id number] [address] [place] [phone] Jul, [facility] [address] [id number] [address] [place] [phone] Jul, [facility] [address] [id number] [address] [place] [phone] Jul, Rosacea L71.9 [facility] [address] [id number] [address] [place] [phone] Jun, PTSD (post-traumatic stress disorder) F43.10 [facility] [address] [id number] [address] [place] [phone] Jun, [facility] [address] [id number] [address] [place] [phone] Jun, [facility] [address] [id number] [address] [place] [phone] Jun, [facility] [address] [id number] [address] [place] [phone] Jun, [facility] [address] [id number] [address] [place] [phone] Apr, [facility] [address] [id number] [address] [place] [phone] Apr, Hypothyroid E03.9 ; Pure hyp ercholesterolemia E78.00 and Systemic lupus M32.9 [facility] [address] [id number] [address] [place] [phone] Apr, Hypothyroid E03.9 ; Systemic lupus M32.9 and Pure hypercholesterolemia E78.00 [facility] [address] [id number] [address] [place] [phone] Apr, [facility] [address] [id number] [address] [place] [phone] Mar, [facility] [address] [place] [id number] [address] [place] [phone] 07 Mar, 2017 Pulsatile neck mass R22.1 [facility] [address] [place] [id number] [address] [place] [phone] Feb, [facility] [address] [place] [id number] [address] [place] [phone] Feb, Contact dermatitis and eczem a due to plant L24.7 [facility] [address] [place] [id number] [place] [phone] Feb, Systemic lupus M32.9 [place] [address] [place] [id number] [address] [place] [phone] Jan, [place] [address] [place] [id number] [place] [phone] Jan, Dental examination Z01.20 [place] [address] [phone] 06 Jan, 2017 Encounter for immunization Z 23 [place] [address] [place] [id number] [address] [place] [phone] 20 Dec, 2016 [place] [address] [phone] Nov, Hypothyroid E03.9 [place] [address] [place] [id number] [address] [place] [phone] Nov, PTSD (post-traumatic stress disorder) F43.10 ; ADHD, predominantly inattentive type F90.0 ; Social anxiety disorder F40.10 and Moderate episode of recurrent major depressive disorder F33.1 [place] [address] [place] [id number] [address] [place] [phone] Nov, ADHD, predominantly inattent marzena type F90.0 [place] [address] [place] [id number] [address] [place] [phone] Oct, Acquired hypothyroidism E03. 9 [facility] [address] [place] [id number] [address] [place] [phone] Oct, ADHD, predominantly inattent marzena type F90.0 [facility] [address] [facility] [id number] [address] [place] [phone] Oct, Acquired hypothyroidism E03. 9 [facility] [address] [facility] [id number] [address] [place] [address] Sep, Well woman exam Z01.419 ; Sy stemic lupus M32.9 ; Irregular menses N92.6 ; PTSD (post-traumatic stress disorder) F43.10 ; Social anxiety disorder F40.10 ; ADHD, predominantly inattentive type F90.0 ; Hypothyroid E03.9 and Generalized headaches R51 [facility] [address] [id number] [address] [place] [phone] August, ADHD, predominantly inattent marzena type F90.0 [facility] [address] [facility] [id number] [address] [place] [phone] August, [facility] [address] [id number] [address] [place] [phone] Jul, [facility] [address] [facility] [id number] [address] [place] [phone] Jun, [facility] [address] [facility] [id number] [address] [place] [phone] Jun, Hypothyroid E03.9 [facility] [address] [facility] [id number] [address] [place] [phone] Jun, ADHD, predominantly inattent marzena type F90.0 and Social anxiety disorder F40.10 [facility] [address] [facility] [id number] [address] [place] [phone] Jun, [facility] [address] [facility] [id number] [address] [place] [phone] Jun, [facility] [address] [id number] [address] [place] [id number] May, Dental examination Z01.20 [facility] [address] [id number] [address] [place] [phone] 14 May, 2016 ADHD, predominantly inattent marzena type F90.0 ; Recurrent major depressive disorder, in partial remission F33.41 ; Social anxiety disorder F40.10 and PTSD (post-traumatic stress disorder) F43.10 [facility] [address] [id number] [address] [place] [phone] Apr, Social anxiety disorder F40. 10 [facility] [address] [id number] [address] [place] [phone] Apr, ADHD, predominantly inattent marzena type F90.0 [facility] [address] [id number] [address] [place] [phone] Apr, [facility] [address] [id number] [address] [place] [phone] Apr, [facility] [address] [id number] [address] [place] [phone] Mar, Dental examination Z01.20 [facility] [address] [id number] [address] [place] [phone] Mar, [facility] [address] [id number] [address] [place] [phone] Feb, [facility] [address] [id number] [address] [place] [phone] Feb, [facility] [address] [id number] [address] [place] [phone] Jan, Encounter for immunization Z 23 [facility] [address] [id number] [address] [place] [phone] Jan, [facility] [address] [id number] [address] [place] [phone] Jan, [facility] [address] [id number] [address] [place] [address] Jan, Dental examination Z01.20 [facility] [address] [id number] [address] [place] [phone] Jan, [facility] [address] [id number] [address] [place] [phone] 19 Jan, 2016 Dental examination Z01.20 [facility] [address] [id number] [address] [place] [phone] 13 Jan, 2016 [facility] [address] [id number] [address] [place] [phone] 16 Dec, 2015 [facility] [address] [id number] [address] [place] [id number] 16 Dec, 2015 Dental examination Z01.20 [facility] [address] [id number] [address] [place] [phone] 31 Nov, 2015 [facility] [address] [id number] [address] [place] [phone] Nov, Social anxiety disorder F40. 10 ; PTSD (post-traumatic stress disorder) F43.10 and ADHD, predominantly inattentive type F90.0 [facility] [address] [id number] [address] [place] [phone] Oct, Social anxiety disorder F40. 10 [facility] [address] [id number] [address] [place] [phone] Oct, Hypothyroidism, unspecified type E03.9 [facility] [address] [id number] [address] [place] [phone] Oct, Hypothyroid E03.9 [facility] [address] [id number] [address] [place] [phone] Oct, Hypothyroid E03.9 [facility] [address] [id number] [address] [place] [phone] 17 Sep, 2015 Hypothyroid E03.9 [facility] [address] [id number] [address] [place] [phone] 14 Sep, 2015 [facility] [address] [id number] [address] [place] [phone] Sep, ADHD, predominantly inattent marzena type F90.0 [facility] [address] [id number] [address] [place] [phone] Jul, ADHD, predominantly inattent marezna type F90.0 [facility] [address] [id number] [address] [place] [phone] Jun, [facility] [address] [facility] [id number] [address] [place] [phone] Jun, Major depressive disorder, r ecurrent episode, severe F33.2 ; ADHD, predominantly inattentive type F90.0 ; PTSD (post-traumatic stress disorder) F43.10 and Social anxiety disorder F40.10 [facility] [address] [facility] [id number] [address] [place] [phone] Jun, [facility] [address] [facility] [id number] [address] [place] [phone] May, Encounter for screening mamm ogram for breast cancer Z12.31 [facility] [address] [id number] [address] [place] [phone] 15 May, 2015 [facility] [address] [facility] [id number] [address] [place] [phone] May, [facility] [address] [id number] [address] [place] [phone] May, Major depressive disorder, r ecurrent episode, severe F33.2 ; PTSD (post-traumatic stress disorder) F43.10 ; Social anxiety disorder F40.10 and ADHD, predominantly inattentive type F90.0 [facility] [address] [facility] [id number] [address] [place] [phone] Apr, [facility] [address] [facility] [id number] [address] [place] [phone] Mar, [facility] [address] [facility] [id number] [address] [place] [phone] Mar, Major depressive disorder, r ecurrent episode, severe F33.2 ; PTSD (post-traumatic stress disorder) F43.10 ; Social anxiety disorder F40.10 and ADHD, predominantly inattentive type F90.0 [facility] [address] [place] [id number] [address] [place] [phone] Feb, [facility] [address] [place] [id number] [place] [phone] Feb, [facility] [address] [place] [id number] [place] [phone] Feb, [facility] [address] [id number] Feb, Lupus M32.9 ; Hypothyroid E0 3.9 and Irregular menses N92.6 [facility] [address] [phone] Feb, Lupus M32.9 and Hypothyroid E03.9 [facility] [address] [place] [id number] [address] [place] [phone] Jan, Encounter for immunization Z 23 [facility] [address] [id number] Jul, [facility] [address] [place] [id number] [place] [phone] Jul, [facility] [address] [place] [id number] [address] [place] [phone] Feb, [facility] [address] [place] [id number] [place] [phone] Feb, [facility] [address] [id number] Feb, [facility] [address] [place] [id number] [place] [phone] Feb, [facility] [address] [phone] August, [facility] [address] [id number] [address] [place] [address], [place] [phone] Jun, [facility] [address] [id number] [address] [place] [address], [place] [id number] Jun, [facility] [address] [id number] [address] [place] [address], [place] [phone] Jun, [facility] [address] [id number] [address] [place] [address], [place] [id number] Jun, [facility] [address] [id number] [address] [place] [address], [place] [id number] May, [facility] [address] [id number] [address] [place] [address], [place] [id number] May, [facility] [address] [id number] [address] [place] [address], [place] [id number] May, [facility] [address] [id number] [address] [place] [phone] May, [facility] [address] [id number] [address] [place] [phone] Mar, [facility] [address] [id number] [address] [place] [phone] Jan, [facility] [address] [id number] [address] [place] [phone] Jan, [facility] [address] [id number] [address] [place] [phone] Jan, [facility] [address] [id number] [address] [place] [phone] Jan, [facility] [address] [id number] [address] [place] [phone] Jan, [facility] [address] [id number] [address] [place] [phone] Jan, IMMUNIZATIONS No Known Immunizations SOCIAL HISTORY Never Assessed REASON FOR VISIT Lump on neck- right sided neck, pulsating- Ashley Kruger RN PLAN OF CARE Activity Details Follow Up prn Reason: VITAL SIGNS Height 66 in 2017-03-28 Weight 159 lbs 2017-03-28 Temperature 98.2 degrees Fahrenheit 2017-03-28 Heart Rate 72 bpm 2017-03-28 Respiratory Rate 18 2017-03-28 BMI 25.66 kg/m2 2017-03-28 Blood pressure systolic 122 mmHg 2017-03-28 Blood pressure diastolic 82 mmHg 2017-03-28 MEDICATIONS Medication Instructions Dosage Frequency Start Date End Date Duration S tatus Synthroid 100 MCG Orally Once a day 1 tablet on an empty stomach in the morning 24h Jun, 30 days Active Lamictal 200 mg Orally Once a day 1 tablet 24h Mar, Active Tramadol HCl 50 MG TAKE ONE TABLET BY MOUTH EVERY 6 HOURS NEE DED 10 Active HydrOXYzine HCl 25 MG TAKE ONE TO TWO TA BLETS BY MOUTH AT BEDTIME FOR SLEEP (MAY TAKE ONE TABLET DAILY NEEDED ANXIETY) Active Concerta 54 MG Orally Once a day for ADHD 1 tablet in the morning Feb, Active Cryselle-28 0.3-30 MG-MCG TAKE ONE TABLET BY MOUTH ONCE DAILY Active Propranolol HCl 20 mg Orally Twice a day 1 tablet 12h Jan, Active RESULTS Name Result Date Reference Range CT Scan : Neck Soft Tissue w/ Contrast 2017-03-22 1 PROCEDURES No Known procedures INSTRUCTIONS MEDICATIONS ADMINISTERED No Known Medications MEDICAL (GENERAL) HISTORY Type Description Date Medical History Systemic lupus erythematosus, unspecifie d Medical History Hypothyroidism, unspecified Surgical History inguinal hernia repair Surgical History section Surgical History cholecystectomy Surgical History ovarian cyst resection Hospitalization History dystonia Hospitalization History pylenephritis
--- OUTSIDE RECORDS SUMMARY | 2019-10-05 06:25 | XMS REPORT ---
Author Author Meaghan LYNNE Organization [facility] Address [address] [place] [address] Care Team Providers Care Compo Caster Name Role Phone KELLY LYNNE Unavailable PROBLEMS Type Condition ICD9-CM Code [id number] Code Onset Dates Condition S tatus SNOMED Code Problem Hypothyroid E03.9 Active 74823826 Problem Social anxiety disorder F40.10 Active 82228109 Problem Systemic lupus M32.9 Active 60428 009 Problem Irregular menses N92.6 Active 801 75316 Problem Rosacea L71.9 Active 078989884 Problem Pure hypercholesterolemia E78.00 Acti ve 559495428 Problem Major depressive disorder, recurrent episode, severe F33.2 Active [id number] Problem PTSD (post-traumatic stress disorder) F43.10 Active 31695183 Problem Moderate episode of recurrent major depressive disorder F33.1 Active 098881579 Problem ADHD, predominantly inattentive type F90.0 Active 22036261 ALLERGIES No Information ENCOUNTERS Encounter Location Date Diagnosis [place] [id number] [facility] [id number] [address] [place] [phone] August, [facility] [address] [place] [id number] [address] [place] [phone] August, PTSD (post-traumatic stress disorder) F43.10 ; Moderate episode of recurrent major depressive disorder F33.1 ; ADHD, predominantly inattentive type F90.0 and Social anxiety disorder F40.10 [facility] [address] [facility] [id number] [address] [place] [phone] August, [facility] [address] [place] [id number] [address] [place] [phone] August, [facility] [address] [facility] [id number] [address] [place] [phone] Jul, [place] [address] [id number] [address] [place] [phone] Jul, [facility] [address] [facility] [id number] [address] [place] [phone] Jul, Candelario L71.9 [facility] [address] [facility] [id number] [address] [place] [phone] Jun, PTSD (post-traumatic stress disorder) F43.10 [facility] [address] [id number] [address] [place] [phone] Jun, [facility] [address] [id number] [address] [place] [phone] Jun, [facility] [address] [facility] [id number] [address] [place] [phone] Jun, [facility] [address] [facility] [id number] [address] [place] [phone] Jun, [facility] [address] [facility] [id number] [address] [place] [phone] Apr, [facility] [address] [facility] [id number] [address] [place] [phone] Apr, Hypothyroid E03.9 ; Pure hyp ercholesterolemia E78.00 and Systemic lupus M32.9 [facility] [address] [facility] [id number] [address] [place] [phone] Apr, Hypothyroid E03.9 ; Systemic lupus M32.9 and Pure hypercholesterolemia E78.00 [facility] [address] [facility] [id number] [address] [place] [phone] Apr, [facility] [address] [facility] [id number] [address] [place] [phone] Mar, [facility] [address] [facility] [id number] [address] [place] [phone] Mar, Pulsatile neck mass R22.1 [facility] [address] [place] [id number] [address] [place] [phone] Feb, [facility] [address] [phone] Feb, Contact dermatitis and eczem a due to plant L24.7 [facility] [address] [place] [id number] [address] [place] [phone] Feb, Systemic lupus M32.9 [facility] [address] [address] Jan, [place] [address] [phone] Jan, Dental examination Z01.20 [place] [address] [phone] 06 Jan, 2017 Encounter for immunization Z 23 [place] [address] [address] Dec, [place] [address] [address] Nov, Hypothyroid E03.9 [place] [address] [address] Nov, PTSD (post-traumatic stress disorder) F43.10 ; ADHD, predominantly inattentive type F90.0 ; Social anxiety disorder F40.10 and Moderate episode of recurrent major depressive disorder F33.1 [place] [address] [place] [id number] [address] [place] [phone] Nov, ADHD, predominantly inattent marzena type F90.0 [place] [address] [place] [id number] [place] [phone] Oct, Acquired hypothyroidism E03. 9 [facility] [address] [place] [id number] [place] [phone] Oct, ADHD, predominantly inattent marzena type F90.0 [place] [address] [address] Oct, Acquired hypothyroidism E03. 9 [facility] [address] [id number] [address] [place] [phone] Sep, Well woman exam Z01.419 ; Sy stemic lupus M32.9 ; Irregular menses N92.6 ; PTSD (post-traumatic stress disorder) F43.10 ; Social anxiety disorder F40.10 ; ADHD, predominantly inattentive type F90.0 ; Hypothyroid E03.9 and Generalized headaches R51 [facility] [address] [id number] [address] [place] [phone] August, ADHD, predominantly inattent marzena type F90.0 [facility] [address] [id number] [address] [place] [phone] August, [facility] [address] [facility] [id number] [address] [place] [phone] Jul, [facility] [address] [id number] [address] [place] [phone] Jun, [facility] [address] [id number] [address] [place] [phone] Jun, Hypothyroid E03.9 [facility] [address] [id number] [address] [place] [phone] Jun, ADHD, predominantly inattent marzena type F90.0 and Social anxiety disorder F40.10 [facility] [address] [id number] [address] [place] [phone] Jun, [facility] [address] [id number] [address] [place] [id number] Jun, [facility] [address] [id number] [address] [place] [id number] 22 May, 2016 Dental examination Z01.20 [facility] [address] [id number] [address] [place] [phone] 14 May, 2016 ADHD, predominantly inattent marzena type F90.0 ; Recurrent major depressive disorder, in partial remission F33.41 ; Social anxiety disorder F40.10 and PTSD (post-traumatic stress disorder) F43.10 [facility] [address] [id number] [address] [place] [phone] Apr, Social anxiety disorder F40. 10 [facility] [address] [id number] [address] [place] [phone] Apr, ADHD, predominantly inattent marzena type F90.0 [facility] [address] [id number] [address] [place] [phone] Apr, [facility] [address] [id number] [address] [place] [phone] Apr, [facility] [address] [id number] [address] [place] [phone] Mar, Dental examination Z01.20 [facility] [address] [id number] [address] [place] [phone] Mar, [facility] [address] [id number] [address] [place] [phone] Feb, [facility] [address] [id number] [address] [place] [phone] Feb, [facility] [address] [id number] [address] [place] [phone] Jan, Encounter for immunization Z 23 [facility] [address] [id number] [address] [place] [phone] Jan, [facility] [address] [id number] [address] [place] [phone] Jan, [facility] [address] [id number] [address] [place] [phone] Jan, Dental examination Z01.20 [facility] [address] [id number] [address] [place] [phone] Jan, [facility] [address] [id number] [address] [place] [id number] 19 Jan, 2016 Dental examination Z01.20 [facility] [address] [id number] [address] [place] [phone] 13 Jan, 2016 [facility] [address] [id number] [address] [place] [phone] 16 Dec, 2015 [facility] [address] [id number] [address] [place] [id number] Dec, Dental examination Z01.20 [facility] [address] [id number] [address] [place] [phone] Nov, [facility] [address] [id number] [address] [place] [phone] Nov, Social anxiety disorder F40. 10 ; PTSD (post-traumatic stress disorder) F43.10 and ADHD, predominantly inattentive type F90.0 [facility] [address] [id number] [address] [place] [phone] Oct, Social anxiety disorder F40. 10 [facility] [address] [id number] [address] [place] [phone] Oct, Hypothyroidism, unspecified type E03.9 [facility] [address] [id number] [address] [place] [id number] Oct, Hypothyroid E03.9 [facility] [address] [id number] [address] [place] [phone] Oct, Hypothyroid E03.9 [facility] [address] [id number] [address] [place] [phone] Sep, Hypothyroid E03.9 [facility] [address] [id number] [address] [place] [phone] Sep, [facility] [address] [id number] [address] [place] [phone] Sep, ADHD, predominantly inattent marzena type F90.0 [facility] [address] [id number] [address] [place] [id number] Jul, ADHD, predominantly inattent marzena type F90.0 [facility] [address] [facility] [id number] [address] [place] [phone] Jun, [facility] [address] [facility] [id number] [address] [place] [phone] Jun, Major depressive disorder, r ecurrent episode, severe F33.2 ; ADHD, predominantly inattentive type F90.0 ; PTSD (post-traumatic stress disorder) F43.10 and Social anxiety disorder F40.10 [facility] [address] [facility] [id number] [address] [place] [phone] Jun, [facility] [address] [facility] [id number] [address] [place] [phone] May, Encounter for screening mamm ogram for breast cancer Z12.31 [facility] [address] [facility] [id number] [address] [place] [phone] 15 May, 2015 [facility] [address] [facility] [id number] [address] [place] [phone] May, [facility] [address] [facility] [id number] [address] [place] [phone] May, Major depressive disorder, r ecurrent episode, severe F33.2 ; PTSD (post-traumatic stress disorder) F43.10 ; Social anxiety disorder F40.10 and ADHD, predominantly inattentive type F90.0 [facility] [address] [facility] [id number] [address] [place] [phone] Apr, [facility] [address] [facility] [id number] [address] [place] [phone] Mar, [facility] [address] [facility] [id number] [address] [place] [phone] Mar, Major depressive disorder, r ecurrent episode, severe F33.2 ; PTSD (post-traumatic stress disorder) F43.10 ; Social anxiety disorder F40.10 and ADHD, predominantly inattentive type F90.0 [facility] [address] [id number] [address] [place] [phone] Feb, [facility] [address] [id number] [address] [place] [phone] Feb, [facility] [address] [facility] [id number] [address] [place] [phone] Feb, [facility] [address] [id number] [address] [place] [phone] Feb, Lupus M32.9 ; Hypothyroid E0 3.9 and Irregular menses N92.6 [facility] [address] [facility] [id number] [address] [place] [phone] Feb, Lupus M32.9 and Hypothyroid E03.9 [facility] [address] [facility] [id number] [address] [place] [phone] Jan, Encounter for immunization Z 23 [facility] [address] [id number] [address] [place] [phone] 14 Jul, 2014 [facility] [address] [id number] [address] [place] [phone] Jul, [facility] [address] [facility] [id number] [address] [place] [phone] Feb, [facility] [address] [id number] [address] [place] [phone] Feb, [facility] [address] [id number] [address] [place] [phone] Feb, [facility] [address] [id number] [address] [place] [phone] Feb, [facility] [address] [facility] [id number] [address] [place] [phone] August, [facility] [address] [facility] [id number] [address] [place] [phone] Jun, [facility] [address] [id number] [address] [place] [phone] Jun, [facility] [address] [id number] [address] [place] [phone] Jun, [facility] [address] [id number] [address] [place] [phone] Jun, [facility] [address] [id number] [address] [place] [phone] May, [facility] [address] [id number] [address] [place] [phone] May, [facility] [address] [id number] [address] [place] [phone] May, [facility] [address] [id number] [address] [place] [phone] May, [facility] [address] [id number] [address] [place] [phone] Mar, [facility] [address] [id number] [address] [place] [phone] Jan, [facility] [address] [id number] [address] [place] [phone] Jan, [facility] [address] [id number] [address] [place] [phone] Jan, [facility] [address] [id number] [address] [place] [phone] Jan, [facility] [address] [id number] [address] [place] [phone] Jan, [facility] [address] [id number] [address] [place] [phone] Jan, IMMUNIZATIONS No Known Immunizations SOCIAL HISTORY Never Assessed REASON FOR VISIT PA CT Scan neck soft tissue w/contrast PLAN OF CARE VITAL SIGNS MEDICATIONS Unknown [...]
--- OUTSIDE RECORDS SUMMARY | 2019-10-05 06:25 | XMS REPORT ---
Author Author Meaghan DINERO [facility] [place] eClinicalWorks Address Unknown Phone Unavailable Care Team Providers Care Lugger Name Role Phone VIKKI DINERO CP Unavailable Allergies No Known Allergies Problems Problem Type Condition Code Onset Dates Condition Statu s Problem Routine general medical examination at [facility] V70.0 Active Problem Lupus M32.9 Active Problem Irregular menses N92.6 Active Problem Disruption of wound, unspecified as to episode of care 674.10 Active Problem Screening for malignant neoplasm of the cervix V76.2 Active Problem Major depressive disorder, recurrent episode, severe F 33.2 Active Problem PTSD (post-traumatic stress disorder) F43.10 Active Problem Dental examination Z01.20 Active Problem Systemic lupus M32.9 Active Problem Hypothyroid E03.9 Active Problem Social anxiety disorder F40.10 Acti ve Problem ADHD, predominantly inattentive type F90.0 Active Medications Medication Code System Code Instructions Start Date End Date Status Dosage Concerta [facility] [address]-94 54 MG Orally Once a day for ADHD June 1 tablet in the morning Results No Known Results Summary Purpose eClinicalWorks Submission
--- OUTSIDE RECORDS SUMMARY | 2019-10-05 06:25 | XMS REPORT ---
Author Meaghan Reynoso [facility] eClinicalWorks Address Unknown Phone Unavailable Care Team Providers Care Vegetable Vendor Name Role Phone HANK WORLEY CP Unavailable Allergies No Known Allergies Problems Problem Type Condition Code Onset Dates Condition Statu s Problem Routine general medical examination at [facility] V70.0 Active Problem Lupus M32.9 Active Problem [...] Instructions Start Date End Date Status Dosage Levothyroxine Sodium [facility] [id number] 150 MCG Orally Once a day 1 tablet Results No Known Results Summary Purpose eClinicalWorks Submission
--- OUTSIDE RECORDS SUMMARY | 2019-10-05 06:25 | XMS REPORT ---
Author Author Meaghan Allen Organization [facility] Address [address] [place] [address] Care Team Providers Care Detective Supervisor Name Role Phone HANK Allen Unavailable PROBLEMS Type Condition ICD9-CM Code [id number] Code Onset Dates Condition S tatus SNOMED Code Problem Hypothyroid E03.9 Active 17154113 Problem Social anxiety disorder F40.10 Active 93417968 Problem Systemic lupus M32.9 Active 59359 009 Problem Irregular menses N92.6 Active 801 25960 Problem Rosacea L71.9 Active 278868739 Problem Pure hypercholesterolemia E78.00 Acti ve 227769129 Problem Major depressive disorder, recurrent episode, severe F33.2 Active [id number] Problem PTSD (post-traumatic stress disorder) F43.10 Active 77626284 Problem Moderate episode of recurrent major depressive disorder F33.1 Active 196319267 Problem ADHD, predominantly inattentive type F90.0 Active 35037964 ALLERGIES No Information ENCOUNTERS Encounter Location Date Diagnosis [facility] [address] [id number] [address] [place] [phone] 16 Jul, 2017 [facility] [address] [facility] [id number] [address] [place] [phone] 13 Jul, 2017 [facility] [address] [facility] [id number] [address] [place] [phone] Jul, Rosacea L71.9 [facility] [address] [facility] [id number] [address] [place] [phone] Jun, PTSD (post-traumatic stress disorder) F43.10 [facility] [address] [facility] [id number] [address] [place] [phone] Jun, [facility] [address] [id number] [address] [place] [phone] Jun, [facility] [address] [id number] [address] [place] [phone] Jun, [facility] [address] [facility] [id number] [address] [place] [phone] Jun, [facility] [address] [id number] [address] [place] [phone] Apr, [facility] [id number] [place] [phone] Apr, Hypothyroid E03.9 ; Pure hyp ercholesterolemia E78.00 and Systemic lupus M32.9 [facility] [address] [facility] [id number] [address] [place] [phone] Apr, Hypothyroid E03.9 ; Systemic lupus M32.9 and Pure hypercholesterolemia E78.00 [facility] [address] [id number] [address] [place] [phone] Apr, [facility] [address] [id number] [address] [place] [phone] Mar, [facility] [id number] [place] [phone] Mar, Pulsatile neck mass R22.1 [facility] [id number] [place] [phone] Feb, [facility] [id number] [place] [phone] Feb, Contact dermatitis and eczem a due to plant L24.7 [facility] [address] [id number] [address] [place] [phone] Feb, Systemic lupus M32.9 [facility] [address] [facility] [id number] [address] [place] [phone] Jan, [facility] [address] [id number] [address] [place] [phone] Jan, Dental examination Z01.20 [facility] [id number] [place] [phone] 06 Jan, 2017 Encounter for immunization Z 23 [facility] [address] [facility] [id number] [address] [place] [phone] 20 Dec, 2016 [facility] [address] [id number] [address] [place] [phone] Nov, Hypothyroid E03.9 [facility] [address] [id number] [address] [place] [phone] Nov, PTSD (post-traumatic stress disorder) F43.10 ; ADHD, predominantly inattentive type F90.0 ; Social anxiety disorder F40.10 and Moderate episode of recurrent major depressive disorder F33.1 [address] [phone] Nov, ADHD, predominantly inattent marzena type F90.0 [place] [address] [id number] [address] [place] [phone] Oct, Acquired hypothyroidism E03. 9 [place] [address] [phone] Oct, ADHD, predominantly inattent marzena type F90.0 [facility] [address] [id number] [address] [place] [phone] Oct, Acquired hypothyroidism E03. 9 [address] [address] [address] Sep, Well woman exam Z01.419 ; Sy stemic lupus M32.9 ; Irregular menses N92.6 ; PTSD (post-traumatic stress disorder) F43.10 ; Social anxiety disorder F40.10 ; ADHD, predominantly inattentive type F90.0 ; Hypothyroid E03.9 and Generalized headaches R51 [facility] [address] [id number] [address] [place] [phone] August, ADHD, predominantly inattent marzena type F90.0 [facility] [address] [id number] [address] [place] [phone] August, [facility] [address] [id number] [address] [place] [phone] Jul, [facility] [address] [id number] [address] [place] [phone] Jun, [facility] [address] [id number] [address] [place] [phone] Jun, Hypothyroid E03.9 [facility] [address] [id number] [address] [place] [phone] Jun, ADHD, predominantly inattent marzena type F90.0 and Social anxiety disorder F40.10 [facility] [address] [id number] [address] [place] [phone] Jun, [facility] [address] [id number] [address] [place] [phone] Jun, [facility] [address] [id number] [address] [place] [phone] May, Dental examination Z01.20 [facility] [address] [facility] [id number] [address] [place] [phone] May, ADHD, predominantly inattent marzena type F90.0 ; Recurrent major depressive disorder, in partial remission F33.41 ; Social anxiety disorder F40.10 and PTSD (post-traumatic stress disorder) F43.10 [facility] [address] [id number] [address] [place] [phone] Apr, Social anxiety disorder F40. 10 [facility] [address] [id number] [address] [place] [phone] Apr, ADHD, predominantly inattent marzena type F90.0 [facility] [address] [id number] [address] [place] [phone] Apr, [facility] [address] [id number] [address] [place] [phone] Apr, [facility] [address] [id number] [address] [place] [phone] Mar, Dental examination Z01.20 [facility] [address] [id number] [address] [place] [phone] Mar, [facility] [address] [id number] [address] [place] [phone] Feb, [facility] [address] [id number] [address] [place] [phone] Feb, [facility] [address] [id number] [address] [place] [phone] Jan, Encounter for immunization Z 23 [facility] [address] [id number] [address] [place] [phone] Jan, [facility] [address] [id number] [address] [place] [phone] Jan, [facility] [address] [id number] [address] [place] [phone] Jan, Dental examination Z01.20 [facility] [address] [id number] [address] [place] [phone] Jan, [facility] [address] [id number] [address] [place] [phone] Jan, Dental examination Z01.20 [facility] [address] [id number] [address] [place] [phone] Jan, [facility] [address] [id number] [address] [place] [phone] Dec, [facility] [address] [id number] [address] [place] [address] [phone] Dec, Dental examination Z01.20 [facility] [address] [id number] [address] [place] [phone] Nov, [facility] [address] [id number] [address] [place] [phone] Nov, Social anxiety disorder F40. 10 ; PTSD (post-traumatic stress disorder) F43.10 and ADHD, predominantly inattentive type F90.0 [facility] [address] [facility] [id number] [address] [place] [phone] Oct, Social anxiety disorder F40. 10 [facility] [address] [facility] [id number] [address] [place] [phone] Oct, Hypothyroidism, unspecified type E03.9 [facility] [address] [id number] [address] [place] [phone] Oct, Hypothyroid E03.9 [facility] [address] [facility] [id number] [address] [place] [phone] Oct, Hypothyroid E03.9 [facility] [address] [facility] [id number] [address] [place] [phone] Sep, Hypothyroid E03.9 [facility] [address] [id number] [address] [place] [phone] Sep, [facility] [address] [facility] [id number] [address] [place] [phone] Sep, ADHD, predominantly inattent marzena type F90.0 [facility] [address] [facility] [id number] [address] [place] [phone] Jul, ADHD, predominantly inattent marzena type F90.0 [facility] [address] [facility] [id number] [address] [place] [phone] Jun, [facility] [address] [facility] [id number] [address] [place] [phone] 24 Jun, 2015 Major depressive disorder, r ecurrent episode, severe F33.2 ; ADHD, predominantly inattentive type F90.0 ; PTSD (post-traumatic stress disorder) F43.10 and Social anxiety disorder F40.10 [facility] [address] [facility] [id number] [address] [place] [phone] Jun, [facility] [address] [facility] [id number] [address] [place] [phone] May, Encounter for screening mamm ogram for breast cancer Z12.31 [facility] [address] [facility] [id number] [address] [place] [phone] 15 May, 2015 [facility] [address] [id number] [address] [place] [phone] May, [facility] [address] [id number] [address] [place] [phone] May, Major depressive disorder, r ecurrent episode, severe F33.2 ; PTSD (post-traumatic stress disorder) F43.10 ; Social anxiety disorder F40.10 and ADHD, predominantly inattentive type F90.0 [place] [address] [id number] [address] [place] [phone] Apr, [facility] [address] [id number] [address] [place] [phone] Mar, [facility] [id number] [place] [phone] Mar, Major depressive disorder, r ecurrent episode, severe F33.2 ; PTSD (post-traumatic stress disorder) F43.10 ; Social anxiety disorder F40.10 and ADHD, predominantly inattentive type F90.0 [facility] [address] [id number] [address] [place] [phone] Feb, [facility] [address] [id number] [address] [place] [phone] Feb, [place] [address] [phone] Feb, [facility] [address] [id number] [address] [place] [phone] Feb, Lupus M32.9 ; Hypothyroid E0 3.9 and Irregular menses N92.6 [place] [address] [id number] [address] [place] [phone] 03 Feb, 2015 Lupus M32.9 and Hypothyroid E03.9 [facility] [address] [id number] [address] [place] [phone] 26 Jan, 2015 Encounter for immunization Z 23 [facility] [address] [id number] [address] [place] [phone] 14 Jul, 2014 [facility] [address] [id number] [address] [place] [phone] 13 Jul, 2014 [facility] [address] [id number] [address] [place] [phone] Feb, [facility] [address] [id number] [address] [place] [phone] Feb, [facility] [address] [id number] [address] [place] [phone] Feb, [facility] [address] [id number] [address] [place] [phone] Feb, [facility] [address] [id number] [address] [place] [phone] August, [facility] [address] [id number] [address] [place] [phone] Jun, [facility] [address] [id number] [address] [place] [phone] Jun, [facility] [address] [id number] [address] [place] [phone] 19 Jun, 2011 [facility] [address] [id number] [address] [place] [phone] 16 Jun, 2011 [facility] [address] [id number] [address] [place] [phone] 28 May, 2011 [facility] [address] [id number] [address] [place] [phone] May, [facility] [address] [id number] [address] [place] [phone] May, [facility] [address] [id number] [address] [place] [phone] May, [facility] [address] [id number] [address] [place] [phone] Mar, [facility] [address] [id number] [address] [place] [phone] Jan, [facility] [address] [id number] [address] [place] [phone] Jan, [facility] [address] [id number] [address] [place] [phone] Jan, [facility] [address] [id number] [address] [place] [phone] Jan, [facility] [address] [id number] [address] [place] [phone] Jan, [facility] [address] [id number] [address] [place] [phone] Jan, IMMUNIZATIONS No Known Immunizations SOCIAL HISTORY Never Assessed REASON FOR VISIT Refill request PLAN OF CARE VITAL SIGNS MEDICATIONS Medication Instructions Dosage Frequency Start Date End Date Duration S tatus Synthroid 100 MCG Orally Once a day 1 tablet on an empty stomach in the morning 24h Jun, 30 days Active RESULTS No Results PROCEDURES No Known procedures INSTRUCTIONS MEDICATIONS ADMINISTERED No Known Medications MEDICAL (GENERAL) HISTORY Type Description Date Medical History Systemic lupus erythematosus, unspecifie d Medical History Hypothyroidism, unspecified Surgical History inguinal hernia repair Surgical History section Surgical History cholecystectomy Surgical History ovarian cyst resection Hospitalization History dystonia Hospitalization History pylenephritis
--- OUTSIDE RECORDS SUMMARY | 2019-10-05 06:25 | XMS REPORT ---
Author Meaghan Reynoso Organization [employer] Address Unknown Phone Unavailable Care Team Providers Care Eligibility Examiner Name Role Phone HANK WORLEY CP Unavailable Allergies No Known Allergies Problems Problem Type Condition Code Onset Dates Condition Statu s Problem Screening for malignant neoplasm of the cervix V76.2 Active Problem Irregular menses N92.6 Active Problem Routine general medical examination at [facility] V70.0 Active Problem Disruption of wound, [...] Instructions Start Date End Date Status Dosage Lamictal [facility] [address]-65 25 MG Orally once a day Apr 21, 2015 2 tablets Results No Known Results Summary Purpose [employer] Submission
--- OUTSIDE RECORDS SUMMARY | 2019-10-05 06:25 | XMS REPORT ---
Author Meaghan Reynoso [facility] [employer] Address Unknown Phone Unavailable Care Team Providers Care Hydroelectric Plant Electrician Name Role Phone HANK WORLEY CP Unavailable Allergies, Adverse Reactions, Alerts Substance Reaction Event Type Stadol Info Not Available Drug Allergy Problems Problem Type Condition Code Onset Dates Condition Statu s Problem Routine general medical examination at [facility] V70.0 Active Problem Lupus M32.9 Active Problem Irregular menses N92.6 Active Problem Major depressive disorder, recurrent episode, severe F 33.2 Active Problem PTSD (post-traumatic stress disorder) F43.10 Active Problem Dental examination Z01.20 Active Problem Systemic lupus M32.9 Active Problem Hypothyroid E03.9 Active Problem Social anxiety disorder F40.10 Acti ve Problem ADHD, predominantly inattentive type F90.0 Active Assessment Encounter for immunization Z23 A ctive Problem Disruption of wound, unspecified as to episode of care 674.10 Active Problem Screening for malignant neoplasm of the cervix V76.2 Active Medications Medication Code System Code Instructions Start Date End Date Status Dosage Levothyroxine Sodium [facility] [id number] 125 mcg Orally Once a day 1 tablet Propranolol HCl [facility] [address]-52 20 mg Orally Twice a day Feb 09, 016 1 tablet Lamictal [facility] [address]-76 200 mg Orally once a day Apr 21, 2015 1 tablet Concerta [facility] [address]-25 54 MG Orally Once a day for ADHD June 1 tablet in the morning Ultram [facility] [address]-40 50 mg Orally every 6 hrs July 18, 2015 1 tablet as needed Procedures Procedure Coding System Code Date SINGLE IMMUNIZATION ADMIN CPT-4 96195 Jan FLUARIX QUAD P-FREE 3 AND UP .50 2015 CPT-4 97881 Feb 20, 2016 Results No Known Results Immunizations Vaccine Administration Date FLUARIX QUAD P-FREE 3 AND UP .50 2015Feb 20, 2016 Summary Purpose [employer] Submission
--- OUTSIDE RECORDS SUMMARY | 2019-10-05 06:25 | XMS REPORT ---
Author Author Meaghan Allen Organization [facility] [place] Address [address] [place] [address] Care Team Providers Care Cardiovascular Radiologic Technologist Name Role Phone HANK Allen Unavailable PROBLEMS Type Condition ICD9-CM Code DIU92-QV Code Onset Dates Condition S tatus SNOMED Code Problem Hypothyroid E03.9 Active 20161697 Problem Social anxiety disorder F40.10 Active 04284602 Problem Systemic lupus M32.9 Active 31604 009 Problem Irregular menses N92.6 Active 801 69499 Problem Rosacea L71.9 Active 059885134 Problem Pure hypercholesterolemia E78.00 Acti ve 957156901 Problem Major depressive disorder, recurrent episode, severe F33.2 Active [id number] Problem PTSD (post-traumatic stress disorder) F43.10 Active 05619084 Problem Moderate episode of recurrent major depressive disorder F33.1 Active 365202993 Problem ADHD, predominantly inattentive type F90.0 Active 89471084 ALLERGIES No Information ENCOUNTERS Encounter Location Date Diagnosis [facility] [place] [address] [id number] [address] [place] [id number] 16 Jul, 2017 [facility] [place] [address] [facility] [id number] [address] [place] [phone] 13 Jul, 2017 [facility] [place] [address] [facility] [id number] [address] [place] [phone] Jul, Rosacea L71.9 [facility] [place] [address] [facility] [id number] [address] [place] [phone] Jun, PTSD (post-traumatic stress disorder) F43.10 [facility] [place] [address] [facility] [id number] [address] [place] [phone] Jun, [facility] [place] [address] [id number] [address] [place] [phone] Jun, [facility] [place] [address] [id number] [address] [place] [phone] Jun, [facility] [place] [address] [facility] [id number] [address] [place] [phone] Jun, [facility] [place] [address] [id number] [address] [place] [phone] Apr, [facility] [place] [id number] [place] [phone] Apr, Hypothyroid E03.9 ; Pure hyp ercholesterolemia E78.00 and Systemic lupus M32.9 [facility] [place] [address] [facility] [id number] [address] [place] [phone] Apr, Hypothyroid E03.9 ; Systemic lupus M32.9 and Pure hypercholesterolemia E78.00 [facility] [place] [address] [id number] [address] [place] [phone] Apr, [facility] [place] [address] [id number] [address] [place] [id number] Mar, [facility] [place] [id number] [place] [phone] Mar, Pulsatile neck mass R22.1 [facility] [place] [id number] [place] [phone] Feb, [facility] [place] [id number] [place] [phone] Feb, Contact dermatitis and eczem a due to plant L24.7 [facility] [place] [address] [id number] [address] [place] [phone] Feb, Systemic lupus M32.9 [facility] [place] [address] [facility] [id number] [address] [place] [phone] Jan, [facility] [place] [address] [id number] [address] [place] [phone] Jan, Dental examination Z01.20 [facility] [place] [id number] [place] [id number] 06 Jan, 2017 Encounter for immunization Z 23 [facility] [place] [address] [facility] [id number] [address] [place] [id number] 20 Dec, 2016 [facility] [place] [address] [id number] [address] [place] [phone] Nov, Hypothyroid E03.9 [facility] [place] [address] [id number] [address] [place] [phone] Nov, PTSD (post-traumatic stress disorder) F43.10 ; ADHD, predominantly inattentive type F90.0 ; Social anxiety disorder F40.10 and Moderate episode of recurrent major depressive disorder F33.1 [place] [address] [phone] Nov, ADHD, predominantly inattent marzena type F90.0 [place] [address] [place] [id number] [address] [place] [phone] Oct, Acquired hypothyroidism E03. 9 [place] [address] [address] Oct, ADHD, predominantly inattent marzena type F90.0 [facility] [place] [address] [id number] [address] [place] [phone] Oct, Acquired hypothyroidism E03. 9 [place] [address] [address] Sep, Well woman exam Z01.419 ; Sy stemic lupus M32.9 ; Irregular menses N92.6 ; PTSD (post-traumatic stress disorder) F43.10 ; Social anxiety disorder F40.10 ; ADHD, predominantly inattentive type F90.0 ; Hypothyroid E03.9 and Generalized headaches R51 [facility] [place] [address] [id number] [address] [place] [phone] August, ADHD, predominantly inattent marzena type F90.0 [facility] [place] [address] [id number] [address] [place] [phone] August, [facility] [place] [address] [id number] [address] [place] [phone] Jul, [facility] [place] [address] [id number] [address] [place] [phone] Jun, [facility] [place] [address] [id number] [address] [place] [phone] Jun, Hypothyroid E03.9 [facility] [place] [address] [id number] [address] [place] [phone] Jun, ADHD, predominantly inattent marzena type F90.0 and Social anxiety disorder F40.10 [facility] [place] [address] [id number] [address] [place] [phone] Jun, [facility] [place] [address] [id number] [address] [place] [phone] Jun, [facility] [address] [id number] [address] [place] [id number] May, Dental examination Z01.20 [facility] [place] [address] [facility] [id number] [address] [place] [id number] May, ADHD, predominantly inattent marzena type F90.0 ; Recurrent major depressive disorder, in partial remission F33.41 ; Social anxiety disorder F40.10 and PTSD (post-traumatic stress disorder) F43.10 [facility] [place] [address] [id number] [address] [place] [phone] Apr, Social anxiety disorder F40. 10 [facility] [place] [address] [id number] [address] [place] [phone] Apr, ADHD, predominantly inattent marzena type F90.0 [facility] [place] [address] [id number] [address] [place] [id number] Apr, [facility] [place] [address] [id number] [address] [place] [phone] Apr, [facility] [address] [id number] [address] [place] [phone] Mar, Dental examination Z01.20 [facility] [address] [id number] [address] [place] [id number] Mar, [facility] [address] [id number] [address] [place] [phone] Feb, [facility] [address] [id number] [address] [place] [phone] Feb, [facility] [address] [id number] [address] [place] [phone] Jan, Encounter for immunization Z 23 [facility] [place] [address] [id number] [address] [place] [phone] Jan, [facility] [address] [id number] [address] [place] [phone] Jan, [facility] [address] [id number] [address] [place] [phone] Jan, Dental examination Z01.20 [facility] [place] [address] [id number] [address] [place] [phone] Jan, [facility] [address] [id number] [address] [place] [phone] Jan, Dental examination Z01.20 [facility] [address] [id number] [address] [place] [phone] Jan, [facility] [address] [id number] [address] [place] [id number] Dec, [facility] [address] [id number] [address] [place] [id number] Dec, Dental examination Z01.20 [facility] [address] [id number] [address] [place] [phone] Nov, [facility] [address] [id number] [address] [place] [phone] Nov, Social anxiety disorder F40. 10 ; PTSD (post-traumatic stress disorder) F43.10 and ADHD, predominantly inattentive type F90.0 [facility] [place] [address] [facility] [id number] [address] [place] [phone] Oct, Social anxiety disorder F40. 10 [facility] [place] [address] [facility] [id number] [address] [place] [phone] Oct, Hypothyroidism, unspecified type E03.9 [facility] [place] [address] [id number] [address] [place] [phone] Oct, Hypothyroid E03.9 [facility] [place] [address] [facility] [id number] [address] [place] [phone] Oct, Hypothyroid E03.9 [facility] [place] [address] [facility] [id number] [address] [place] [phone] Sep, Hypothyroid E03.9 [facility] [place] [address] [id number] [address] [place] [phone] Sep, [facility] [place] [address] [facility] [id number] [address] [place] [phone] Sep, ADHD, predominantly inattent marzena type F90.0 [facility] [place] [address] [facility] [id number] [address] [place] [phone] Jul, ADHD, predominantly inattent marzena type F90.0 [facility] [place] [address] [facility] [id number] [address] [place] [phone] Jun, [facility] [place] [address] [facility] [id number] [address] [place] [phone] 24 Jun, 2015 Major depressive disorder, r ecurrent episode, severe F33.2 ; ADHD, predominantly inattentive type F90.0 ; PTSD (post-traumatic stress disorder) F43.10 and Social anxiety disorder F40.10 [facility] [place] [address] [facility] [id number] [address] [place] [phone] Jun, [facility] [place] [address] [facility] [id number] [address] [place] [phone] May, Encounter for screening mamm ogram for breast cancer Z12.31 [facility] [place] [address] [facility] [id number] [address] [place] [phone] 15 May, 2015 [facility] [place] [address] [id number] [address] [place] [id number] May, [facility] [place] [address] [id number] [address] [place] [phone] May, Major depressive disorder, r ecurrent episode, severe F33.2 ; PTSD (post-traumatic stress disorder) F43.10 ; Social anxiety disorder F40.10 and ADHD, predominantly inattentive type F90.0 [place] [address] [place] [place] [id number] [address] [place] [phone] Apr, [facility] [place] [address] [id number] [address] [place] [id number] Mar, [facility] [place] [id number] [place] [phone] Mar, Major depressive disorder, r ecurrent episode, severe F33.2 ; PTSD (post-traumatic stress disorder) F43.10 ; Social anxiety disorder F40.10 and ADHD, predominantly inattentive type F90.0 [facility] [place] [address] [id number] [address] [place] [phone] Feb, [facility] [place] [address] [id number] [address] [place] [id number] Feb, [place] [address] [phone] Feb, [facility] [place] [address] [id number] [address] [place] [phone] Feb, Lupus M32.9 ; Hypothyroid E0 3.9 and Irregular menses N92.6 [place] [address] [place] [id number] [address] [place] [id number] 03 Feb, 2015 Lupus M32.9 and Hypothyroid E03.9 [facility] [address] [id number] [address] [place] [phone] 26 Jan, 2015 Encounter for immunization Z 23 [facility] [address] [id number] [address] [place] [phone] 14 Jul, 2014 [facility] [address] [id number] [address] [place] [phone] 13 Jul, 2014 [facility] [address] [id number] [address] [place] [phone] Feb, [facility] [address] [id number] [address] [place] [phone] Feb, [facility] [address] [id number] [address] [place] [phone] Feb, [facility] [address] [id number] [address] [place] [phone] Feb, [facility] [address] [id number] [address] [place] [phone] August, [facility] [address] [id number] [address] [place] [phone] Jun, [facility] [address] [id number] [address] [place] [phone] Jun, [facility] [address] [id number] [address] [place] [id number] 19 Jun, 2011 [facility] [address] [id number] [address] [place] [phone] 16 Jun, 2011 [facility] [address] [id number] [address] [place] [phone] 28 May, 2011 [facility] [address] [id number] [address] [place] [phone] May, [facility] [address] [id number] [address] [place] [phone] May, [facility] [place] [address] [id number] [address] [place] [phone] May, [facility] [place] [address] [id number] [address] [place] [phone] Mar, [facility] [place] [address] [id number] [address] [place] [id number] Jan, [facility] [place] [address] [id number] [address] [place] [phone] Jan, [facility] [place] [address] [id number] [address] [place] [phone] Jan, [facility] [place] [address] [id number] [address] [place] [phone] Jan, [facility] [place] [address] [id number] [address] [place] [phone] Jan, [facility] [place] [address] [id number] [address] [place] [phone] Jan, IMMUNIZATIONS Vaccine Route Administration Date Status FLUARIX QUAD (3 AND UP) 2016 IM Intramuscular Jan 25, 2017 Ad ministered SOCIAL HISTORY Never Assessed REASON FOR VISIT Immunization(s) - DARA Flores PLAN OF CARE VITAL SIGNS MEDICATIONS Unknown Medications RESULTS No Results PROCEDURES Procedure Date Ordered Result Body Site FLUARIX QUAD (3 & UP)-GSK-2014Jan 25, 2017 SINGLE IMMUNIZATION ADMIN Jan 25, 2017 INSTRUCTIONS MEDICATIONS ADMINISTERED No Known Medications MEDICAL (GENERAL) HISTORY Type Description Date Medical History Systemic lupus erythematosus, unspecifie d Medical History Hypothyroidism, unspecified Surgical History inguinal hernia repair Surgical History section Surgical History cholecystectomy Surgical History ovarian cyst resection Hospitalization History dystonia Hospitalization History pylenephritis
--- OUTSIDE RECORDS SUMMARY | 2019-10-05 06:25 | XMS REPORT ---
Author Meaghan Skinner [facility] e[employer] Address Unknown Phone Unavailable Care Team Providers Care Deck Engineer Name Role Phone TONY VEGA CP Unavailable Allergies, Adverse Reactions, Alerts Substance Reaction Event Type Stadol Info Not Available Drug Allergy Problems Problem Type Condition Code Onset Dates Condition Statu s Problem Screening for malignant neoplasm of the cervix V76.2 Active Problem Irregular menses N92.6 Active Problem Routine general medical examination at [facility] V70.0 Active Assessment Dental examination Z01.20 Active Problem Disruption of wound, unspecified as [...] Start Date End Date Status Dosage Concerta [facility] [address]-51 54 MG Orally Once a day for ADHD June 1 tablet in the morning Lamictal [facility] [address]-86 200 mg Orally once a day Apr 21, 2015 1 tablet Procedures Procedure Coding System Code Date INTRAORL-PERIAPICAL 1 FILM 68850 CPT-4 D0220 Feb 08, 2016 Billing Notes on claim CPT-4 EC109 Feb 07, 2 016 LTD ORAL EVALUATION - PROBLEM FOCUS CPT-4 D0140 Feb 08, 2016 [facility] Employee/Board adjustment CPT-4 [facility] Feb 08, 2016 Vital Signs Date/Time: Feb 08, 2016 Blood Pressure Diastolic 102 mmHg Blood Pressure Systolic 145 mmHg Height 66 in Results No Known Results Summary Purpose eClinicalWorks Submission
--- OUTSIDE RECORDS SUMMARY | 2019-10-05 06:25 | XMS REPORT ---
Author Meaghan Cruz [facility] eClinical[employer] Address Unknown Phone Unavailable Care Team Providers Care Bpo Specialist Name Role Phone VIKKI DINERO CP Unavailable Allergies No Known Allergies Problems Problem Type Condition Code Onset Dates Condition Statu s Problem Screening for malignant neoplasm of the cervix V76.2 Active Problem Irregular menses N92.6 Active Problem Routine general medical examination at [facility] V70.0 Active Problem Disruption of [...] Start Date End Date Status Dosage Concerta [facility] [address]-60 54 MG Orally Once a day for ADHD June 1 tablet in the morning Results No Known Results Summary Purpose eClinicalWorks Submission
--- OUTSIDE RECORDS SUMMARY | 2019-10-05 06:25 | XMS REPORT ---
Author Author Meaghan LYNNE Organization [facility] Address [address] [place] [address] Care Team Providers Care House Director Name Role Phone KELLY LYNNE Unavailable PROBLEMS Type Condition ICD9-CM Code FNO17-ZX Code Onset Dates Condition S tatus SNOMED Code Problem Hypothyroid E03.9 Active 02475950 Problem Social anxiety disorder F40.10 Active 24690853 Problem Systemic lupus M32.9 Active 98384 009 Problem Irregular menses N92.6 Active 801 07668 Problem Rosacea L71.9 Active 462993746 Problem Pure hypercholesterolemia E78.00 Acti ve 208374915 Problem Major depressive disorder, recurrent episode, severe F33.2 Active 081310635491 Problem PTSD (post-traumatic stress disorder) F43.10 Active 44104220 Problem Moderate episode of recurrent major depressive disorder F33.1 Active 477800836 Problem ADHD, predominantly inattentive type F90.0 Active [id number] ALLERGIES No Information ENCOUNTERS Encounter Location Date Diagnosis [place] [id number] [facility] [id number] [address] [place] [phone] August, [facility] [address] [place] [id number] [address] [place] [phone] August, PTSD (post-traumatic stress disorder) F43.10 ; Moderate episode of recurrent major depressive disorder F33.1 ; ADHD, predominantly inattentive type F90.0 and Social anxiety disorder F40.10 [facility] [address] [facility] [id number] [address] [place] [id number] August, [facility] [address] [place] [id number] [address] [place] [phone] August, [facility] [address] [facility] [id number] [address] [place] [phone] Jul, [place] [address] [id number] [address] [place] [id number] Jul, [facility] [address] [facility] [id number] [address] [place] [phone] Jul, Candelario L71.9 [facility] [address] [facility] [id number] [address] [place] [phone] Jun, PTSD (post-traumatic stress disorder) F43.10 [facility] [address] [id number] [address] [place] [phone] Jun, [facility] [address] [id number] [address] [place] [phone] Jun, [facility] [address] [facility] [id number] [address] [place] [phone] Jun, [facility] [address] [facility] [id number] [address] [place] [phone] Jun, [facility] [address] [facility] [id number] [address] [place] [phone] Apr, [facility] [address] [facility] [id number] [address] [place] [phone] Apr, Hypothyroid E03.9 ; Pure hyp ercholesterolemia E78.00 and Systemic lupus M32.9 [facility] [address] [facility] [id number] [address] [place] [phone] Apr, Hypothyroid E03.9 ; Systemic lupus M32.9 and Pure hypercholesterolemia E78.00 [facility] [address] [facility] [id number] [address] [place] [phone] Apr, [facility] [address] [facility] [id number] [address] [place] [phone] Mar, [facility] [address] [facility] [id number] [address] [place] [phone] Mar, Pulsatile neck mass R22.1 [facility] [address] [place] [id number] [address] [place] [phone] Feb, [facility] [address] [id number] Feb, Contact dermatitis and eczem a due to plant L24.7 [facility] [address] [place] [id number] [address] [place] [phone] Feb, Systemic lupus M32.9 [facility] [address] [phone] Jan, [place] [address] [address] Jan, Dental examination Z01.20 [place] [address] [id number] 06 Jan, 2017 Encounter for immunization Z 23 [place] [address] [phone] Dec, [place] [address] [address] Nov, Hypothyroid E03.9 [place] [address] [address] Nov, PTSD (post-traumatic stress disorder) F43.10 ; ADHD, predominantly inattentive type F90.0 ; Social anxiety disorder F40.10 and Moderate episode of recurrent major depressive disorder F33.1 [place] [address] [place] [id number] [address] [place] [phone] Nov, ADHD, predominantly inattent marzena type F90.0 [place] [address] [place] [id number] [place] [phone] Oct, Acquired hypothyroidism E03. 9 [facility] [address] [place] [id number] [place] [phone] Oct, ADHD, predominantly inattent marzena type F90.0 [place] [address] [address] Oct, Acquired hypothyroidism E03. 9 [facility] [address] [id number] [address] [place] [address] Sep, Well woman exam Z01.419 ; Sy stemic lupus M32.9 ; Irregular menses N92.6 ; PTSD (post-traumatic stress disorder) F43.10 ; Social anxiety disorder F40.10 ; ADHD, predominantly inattentive type F90.0 ; Hypothyroid E03.9 and Generalized headaches R51 [facility] [address] [id number] [address] [place] [phone] August, ADHD, predominantly inattent marzena type F90.0 [facility] [address] [id number] [address] [place] [phone] August, [facility] [address] [facility] [id number] [address] [place] [phone] Jul, [facility] [address] [id number] [address] [place] [phone] Jun, [facility] [address] [id number] [address] [place] [id number] Jun, Hypothyroid E03.9 [facility] [address] [id number] [address] [place] [phone] Jun, ADHD, predominantly inattent marzena type F90.0 and Social anxiety disorder F40.10 [facility] [address] [id number] [address] [place] [phone] Jun, [facility] [address] [id number] [address] [place] [id number] Jun, [facility] [address] [id number] [address] [place] [id number] 22 May, 2016 Dental examination Z01.20 [facility] [address] [id number] [address] [place] [phone] 14 May, 2016 ADHD, predominantly inattent marzena type F90.0 ; Recurrent major depressive disorder, in partial remission F33.41 ; Social anxiety disorder F40.10 and PTSD (post-traumatic stress disorder) F43.10 [facility] [address] [id number] [address] [place] [phone] Apr, Social anxiety disorder F40. 10 [facility] [address] [id number] [address] [place] [phone] Apr, ADHD, predominantly inattent marzena type F90.0 [facility] [address] [id number] [address] [place] [phone] Apr, [facility] [address] [id number] [address] [place] [phone] Apr, [facility] [address] [id number] [address] [place] [phone] Mar, Dental examination Z01.20 [facility] [address] [id number] [address] [place] [phone] Mar, [facility] [address] [id number] [address] [place] [phone] Feb, [facility] [address] [id number] [address] [place] [phone] Feb, [facility] [address] [id number] [address] [place] [phone] Jan, Encounter for immunization Z 23 [facility] [address] [id number] [address] [place] [phone] Jan, [facility] [address] [id number] [address] [place] [phone] Jan, [facility] [address] [id number] [address] [place] [phone] Jan, Dental examination Z01.20 [facility] [address] [id number] [address] [place] [phone] Jan, [facility] [address] [id number] [address] [place] [phone] 19 Jan, 2016 Dental examination Z01.20 [facility] [address] [id number] [address] [place] [phone] 13 Jan, 2016 [facility] [address] [id number] [address] [place] [phone] 16 Dec, 2015 [facility] [address] [id number] [address] [place] [id number] Dec, Dental examination Z01.20 [facility] [address] [id number] [address] [place] [phone] Nov, [facility] [address] [id number] [address] [place] [phone] Nov, Social anxiety disorder F40. 10 ; PTSD (post-traumatic stress disorder) F43.10 and ADHD, predominantly inattentive type F90.0 [facility] [address] [id number] [address] [place] [id number] Oct, Social anxiety disorder F40. 10 [facility] [address] [id number] [address] [place] [id number] Oct, Hypothyroidism, unspecified type E03.9 [facility] [address] [id number] [address] [place] [phone] Oct, Hypothyroid E03.9 [facility] [address] [id number] [address] [place] [phone] Oct, Hypothyroid E03.9 [facility] [address] [id number] [address] [place] [phone] Sep, Hypothyroid E03.9 [facility] [address] [id number] [address] [place] [id number] Sep, [facility] [address] [id number] [address] [place] [phone] Sep, ADHD, predominantly inattent marzena type F90.0 [facility] [address] [id number] [address] [place] [phone] Jul, ADHD, predominantly inattent marzena type F90.0 [facility] [address] [facility] [id number] [address] [place] [phone] Jun, [facility] [address] [facility] [id number] [address] [place] [id number] Jun, Major depressive disorder, r ecurrent episode, severe F33.2 ; ADHD, predominantly inattentive type F90.0 ; PTSD (post-traumatic stress disorder) F43.10 and Social anxiety disorder F40.10 [facility] [address] [facility] [id number] [address] [place] [phone] Jun, [facility] [address] [facility] [id number] [address] [place] [phone] May, Encounter for screening mamm ogram for breast cancer Z12.31 [facility] [address] [facility] [id number] [address] [place] [phone] 15 May, 2015 [facility] [address] [facility] [id number] [address] [place] [phone] May, [facility] [address] [facility] [id number] [address] [place] [phone] May, Major depressive disorder, r ecurrent episode, severe F33.2 ; PTSD (post-traumatic stress disorder) F43.10 ; Social anxiety disorder F40.10 and ADHD, predominantly inattentive type F90.0 [facility] [address] [facility] [id number] [address] [place] [phone] Apr, [facility] [address] [facility] [id number] [address] [place] [phone] Mar, [facility] [address] [facility] [id number] [address] [place] [phone] Mar, Major depressive disorder, r ecurrent episode, severe F33.2 ; PTSD (post-traumatic stress disorder) F43.10 ; Social anxiety disorder F40.10 and ADHD, predominantly inattentive type F90.0 [facility] [address] [id number] [address] [place] [phone] Feb, [facility] [address] [id number] [address] [place] [phone] Feb, [facility] [address] [facility] [id number] [address] [place] [phone] Feb, [facility] [address] [id number] [address] [place] [phone] Feb, Lupus M32.9 ; Hypothyroid E0 3.9 and Irregular menses N92.6 [facility] [address] [facility] [id number] [address] [place] [phone] Feb, Lupus M32.9 and Hypothyroid E03.9 [facility] [address] [facility] [id number] [address] [place] [phone] Jan, Encounter for immunization Z 23 [facility] [address] [id number] [address] [place] [phone] 14 Jul, 2014 [facility] [address] [id number] [address] [place] [phone] Jul, [facility] [address] [facility] [id number] [address] [place] [phone] Feb, [facility] [address] [id number] [address] [place] [phone] Feb, [facility] [address] [id number] [address] [place] [phone] Feb, [facility] [address] [id number] [address] [place] [phone] Feb, [facility] [address] [facility] [id number] [address] [place] [phone] August, [facility] [address] [facility] [id number] [address] [place] [phone] Jun, [facility] [address] [id number] [address] [place] [phone] Jun, [facility] [address] [id number] [address] [place] [phone] Jun, [facility] [address] [id number] [address] [place] [phone] Jun, [facility] [address] [id number] [address] [place] [phone] May, [facility] [address] [id number] [address] [place] [phone] May, [facility] [address] [id number] [address] [place] [phone] May, [facility] [address] [id number] [address] [place] [phone] May, [facility] [address] [id number] [address] [place] [id number] Mar, [facility] [address] [id number] [address] [place] [phone] Jan, [facility] [address] [id number] [address] [place] [phone] Jan, [facility] [address] [id number] [address] [place] [id number] Jan, [facility] [address] [id number] [address] [place] [phone] Jan, [facility] [address] [id number] [address] [place] [phone] Jan, [facility] [address] [id number] [address] [place] [phone] Jan, IMMUNIZATIONS No Known Immunizations SOCIAL HISTORY Never Assessed REASON FOR VISIT PLAN OF CARE VITAL SIGNS MEDICATIONS Medication Instructions Dosage Frequency Start Date End Date Duration S tat Concerta 54 MG Orally Once a day for ADHD 1 tablet in the morning Feb, Active RESULTS No Results PROCEDURES No Known procedures INSTRUCTIONS MEDICATIONS ADMINISTERED No Known Medications MEDICAL (GENERAL) HISTORY Type Description Date Medical History Systemic lupus erythematosus, unspecifie d Medical History Hypothyroidism, unspecified Surgical History inguinal hernia repair Surgical History section Surgical History cholecystectomy Surgical History ovarian cyst resection Hospitalization History dystonia Hospitalization History pylenephritis
--- OUTSIDE RECORDS SUMMARY | 2019-10-05 06:26 | XMS REPORT ---
Author Meaghan Reynoso [facility] eClinicalWorks Address Unknown Phone Unavailable Care Team Providers Care Relief Pharmacist Name Role Phone HANK WORLEY CP Unavailable Allergies No Known Allergies Problems Problem Type Condition Code Onset Dates Condition Statu s Problem Routine general medical examination at [facility] V70.0 Active Problem Lupus M32.9 Active [...] Instructions Start Date End Date Status Dosage Meclizine HCl [facility] [address]-61 25 MG Orally Once a day Mar 02, 2016 1 tablet as needed Results No Known Results Summary Purpose eClinicalWorks Submission
--- OUTSIDE RECORDS SUMMARY | 2019-10-05 06:26 | XMS REPORT ---
Author Author Meaghan DINERO [facility] Address [address] [place] [address] Care Team Providers Care Adult Specialist Name Role Phone VIKKI DINERO Unavailable PROBLEMS Type Condition ICD9-CM Code [id number] Code Onset Dates Condition S tatus SNOMED Code Problem Hypothyroid E03.9 Active 33830255 Problem Social anxiety disorder F40.10 Active 32466663 Problem Systemic lupus M32.9 Active 95683 009 Problem Irregular menses N92.6 Active 801 17482 Problem Rosacea L71.9 Active 758339909 Problem Pure hypercholesterolemia E78.00 Acti ve 890790010 Problem Major depressive disorder, recurrent episode, severe F33.2 Active 825197469441 Problem PTSD (post-traumatic stress disorder) F43.10 Active 50588591 Problem Moderate episode of recurrent major depressive disorder F33.1 Active 632247384 Problem ADHD, predominantly inattentive type F90.0 Active 78833779 ALLERGIES No Information ENCOUNTERS Encounter Location Date Diagnosis [facility] [address] [facility] [id number] [address] [place] [phone] 16 Jul, 2017 [facility] [address] [facility] [id number] [address] [place] [phone] Jul, [facility] [address] [facility] [id number] [address] [place] [phone] Jul, Rosacea L71.9 [facility] [address] [facility] [id number] [address] [place] [phone] Jun, PTSD (post-traumatic stress disorder) F43.10 [facility] [address] [facility] [id number] [address] [place] [phone] Jun, [facility] [address] [facility] [id number] [address] [place] [phone] Jun, [facility] [address] [id number] [address] [place] [phone] Jun, [facility] [address] [id number] [address] [place] [phone] Jun, [facility] [address] [facility] [id number] [address] [place] [phone] Apr, [facility] [address] [facility] [id number] [address] [place] [phone] Apr, Hypothyroid E03.9 ; Pure hyp ercholesterolemia E78.00 and Systemic lupus M32.9 [facility] [address] [id number] [address] [place] [phone] Apr, Hypothyroid E03.9 ; Systemic lupus M32.9 and Pure hypercholesterolemia E78.00 [facility] [address] [facility] [id number] [address] [place] [phone] Apr, [facility] [address] [id number] [address] [place] [phone] Mar, [facility] [address] [facility] [id number] [address] [place] [phone] Mar, Pulsatile neck mass R22.1 [facility] [address] [facility] [id number] [address] [place] [phone] Feb, [facility] [address] [facility] [id number] [address] [place] [phone] 16 Feb, 2017 Contact dermatitis and eczem a due to plant L24.7 [facility] [address] [id number] [address] [place] [phone] Feb, Systemic lupus M32.9 [facility] [address] [facility] [id number] [address] [place] [phone] Jan, [facility] [address] [facility] [id number] [address] [place] [phone] Jan, Dental examination Z01.20 [facility] [address] [facility] [id number] [address] [place] [phone] 06 Jan, 2017 Encounter for immunization Z 23 [facility] [address] [facility] [id number] [address] [place] [phone] 20 Dec, 2016 [facility] [address] [facility] [id number] [address] [place] [phone] Nov, Hypothyroid E03.9 [facility] [address] [facility] [id number] [address] [place] [phone] Nov, PTSD (post-traumatic stress disorder) F43.10 ; ADHD, predominantly inattentive type F90.0 ; Social anxiety disorder F40.10 and Moderate episode of recurrent major depressive disorder F33.1 [place] [address] [facility] [id number] [address] [place] [phone] Nov, ADHD, predominantly inattent marzena type F90.0 [place] [address] [facility] [id number] [address] [place] [phone] Oct, Acquired hypothyroidism E03. 9 [place] [address] [facility] [id number] [address] [place] [phone] Oct, ADHD, predominantly inattent marzena type F90.0 [place] [address] [facility] [id number] [address] [place] [phone] Oct, Acquired hypothyroidism E03. 9 [place] [address] [place] [id number] [address] [place] [phone] Sep, Well woman exam Z01.419 ; Sy stemic lupus M32.9 ; Irregular menses N92.6 ; PTSD (post-traumatic stress disorder) F43.10 ; Social anxiety disorder F40.10 ; ADHD, predominantly inattentive type F90.0 ; Hypothyroid E03.9 and Generalized headaches R51 [facility] [address] [facility] [id number] [address] [place] [phone] August, ADHD, predominantly inattent marzena type F90.0 [place] [address] [place] [id number] [address] [place] [phone] August, [facility] [address] [id number] [address] [place] [phone] Jul, [facility] [address] [id number] [address] [place] [phone] Jun, [facility] [address] [facility] [id number] [address] [place] [phone] Jun, Hypothyroid E03.9 [facility] [address] [id number] [address] [place] [phone] Jun, ADHD, predominantly inattent marzena type F90.0 and Social anxiety disorder F40.10 [facility] [address] [facility] [id number] [address] [place] [phone] Jun, [facility] [address] [facility] [id number] [address] [place] [phone] Jun, [facility] [address] [id number] [address] [place] [phone] May, Dental examination Z01.20 [facility] [address] [facility] [id number] [address] [place] [phone] 14 May, 2016 ADHD, predominantly inattent marzena type F90.0 ; Recurrent major depressive disorder, in partial remission F33.41 ; Social anxiety disorder F40.10 and PTSD (post-traumatic stress disorder) F43.10 [facility] [address] [facility] [id number] [address] [place] [phone] Apr, Social anxiety disorder F40. 10 [facility] [address] [id number] [address] [place] [phone] Apr, ADHD, predominantly inattent marzena type F90.0 [facility] [address] [facility] [id number] [address] [place] [phone] Apr, [facility] [address] [facility] [id number] [address] [place] [phone] Apr, [facility] [address] [id number] [address] [place] [phone] Mar, Dental examination Z01.20 [facility] [address] [id number] [address] [place] [phone] Mar, [facility] [address] [id number] [address] [place] [phone] Feb, [facility] [address] [id number] [address] [place] [phone] Feb, [facility] [address] [id number] [address] [place] [phone] Jan, Encounter for immunization Z 23 [facility] [address] [id number] [address] [place] [phone] Jan, [facility] [address] [id number] [address] [place] [phone] Jan, [facility] [address] [id number] [address] [place] [phone] Jan, Dental examination Z01.20 [facility] [address] [id number] [address] [place] [phone] Jan, [facility] [address] [id number] [address] [place] [phone] Jan, Dental examination Z01.20 [facility] [address] [id number] [address] [place] [phone] Jan, [facility] [address] [id number] [address] [place] [phone] Dec, [facility] [address] [id number] [address] [place] [id number] Dec, Dental examination Z01.20 [facility] [address] [id number] [address] [place] [phone] Nov, [facility] [address] [id number] [address] [place] [phone] Nov, Social anxiety disorder F40. 10 ; PTSD (post-traumatic stress disorder) F43.10 and ADHD, predominantly inattentive type F90.0 [facility] [address] [id number] [address] [place] [phone] Oct, Social anxiety disorder F40. 10 [facility] [address] [id number] [address] [place] [phone] Oct, Hypothyroidism, unspecified type E03.9 [facility] [address] [id number] [address] [place] [phone] Oct, Hypothyroid E03.9 [facility] [address] [id number] [address] [place] [phone] Oct, Hypothyroid E03.9 [facility] [address] [id number] [address] [place] [phone] Sep, Hypothyroid E03.9 [facility] [address] [id number] [address] [place] [phone] Sep, [facility] [address] [id number] [address] [place] [phone] Sep, ADHD, predominantly inattent marzena type F90.0 [facility] [address] [id number] [address] [place] [phone] Jul, ADHD, predominantly inattent marzena type F90.0 [facility] [address] [id number] [address] [place] [phone] Jun, [facility] [address] [id number] [address] [place] [phone] Jun, Major depressive disorder, r ecurrent episode, severe F33.2 ; ADHD, predominantly inattentive type F90.0 ; PTSD (post-traumatic stress disorder) F43.10 and Social anxiety disorder F40.10 [facility] [address] [facility] [id number] [address] [place] [phone] Jun, [facility] [address] [place] [id number] [address] [place] [phone] May, Encounter for screening mamm ogram for breast cancer Z12.31 [facility] [address] [place] [id number] [place] [phone] May, [facility] [address] [place] [id number] [place] [phone] May, [facility] [address] [place] [id number] [place] [phone] May, Major depressive disorder, r ecurrent episode, severe F33.2 ; PTSD (post-traumatic stress disorder) F43.10 ; Social anxiety disorder F40.10 and ADHD, predominantly inattentive type F90.0 [place] [address] [phone] Apr, [place] [address] [phone] Mar, [place] [address] [phone] Mar, Major depressive disorder, r ecurrent episode, severe F33.2 ; PTSD (post-traumatic stress disorder) F43.10 ; Social anxiety disorder F40.10 and ADHD, predominantly inattentive type F90.0 [place] [address] [place] [id number] [address] [place] [phone] Feb, [place] [address] [phone] Feb, [place] [address] [phone] Feb, [place] [address] [phone] Feb, Lupus M32.9 ; Hypothyroid E0 3.9 and Irregular menses N92.6 [place] [address] [phone] 03 Feb, 2015 Lupus M32.9 and Hypothyroid E03.9 [facility] [address] [id number] [address] [place] [phone] 26 Jan, 2015 Encounter for immunization Z 23 [facility] [address] [id number] [address] [place] [phone] 14 Jul, 2014 [facility] [address] [id number] [address] [place] [phone] 13 Jul, 2014 [facility] [address] [id number] [address] [place] [phone] Feb, [facility] [address] [id number] [address] [place] [phone] Feb, [facility] [address] [id number] [address] [place] [phone] Feb, [facility] [address] [id number] [address] [place] [phone] Feb, [facility] [address] [id number] [address] [place] [phone] August, [facility] [address] [id number] [address] [place] [phone] Jun, [facility] [address] [id number] [address] [place] [phone] Jun, [facility] [address] [id number] [address] [place] [phone] 19 Jun, 2011 [facility] [address] [id number] [address] [place] [phone] 16 Jun, 2011 [facility] [address] [id number] [address] [place] [phone] 28 May, 2011 [facility] [address] [id number] [address] [place] [phone] May, [facility] [address] [id number] [address] [place] [phone] May, [facility] [address] [id number] [address] [place] [phone] May, [facility] [address] [id number] [address] [place] [phone] Mar, [facility] [address] [id number] [address] [place] [phone] Jan, [facility] [address] [id number] [address] [place] [phone] Jan, [facility] [address] [id number] [address] [place] [phone] Jan, [facility] [address] [id number] [address] [place] [phone] Jan, [facility] [address] [id number] [address] [place] [phone] Jan, [facility] [address] [id number] [address] [place] [phone] Jan, IMMUNIZATIONS No Known Immunizations SOCIAL HISTORY Never Assessed REASON FOR VISIT PLAN OF CARE VITAL SIGNS MEDICATIONS Medication Instructions Dosage Frequency Start Date End Date Duration S tatus Concerta 54 MG Orally Once a day for ADHD 1 tablet in the morning Dec, Active RESULTS No Results PROCEDURES No Known procedures INSTRUCTIONS MEDICATIONS ADMINISTERED No Known Medications MEDICAL (GENERAL) HISTORY Type Description Date Medical History Systemic lupus erythematosus, unspecifie d Medical History Hypothyroidism, unspecified Surgical History inguinal hernia repair Surgical History section Surgical History cholecystectomy Surgical History ovarian cyst resection Hospitalization History dystonia Hospitalization History pylenephritis
--- OUTSIDE RECORDS SUMMARY | 2019-10-05 06:26 | XMS REPORT ---
Author Author Meaghan DINERO [facility] Address [address] [place] [address] Care Team Providers Care Child Development Specialist Name Role Phone VIKKI DINERO Unavailable PROBLEMS Type Condition ICD9-CM Code DME01-WG Code Onset Dates Condition S tatus SNOMED Code Problem Hypothyroid E03.9 Active 22191677 Problem Social anxiety disorder F40.10 Active 92332636 Problem Systemic lupus M32.9 Active 12756 009 Problem Irregular menses N92.6 Active 801 42170 Problem Rosacea L71.9 Active 296115394 Problem Pure hypercholesterolemia E78.00 Acti ve 717072447 Problem Major depressive disorder, recurrent episode, severe F33.2 Active 884268868833 Problem PTSD (post-traumatic stress disorder) F43.10 Active 77465063 Problem Moderate episode of recurrent major depressive disorder F33.1 Active 423387775 Problem ADHD, predominantly inattentive type F90.0 Active 58930088 ALLERGIES No Information ENCOUNTERS Encounter Location Date Diagnosis [facility] [address] [facility] [id number] [address] [place] [address] Sep, [facility] [address] [facility] [id number] [address] [place] [address] Sep, Hypothyroid E03.9 [facility] [address] [facility] [id number] [address] [place] [address] Sep, [facility] [address] [facility] [id number] [address] [place] [address] Sep, [facility] [address] [facility] [id number] [address] [place] [address] August, [facility] [address] [facility] [id number] [address] [place] [address] August, PTSD (post-traumatic stress disorder) F43.10 ; Moderate episode of recurrent major depressive disorder F33.1 ; ADHD, predominantly inattentive type F90.0 and Social anxiety disorder F40.10 [facility] [address] [id number] [address] [place] [address] August, [facility] [address] [id number] [address] [place] [address] August, [facility] [address] [id number] [address] [place] [address] Jul, [facility] [address] [id number] [address] [place] [address] Jul, [facility] [address] [id number] [address] [place] [address] Jul, Rosacea L71.9 [facility] [address] [id number] [address] [place] [address] Jun, PTSD (post-traumatic stress disorder) F43.10 [facility] [address] [id number] [address] [place] [address] Jun, [facility] [address] [id number] [address] [place] [address] Jun, [facility] [address] [id number] [address] [place] [phone] Jun, [facility] [address] [facility] [id number] [address] [place] [address] Jun, [facility] [address] [id number] [address] [place] [address] Apr, [facility] [address] [id number] [address] [place] [address] Apr, Hypothyroid E03.9 ; Pure hyp ercholesterolemia E78.00 and Systemic lupus M32.9 [facility] [address] [id number] [address] [place] [address] 19 Der[place], 2018 Hypothyroid E03.9 ; Systemic lupus M32.9 and Pure hypercholesterolemia E78.00 [facility] [address] [id number] [address] [place] [address] Apr, [facility] [address] [facility] [id number] [address] [place] [address] Mar, [facility] [address] [id number] [address] [place] [address] Mar, Pulsatile neck mass R22.1 [facility] [address] [id number] [address] [place] [address] Feb, [facility] [address] [facility] [id number] [address] [place] [address] Feb, Contact dermatitis and eczem a due to plant L24.7 [facility] [address] [facility] [id number] [address] [place] [address] Feb, Systemic lupus M32.9 [facility] [address] [facility] [id number] [address] [place] [address] Jan, [facility] [address] [facility] [id number] [address] [place] [address] Jan, Dental examination Z01.20 [place] [address] [id number] [address] [place] [phone] 06 Jan, 2017 Encounter for immunization Z 23 [facility] [address] [facility] [id number] [address] [place] [address] Dec, [facility] [address] [id number] [address] [place] [address] Nov, Hypothyroid E03.9 [facility] [address] [facility] [id number] [address] [place] [address] Nov, PTSD (post-traumatic stress disorder) F43.10 ; ADHD, predominantly inattentive type F90.0 ; Social anxiety disorder F40.10 and Moderate episode of recurrent major depressive disorder F33.1 [place] [address] [id number] [address] [place] [address] Nov, ADHD, predominantly inattent marzena type F90.0 [facility] [address] [facility] [id number] [address] [place] [address] Oct, Acquired hypothyroidism E03. 9 [facility] [address] [facility] [id number] [address] [place] [address] Oct, ADHD, predominantly inattent marzena type F90.0 [facility] [address] [facility] [id number] [address] [place] [address] Oct, Acquired hypothyroidism E03. 9 [facility] [address] [facility] [id number] [address] [place] [address] Sep, Well woman exam Z01.419 ; Sy stemic lupus M32.9 ; Irregular menses N92.6 ; PTSD (post-traumatic stress disorder) F43.10 ; Social anxiety disorder F40.10 ; ADHD, predominantly inattentive type F90.0 ; Hypothyroid E03.9 and Generalized headaches R51 [facility] [address] [facility] [id number] [address] [place] [address] August, ADHD, predominantly inattent marzena type F90.0 [facility] [address] [facility] [id number] [address] [place] [address] August, [facility] [address] [facility] [id number] [address] [place] [address] Jul, [facility] [address] [facility] [id number] [address] [place] [address] Jun, [facility] [address] [facility] [id number] [address] [place] [address] Jun, Hypothyroid E03.9 [facility] [address] [facility] [id number] [address] [place] [address] Jun, ADHD, predominantly inattent marzena type F90.0 and Social anxiety disorder F40.10 [facility] [address] [facility] [id number] [address] [place] [address] Jun, [facility] [address] [id number] [address] [place] [address] Jun, [facility] [address] [id number] [address] [place] [id number] May, Dental examination Z01.20 [facility] [address] [id number] [address] [place] [address] 14 May, 2016 ADHD, predominantly inattent marzena type F90.0 ; Recurrent major depressive disorder, in partial remission F33.41 ; Social anxiety disorder F40.10 and PTSD (post-traumatic stress disorder) F43.10 [facility] [address] [id number] [address] [place] [address] Apr, Social anxiety disorder F40. 10 [facility] [address] [id number] [address] [place] [address] Apr, ADHD, predominantly inattent marzena type F90.0 [facility] [address] [id number] [address] [place] [address] Apr, [facility] [address] [id number] [address] [place] [address] Apr, [facility] [address] [id number] [address] [place] [address] Mar, Dental examination Z01.20 [facility] [address] [id number] [address] [place] [address] Mar, [facility] [address] [id number] [address] [place] [address] Feb, [facility] [address] [id number] [address] [place] [address] Feb, [facility] [address] [id number] [address] [place] [address] Jan, Encounter for immunization Z 23 [facility] [address] [id number] [address] [place] [phone] Jan, [facility] [address] [id number] [address] [place] [address] Jan, [facility] [address] [id number] [address] [place] [address] Jan, Dental examination Z01.20 [facility] [address] [id number] [address] [place] [address] Jan, [facility] [address] [id number] [address] [place] [address] Jan, Dental examination Z01.20 [facility] [address] [id number] [address] [place] [address] Jan, [facility] [address] [id number] [address] [place] [address] Dec, [facility] [address] [id number] [address] [place] [id number] Dec, Dental examination Z01.20 [facility] [address] [id number] [address] [place] [address] Nov, [facility] [address] [id number] [address] [place] [address] Nov, Social anxiety disorder F40. 10 ; PTSD (post-traumatic stress disorder) F43.10 and ADHD, predominantly inattentive type F90.0 [facility] [address] [id number] [address] [place] [address] Oct, Social anxiety disorder F40. 10 [facility] [address] [id number] [address] [place] [address] Oct, Hypothyroidism, unspecified type E03.9 [facility] [address] [id number] [address] [place] [address] Oct, Hypothyroid E03.9 [facility] [address] [id number] [address] [place] [address] Oct, Hypothyroid E03.9 [facility] [address] [facility] [id number] [address] [place] [id number] 17 Sep, 2015 Hypothyroid E03.9 [facility] [address] [facility] [id number] [address] [place] [address] 14 Sep, 2015 [facility] [address] [facility] [id number] [address] [place] [address] Sep, ADHD, predominantly inattent marzena type F90.0 [facility] [address] [facility] [id number] [address] [place] [address] Jul, ADHD, predominantly inattent marzena type F90.0 [facility] [address] [facility] [id number] [address] [place] [address] Jun, [facility] [address] [facility] [id number] [address] [place] [address] Jun, Major depressive disorder, r ecurrent episode, severe F33.2 ; ADHD, predominantly inattentive type F90.0 ; PTSD (post-traumatic stress disorder) F43.10 and Social anxiety disorder F40.10 [facility] [address] [facility] [id number] [address] [place] [address] Jun, [facility] [address] [facility] [id number] [address] [place] [address] May, Encounter for screening mamm ogram for breast cancer Z12.31 [facility] [address] [facility] [id number] [address] [place] [address] May, [facility] [address] [facility] [id number] [address] [place] [address] May, [facility] [address] [facility] [id number] [address] [place] [address] May, Major depressive disorder, r ecurrent episode, severe F33.2 ; PTSD (post-traumatic stress disorder) F43.10 ; Social anxiety disorder F40.10 and ADHD, predominantly inattentive type F90.0 [facility] [address] [place] [id number] [address] [place] [phone] Apr, [facility] [address] [address] Mar, [facility] [address] [place] [id number] [place] [address] Mar, Major depressive disorder, r ecurrent episode, severe F33.2 ; PTSD (post-traumatic stress disorder) F43.10 ; Social anxiety disorder F40.10 and ADHD, predominantly inattentive type F90.0 [facility] [address] [address] Feb, [facility] [address] [address] Feb, [facility] [address] [address] Feb, [facility] [address] [address] Feb, Lupus M32.9 ; Hypothyroid E0 3.9 and Irregular menses N92.6 [facility] [address] [address] Feb, Lupus M32.9 and Hypothyroid E03.9 [facility] [address] [address] Jan, Encounter for immunization Z 23 [facility] [address] [address] Jul, [facility] [address] [phone] Jul, [facility] [address] [place] [id number] [place] [address] Feb, [facility] [address] [address] Feb, [facility] [address] [id number] [address] [place] [address], [place] [address] 15 Feb, 2012 [facility] [address] [id number] [address] [place] [address], [place] [address] Feb, [facility] [address] [id number] [address] [place] [address], [place] [address] August, [facility] [address] [id number] [address] [place] [address], [place] [address] Jun, [facility] [address] [id number] [address] [place] [address], [place] [address] Jun, [facility] [address] [id number] [address] [place] [address], [place] [address] Jun, [facility] [address] [id number] [address] [place] [address], [place] [address] 16 Jun, 2011 [facility] [address] [id number] [address] [place] [address], [place] [address] May, [facility] [address] [id number] [address] [place] [address], [place] [address] May, [facility] [address] [id number] [address] [place] [address], [place] [address] May, [facility] [address] [id number] [address] [place] [address], [place] [address] May, [facility] [address] [id number] [address] [place] [address], [place] [address] Mar, [facility] [address] [id number] [address] [place] [address], [place] [address] Jan, [facility] [address] [id number] [address] [place] [address], [place] [address] Jan, [facility] [address] [id number] [address] [place] [address], [place] [address] Jan, [facility] [address] [id number] [address] [place] [address], [place] [address] Jan, [facility] [address] [facility] [id number] [address] [address] Jan, [facility] [address] [facility] [id number] [address] [place] [address] Jan, IMMUNIZATIONS No Known Immunizations SOCIAL HISTORY Never Assessed REASON FOR VISIT PLAN OF CARE VITAL SIGNS MEDICATIONS Medication Instructions Dosage Frequency Start Date End Date Duration S tatus Concerta 54 MG Orally Once a day for ADHD 1 tablet in the morning Apr, Active RESULTS No Results PROCEDURES No Known procedures INSTRUCTIONS MEDICATIONS ADMINISTERED No Known Medications MEDICAL (GENERAL) HISTORY Type Description Date Medical History Systemic lupus erythematosus, unspecifie d Medical History Hypothyroidism, unspecified Surgical History inguinal hernia repair Surgical History section Surgical History cholecystectomy Surgical History ovarian cyst resection Hospitalization History dystonia Hospitalization History pylenephritis
--- OUTSIDE RECORDS SUMMARY | 2019-10-05 06:26 | XMS REPORT ---
Author Author Meaghan CORTES Organization [facility] Address [address] [place] [address] Care Team Providers Care Boot Repairer Name Role Phone DEAN CORTES Unavailable PROBLEMS Type Condition ICD9-CM Code [id number] Code Onset Dates Condition S tatus SNOMED Code Problem Hypothyroid E03.9 Active 86481006 Problem Systemic lupus M32.9 Active 37142 009 Problem Irregular menses N92.6 Active 801 55519 Problem Lupus M32.9 Active 442755620 Problem Moderate episode of recurrent major depressive disorder F33.1 Active 530250408 Problem Acquired hypothyroidism E03.9 Active 393732844 Problem Major depressive disorder, recurrent episode, severe F33.2 Active 596849059618 Problem Social anxiety disorder F40.10 Active 72629443 Problem ADHD, predominantly inattentive type F90.0 Active 19873416 Problem PTSD (post-traumatic stress disorder) F43.10 Active 92532619 ALLERGIES No Information SOCIAL HISTORY Never Assessed PLAN OF CARE VITAL SIGNS MEDICATIONS Medication Instructions Dosage Frequency Start Date End Date Duration S tatus Adderall XR 20 MG Orally In the morning for ADHD 2 capsule 2 August, 28 days Active RESULTS No Results PROCEDURES No Known procedures IMMUNIZATIONS No Known Immunizations MEDICAL (GENERAL) HISTORY Type Description Date Medical History Systemic lupus erythematosus, unspecifie d Medical History Hypothyroidism, unspecified Surgical History inguinal hernia repair Surgical History section Surgical History cholecystectomy Surgical History ovarian cyst resection Hospitalization History dystonia Hospitalization History pylenephritis
--- OUTSIDE RECORDS SUMMARY | 2019-10-05 06:26 | XMS REPORT ---
Author Author Meaghan LYNNE [facility] [employer] Address Unknown Phone Unavailable Care Team Providers Care Veneer Stock Layer Name Role Phone KELLY LYNNE CP Unavailable Allergies No Known Allergies Problems Problem Type Condition Code Onset Dates Condition Statu s Problem Screening for malignant neoplasm of the cervix V76.2 Active Problem Irregular menses N92.6 Active Problem Routine general medical examination at [facility] V70.0 Active Assessment Social anxiety disorder F40.10 Acti ve Problem Disruption of wound, unspecified as to [...] Instructions Start Date End Date Status Dosage Methylphenidate HCl [facility] [address]-00 10 mg Orally at 4pm as needed for ADHD May 31, 2015 1 tablet Concerta [facility] [address]-00 36 MG Orally Once a day for ADHD June 1 tablet in the morning Results No Known Results Summary Purpose [employer]ClinicalWorks Submission
--- OUTSIDE RECORDS SUMMARY | 2019-10-05 06:26 | XMS REPORT ---
Author Author Meaghan LYNNE Organization [facility] Address [address] [place] [address] Care Team Providers Care Senior Litigation Paralegal Name Role Phone KELLY LYNNE Unavailable PROBLEMS Type Condition ICD9-CM Code HBA97-QB Code Onset Dates Condition S tatus SNOMED Code Problem Hypothyroid E03.9 Active 93624291 Problem Social anxiety disorder F40.10 Active 15050411 Problem Systemic lupus M32.9 Active 84910 009 Problem Irregular menses N92.6 Active 801 14475 Problem Rosacea L71.9 Active 788954681 Problem Pure hypercholesterolemia E78.00 Acti ve 874406374 Problem Major depressive disorder, recurrent episode, severe F33.2 Active [id number] Problem PTSD (post-traumatic stress disorder) F43.10 Active 30783425 Problem Moderate episode of recurrent major depressive disorder F33.1 Active 367750571 Problem ADHD, predominantly inattentive type F90.0 Active 33299591 ALLERGIES No Information ENCOUNTERS Encounter Location Date Diagnosis [facility] [address] [facility] [id number] [address] [place] [id number] Sep, Hypothyroid E03.9 [facility] [address] [facility] [id number] [address] [place] [phone] Sep, [facility] [address] [facility] [id number] [address] [place] [phone] 05 Sep, 2017 [facility] [address] [facility] [id number] [address] [place] [phone] August, [place] [address] [place] [id number] [address] [place] [phone] August, PTSD (post-traumatic stress disorder) F43.10 ; Moderate episode of recurrent major depressive disorder F33.1 ; ADHD, predominantly inattentive type F90.0 and Social anxiety disorder F40.10 [facility] [address] [id number] [address] [place] [phone] August, [facility] [address] [id number] [address] [place] [phone] August, [facility] [address] [facility] [id number] [address] [place] [id number] Jul, [facility] [address] [facility] [id number] [address] [place] [phone] Jul, [facility] [address] [facility] [id number] [address] [place] [phone] Jul, Rosacea L71.9 [facility] [address] [facility] [id number] [address] [place] [phone] Jun, PTSD (post-traumatic stress disorder) F43.10 [facility] [address] [facility] [id number] [address] [place] [phone] Jun, [facility] [address] [facility] [id number] [address] [place] [phone] Jun, [facility] [address] [facility] [id number] [address] [place] [phone] Jun, [facility] [address] [facility] [id number] [address] [place] [phone] Jun, [facility] [address] [facility] [id number] [address] [place] [phone] Apr, [facility] [address] [facility] [id number] [address] [place] [phone] Apr, Hypothyroid E03.9 ; Pure hyp ercholesterolemia E78.00 and Systemic lupus M32.9 [facility] [address] [facility] [id number] [address] [place] [phone] Apr, Hypothyroid E03.9 ; Systemic lupus M32.9 and Pure hypercholesterolemia E78.00 [facility] [address] [id number] [address] [place] [id number] Apr, [facility] [address] [id number] [address] [place] [phone] Mar, [facility] [address] [place] [id number] [address] [place] [phone] Mar, Pulsatile neck mass R22.1 [facility] [address] [place] [id number] [address] [place] [phone] Feb, [facility] [address] [place] [id number] [place] [phone] Feb, Contact dermatitis and eczem a due to plant L24.7 [facility] [address] [facility] [id number] [address] [place] [id number] Feb, Systemic lupus M32.9 [facility] [address] [place] [id number] [address] [place] [phone] Jan, [facility] [address] [place] [id number] [address] [place] [phone] Jan, Dental examination Z01.20 [facility] [address] [place] [id number] [address] [place] [phone] 06 Jan, 2017 Encounter for immunization Z 23 [facility] [address] [facility] [id number] [address] [place] [id number] 20 Dec, 2016 [facility] [address] [place] [id number] [address] [place] [id number] Nov, Hypothyroid E03.9 [facility] [address] [id number] [address] [place] [phone] Nov, PTSD (post-traumatic stress disorder) F43.10 ; ADHD, predominantly inattentive type F90.0 ; Social anxiety disorder F40.10 and Moderate episode of recurrent major depressive disorder F33.1 [facility] [address] [place] [id number] [address] [place] [id number] Nov, ADHD, predominantly inattent marzena type F90.0 [facility] [address] [id number] [address] [place] [phone] Oct, Acquired hypothyroidism E03. 9 [facility] [address] [facility] [id number] [address] [place] [phone] Oct, ADHD, predominantly inattent marzena type F90.0 [facility] [address] [facility] [id number] [address] [place] [phone] Oct, Acquired hypothyroidism E03. 9 [facility] [address] [facility] [id number] [address] [place] [address] Sep, Well woman exam Z01.419 ; Sy stemic lupus M32.9 ; Irregular menses N92.6 ; PTSD (post-traumatic stress disorder) F43.10 ; Social anxiety disorder F40.10 ; ADHD, predominantly inattentive type F90.0 ; Hypothyroid E03.9 and Generalized headaches R51 [facility] [address] [facility] [id number] [address] [place] [phone] August, ADHD, predominantly inattent marzena type F90.0 [facility] [address] [facility] [id number] [address] [place] [id number] August, [facility] [address] [facility] [id number] [address] [place] [phone] Jul, [facility] [address] [facility] [id number] [address] [place] [phone] Jun, [facility] [address] [facility] [id number] [address] [place] [phone] Jun, Hypothyroid E03.9 [facility] [address] [facility] [id number] [address] [place] [phone] Jun, ADHD, predominantly inattent marzean type F90.0 and Social anxiety disorder F40.10 [facility] [address] [facility] [id number] [address] [place] [phone] Jun, [facility] [address] [facility] [id number] [address] [place] [id number] Jun, [facility] [address] [id number] [address] [place] [id number] May, Dental examination Z01.20 [facility] [address] [id number] [address] [place] [id number] 14 May, 2016 ADHD, predominantly inattent marzena type F90.0 ; Recurrent major depressive disorder, in partial remission F33.41 ; Social anxiety disorder F40.10 and PTSD (post-traumatic stress disorder) F43.10 [facility] [address] [id number] [address] [place] [phone] Apr, Social anxiety disorder F40. 10 [facility] [address] [id number] [address] [place] [phone] Apr, ADHD, predominantly inattent marzena type F90.0 [facility] [address] [id number] [address] [place] [id number] Apr, [facility] [address] [id number] [address] [place] [phone] Apr, [facility] [address] [id number] [address] [place] [phone] Mar, Dental examination Z01.20 [facility] [address] [id number] [address] [place] [phone] Mar, [facility] [address] [id number] [address] [place] [phone] Feb, [facility] [address] [id number] [address] [place] [phone] Feb, [facility] [address] [id number] [address] [place] [phone] Jan, Encounter for immunization Z 23 [facility] [address] [id number] [address] [place] [id number] Jan, [facility] [address] [id number] [address] [place] [phone] Jan, [facility] [address] [id number] [address] [place] [id number] Jan, Dental examination Z01.20 [facility] [address] [id number] [address] [place] [phone] 20 Jan, 2016 [facility] [address] [id number] [address] [place] [id number] Jan, Dental examination Z01.20 [facility] [address] [id number] [address] [place] [phone] 13 Jan, 2016 [facility] [address] [id number] [address] [place] [id number] 16 Dec, 2015 [facility] [address] [id number] [address] [place] [id number] Dec, Dental examination Z01.20 [facility] [address] [id number] [address] [place] [id number] Nov, [facility] [address] [id number] [address] [place] [id number] Nov, Social anxiety disorder F40. 10 ; PTSD (post-traumatic stress disorder) F43.10 and ADHD, predominantly inattentive type F90.0 [facility] [address] [id number] [address] [place] [phone] Oct, Social anxiety disorder F40. 10 [facility] [address] [id number] [address] [place] [phone] Oct, Hypothyroidism, unspecified type E03.9 [facility] [address] [id number] [address] [place] [phone] Oct, Hypothyroid E03.9 [facility] [address] [id number] [address] [place] [id number] Oct, Hypothyroid E03.9 [facility] [address] [id number] [address] [place] [phone] Sep, Hypothyroid E03.9 [facility] [address] [facility] [id number] [address] [place] [phone] Sep, [facility] [address] [facility] [id number] [address] [place] [id number] Sep, ADHD, predominantly inattent marzena type F90.0 [facility] [address] [facility] [id number] [address] [place] [phone] Jul, ADHD, predominantly inattent marzena type F90.0 [facility] [address] [facility] [id number] [address] [place] [phone] Jun, [facility] [address] [facility] [id number] [address] [place] [id number] Jun, Major depressive disorder, r ecurrent episode, severe F33.2 ; ADHD, predominantly inattentive type F90.0 ; PTSD (post-traumatic stress disorder) F43.10 and Social anxiety disorder F40.10 [place] [address] [place] [id number] [address] [place] [phone] Jun, [place] [address] [place] [id number] [address] [place] [id number] May, Encounter for screening mamm ogram for breast cancer Z12.31 [facility] [address] [place] [id number] [address] [place] [id number] May, [facility] [address] [facility] [id number] [address] [place] [phone] May, [facility] [address] [facility] [id number] [address] [place] [phone] May, Major depressive disorder, r ecurrent episode, severe F33.2 ; PTSD (post-traumatic stress disorder) F43.10 ; Social anxiety disorder F40.10 and ADHD, predominantly inattentive type F90.0 [facility] [address] [facility] [id number] [address] [place] [phone] Apr, [facility] [address] [place] [id number] [place] [phone] Mar, [facility] [address] [id number] Mar, Major depressive disorder, r ecurrent episode, severe F33.2 ; PTSD (post-traumatic stress disorder) F43.10 ; Social anxiety disorder F40.10 and ADHD, predominantly inattentive type F90.0 [facility] [address] [id number] Feb, [facility] [address] [address] Feb, [facility] [address] [id number] Feb, [facility] [address] [address] Feb, Lupus M32.9 ; Hypothyroid E0 3.9 and Irregular menses N92.6 [facility] [address] [id number] Feb, Lupus M32.9 and Hypothyroid E03.9 [facility] [address] [id number] Jan, Encounter for immunization Z 23 [facility] [address] [id number] 14 Jul, 2014 [facility] [address] [address] Jul, [facility] [address] [id number] Feb, [facility] [address] [id number] Feb, [facility] [address] [address] Feb, [facility] [address] [id number] [address] [place] [address], [place] [phone] 15 Feb, 2012 [facility] [address] [id number] [address] [place] [address], [place] [address] August, [facility] [address] [id number] [address] [place] [address], [place] [phone] Jun, [facility] [address] [id number] [address] [place] [address], [place] [address] Jun, [facility] [address] [id number] [address] [place] [address], [place] [address] Jun, [facility] [address] [id number] [address] [place] [address], [place] [address] 16 Jun, 2011 [facility] [address] [id number] [address] [place] [address], [place] [address] May, [facility] [address] [id number] [address] [place] [address], [place] [address] May, [facility] [address] [id number] [address] [place] [address], [place] [address] May, [facility] [address] [id number] [address] [place] [address], [place] [address] May, [facility] [address] [id number] [address] [place] [address], [place] [address] Mar, [facility] [address] [id number] [address] [place] [address], [place] [address] Jan, [facility] [address] [id number] [address] [place] [address], [place] [address] Jan, [facility] [address] [id number] [address] [place] [address], [place] [address] Jan, [facility] [address] [id number] [address] [place] [address], [place] [address] Jan, [facility] [address] [id number] [address] [place] [address], [place] [address] Jan, [facility] [address] [facility] [id number] [address] [place] [address] Jan, IMMUNIZATIONS No Known Immunizations SOCIAL HISTORY Never Assessed REASON FOR VISIT Lab (walk-in) PLAN OF CARE VITAL SIGNS MEDICATIONS Unknown Medications RESULTS No Results PROCEDURES Procedure Date Ordered Result Body Site LIPID PANEL May 17, 2017 COMPREHEN METABOLIC PANEL May 17, 2017 VENIPUNCT, ROUTINE* May 17, 2017 ASSAY THYROID STIM HORMONE May 17, 2017 INSTRUCTIONS MEDICATIONS ADMINISTERED No Known Medications MEDICAL (GENERAL) HISTORY Type Description Date Medical History Systemic lupus erythematosus, unspecifie d Medical History Hypothyroidism, unspecified Surgical History inguinal hernia repair Surgical History section Surgical History cholecystectomy Surgical History ovarian cyst resection Hospitalization History dystonia Hospitalization History pylenephritis
--- OUTSIDE RECORDS SUMMARY | 2019-10-05 06:26 | XMS REPORT ---
Author Author Meaghan BRODY Organization [employer] Address Unknown Phone Unavailable Care Team Providers Care Cardiopulmonary Technician And Eeg Tech Name Role Phone MAJOR BRODY CP Unavailable Allergies, Adverse Reactions, Alerts Substance Reaction Event Type Stadol Info Not Available Drug Allergy Problems Problem Type Condition Code Onset Dates Condition Statu s Problem Screening for malignant neoplasm of the cervix V76.2 Active Problem Irregular menses N92.6 Active Problem Routine general medical examination at [facility] V70.0 Active Assessment Dental examination Z01.20 Active [...] Instructions Start Date End Date Status Dosage Amoxicillin [facility] [address]-94 500 MG Orally 3 times a day Jan 06, 2016 Jan 13, 2016 1 capsule Ortho Tri-Cyclen (28) [facility] 63919837127 0.18/0.215 /0.25 MG-35 MCG Orally Once a day 1 tablet [place] [facility] [address]-86 5-325 MG Orally every 6 hrs Jan 06, 2016 Jan 10, 2016 1 tablet as needed Levothyroxine Sodium [facility] [address]-12 125 mcg Orally Once a d ay October 26, 2015 1 tablet Lamictal [facility] [address]-69 200 mg Orally once a day Apr 21, 2015 1 tablet Procedures Procedure Coding System Code Date Dental no charge CPT-4 D0099 Jan 06, 2016 Vital Signs Date/Time: Jan 06, 2016 Blood Pressure Diastolic 93 mmHg Blood Pressure Systolic 132 mmHg Height 66 in Results No Known Results Summary Purpose [employer] Submission
--- OUTSIDE RECORDS SUMMARY | 2019-10-05 06:26 | XMS REPORT ---
Author Author Meaghan WORLEY Organization [facility] Address [address] [place] [address] Care Team Providers Care Judicial Clerk Name Role Phone HANK WORLEY Unavailable PROBLEMS Type Condition ICD9-CM Code [id number] Code Onset Dates Condition S tatus SNOMED Code Problem Hypothyroid E03.9 Active 62780154 Problem Systemic lupus M32.9 Active 17171 009 Problem Irregular menses N92.6 Active 801 53395 Problem Lupus M32.9 Active 520931524 Problem Moderate episode of recurrent major depressive disorder F33.1 Active 662639149 Problem Acquired hypothyroidism E03.9 Active 981241057 Problem Major depressive disorder, recurrent episode, severe F33.2 Active 688635291068 Problem Social anxiety disorder F40.10 Active 77891111 Problem ADHD, predominantly inattentive type F90.0 Active 41524563 Problem PTSD (post-traumatic stress disorder) F43.10 Active 65809913 ALLERGIES No Information SOCIAL HISTORY Never Assessed PLAN OF CARE VITAL SIGNS MEDICATIONS Medication Instructions Dosage Frequency Start Date End Date Duration S tatus Gxpnnoqrjl-VMMK-Vtwrztui 50-325-40 MG Orally every 4 hrs 1 capsule as needed 4h August, Active RESULTS No Results PROCEDURES No Known procedures IMMUNIZATIONS No Known Immunizations MEDICAL (GENERAL) HISTORY Type Description Date Medical History Systemic lupus erythematosus, unspecifie d Medical History Hypothyroidism, unspecified Surgical History inguinal hernia repair Surgical History section Surgical History cholecystectomy Surgical History ovarian cyst resection Hospitalization History dystonia Hospitalization History pylenephritis
--- OUTSIDE RECORDS SUMMARY | 2019-10-05 06:26 | XMS REPORT ---
Author Author Meaghan DINERO [facility] Address [address] [place] [address] Care Team Providers Care Erector Operator Name Role Phone VIKKI DINERO Unavailable PROBLEMS Type Condition ICD9-CM Code [id number] Code Onset Dates Condition S tatus SNOMED Code Problem Hypothyroid E03.9 Active 71790842 Problem Social anxiety disorder F40.10 Active 18485216 Problem Systemic lupus M32.9 Active 12161 009 Problem Irregular menses N92.6 Active 801 10354 Problem Rosacea L71.9 Active 138636319 Problem Pure hypercholesterolemia E78.00 Acti ve 157530576 Problem Major depressive disorder, recurrent episode, severe F33.2 Active [id number] Problem PTSD (post-traumatic stress disorder) F43.10 Active 46582837 Problem Moderate episode of recurrent major depressive disorder F33.1 Active 421864345 Problem ADHD, predominantly inattentive type F90.0 Active 08221961 ALLERGIES No Information ENCOUNTERS Encounter Location Date Diagnosis [place] [id number] [facility] [id number] [address] [place] [phone] Sep, [place] [address] [facility] [id number] [address] [place] [address] Sep, [facility] [address] [facility] [id number] [address] [place] [address] August, [facility] [address] [facility] [id number] [address] [place] [address] August, PTSD (post-traumatic stress disorder) F43.10 ; Moderate episode of recurrent major depressive disorder F33.1 ; ADHD, predominantly inattentive type F90.0 and Social anxiety disorder F40.10 [facility] [address] [facility] [id number] [address] [place] [phone] August, [place] [address] [id number] [address] [place] [address] August, [facility] [address] [id number] [address] [place] [id number] Jul, [facility] [address] [id number] [address] [place] [address] Jul, [facility] [address] [id number] [address] [place] [address] Jul, Rosacea L71.9 [facility] [address] [id number] [address] [place] [phone] Jun, PTSD (post-traumatic stress disorder) F43.10 [facility] [address] [id number] [address] [place] [address] Jun, [facility] [address] [id number] [address] [place] [phone] Jun, [facility] [address] [id number] [address] [place] [address] Jun, [facility] [address] [id number] [address] [place] [address] Jun, [facility] [address] [id number] [address] [place] [address] Apr, [facility] [address] [id number] [address] [place] [phone] Apr, Hypothyroid E03.9 ; Pure hyp ercholesterolemia E78.00 and Systemic lupus M32.9 [facility] [address] [id number] [address] [place] [address] Apr, Hypothyroid E03.9 ; Systemic lupus M32.9 and Pure hypercholesterolemia E78.00 [facility] [address] [id number] [address] [place] [phone] Apr, [facility] [address] [facility] [id number] [address] [place] [phone] Mar, [facility] [address] [place] [id number] [address] [place] [phone] Mar, Pulsatile neck mass R22.1 [facility] [address] [facility] [id number] [address] [place] [phone] Feb, [facility] [address] [facility] [id number] [address] [place] [phone] Feb, Contact dermatitis and eczem a due to plant L24.7 [facility] [address] [facility] [id number] [address] [place] [phone] Feb, Systemic lupus M32.9 [facility] [address] [facility] [id number] [address] [place] [phone] Jan, [facility] [address] [place] [id number] [address] [place] [address] Jan, Dental examination Z01.20 [facility] [address] [place] [id number] [address] [place] [id number] 06 Jan, 2017 Encounter for immunization Z 23 [facility] [address] [place] [id number] [address] [place] [phone] Dec, [facility] [address] [place] [id number] [address] [place] [phone] Nov, Hypothyroid E03.9 [facility] [address] [place] [id number] [address] [place] [address] Nov, PTSD (post-traumatic stress disorder) F43.10 ; ADHD, predominantly inattentive type F90.0 ; Social anxiety disorder F40.10 and Moderate episode of recurrent major depressive disorder F33.1 [facility] [address] [place] [id number] [address] [place] [phone] Nov, ADHD, predominantly inattent marzena type F90.0 [facility] [address] [place] [id number] [address] [place] [address] Oct, Acquired hypothyroidism E03. 9 [facility] [address] [id number] [address] [place] [address] Oct, ADHD, predominantly inattent marzena type F90.0 [facility] [address] [id number] [address] [place] [address] Oct, Acquired hypothyroidism E03. 9 [facility] [address] [facility] [id number] [address] [place] [address] Sep, Well woman exam Z01.419 ; Sy stemic lupus M32.9 ; Irregular menses N92.6 ; PTSD (post-traumatic stress disorder) F43.10 ; Social anxiety disorder F40.10 ; ADHD, predominantly inattentive type F90.0 ; Hypothyroid E03.9 and Generalized headaches R51 [facility] [address] [facility] [id number] [address] [place] [address] August, ADHD, predominantly inattent marzena type F90.0 [facility] [address] [facility] [id number] [address] [place] [phone] August, [facility] [address] [id number] [address] [place] [id number] Jul, [facility] [address] [facility] [id number] [address] [place] [id number] Jun, [facility] [address] [facility] [id number] [address] [place] [phone] Jun, Hypothyroid E03.9 [facility] [address] [facility] [id number] [address] [place] [address] Jun, ADHD, predominantly inattent marzena type F90.0 and Social anxiety disorder F40.10 [facility] [address] [facility] [id number] [address] [place] [address] Jun, [facility] [address] [facility] [id number] [address] [place] [phone] Jun, [facility] [address] [id number] [address] [place] [id number] May, Dental examination Z01.20 [facility] [address] [id number] [address] [place] [address] May, ADHD, predominantly inattent marzena type F90.0 ; Recurrent major depressive disorder, in partial remission F33.41 ; Social anxiety disorder F40.10 and PTSD (post-traumatic stress disorder) F43.10 [facility] [address] [id number] [address] [place] [address] Apr, Social anxiety disorder F40. 10 [facility] [address] [id number] [address] [place] [address] Apr, ADHD, predominantly inattent marzena type F90.0 [facility] [address] [id number] [address] [place] [phone] Apr, [facility] [address] [id number] [address] [place] [id number] Apr, [facility] [address] [id number] [address] [place] [address] Mar, Dental examination Z01.20 [facility] [address] [id number] [address] [place] [phone] Mar, [facility] [address] [id number] [address] [place] [phone] Feb, [facility] [address] [id number] [address] [place] [phone] Feb, [facility] [address] [id number] [address] [place] [phone] Jan, Encounter for immunization Z 23 [facility] [address] [id number] [address] [place] [phone] Jan, [facility] [address] [id number] [address] [place] [phone] Jan, [facility] [address] [id number] [address] [place] [address] Jan, Dental examination Z01.20 [facility] [address] [id number] [address] [place] [phone] Jan, [facility] [address] [id number] [address] [place] [id number] Jan, Dental examination Z01.20 [facility] [address] [id number] [address] [place] [phone] Jan, [facility] [address] [id number] [address] [place] [id number] Dec, [facility] [address] [id number] [address] [place] [id number] Dec, Dental examination Z01.20 [facility] [address] [id number] [address] [place] [phone] Nov, [facility] [address] [id number] [address] [place] [id number] Nov, Social anxiety disorder F40. 10 ; PTSD (post-traumatic stress disorder) F43.10 and ADHD, predominantly inattentive type F90.0 [facility] [address] [id number] [address] [place] [phone] Oct, Social anxiety disorder F40. 10 [facility] [address] [id number] [address] [place] [id number] Oct, Hypothyroidism, unspecified type E03.9 [facility] [address] [id number] [address] [place] [phone] Oct, Hypothyroid E03.9 [facility] [address] [id number] [address] [place] [phone] Oct, Hypothyroid E03.9 [facility] [address] [id number] [address] [place] [phone] Sep, Hypothyroid E03.9 [facility] [address] [id number] [address] [place] [phone] Sep, [facility] [address] [id number] [address] [place] [id number] Sep, ADHD, predominantly inattent marzena type F90.0 [facility] [address] [id number] [address] [place] [phone] Jul, ADHD, predominantly inattent marzena type F90.0 [facility] [address] [facility] [id number] [address] [place] [phone] Jun, [facility] [address] [id number] [address] [place] [phone] Jun, Major depressive disorder, r ecurrent episode, severe F33.2 ; ADHD, predominantly inattentive type F90.0 ; PTSD (post-traumatic stress disorder) F43.10 and Social anxiety disorder F40.10 [facility] [address] [facility] [id number] [address] [place] [id number] Jun, [facility] [address] [facility] [id number] [address] [place] [id number] May, Encounter for screening mamm ogram for breast cancer Z12.31 [facility] [address] [facility] [id number] [address] [place] [id number] 15 May, 2015 [facility] [address] [facility] [id number] [address] [place] [phone] May, [facility] [address] [facility] [id number] [address] [place] [phone] May, Major depressive disorder, r ecurrent episode, severe F33.2 ; PTSD (post-traumatic stress disorder) F43.10 ; Social anxiety disorder F40.10 and ADHD, predominantly inattentive type F90.0 [facility] [address] [facility] [id number] [address] [place] [id number] Apr, [facility] [address] [facility] [id number] [address] [place] [phone] Mar, [facility] [address] [place] [id number] [address] [place] [phone] Mar, Major depressive disorder, r ecurrent episode, severe F33.2 ; PTSD (post-traumatic stress disorder) F43.10 ; Social anxiety disorder F40.10 and ADHD, predominantly inattentive type F90.0 [facility] [address] [place] [id number] [address] [place] [id number] Feb, [facility] [address] [id number] Feb, [facility] [address] [id number] Feb, [facility] [address] [id number] Feb, Lupus M32.9 ; Hypothyroid E0 3.9 and Irregular menses N92.6 [facility] [address] [id number] Feb, Lupus M32.9 and Hypothyroid E03.9 [facility] [address] [place] [id number] [place] [address] Jan, Encounter for immunization Z 23 [facility] [address] [place] [id number] [place] [id number] 14 Jul, 2014 [facility] [address] [place] [id number] [place] [address] Jul, [facility] [address] [place] [id number] [address] [place] [phone] Feb, [facility] [address] [place] [id number] [address] [place] [phone] Feb, [facility] [address] [id number] Feb, [facility] [address] [place] [id number] [place] [address] Feb, [facility] [address] [place] [address] August, [facility] [address] [id number] [address] [place] [address], [place] [address] Jun, [facility] [address] [id number] [address] [place] [address], [place] [address] Jun, [facility] [address] [id number] [address] [place] [address], [place] [address] Jun, [facility] [address] [id number] [address] [place] [address], [place] [address] Jun, [facility] [address] [id number] [address] [place] [address], [place] [address] May, [facility] [address] [id number] [address] [place] [address], [place] [address] May, [facility] [address] [id number] [address] [place] [address], [place] [address] May, [facility] [address] [id number] [address] [place] [address], [place] [address] May, [facility] [address] [id number] [address] [place] [address], [place] [address] Mar, [facility] [address] [id number] [address] [place] [address], [place] [address] Jan, [facility] [address] [id number] [address] [place] [address], [place] [address] Jan, [facility] [address] [id number] [address] [place] [address], [place] [address] Jan, [facility] [address] [id number] [address] [place] [address], [place] [address] Jan, [facility] [address] [id number] [address] [place] [address], [place] [address] Jan, [facility] [address] [id number] [address] [place] [address], [place] [address] Jan, IMMUNIZATIONS No Known Immunizations SOCIAL HISTORY Never Assessed REASON FOR VISIT [facility] refills PLAN OF CARE VITAL SIGNS MEDICATIONS Medication [...]
--- OUTSIDE RECORDS SUMMARY | 2019-10-05 06:26 | XMS REPORT ---
Author Author Meaghan LYNNE Organization [facility] Address [address] [place] [address] Care Team Providers Care Tenderizer Tender Name Role Phone KELLY LYNNE Unavailable PROBLEMS Type Condition ICD9-CM Code LHL16-IH Code Onset Dates Condition S tatus SNOMED Code Problem Hypothyroid E03.9 Active 03045732 Problem Social anxiety disorder F40.10 Active 57942568 Problem Systemic lupus M32.9 Active 47591 009 Problem Irregular menses N92.6 Active 801 28099 Problem Rosacea L71.9 Active 322478845 Problem Pure hypercholesterolemia E78.00 Acti ve 968563440 Problem Major depressive disorder, recurrent episode, severe F33.2 Active 937998711934 Problem PTSD (post-traumatic stress disorder) F43.10 Active 35848106 Problem Moderate episode of recurrent major depressive disorder F33.1 Active 778159268 Problem ADHD, predominantly inattentive type F90.0 Active 71831052 ALLERGIES Substance Reaction Event Type Date Status Stadol halucinations Drug Allergy Apr, Active ENCOUNTERS Encounter Location Date Diagnosis [facility] [address] [facility] [id number] [address] [place] [address] Sep, Hypothyroid E03.9 [facility] [address] [facility] [id number] [address] [place] [address] Sep, [facility] [address] [facility] [id number] [address] [place] [address] Sep, [facility] [address] [facility] [id number] [address] [place] [phone] August, [facility] [address] [facility] [id number] [address] [place] [address] August, PTSD (post-traumatic stress disorder) F43.10 ; Moderate episode of recurrent major depressive disorder F33.1 ; ADHD, predominantly inattentive type F90.0 and Social anxiety disorder F40.10 [facility] [address] [id number] [address] [place] [address] August, [facility] [address] [id number] [address] [place] [address] August, [facility] [address] [id number] [address] [place] [address] Jul, [facility] [address] [id number] [address] [place] [address] Jul, [facility] [address] [id number] [address] [place] [address] Jul, Rosacea L71.9 [facility] [address] [facility] [id number] [address] [place] [address] Jun, PTSD (post-traumatic stress disorder) F43.10 [facility] [address] [id number] [address] [place] [address] Jun, [facility] [address] [id number] [address] [place] [address] Jun, [facility] [address] [facility] [id number] [address] [place] [address] Jun, [facility] [address] [id number] [address] [place] [address] Jun, [facility] [address] [facility] [id number] [address] [place] [address] Apr, [facility] [address] [id number] [address] [place] [address] Apr, Hypothyroid E03.9 ; Pure hyp ercholesterolemia E78.00 and Systemic lupus M32.9 [facility] [address] [id number] [address] [place] [address] Apr, Hypothyroid E03.9 ; Systemic lupus M32.9 and Pure hypercholesterolemia E78.00 [facility] [address] [facility] [id number] [address] [place] [phone] Apr, [facility] [address] [place] [id number] [address] [place] [phone] Mar, [facility] [address] [facility] [id number] [address] [place] [address] Mar, Pulsatile neck mass R22.1 [place] [address] [facility] [id number] [address] [place] [address] Feb, [facility] [address] [place] [id number] [place] [phone] Feb, Contact dermatitis and eczem a due to plant L24.7 [place] [address] [place] [id number] [address] [place] [address] Feb, Systemic lupus M32.9 [place] [address] [place] [id number] [address] [place] [address] Jan, [place] [address] [place] [id number] [address] [place] [address] Jan, Dental examination Z01.20 [place] [address] [place] [id number] [address] [place] [address] 06 Jan, 2017 Encounter for immunization Z 23 [place] [address] [place] [id number] [address] [place] [phone] 20 Dec, 2016 [place] [address] [place] [id number] [address] [place] [address] Nov, Hypothyroid E03.9 [place] [address] [facility] [id number] [address] [place] [address] Nov, PTSD (post-traumatic stress disorder) F43.10 ; ADHD, predominantly inattentive type F90.0 ; Social anxiety disorder F40.10 and Moderate episode of recurrent major depressive disorder F33.1 [place] [address] [place] [id number] [address] [place] [address] Nov, ADHD, predominantly inattent marzena type F90.0 [facility] [address] [id number] [address] [place] [address] Oct, Acquired hypothyroidism E03. 9 [facility] [address] [id number] [address] [place] [address] Oct, ADHD, predominantly inattent marzena type F90.0 [facility] [address] [id number] [address] [place] [address] Oct, Acquired hypothyroidism E03. 9 [facility] [address] [facility] [id number] [address] [place] [address] Sep, Well woman exam Z01.419 ; Sy stemic lupus M32.9 ; Irregular menses N92.6 ; PTSD (post-traumatic stress disorder) F43.10 ; Social anxiety disorder F40.10 ; ADHD, predominantly inattentive type F90.0 ; Hypothyroid E03.9 and Generalized headaches R51 [facility] [address] [facility] [id number] [address] [place] [address] August, ADHD, predominantly inattent marzena type F90.0 [facility] [address] [facility] [id number] [address] [place] [address] August, [facility] [address] [facility] [id number] [address] [place] [address] Jul, [facility] [address] [facility] [id number] [address] [place] [address] Jun, [facility] [address] [id number] [address] [place] [address] Jun, Hypothyroid E03.9 [facility] [address] [facility] [id number] [address] [place] [address] Jun, ADHD, predominantly inattent marzena type F90.0 and Social anxiety disorder F40.10 [facility] [address] [facility] [id number] [address] [place] [address] Jun, [facility] [address] [id number] [address] [place] [address] Jun, [facility] [address] [id number] [address] [place] [phone] May, Dental examination Z01.20 [facility] [address] [id number] [address] [place] [address] 14 May, 2016 ADHD, predominantly inattent marzena type F90.0 ; Recurrent major depressive disorder, in partial remission F33.41 ; Social anxiety disorder F40.10 and PTSD (post-traumatic stress disorder) F43.10 [facility] [address] [id number] [address] [place] [address] Apr, Social anxiety disorder F40. 10 [facility] [address] [id number] [address] [place] [address] Apr, ADHD, predominantly inattent marzena type F90.0 [facility] [address] [id number] [address] [place] [address] Apr, [facility] [address] [id number] [address] [place] [address] Apr, [facility] [address] [id number] [address] [place] [address] Mar, Dental examination Z01.20 [facility] [address] [id number] [address] [place] [address] Mar, [facility] [address] [id number] [address] [place] [address] Feb, [facility] [address] [id number] [address] [place] [address] Feb, [facility] [address] [facility] [id number] [address] [place] [address] Jan, Encounter for immunization Z 23 [facility] [address] [id number] [address] [place] [address] Jan, [facility] [address] [id number] [address] [place] [address] Jan, [facility] [address] [id number] [address] [place] [address] Jan, Dental examination Z01.20 [facility] [address] [id number] [address] [place] [address] Jan, [facility] [address] [id number] [address] [place] [address] Jan, Dental examination Z01.20 [facility] [address] [id number] [address] [place] [address] Jan, [facility] [address] [id number] [address] [place] [address] Dec, [facility] [address] [id number] [address] [place] [id number] Dec, Dental examination Z01.20 [facility] [address] [id number] [address] [place] [address] Nov, [facility] [address] [id number] [address] [place] [address] Nov, Social anxiety disorder F40. 10 ; PTSD (post-traumatic stress disorder) F43.10 and ADHD, predominantly inattentive type F90.0 [facility] [address] [id number] [address] [place] [address] Oct, Social anxiety disorder F40. 10 [facility] [address] [id number] [address] [place] [address] Oct, Hypothyroidism, unspecified type E03.9 [facility] [address] [id number] [address] [place] [address] Oct, Hypothyroid E03.9 [facility] [address] [id number] [address] [place] [address] Oct, Hypothyroid E03.9 [facility] [address] [id number] [address] [place] [phone] 17 Sep, 2015 Hypothyroid E03.9 [facility] [address] [facility] [id number] [address] [place] [address] 14 Sep, 2015 [facility] [address] [facility] [id number] [address] [place] [address] Sep, ADHD, predominantly inattent marzena type F90.0 [facility] [address] [facility] [id number] [address] [place] [address] Jul, ADHD, predominantly inattent marzena type F90.0 [facility] [address] [facility] [id number] [address] [place] [address] Jun, [facility] [address] [place] [id number] [address] [place] [address] Jun, Major depressive disorder, r ecurrent episode, severe F33.2 ; ADHD, predominantly inattentive type F90.0 ; PTSD (post-traumatic stress disorder) F43.10 and Social anxiety disorder F40.10 [facility] [address] [place] [id number] [address] [place] [address] Jun, [facility] [address] [place] [id number] [address] [place] [address] May, Encounter for screening mamm ogram for breast cancer Z12.31 [facility] [address] [place] [id number] [address] [place] [address] May, [facility] [address] [facility] [id number] [address] [place] [address] May, [facility] [address] [facility] [id number] [address] [place] [address] May, Major depressive disorder, r ecurrent episode, severe F33.2 ; PTSD (post-traumatic stress disorder) F43.10 ; Social anxiety disorder F40.10 and ADHD, predominantly inattentive type F90.0 [facility] [address] [place] [id number] [address] [place] [address] Apr, [facility] [address] [place] [id number] [address] [place] [address] Mar, [facility] [address] [place] [id number] [place] [address] Mar, Major depressive disorder, r ecurrent episode, severe F33.2 ; PTSD (post-traumatic stress disorder) F43.10 ; Social anxiety disorder F40.10 and ADHD, predominantly inattentive type F90.0 [facility] [address] [place] [id number] [place] [address] Feb, [facility] [address] [address] Feb, [facility] [address] [address] Feb, [facility] [address] [address] Feb, Lupus M32.9 ; Hypothyroid E0 3.9 and Irregular menses N92.6 [facility] [address] [address] Feb, Lupus M32.9 and Hypothyroid E03.9 [facility] [address] [place] [id number] [place] [address] Jan, Encounter for immunization Z 23 [facility] [address] [place] [id number] [address] [place] [address] 14 Jul, 2014 [facility] [address] [address] Jul, [facility] [address] [address] Feb, [facility] [address] [place] [id number] [place] [address] Feb, [facility] [address] [id number] 15 Feb, 2012 [facility] [address] [id number] [address] [place] [address], [place] [address] Feb, [facility] [address] [id number] [address] [place] [address], [place] [address] August, [facility] [address] [id number] [address] [place] [address], [place] [address] Jun, [facility] [address] [id number] [address] [place] [address], [place] [address] Jun, [facility] [address] [id number] [address] [place] [address], [place] [address] Jun, [facility] [address] [id number] [address] [place] [address], [place] [address] 16 Jun, 2011 [facility] [address] [id number] [address] [place] [address], [place] [address] May, [facility] [address] [id number] [address] [place] [address], [place] [address] May, [facility] [address] [id number] [address] [place] [address], [place] [address] May, [facility] [address] [id number] [address] [place] [address], [place] [address] May, [facility] [address] [id number] [address] [place] [address], [place] [address] Mar, [facility] [address] [id number] [address] [place] [address], [place] [address] Jan, [facility] [address] [id number] [address] [place] [address], [place] [address] Jan, [facility] [address] [id number] [address] [place] [address], [place] [address] Jan, [facility] [address] [id number] [address] [place] [address], [place] [address] Jan, [facility] [address] [facility] [id number] [address] [address] Jan, [facility] [address] [facility] [id number] [address] [place] [address] Jan, IMMUNIZATIONS No Known Immunizations SOCIAL HISTORY Never Assessed REASON FOR VISIT Transition of Care PLAN OF CARE Activity Details Follow Up 1 Year Reason: VITAL SIGNS Height 66 in 2017-05-10 Weight 152.6 lbs 2017-05-10 Temperature 98.6 degrees Fahrenheit 2017-05-10 Heart Rate 70 bpm 2017-05-10 Respiratory Rate 20 2017-05-10 BMI 24.63 kg/m2 2017-05-10 Blood pressure systolic 104 mmHg 2017-05-10 Blood pressure diastolic 66 mmHg 2017-05-10 MEDICATIONS Medication Instructions Dosage Frequency Start Date End Date Duration S tatus Concerta 54 MG Orally Once a day for ADHD 1 tablet in the morning Apr, Active Synthroid 100 MCG Orally Once a day 1 tablet on an empty stomach in the morning 24h 30 Active Cryselle-28 0.3-30 MG-MCG TAKE ONE TABLET BY MOUTH ONCE DAILY Active Lamictal 200 mg Orally Once a day 1 tablet 24h 31 Mar, 2015 Active Tramadol HCl 50 MG TAKE ONE TABLET BY MOUTH EVERY 6 HOURS NEE DED 10 Active HydrOXYzine HCl 25 MG TAKE ONE TO TWO TA BLETS BY MOUTH AT BEDTIME FOR SLEEP (MAY TAKE ONE TABLET DAILY NEEDED ANXIETY) Active Propranolol HCl 20 mg Orally Twice [...]
--- OUTSIDE RECORDS SUMMARY | 2019-10-05 06:27 | XMS REPORT ---
Author Meaghan Reynoso Organization [employer] Address Unknown Phone Unavailable Care Team Providers Care Leather Piece Inspector Name Role Phone HANK WORLEY CP Unavailable Allergies No Known Allergies Problems Problem Type Condition Code Onset Dates Condition Statu s Problem Screening for malignant neoplasm of the cervix V76.2 Active Problem Irregular menses N92.6 Active Problem Routine general medical examination at [facility] V70.0 Active Problem Disruption of wound, unspecified [...] Instructions Start Date End Date Status Dosage Promethazine-Codeine [facility] [address]-95 6.25-10 MG/5ML Oral ly every 6 hrs Dec 21, 2015 5 ml as needed Results No Known Results Summary Purpose [employer] Submission
--- OUTSIDE RECORDS SUMMARY | 2019-10-05 06:27 | XMS REPORT ---
Author Author Meaghan WORLEY Organization [facility] [facility] Address [address] [place] [address] Care Team Providers Care Health Care Sanitary Technician Name Role Phone HANK WORLEY Unavailable PROBLEMS Type Condition ICD9-CM Code [id number] Code Onset Dates Condition S tatus SNOMED Code Problem Hypothyroid E03.9 Active 88035691 Problem Systemic lupus M32.9 Active 67247 009 Problem Irregular menses N92.6 Active 801 27394 Problem Lupus M32.9 Active 725391932 Problem Moderate episode of recurrent major depressive disorder F33.1 Active 782334930 Problem Acquired hypothyroidism E03.9 Active 343633714 Problem Major depressive disorder, recurrent episode, severe F33.2 Active 646149573402 Problem Social anxiety disorder F40.10 Active 99420543 Problem ADHD, predominantly inattentive type F90.0 Active 07768200 Problem PTSD (post-traumatic stress disorder) F43.10 Active 25002294 ALLERGIES No Information SOCIAL HISTORY Never Assessed PLAN OF CARE VITAL SIGNS MEDICATIONS Unknown Medications RESULTS Name Result Date Reference Range T4 FREE 2016-07-06 T4,Free(Direct) 1.76 0.82-1.77 TSH 2016-07-06 TSH 0.174 0.450-4.500 PROCEDURES Procedure Date Ordered Result Body Site ASSAY THYROID STIM HORMONE July 06, 2016 ASSAY OF FREE THYROXINE July 06, 2016 VENIPUNCT, ROUTINE* July 06, 2016 IMMUNIZATIONS No Known Immunizations MEDICAL (GENERAL) HISTORY Type Description Date Medical History Systemic lupus erythematosus, unspecifie d Medical History Hypothyroidism, unspecified Surgical History inguinal hernia repair Surgical History section Surgical History cholecystectomy Surgical History ovarian cyst resection Hospitalization History dystonia Hospitalization History pylenephritis
--- OUTSIDE RECORDS SUMMARY | 2019-10-05 06:27 | XMS REPORT ---
Author Author Meaghan DINERO [facility] Address [address] [place] [address] Care Team Providers Care Circular Shear Operator Name Role Phone VIKKI DINERO Unavailable PROBLEMS Type Condition ICD9-CM Code [id number] Code Onset Dates Condition S tatus SNOMED Code Problem Hypothyroid E03.9 Active 17764919 Problem Systemic lupus M32.9 Active 09153 009 Problem Irregular menses N92.6 Active 801 08482 Problem Lupus M32.9 Active 561439618 Problem Moderate episode of recurrent major depressive disorder F33.1 Active 950856052 Problem Acquired hypothyroidism E03.9 Active 741138538 Problem Major depressive disorder, recurrent episode, severe F33.2 Active 844103768593 Problem Social anxiety disorder F40.10 Active 13985706 Problem ADHD, predominantly inattentive type F90.0 Active 14862563 Problem PTSD (post-traumatic stress disorder) F43.10 Active 57033461 ALLERGIES Unknown Allergies SOCIAL HISTORY No smoking Hx information available PLAN OF CARE VITAL SIGNS MEDICATIONS Medication Instructions Dosage Frequency Start Date End Date Duration S tatus Concerta 54 MG Orally Once a day for ADHD 1 tablet in the morning Apr, Active RESULTS No Results PROCEDURES No Known procedures IMMUNIZATIONS No Known Immunizations
--- OUTSIDE RECORDS SUMMARY | 2019-10-05 06:27 | XMS REPORT ---
Author Author Meaghan DINERO [facility] [employer] Address Unknown Phone Unavailable Care Team Providers Care Non Profit Financial Controller Name Role Phone VIKKI DINERO CP Unavailable Allergies No Known Allergies Problems Problem Type Condition Code Onset Dates Condition Statu s Problem Routine general medical examination at [facility] V70.0 Active Problem Lupus M32.9 Active Problem [...] Instructions Start Date End Date Status Dosage Propranolol HCl [facility] [id number] 20 mg Orally Twice a day Feb 09, 2 016 1 tablet Results No Known Results Summary Purpose [employer] Submission
--- OUTSIDE RECORDS SUMMARY | 2019-10-05 06:27 | XMS REPORT ---
Author Meaghan Reynoso Organization [employer] Address Unknown Phone Unavailable Care Team Providers Care Naturalization Examiner Name Role Phone HANK WORLEY CP Unavailable Allergies No Known Allergies Problems Problem Type Condition Code Onset Dates Condition Statu s Problem Routine general medical examination at [facility] V70.0 Active Problem Lupus M32.9 Active [...] Instructions Start Date End Date Status Dosage Ultram [facility] [address]-79 50 mg Orally every 6 hrs July 18, 2015 1 tablet as needed Results No Known Results Summary Purpose [employer] Submission
--- OUTSIDE RECORDS SUMMARY | 2019-10-05 06:27 | XMS REPORT ---
Author Meaghan Reynoso [facility] [employer] Address Unknown Phone Unavailable Care Team Providers Care Emergency Planning And Response Manager Name Role Phone HANK WORLEY CP Unavailable Allergies No Known Allergies Problems Problem Type Condition Code Onset Dates Condition Statu s Problem Hypothyroid E03.9 Active Problem Lupus M32.9 Active Problem Systemic lupus M32.9 Active Problem Screening for malignant neoplasm of the cervix V76.2 Active Problem Disruption of wound, unspecified as to episode of care 674.10 Active Problem Irregular menses N92.6 Active Problem Routine general medical examination at [facility] V70.0 Active Medications Medication Code System Code Instructions Start Date End Date Status Dosage Macrobid [facility] [id number] 100 MG Orally every 12 hrs Mar 03, 015 Mar 13, 2015 1 capsule with food Results No Known Results Summary Purpose [employer] Submission
--- OUTSIDE RECORDS SUMMARY | 2019-10-05 06:27 | XMS REPORT ---
Author Author Meaghan DINERO Organization [facility] Address [address] [place] [address] Care Team Providers Care Draw Frame Tender Name Role Phone VIKKI DINERO Unavailable PROBLEMS Type Condition ICD9-CM Code [id number] Code Onset Dates Condition S tatus SNOMED Code Problem Hypothyroid E03.9 Active 46683782 Problem Systemic lupus M32.9 Active 99278 009 Problem Irregular menses N92.6 Active 801 09695 Problem Lupus M32.9 Active 196874498 Problem Moderate episode of recurrent major depressive disorder F33.1 Active 491493415 Problem Acquired hypothyroidism E03.9 Active 298391269 Problem Major depressive disorder, recurrent episode, severe F33.2 Active 014599042975 Problem Social anxiety disorder F40.10 Active 20207344 Problem ADHD, predominantly inattentive type F90.0 Active 21791142 Problem PTSD (post-traumatic stress disorder) F43.10 Active 19691303 ALLERGIES Unknown Allergies SOCIAL HISTORY No smoking Hx information available PLAN OF CARE VITAL SIGNS MEDICATIONS Medication Instructions Dosage Frequency Start Date End Date Duration S tatus ChlorproMAZINE HCl 10 mg Orally Once a day 1 tablet at bedtime as n eeded 24h Apr, 30 days Active RESULTS No Results PROCEDURES No Known procedures IMMUNIZATIONS No Known Immunizations
--- OUTSIDE RECORDS SUMMARY | 2019-10-05 06:27 | XMS REPORT ---
Author Author Meaghan DINERO Organization [facility] Address [address] [place] [address] Care Team Providers Care Learning And Development Manager Name Role Phone VIKKI DINERO Unavailable PROBLEMS Type Condition ICD9-CM Code [id number] Code Onset Dates Condition S tatus SNOMED Code Problem Hypothyroid E03.9 Active 13698382 Problem Systemic lupus M32.9 Active 30829 009 Problem Irregular menses N92.6 Active 801 15906 Problem Lupus M32.9 Active 139135037 Problem Moderate episode of recurrent major depressive disorder F33.1 Active 528029379 Problem Acquired hypothyroidism E03.9 Active 203876051 Problem Major depressive disorder, recurrent episode, severe F33.2 Active 903526686173 Problem Social anxiety disorder F40.10 Active 94587481 Problem ADHD, predominantly inattentive type F90.0 Active 68784356 Problem PTSD (post-traumatic stress disorder) F43.10 Active 30073708 ALLERGIES No Information SOCIAL HISTORY Never Assessed PLAN OF CARE VITAL SIGNS MEDICATIONS Medication Instructions Dosage Frequency Start Date End Date Duration S tatus Propranolol HCl 20 mg Orally Twice a day 1 tablet 12h Jan, 30 days Active RESULTS No Results PROCEDURES No Known procedures IMMUNIZATIONS No Known Immunizations MEDICAL (GENERAL) HISTORY Type Description Date Medical History Systemic lupus erythematosus, unspecifie d Medical History Hypothyroidism, unspecified Surgical History inguinal hernia repair Surgical History section Surgical History cholecystectomy Surgical History ovarian cyst resection Hospitalization History dystonia Hospitalization History pylenephritis
--- OUTSIDE RECORDS SUMMARY | 2019-10-05 06:27 | XMS REPORT ---
Author Author Meaghan DINERO Organization [facility] Address [address] [place] [address] Care Team Providers Care Healthcare Liaison Name Role Phone VIKKI DINERO Unavailable PROBLEMS Type Condition ICD9-CM Code BVY26-[id number] Code Onset Dates Condition S tatus SNOMED Code Problem Hypothyroid E03.9 Active 10686514 Problem Systemic lupus M32.9 Active 77865 009 Problem Irregular menses N92.6 Active 801 98859 Problem Lupus M32.9 Active 241903628 Problem Moderate episode of recurrent major depressive disorder F33.1 Active 277779842 Problem Acquired hypothyroidism E03.9 Active 355408022 Problem Major depressive disorder, recurrent episode, severe F33.2 Active 545371914087 Problem Social anxiety disorder F40.10 Active 00993250 Problem ADHD, predominantly inattentive type F90.0 Active 15015171 Problem PTSD (post-traumatic stress disorder) F43.10 Active 25954948 ALLERGIES Unknown Allergies SOCIAL HISTORY No smoking Hx information available PLAN OF CARE VITAL SIGNS MEDICATIONS Medication Instructions Dosage Frequency Start Date End Date Duration S tatus Concerta 18 MG Orally Once a day at 12 Noon for ADHD 1 tablet May, Jun, 28 days Active Concerta 54 MG Orally Once a day for ADHD 1 tablet in the morning May, Jun, 28 days Active RESULTS No Results PROCEDURES No Known procedures IMMUNIZATIONS No Known Immunizations
--- OUTSIDE RECORDS SUMMARY | 2019-10-05 06:27 | XMS REPORT ---
Author Author Meaghan WORLEY Organization [facility] Address [address] [place] [address] Care Team Providers Care Eddy Current Inspector Name Role Phone HANK WORLEY Unavailable PROBLEMS Type Condition ICD9-CM Code GRJ73-OH Code Onset Dates Condition S tatus SNOMED Code Problem Hypothyroid E03.9 Active 56902030 Problem Systemic lupus M32.9 Active 41783 009 Problem Irregular menses N92.6 Active 801 96878 Problem Lupus M32.9 Active 927992375 Problem Moderate episode of recurrent major depressive disorder F33.1 Active 685588713 Problem Acquired hypothyroidism E03.9 Active 766107037 Problem Major depressive disorder, recurrent episode, severe F33.2 Active 342857625794 Problem Social anxiety disorder F40.10 Active 06918196 Problem ADHD, predominantly inattentive type F90.0 Active 65020473 Problem PTSD (post-traumatic stress disorder) F43.10 Active 66020799 ALLERGIES No Information SOCIAL HISTORY Never Assessed PLAN OF CARE VITAL SIGNS MEDICATIONS Medication Instructions Dosage Frequency Start Date End Date Duration S tatus Synthroid 100 MCG Orally Once a day 1 tablet on an empty stomach in the morning 24h Jun, 30 day(s) Active RESULTS No Results PROCEDURES No Known procedures IMMUNIZATIONS No Known Immunizations MEDICAL (GENERAL) HISTORY Type Description Date Medical History Systemic lupus erythematosus, unspecifie d Medical History Hypothyroidism, unspecified Surgical History inguinal hernia repair Surgical History section Surgical History cholecystectomy Surgical History ovarian cyst resection Hospitalization History dystonia Hospitalization History pylenephritis
--- OUTSIDE RECORDS SUMMARY | 2019-10-05 06:27 | XMS REPORT | Continuity of Care Document ---
Demographics Preferred Language Unknown Marital Status Unknown Restoration Affiliation Unknown Race Unknown Ethnic Group Unknown Author Organization Unknown Address Unknown Phone Unavailable Allergies Active Description Code Type Severity Reaction Onset Reported/Identified Relationship to Patient Clinical Status Yes Stadol Drug Allergy 10/12/2008 Yes No Allergy Information Available [id number] Drug Allergy Unknown N/A 017 Yes No Known Drug Allergies [id number] Drug Allergy Unknown N/A 09/30/2019 Medications There is no data. Problems Date Dx Coded Attending Type Code Diagnosis Diagnosed By 10/12/2008 MAYCOL ENGLISH APRN 244.9 HYPOTHYROIDISM 10/12/2008 MAYCOL ENGLISH APRN 695.4 LUPUS ERYTHEMATOSUS DISCOID 12/29/2008 MAYCOL ENGLISH APRN 724.5 BACKACHE 12/29/2008 MAYCOL ENGLISH APRN 780.60 fever [as symptom] 12/29/2008 MAYCOL ENGLISH APRN 787.91 diarrhea 12/29/2008 MAYCOL ENGLISH APRN 789.00 abdominal pain 01/31/2010 MAYCOL ENGLISH APRN 625.0 DYSPAREUNIA 01/31/2010 MAYCOL ENGLISH APRN V72.31 BALLISTICS EXPERT EXAM, ROUTINE 06/15/2011 MAYCOL ENGLISH APRN 674.10 DISRUPTION OF WOUND UNSPECIFIED TO EPISODE OF CARE 07/06/2011 MAYCOL ENGLISH APRN V76.2 CERVICAL CANCER SCREENING (PAP SMEAR) 03/06/2012 MAYCOL ENGLISH APRN V70.0 ROUTINE GENERAL MEDICAL EXAMINATION AT [facility] 03/02/2015 Ot V76.12 03/02/2015 Ot 611.72 03/02/2015 Ot 610.4 03/02/2015 Ot 610.0 03/02/2015 Ot 793.80 04/04/2015 HANK WORLEY NIGHT CLEANER Ot E03.9 04/04/2015 HANK WORLEY NIGHT CLEANER Ot E03.9 04/19/2015 HANK WORLEY NIGHT CLEANER Ot E03.9 06/24/2015 HANK WORLEY NIGHT CLEANER Ot E03.9 03/28/2017 HANK WORLEY NIGHT CLEANER Ot E03.9 HYPOTHYROIDISM, UNSPECIFIED 03/28/2017 HANK WORLEY NIGHT CLEANER Ot Z12.31 ENCNTR SCREEN MAMMOGRAM FOR MALIGNANT NE 04/01/2017 HANK WORLEY NIGHT CLEANER Ot E03.9 HYPOTHYROIDISM, UNSPECIFIED 04/01/2017 HANK WORLEY NIGHT CLEANER Ot Z12.31 ENCNTR SCREEN MAMMOGRAM FOR MALIGNANT NE 04/02/2017 MAGED AUSTIN, KELLY Cary Ot J32 .9 CHRONIC SINUSITIS, UNSPECIFIED 04/02/2017 KELLY LYNNE MD Ot R22 .1 LOCALIZED SWELLING, MASS AND LUMP, NECK 05/10/2017 KELLY LYNNE MD, Ot J32 .9 CHRONIC SINUSITIS, UNSPECIFIED 05/10/2017 KELLY LYNNE MD, Ot R22 .1 LOCALIZED SWELLING, MASS AND LUMP, NECK 01/12/2019 RIMA CLEMENTE MD Ot R22 .1 LOCALIZED SWELLING, MASS AND LUMP, NECK 01/15/2019 RIMA CLEMENTE MD Ot R22 .1 LOCALIZED SWELLING, MASS AND LUMP, NECK 01/15/2019 RIMA CLEMENTE MD Ot R22 .1 LOCALIZED SWELLING, MASS AND LUMP, NECK 02/18/2019 RIMA CLEMENTE MD Ot R22 .1 LOCALIZED SWELLING, MASS AND LUMP, NECK 05/15/2019 KELLY LYNNE MD Ot M47.27 OTHER SPONDYLOSIS WITH RADICULOPATHY, COLT 05/15/2019 KELLY LYNNE MD, Ot M48.07 SPINAL STENOSIS, LUMBOSACRAL REGION 05/15/2019 KELLY LYNNE MD Ot M48.8X6 OTHER SPECIFIED SPONDYLOPATHIES, LUMBAR 05/15/2019 KELLY LYNNE MD Ot M51.17 INTVRT DISC DISORDERS W RADICULOPATHY, L 07/01/2019 KELLY LYNNE MD, Ot M47.27 OTHER SPONDYLOSIS WITH RADICULOPATHY, COLT 07/01/2019 KELLY LYNNE MD, Ot M48.07 SPINAL STENOSIS, LUMBOSACRAL REGION 07/01/2019 KELLY LYNNE MD, Ot M48.8X6 OTHER SPECIFIED SPONDYLOPATHIES, LUMBAR 07/01/2019 MAGED AUSTIN, KELLY Cary Ot M51.17 INTVRT DISC DISORDERS W RADICULOPATHY, L 08/27/2019 DEVORA WESTON MD Ot M48.062 SPINAL STENOSIS, LUMBAR REGION WITH NEUR 08/27/2019 DEVORA WESTON MD Ot Z48.89 ENCOUNTER FOR OTHER SPECIFIED SURGICAL A 08/27/2019 DEVORA WESTON MD Ot Z98.1 ARTHRODESIS STATUS 08/31/2019 DEVORA WESTON MD Ot M48.062 SPINAL STENOSIS, LUMBAR REGION WITH NEUR 08/31/2019 DEVORA WESTON MD Ot Z48.89 ENCOUNTER FOR OTHER SPECIFIED SURGICAL A 08/31/2019 DEVORA WESTON MD Ot Z98.1 ARTHRODESIS STATUS 10/01/2019 DEVORA WESTON MD Ot M48.062 SPINAL STENOSIS, LUMBAR REGION WITH NEUR 10/01/2019 DEVORA WESTON MD Ot Z48.89 ENCOUNTER FOR OTHER SPECIFIED SURGICAL A 10/01/2019 DEVORA WESTON MD Ot Z98.1 ARTHRODESIS STATUS Procedures There is no data. Results Test Result Range Thyroxine (T4) Free, Direct, S - 7 15:33 T4,Free(Direct) 1.76 ng/dL 0.82-1.77 TSH - 07/06/16 15:33 TSH 0.174 uIU/mL 0.450-4.500 Genital Culture, Routine - 09/25/16 10:5 1 Genital Culture, Routine Note Pap Lb, rfx HPV ASCU - 09/25/16 10:51 DIAGNOSIS: Comment Specimen adequacy: Comment Clinician provided ICD10: Comment Performed by: Comment . . Note: Comment . Comment TSH+Free T4 - 11/02/16 13:45 TSH 3.140 uIU/mL 0.450-4.500 T4,Free(Direct) 1.48 ng/dL 0.82-1.77 CMP - 05/17/17 09:29 GLUCOSE 87 mg/dL 65-99 UREA NITROGEN (BUN) 11 mg/dL 7-25 CREATININE 0.84 mg/dL 0.50-1.10 eGFR NON-AFR. STATELESS 82 mL/min/1.73m2 > OR = 60 eGFR 95 mL/min/1.73m2 > OR = 60 BUN/CREATININE RATIO NOT APPLICABLE (calc) 6-22 SODIUM 140 mmol/L 135-146 POTASSIUM 4.3 mmol/L 3.5-5.3 CHLORIDE 108 mmol/L 98-110 CARBON DIOXIDE 21 mmol/L 20-31 CALCIUM 9.0 mg/dL 8.6-10.2 PROTEIN, TOTAL 6.7 g/dL 6.1-8.1 ALBUMIN 4.3 g/dL 3.6-5.1 GLOBULIN 2.4 g/dL (calc) 1.9-3.7 ALBUMIN/GLOBULIN RATIO 1.8 (calc) 1.0-2. 5 BILIRUBIN, TOTAL 0.6 mg/dL 0.2-1.2 ALKALINE PHOSPHATASE 72 U/L 33-115 AST 11 U/L 10-35 ALT 11 U/L 6-29 TSH - 05/17/17 09:29 TSH 4.21 mIU/L NRG CBC - 11/14/17 09:04 WHITE BLOOD CELL COUNT 10.2 Thousand/uL 3.8-10.8 RED BLOOD CELL COUNT 4.26 Million/uL 3.8 0-5.10 HEMOGLOBIN 12.6 g/dL 11.7-15.5 HEMATOCRIT 38.7 % 35.0-45.0 MCV 90.8 fL 80.0-100.0 MCH 29.6 pg 27.0-33.0 MCHC 32.6 g/dL 32.0-36.0 RDW 12.0 % 11.0-15.0 PLATELET COUNT 436 Thousand/uL 140-400 MPV 10.6 fL 7.5-12.5 ABSOLUTE NEUTROPHILS 7313 cells/uL 1500- 7800 ABSOLUTE LYMPHOCYTES 1907 cells/uL 850-3 900 ABSOLUTE MONOCYTES 775 cells/uL 200-950 ABSOLUTE EOSINOPHILS 122 cells/uL 15-500 ABSOLUTE BASOPHILS 82 cells/uL 0-200 NEUTROPHILS 71.7 % NRG LYMPHOCYTES 18.7 % NRG MONOCYTES 7.6 % NRG EOSINOPHILS 1.2 % NRG BASOPHILS 0.8 % NRG SUREPATH PAP RFX HPV mRNA E6/E7 - 07:06 CLINICAL INFORMATION: NRG LMP: NRG PREV. PAP: NRG PREV. BX: NRG SOURCE: [employer] NRG STATEMENT OF ADEQUACY: NRG INTERPRETATION/RESULT: NRG PUMP MECHANIC: NRG COMMENT NRG Whole blood basic metabolic panel - 12/21 01/08 12:23 Serum or plasma sodium measurement (moles/volume) 140 mmol/L 135-145 Serum or plasma potassium measurement (moles/volume) 4.1 mmol/L 3.6-5.0 Serum or plasma chloride measurement (moles/volume) 106 mmol/L 98-107 Carbon dioxide 24 mmol/L 21-32 Serum or plasma anion gap determination (moles/volume) 10 mmol/L 5-14 Serum or plasma urea nitrogen measurement (mass/volume ) 19 mg/dL 7-18 Serum or plasma creatinine measurement (mass/volume) 0.91 mg/dL 0.60-1.30 Serum or plasma urea nitrogen/creatinine mass ratio 21 NRG Serum or plasma creatinine measurement w ith calculation of estimated glomerular filtration rate > NRG Serum or plasma glucose measurement (mass/volume) 90 mg/dL 70-105 Serum or plasma calcium measurement (mass/volume) 9.6 mg/dL 8.5-10.1 TSH w/ FREE T4 - 01/16/19 14:50 TSH 4.95 mIU/L NRG T4, FREE 1.2 ng/dL 0.8-1.8 VITAMIN D, 25-H - 01/16/19 14:50 VITAMIN D,25-OH,TOTAL,IA 24 ng/mL 30-10 0 COVID-19 ([facility]) - 09/28/19 15:48 Encounters ACCT No. Visit Date/Time Discharge Status Pt. Type Provider Facility Loc./Unit Complaint [id number] 07/07/2016 08:06:00 Document Registration [id number] 02/16/2019 09:44:00 02/16/2019 23:59: 00 DIS Outpatient Niko Corona [id number] 01/12/2019 12:48:00 01/12/2019 23:59: 00 DIS Outpatient Niko Corona [id number] 01/12/2019 09:19:00 01/12/2019 23:59: 00 DIS Outpatient Niko Corona [id number] 10/01/2019 11:44:00 020 23:59:59 [facility] Outpatient JULIA PACKER DO [facility] PREOP HYSTEROSCOPY, D C, ENDO METRIAL ABLATION [id number] 08/25/2019 13:56:00 020 23:59:59 CLS Outpatient DEVORA WESTON MD [facility] RAD AFTERCARE FOLLO WING SRG MUSCULOSKELETAL SYSTEM [id number] 05/13/2019 12:59:00 020 23:59:59 CLS Outpatient KELLY LYNNE MD [facility] RAD LUMBAR RADICULOPATHY [id number] 01/08/2019 12:14:00 019 23:59:59 CLS Outpatient RIMA CLEMENTE MD [facility] RAD PULSATILE NECK MASS [id number] 04/01/2017 14:52:00 017 23:59:59 CLS Outpatient KELLY LYNNE MD [facility] RAD R22.1 PULSATILE NECK MA SS [id number] 06/24/2015 07:22:00 016 23:59:59 CLS Outpatient HANK WORLEY NIGHT CLEANER [facility] RAD SCREENING [id number] 03/02/2015 08:09:00 015 23:59:59 CLS Outpatient HANK WORLEY NIGHT CLEANER [facility] RAD HYPOTHYROIDISM [id number] 10/05/2019 07:30:00 P EN Preadmit SEALJULIA Lunsford DO Via [facility] SDC MENOMETORRHAGIA [id number] 09/11/2011 13:39:00 Document Registration [id number] 01/23/2011 11:59:00 Document Registration [id number] 10/17/2010 12:00:00 Document Registration [id number] 02/21/2010 14:41:00 Document Registration [id number] 02/07/2010 10:40:00 Document Registration [id number] 09/28/2019 10:45:00 09/28/2019 23:59:5 9 CLS Outpatient KELLY LYNNE MD [facility] [id number] 09/28/2019 10:45:00 Document Registration [id number] 01/16/2019 14:20:00 Document Registration [id number] 10/29/2018 09:15:00 Document Registration [id number] 11/14/2017 08:40:00 Document Registration [id number] 05/17/2017 08:40:00 Document Registration [id number] 07/06/2011 12:58:00 07/06/2011 23:59:5 9 [facility] MAYCOL ENGLISH APRN [id number] 11/03/2016 08:06:00 Document Registration [id number] 09/28/2016 13:05:00 Document Registration [id number] 09/27/2016 18:08:00 Document Registration
--- OUTSIDE RECORDS SUMMARY | 2019-10-05 06:27 | XMS REPORT ---
Author Meaghan Cruz [employer] Address Unknown Phone Unavailable Care Team Providers Care Activity Leader Name Role Phone VIKKI DINERO CP Unavailable Allergies, Adverse Reactions, Alerts Substance Reaction Event Type Stadol Info Not Available Drug Allergy Problems Problem Type Condition Code Onset Dates Condition Statu s Problem Screening for malignant neoplasm of the cervix V76.2 Active Problem Irregular menses N92.6 Active Problem Routine general medical examination at [facility] V70.0 Active Problem PTSD (post-traumatic stress disorder) F43.10 Active Problem Social anxiety disorder F40.10 Acti ve Problem Major depressive disorder, recurrent episode, severe F 33.2 Active Problem Hypothyroid E03.9 Active Problem Lupus M32.9 Active Problem ADHD, predominantly inattentive type F90.0 Active Problem Systemic lupus M32.9 Active Assessment ADHD, predominantly inattentive type F90.0 Active Assessment PTSD (post-traumatic stress disorder) F43.10 Active Assessment Social anxiety disorder F40.10 Acti ve Problem Disruption of wound, unspecified as to episode of care 674.10 Active Medications Medication Code System Code Instructions Start Date End Date Status Dosage HydrOXYzine HCl [facility] [address]-06 25 MG Orally Nacho e 1-2 tablets at HS for sleep and 1 additional tab during the PRN for anxiety Apr 19, 2015 1 tablet Lamictal [facility] [address]-13 200 mg Orally once a day Apr 21, 2015 1 tablet Concerta [facility] [address]-07 54 MG Orally Once a day for ADHD June 1 tablet in the morning Levothyroxine Sodium [facility] [address]-62 125 mcg Orally Once a d ay October 26, 2015 1 tablet ChlorproMAZINE HCl [facility] [address]-15 10 MG Orally Once a day at HS as needed for sleep Apr 26, 2015 1 tablet Ortho Tri-Cyclen (28) [facility] [id number] 0.18/0.215 /0.25 MG-35 MCG Orally Once a day 1 tablet Ultram [facility] [address]-72 50 mg Orally every 6 hrs July 18, 2015 1 tablet as needed Levothyroxine Sodium [facility] 04732771167 150 MCG Orally Once a day 1 tablet Methylphenidate HCl [facility] [address]-98 10 mg Orally at 4pm as needed for ADHD May 31, 2015 1 tablet Cryselle-28 [facility] [id number] 0.3-30 MG-MCG TAKE ONE TABLET BY MOUTH ONCE DAILY Norgestrel-Ethinyl Estradiol [facility] [address]-85 0.3-30 MG-M CG Orally Once a day Jun 06, 2015 1 tablet Procedures Procedure Coding System Code Date Office Visit, Est Pt., Level 4 CPT-4 03261 Dec 01, 2015 Vital Signs Date/Time: Dec 01, 2015 Cardiac Monitoring Heart Rate 82 bpm Weight 183.7 lbs Height 66 in BMI 29.65 Index Blood Pressure Diastolic 90 mmHg Blood Pressure Systolic 140 mmHg Results No Known Results Summary Purpose eClinicalWorks Submission
--- OUTSIDE RECORDS SUMMARY | 2019-10-05 06:27 | XMS REPORT ---
Author Meaghan Harris [facility] eClinical[employer] Address Unknown Phone Unavailable Care Team Providers Care [id number] Android Developer Name Role Phone KAVYA ROBERTS CP Unavailable Allergies, Adverse Reactions, Alerts Substance Reaction Event Type Stadol Info Not Available Drug Allergy Problems Problem Type Condition Code Onset Dates Condition Statu s Problem Routine general medical examination at [facility] V70.0 Active Problem Lupus M32.9 Active Problem Irregular menses N92.6 Active Problem Major depressive disorder, recurrent episode, severe F 33.2 Active Problem PTSD (post-traumatic stress disorder) F43.10 Active Problem Dental examination Z01.20 Active Problem Systemic lupus M32.9 Active Problem Hypothyroid E03.9 Active Problem Social anxiety disorder F40.10 Acti ve Problem ADHD, predominantly inattentive type F90.0 Active Assessment Dental examination Z01.20 Active Problem Disruption of wound, unspecified as to episode of care 674.10 Active Problem Screening for malignant neoplasm of the cervix V76.2 Active Medications Medication Code System Code Instructions Start Date End Date Status Dosage Concerta [facility] [address]-54 54 MG Orally Once a day for ADHD June 1 tablet in the morning Lamictal [facility] [address]-38 200 mg Orally once a day Apr 21, [address] [facility] 82858505692 125 mcg Orally Once a day 1 tablet Procedures Procedure Coding System Code Date INTRAORL-PERIAPICAL 1 FILM 50712 CPT-4 D0220 Feb 09, 2016 INTRAORL-PERIAPICAL EA ADD FILM CPT-4 D0230 Feb 09, 2016 COMP ORAL EVALUATION - NEW/EST PT CPT-4 D0150 Feb 09, 2016 Billing Notes on claim CPT-4 EC109 Feb 08, 2 016 [employer] Employee/Board adjustment CPT-4 CHCEM Feb 09, 2016 PANORAMIC FILM SEE ALSO CODE 11698 CPT-4 D0330 Feb 09, 2016 BITEWINGS - FOUR FILMS CPT-4 D0274 Feb 08, 2 016 Periodontal scaling and root CPT-4 D4341 Feb 09, 2016 Periodontal scaling and root CPT-4 D4341 Feb 09, 2016 Vital Signs Date/Time: Feb 09, 2016 Blood Pressure Systolic 163 mmHg Cardiac Monitoring Heart Rate 70 bpm Height 66 in Blood Pressure Diastolic 101 mmHg Results No Known Results Summary Purpose eClinicalWorks Submission
--- OUTSIDE RECORDS SUMMARY | 2019-10-05 06:27 | XMS REPORT ---
Author Meaghan Reynoso [facility] e[employer] Address Unknown Phone Unavailable Care Team Providers Care Bread Pan Greaser Name Role Phone HANK WORLEY CP Unavailable [...] Active Problem Routine general medical examination at [facility] V70.0 Active Medications Medication Code System Code Instructions Start Date End Date Status Dosage Amitriptyline HCl [facility] [address]-46 10 MG Orally Once a day Feb 23, 2015 1 tablet Results No Known Results Summary Purpose eClinicalWorks Submission
--- OUTSIDE RECORDS SUMMARY | 2019-10-05 06:27 | XMS REPORT ---
Author Meaghan Reynoso [facility] eClinical[employer] Address Unknown Phone Unavailable Care Team Providers Care Maintenance Controller Name Role Phone HANK WORLEY CP Unavailable Allergies, Adverse Reactions, Alerts Substance Reaction Event Type Stadol Info Not Available Drug Allergy Problems Problem Type Condition Code Onset Dates Condition Statu s Assessment Irregular menses N92.6 Active Assessment Lupus M32.9 Active Assessment Hypothyroid E03.9 Active Problem Hypothyroid E03.9 Active Problem Lupus M32.9 Active Problem Systemic lupus M32.9 Active Problem Screening for malignant neoplasm of the cervix V76.2 Active Problem Disruption of wound, unspecified as to episode of care 674.10 Active Problem Irregular menses N92.6 Active Problem Routine general medical examination at [facility] V70.0 Active Medications Medication Code System Code Instructions Start Date End Date Status Dosage Ortho Tri-Cyclen (28) [facility] [address]-82 0.18/0.215 /0.25 MG-35 MCG Orally Once a day Feb 23, 2015 1 tablet Levothyroxine Sodium [facility] [address]-73 150 MCG Orally Once a day Feb 23, 2015 1 tablet Procedures Procedure Coding System Code Date Office Visit, New Pt., Level 4 CPT-4 91119 N 2014 Vital Signs Date/Time: Feb 23, 2015 Temperature 98.0 F Weight 180.8 lbs Height 66 in BMI 29.18 Index Blood Pressure Diastolic 72 mmHg Blood Pressure Systolic 118 mmHg Cardiac Monitoring Heart Rate 70 bpm Results No Known Results Summary Purpose eClinicalWorks Submission
--- OUTSIDE RECORDS SUMMARY | 2019-10-05 06:27 | XMS REPORT ---
Author Meaghan Reynoso [facility] eClinicalWorks Address Unknown Phone Unavailable Care Team Providers Care Ferry Terminal Supervisor Name Role Phone HANK WORLEY CP Unavailable [...] Active Problem Routine general medical examination at [facility] V70.0 Active Medications Medication Code System Code Instructions Start Date End Date Status Dosage Macrobid [facility] [address]-43 100 MG Orally every 12 hrs Mar 03, 015 Mar 13, 2015 1 capsule with food Results No Known Results Summary Purpose eClinicalWorks Submission
--- OUTSIDE RECORDS SUMMARY | 2019-10-05 06:27 | XMS REPORT ---
Author Author Meaghan DINERO Organization [facility] Address [address] [place] [address] Care Team Providers Care Slitter Helper Name Role Phone VIKKI DINERO Unavailable PROBLEMS Type Condition ICD9-CM Code GDU65-CA Code Onset Dates Condition S tatus SNOMED Code Problem Hypothyroid E03.9 Active 60493428 Problem Systemic lupus M32.9 Active 08860 009 Problem Irregular menses N92.6 Active 801 57629 Problem Lupus M32.9 Active 572694238 Problem Moderate episode of recurrent major depressive disorder F33.1 Active 315733898 Problem Acquired hypothyroidism E03.9 Active 458852528 Problem Major depressive disorder, recurrent episode, severe F33.2 Active 162915745310 Problem Social anxiety disorder F40.10 Active 57267321 Problem ADHD, predominantly inattentive type F90.0 Active 42855117 Problem PTSD (post-traumatic stress disorder) F43.10 Active 23713022 ALLERGIES No Information SOCIAL HISTORY Never Assessed PLAN OF CARE VITAL SIGNS MEDICATIONS Medication Instructions Dosage Frequency Start Date End Date Duration S tatus Adderall XR 30 MG Orally In the morning for ADHD 1 capsule 1 Jun, 28 days Active RESULTS No Results PROCEDURES No Known procedures IMMUNIZATIONS No Known Immunizations MEDICAL (GENERAL) HISTORY Type Description Date Medical History Systemic lupus erythematosus, unspecifie d Medical History Hypothyroidism, unspecified Surgical History inguinal hernia repair Surgical History section Surgical History cholecystectomy Surgical History ovarian cyst resection Hospitalization History dystonia Hospitalization History pylenephritis
[2019-10-05 06:54] LABS: BASOPHILS # (AUTO) 0.1 10^3/uL (0.0-0.1); BASOPHILS % (AUTO) 1 % (0-10); EOSINOPHILS # (AUTO) 0.2 10^3/uL (0.0-0.3); EOSINOPHILS % (AUTO) 3 % (0-10); HEMATOCRIT 40 % (35-52); HEMOGLOBIN 12.9 G/DL (11.5-16.0); LYMPHOCYTES # (AUTO) 2.3 X 10^3 (1.0-4.0); LYMPHOCYTES % (AUTO) 31 % (12-44); MEAN CORPUSCULAR HEMOGLOBIN 28 PG (25-34); MEAN CORPUSCULAR HGB CONC 32 G/DL (32-36); MEAN CORPUSCULAR VOLUME 88 FL (80-99); MEAN PLATELET VOLUME 9.8 FL (7.4-10.4); MONOCYTES # (AUTO) 0.7 X 10^3 (0.0-1.0); MONOCYTES % (AUTO) 9 % (0-12); NEUTROPHILS # (AUTO) 4.2 X 10^3 (1.8-7.8); NEUTROPHILS % (AUTO) 57 % (42-75); PLATELET COUNT 428 10^3/uL (130-400); RED CELL DISTRIBUTION WIDTH 13.1 % (10.0-14.5); WHITE BLOOD COUNT 7.4 10^3/uL (4.3-11.0)
[2019-10-05] MEDS ORDERED: MIDAZOLAM 2 MG/2 ML (VERSED) VIAL ONE (06:55)
[2019-10-05] MEDS ORDERED: proPOfol 200 MG/20 ML (DIPRIVAN) VIAL IV ONE (06:56)
[2019-10-05] MEDS ORDERED: DEXAMETHASONE 10 MG/ML (DECADRON) 1 ML VIAL ONE (06:56)
[2019-10-05] MEDS ORDERED: ONDANSETRON 4 MG/2 ML (SDV) Z0FRAN ONE (06:56)
[2019-10-05] MEDS ORDERED: fentaNYL INJECTION 100 MCG/2 ML AMP ONE (06:56)
[2019-10-05] MEDS ORDERED: LIDOCAINE PF 0.5% 50 ML (XYLOCAINE) VIAL ONE (06:56)
--- NOTE | 2019-10-05 07:01 | History & Physical-OB/GYN ---
History of Present Illness History of Present Illness Reason for visit/HPI Ms. Cole is scheduled for a Hysteroscopy, D & C, Endometrial Ablation secondary to continuous bleeding and pelvic pain Date of Admission October 05, 2019 Date Seen by a Provider: Oct 05, 2019 Time Seen by a Provider: 06:50 I consulted on this patient on 10/05/19 06:56 Attending Physician Geovanni Gross DO Admitting Physician Geovanni Gross DO Consult Allergies and Home Medications Allergies Coded Allergies: No Known Drug Allergies (Unverified , 09/30/19) Home Medications Cholecalciferol (Vitamin D3) 50 Mcg Tablet, 50 MCG PO DAILY, (Reported) Lamotrigine 200 Mg Tab, 200 MG PO DAILY, (Reported) Levothyroxine Sodium 100 Mcg Tablet, 100 MCG PO DAILY, (Reported) Methylphenidate HCl 54 Mg Tab.er.24, 54 MG PO DAILY, (Reported) Norethindrone-E.estradiol-Iron 1 Each Capsule, 1 EACH PO DAILY, (Reported) Patient Home Medication List Home Medication List Reviewed: Yes Past Vqwqjqj-Qwrytt-Xlpbav Hx Patient Social History Marrital Status: Number of Children: 7 Number of living children: 7 Employed/Student: employed Alcohol Use: Denies Use Recreational Drug Use: No Smoking Status: Never a Smoker 2nd Hand Smoke Exposure: No Recent Foreign Travel: No Contact w/other who traveled: No Recent Hopitalizations: No Immunizations Up To Date Date of Influenza Vaccine: Jan 26, 2019 Seasonal Allergies Seasonal Allergies: No Surgeries Yes (INGUINAL HERNIA X2, CS X4, OVARIAN CYST X2, BACK FUSION, ) Section, Gallbladder Respiratory No Cardiovascular No Neurological No Reproductive System : No Hx : 7 Hx Para: 7 Sexually Transmitted Disease: No HIV/AIDS: No Female Reproductive Disorders: Menstrual Problems (Continuous bleeding, ovary cyst removal) Genitourinary No Gastrointestinal No Musculoskeletal No Endocrine History of Endocrine Disorders: Yes Endocrine Disorders: Hypothyroidsim, Lupus HEENT History of HEENT Disorders: Yes (CONTACTS) Loss of Vision: Denies Hearing Impairment: Denies Cancer No Psychosocial History of Psychiatric Problem: Yes Behavioral Health Disorders: Depression Integumentary History of Skin or Integumenta: No Blood Transfusions History of Blood Disorders: No Adverse Reaction to a Blood Tr: No (HAS HAD BLOOD WITH NO REACTION) Review of Systems Constitutional: see HPI Physical Exam Physical Exam Vital Signs Vital Signs Date Time Temp Pulse Resp B/P (MAP) Pulse Ox O2 Delivery O2 Flow Rate FiO2 10/05/19 06:53 37.0 62 16 154/79 (104) 98 Room Air Capillary Refill : Labs Laboratory Tests 10/05/19 06:35: White Blood Count 7.4, Red Blood Count 4.55, Hemoglobin 12.9, Hematocrit 40, Mean Corpuscular Volume 88, Mean Corpuscular Hemoglobin 28, Mean Corpuscular Hemoglobin Concent 32, Red Cell Distribution Width 13.1, Platelet Count 428H, Mean Platelet Volume 9.8, Neutrophils (%) (Auto) 57, Lymphocytes (%) (Auto) 31, Monocytes (%) (Auto) 9, Eosinophils (%) (Auto) 3, Basophils (%) (Auto) 1, Neutrophils # (Auto) 4.2, Lymphocytes # (Auto) 2.3, Monocytes # (Auto) 0.7, Eosinophils # (Auto) 0.2, Basophils # (Auto) 0.1 General Appearance: No Apparent Distress, WD/WN Respiratory: Chest Non Tender, Lungs Clear, Normal Breath Sounds Cardiovascular: Regular Rate, Rhythm, No Murmur Abdominal: normal bowel sounds, non tender, soft Uterus: WNL Extremity: Normal Inspection, Non Tender, No Calf Tenderness Assessment/Plan Assessment and Plan Assessment: Menometrorrhagia 2. Pelvic Pain 3. Dysmenorrhea 4. Uterine Fibroid Plan: Ms. Cole is scheduled for a Hysteroscopy, D & C, Endometrial Ablation. The procedure and its associated risks were reviewed. All questions were answered. Admission Diagnosis Admission Status: Other (Outpt Proc) GEOVANNI GROSS DO Oct 05, 2019 07:01
[2019-10-05] MEDS ORDERED: SEVOFLURANE (ULTANE) 15 ML INHAL SOLN ONE (07:59)
--- NOTE | 2019-10-05 08:10 | Anesthesia-General Post-Op ---
General Patient Condition Mental Status/LOC: Same as Preop Cardiovascular: Satisfactory Nausea/Vomiting: Absent Respiratory: Satisfactory Pain: Controlled Complications: Absent Post Op Complications Complications None Follow Up Care/Instructions Patient Instructions None needed. Anesthesia/Patient Condition Patient Condition Patient is doing well, no complaints, stable vital signs, no apparent adverse anesthesia problems. No complications reported per nursing. KELSEA CARL CRNA Oct 05, 2019 08:10
[2019-10-05] MEDS ORDERED: ONDANSETRON 4 MG/2 ML (SDV) Z0FRAN IVP PRN (08:15)
[2019-10-05] MEDS ORDERED: morphine INJ 10 MG/ML 1ML (SYR OR VIAL) IVP ONE (08:15)
--- NOTE | 2019-10-05 08:32 | Operative Report ---
Operative Report Date of Procedure/Surgery Oct 05, 2019 Surgeon (s) JULIA PACKER DO Alligator Trapper (s): None Post-Operative Diagnosis Menometrorrhagia 2. Pelvic Pain 3. Dysmenorrhea 4. Uterine Fibroid Procedure Performed Hysteroscopy, D & C, Endometrial Ablation Description of Procedure Anesthesia Type: General Estimated blood loss (mL): Minimal Specimen(s) collected/removed Endometrial tissue from curettage Description of the Procedure Ms. Cole was taken to the Operating Room with IV fluids running. Once in the OR, general anesthesia was administered without complications. She was placed in the dorsal lithotomy position, prepped and draped in the normal sterile fashion. Her bladder was draped. A bivalve speculum was introduced into the intravaginal cavity. The anterior lip of the cervix was grasped with a single- toothed tenaculum, then sounded to 9 cm. She was then dilated up in a stepwise fashion with Hegar dilators. The hysteroscope was introduced into the intrauterine cavity, where a moderate amount of endometrial tissue was noted. Both ostia were viewed. Curettage was performed until a gritty texture was noted. At this point, the Rebeca Endometrial Ablator was introduced into the intrauterine cavity, activated for two minutes and removed. The single toothed tenaculum was removed. A small amount of bleeding was noted--Monsel's solution was applied to obtain hemostasis. The bivalve speculum was removed. Sponge, instruments, and needle counts were correct x 3. Ms. Cole was taken to the Recovery Room in good and stable condition. Findings of the Procedure A moderate amount of endometrial tissue with the uterus, but no suspicious areas. Allergies and Home Medications Allergies Coded Allergies: No Known Drug Allergies (Unverified , 09/30/19) Home Medications Cholecalciferol (Vitamin D3) 50 Mcg Tablet, 50 MCG PO DAILY, (Reported) Lamotrigine 200 Mg Tab, 200 MG PO DAILY, (Reported) Levothyroxine Sodium 100 Mcg Tablet, 100 MCG PO DAILY, (Reported) Methylphenidate HCl 54 Mg Tab.er.24, 54 MG PO DAILY, (Reported) Norethindrone-E.estradiol-Iron 1 Each Capsule, 1 EACH PO DAILY, (Reported) Patient Home Medication List Home Medication List Reviewed: Yes JULIA PACKER DO Oct 05, 2019 08:32
[2019-10-05] MEDS ORDERED: OXYC1TAB87 PO (08:51)
[2019-10-05] MEDS ORDERED: DOXY100T2 PO (08:51)
[2019-10-05] MEDS ORDERED: IBUP-1780 PO (08:51)
--- NOTE | 2019-10-05 09:05 | NUR ---
PHONED CHRISTIE AT DR. PACKER OFFICE AND INFORMED HOME MEDICATIONS WERE NOT ADDRESSED. CHRISTIE INFORMED DR. PACKER GIVING TELEPHONE ORDER TO RESUME ALL HOME MEDICATIONS. WILL CONTINUE TO MONITOR PATIENT.
== END 2019-10-05 09:45 | disposition home or self-care (01) ==
LOC: SDC 06:04
PROVIDERS: ATTEND Obstetrics & Gynecology
DX: D25.9 Leiomyoma of uterus, unspecified (principal); N92.1 Excessive and frequent menstruation with irregular cycle; N94.6 Dysmenorrhea, unspecified; F32.9 Major depressive disorder, single episode, unspecified; M32.9 Systemic lupus erythematosus, unspecified; Z79.899 Other long term (current) drug therapy; Z79.890 Hormone replacement therapy; E03.9 Hypothyroidism, unspecified; Z88.5 Allergy status to narcotic agent
CPT/HCPCS: 36415; 84703; 85025; 86850; 86900; 86901; 87081; 88305

== ENCOUNTER 2021-02-07 16:30 | Emergency (ER) | payer OTHER ==
[~2021-02-07] VITALS: Ht 167.7 cm; Wt 77.0 kg
[~2021-02-07 16:30] MED LIST changes: +DOXY100T2 PO; +IBUP-1780 PO; +OXYC1TAB87 PO
[2021-02-07 16:59] LABS: BASOPHILS # (AUTO) 0.1 10^3/uL (0.0-0.1); BASOPHILS % (AUTO) 1 % (0-10); EOSINOPHILS # (AUTO) 0.2 10^3/uL (0.0-0.3); EOSINOPHILS % (AUTO) 2 % (0-10); HEMATOCRIT 39 % (35-52); HEMOGLOBIN 12.6 g/dL (11.5-16.0); LYMPHOCYTES # (AUTO) 2.6 10^3/uL (1.0-4.0); LYMPHOCYTES % (AUTO) 28 % (12-44); MEAN CORPUSCULAR HEMOGLOBIN 29 pg (25-34); MEAN CORPUSCULAR HGB CONC 32 g/dL (32-36); MEAN CORPUSCULAR VOLUME 90 fL (80-99); MEAN PLATELET VOLUME 9.3 fL (9.0-12.2); MONOCYTES # (AUTO) 0.9 10^3/uL (0.0-1.0); MONOCYTES % (AUTO) 9 % (0-12); NEUTROPHILS # (AUTO) 5.6 10^3/uL (1.8-7.8); NEUTROPHILS % (AUTO) 60 % (42-75); PLATELET COUNT 440 10^3/uL (130-400); WHITE BLOOD COUNT 9.4 10^3/uL (4.3-11.0)
[2021-02-07] MEDS ORDERED: ASPIRIN 81 MG CHEW (CHILDREN'S ASA) PO ONE (17:00)
[2021-02-07 17:01] LABS: ALBUMIN 4.3 GM/DL (3.2-4.5); POTASSIUM 3.7 MMOL/L (3.6-5.0)
[2021-02-07 17:02] LABS: CALCIUM 9.5 MG/DL (8.5-10.1)
[2021-02-07 17:03] LABS: TOTAL PROTEIN 7.5 GM/DL (6.4-8.2)
[2021-02-07 17:05] LABS: BILIRUBIN,TOTAL 0.4 MG/DL (0.1-1.0); INR 0.9 (0.8-1.4); PROTHROMBIN TIME PATIENT 12.4 SEC (12.2-14.7)
[2021-02-07 17:07] LABS: CREATININE SERUM 0.95 MG/DL (0.60-1.30)
--- NOTE | 2021-02-07 17:21 | ED Cardiac General ---
History of Present Illness General Chief Complaint: Cardiac/General Problems Stated Complaint: ABNORMAL EKG Nursing Triage Note: AMB TO ED FROM [facility] BECAUSE HER EKG SHOWED BBB AND SYSTOLIC B/P WAS IN 180'S PATIENT HAS BEEN HAVING A HEADACHE ON FOR LAST SEVERAL DAYS. (MARGARET WELDON) History of Present Illness Date Seen by Provider: Feb 07, 2021 Time Seen by Provider: 16:35 Initial Comments 50-year-old female referred here for hypertension and new left bundle branch block noted on EKG at [facility]. She states that she has been monitoring her blood pressure for the last week and it slowly been creeping above 150/90 and systolic up to 180 at times. She has not taken antihypertensive medications in the past. She does have a history of hypothyroidism and her labs have been checked in the last 12 months. She denies any history of diabetes or coronary artery disease. No family history of heart disease. She denies chest pain, left arm or jaw pain, diaphoresis or nausea. She reports intermittent headaches, none at the present time. Timing/Duration: 5-6 days Severity: mild NTG SL CMM OPERATOR: No ASA po CMM OPERATOR: No Associated Systoms: No Chest Pain, No Cough, No Nausea/Vomiting, No Shortness of Air (MARGARET WELDON) Allergies and Home Medications Allergies Coded Allergies: No Known Drug Allergies (Unverified , 09/30/19) Patient Home Medication List Home Medication List Reviewed: Yes (MARGARET WELDON) Cholecalciferol (Vitamin D3) (Vitamin D3) 50 Mcg Tablet, 50 MCG PO DAILY, ( Reported) Entered as Reported by: VERA COLON on 10/01/19 1139 Doxycycline Hyclate (Doxycycline Hyclate) 100 Mg Tablet, 100 MG PO Q12H Prescribed by: MOSES WILKERSON on 10/05/19 0851 Ibuprofen (Ibuprofen) 800 Mg Tablet, 800 MG PO Q8H PRN for PAIN-MILD Prescribed by: MOSES WILKERSON on 10/05/19 0851 Lamotrigine (Lamictal) 200 Mg Tab, 200 MG PO DAILY, (Reported) Entered as Reported by: VERA COLON on 10/01/19 1139 Levothyroxine Sodium (Levothyroxine Sodium) 100 Mcg Tablet, 100 MCG PO DAILY, (Reported) Entered as Reported by: VERA COLON on 10/01/19 1139 Methylphenidate HCl (Concerta) 54 Mg Tab.er.24, 54 MG PO DAILY, (Reported) Entered as Reported by: VERA COLON on 10/01/19 1139 Norethindrone-E.estradiol-Iron (Taytulla 1 mg-20 Mcg Capsule) 1 Each Capsule, 1 EACH PO DAILY, (Reported) Entered as Reported by: VERA COLON on 10/01/19 1139 Oxycodone HCl/Acetaminophen (Percocet 5-325 mg Tablet) 1 Each Tablet, 1 TAB PO Q6H Prescribed by: MOSES WILKERSON on 10/05/19 0851 Review of Systems Review of Systems Constitutional: no symptoms reported, see HPI Cardiovascular: See HPI; Denies Chest Pain, Denies Irregular Heart Rate; Palpitations (Occasionally, but not at present time.) (MARGARET WELDON) All Other Systems Reviewed Negative Unless Noted: Yes (MARGARET WELDON) Past Ydortdv-Huxulb-Hwplxo Hx Patient Social History Tobacco Use?: No Substance use?: No Pt feels they are or have been: No (MARGARET WELDON) Immunizations Up To Date First/Initial COVID19 Vaccinat: MAR Second COVID19 Vaccination Serjio: HORACE COVID19 Vaccine Rough Rounder: DEMETRIS (MARGARET WELDON) Seasonal Allergies Seasonal Allergies: No (MRAGARET WELDON) Past Medical History Surgeries: Yes (INGUINAL HERNIA X2, CS X4, OVARIAN CYST X2, BACK FUSION, ) Section, Gallbladder Respiratory: No Currently Using CPAP: No Currently Using BIPAP: No Cardiac: No Neurological: No Female Reproductive Disorders: Menstrual Problems Sexually Transmitted Disease: No HIV/AIDS: No Genitourinary: No Gastrointestinal: No Musculoskeletal: No Endocrine: Yes Hypothyroidsim, Lupus HEENT: Yes (CONTACTS) Loss of Vision: Denies Hearing Impairment: Denies Cancer: No Psychosocial: Yes Depression Integumentary: No Blood Disorders: No Adverse Reaction/Blood Tranf: No (HAS HAD BLOOD WITH NO REACTION) (MARGARET WELDON) Family Medical History Reviewed Nursing Family Hx (MARGARET WELDON) Physical Exam Vital Signs Vital Signs - First Documented 02/07/21 16:33 Pulse 77 Resp 18 B/P (MAP) 182/97 (125) Pulse Ox 99 O2 Delivery Room Air (ALISHA BOLANOS MD) Vital Signs Capillary Refill : Less Than 3 Seconds (MARGARET WELDON) Height, Weight, BMI Height: '" Weight: lbs. oz. kg; 27.00 BMI Method: General Appearance: No Apparent Distress, WD/WN HEENT: PERRL/EOMI, TMs Normal, Normal ENT Inspection, Pharynx Normal Neck: Full Range of Motion, Normal Inspection, Non Tender, Supple Respiratory: Chest Non Tender, Lungs Clear, Normal Breath Sounds Cardiovascular: Regular Rate, Rhythm, No Edema, No Murmur, Normal Peripheral Pulses Gastrointestinal: Normal Bowel Sounds, Non Tender, Soft Extremity: Normal Capillary Refill, Normal Inspection, Normal Range of Motion, Non Tender, No Calf Tenderness, No Pedal Edema Neurologic/Psychiatric: Alert, Oriented x3, No Motor/Sensory Deficits, Normal Mood/Affect (MARGARET WELDON) Progress/Results/Core Measures Results/Orders Lab Results Laboratory Tests Test 02/07/21 16:47 Range/Units White Blood Count 9.4 4.3-11.0 10^3/uL Red Blood Count 4.37 3.80-5.11 10^6/uL Hemoglobin 12.6 11.5-16.0 g/dL Hematocrit 39 35-52 % Mean Corpuscular Volume 90 80-99 fL Mean Corpuscular Hemoglobin 29 25-34 pg Mean Corpuscular Hemoglobin Concent 32 32-36 g/dL Red Cell Distribution Width 12.4 10.0-14.5 % Platelet Count 440 H 130-400 10^3/uL Mean Platelet Volume 9.3 9.0-12.2 fL Immature Granulocyte % (Auto) 0 % Neutrophils (%) (Auto) 60 42-75 % Lymphocytes (%) (Auto) 28 12-44 % Monocytes (%) (Auto) 9 0-12 % Eosinophils (%) (Auto) 2 0-10 % Basophils (%) (Auto) 1 0-10 % Neutrophils # (Auto) 5.6 1.8-7.8 10^3/uL Lymphocytes # (Auto) 2.6 1.0-4.0 10^3/uL Monocytes # (Auto) 0.9 0.0-1.0 10^3/uL Eosinophils # (Auto) 0.2 0.0-0.3 10^3/uL Basophils # (Auto) 0.1 0.0-0.1 10^3/uL Immature Granulocyte # (Auto) 0.0 0.0-0.1 10^3/uL Prothrombin Time 12.4 12.2-14.7 SEC INR Comment 0.9 0.8-1.4 Activated Partial Thromboplast Time 29 24-35 SEC Sodium Level 139 135-145 MMOL/L Potassium Level 3.7 3.6-5.0 MMOL/L Chloride Level 105 98-107 MMOL/L Carbon Dioxide Level 24 21-32 MMOL/L Anion Gap 10 5-14 MMOL/L Blood Urea Nitrogen 13 7-18 MG/DL Creatinine 0.95 0.60-1.30 MG/DL Estimat Glomerular Filtration Rate 62 BUN/Creatinine Ratio 14 Glucose Level 95 70-105 MG/DL Calcium Level 9.5 8.5-10.1 MG/DL Corrected Calcium 9.3 8.5-10.1 MG/DL Magnesium Level 2.0 1.6-2.4 MG/DL Total Bilirubin 0.4 0.1-1.0 MG/DL Aspartate Amino Transf (AST/SGOT) 16 5-34 U/L Alanine Aminotransferase (ALT/SGPT) 16 0-55 U/L Alkaline Phosphatase 121 40-136 U/L Myoglobin 23.6 10.0-92.0 NG/ML Troponin I < 0.028 <0.028 NG/ML Total Protein 7.5 6.4-8.2 GM/DL Albumin 4.3 3.2-4.5 GM/DL Thyroid Stimulating Hormone (TSH) 5.37 H 0.35-4.94 UIU/ML Free Thyroxine 1.00 0.70-1.48 NG/DL (ALISHA BOLANOS MD) Vital Signs/I&O 02/07/21 02/07/21 16:33 18:58 Pulse 77 90 Resp 18 18 B/P (MAP) 182/97 (125) 154/85 Pulse Ox 99 100 O2 Delivery Room Air Room Air (ALISHA BOLANOS MD) Blood Pressure Mean: 125 Progress Progress Note : Time: 16:35 Progress Note Patient seen and evaluated, will obtain EKG, chest x-ray, will give aspirin 324 mg orally. Hydralazine 5 mg IV for hypertension. 1715 blood pressure improved to 140s over 80. Patient denies any complaints. 1800 B/P elevated, 160s/90, will give Catapress 0.1mg orally. Troponin neg. 1830 B/P improved 150s/80. Patient continues to deny chest pain or headache. No other requests at this time. Discharge instructions and return precautions reviewed with the patient. Did discuss her TSH, she will follow up with her PCP. (MARGARET WELDON) Initial ECG Impression Date: Feb 07, 2021 Initial ECG Impression Time: 16:40 Initial ECG Rate: 71 Initial ECG Rhythm: Normal Sinus Initial ECG Intervals: Normal Initial ECG Intervals AL 161, QRSD 1 40, QT 410, QTc 446. [place] P 34, QRS 12, T 2174 Initial ECG Comparisson: No Previous ECG Available (MARGARET WELDON) Diagnostic Imaging Diagonstic Imaging: Xray Plain Films/CT/US/NM/MRI: chest Comments NAME: KELBY PONCE [facility] REC#: [id number] PT STATUS: REG ER : 1970 PHYSICIAN: MARGARET WELDON ADMIT DATE: 02/07/21/ER Signed Date of Exam:02/07/21 CHEST 1 VIEW, AP/PA ONLY EXAMINATION: Chest radiograph, portable AP view. DATE: 02/07/2021 5:35 PM INDICATION: 50-year-old female, chest pain. COMPARISON: None. FINDINGS: Heart size and mediastinal contours are unremarkable. There is no identified pneumothorax. There is no large pleural effusion. There is no identified focal airspace consolidation. IMPRESSION: No identified acute cardiopulmonary abnormality. Dictated by: Dictated on workstation # [id number] Dict: 02/07/21 174 Trans: 02/07/211805 [facility] [id number] Interpreted by: TESS CASEY MD Electronically signed by: TESS CASEY MD 02/07/211805 Reviewed: Reviewed by Me (MARGARET WELDON) Departure Impression Primary Impression: Essential (primary) hypertension Additional Impression: Left bundle branch block Disposition: HOME, SELF-CARE Condition: Improved Departure-Patient Inst. Decision time for Depature: 18:20 (MARGARET WELDON) Referrals: ANDREW COON DO (PCP/Family) Primary Care Physician KELLY ARROYO JR, MD Patient Instructions: Heart Block, Adult (DC), High Blood Pressure (DC) Add. Discharge Instructions: Follow-up with Dr. Coon, start your hypertension medicine tomorrow. Schedule an appointment with Dr. Arroyo for cardiology evaluation. Take aspirin 81 mg, 1 tablet daily. Continue your home medications. Return to the emergency department for chest pain, headache, palpitations, or other urgent healthcare needs. All discharge instructions reviewed with patient and/or family. Voiced understanding. ATTENDING PHYSICIAN NOTE: I was physically present as attending physician in the emergency department during the care of this patient, but I was not directly involved in the decision making or delivery of care for this patient. (ALISHA BOLANOS MD) Copy Copies To 1: ANDREW COON AMY ARNP Feb 07, 2021 17:21 ALISHA BOLANOS MD Feb 08, 2021 06:45
[2021-02-07] MEDS ORDERED: hydrALAZINE (APESOLINE) 20 MG/ML VIAL IV STA (17:36)
--- NOTE | 2021-02-07 17:59 | Diagnostic Imaging Report ---
EXAMINATION: Chest radiograph, portable AP view. DATE: 02/07/2021 5:35 PM INDICATION: 50-year-old female, chest pain. COMPARISON: None. FINDINGS: Heart size and mediastinal contours are unremarkable. There is no identified pneumothorax. There is no large pleural effusion. There is no identified focal airspace consolidation. IMPRESSION: No identified acute cardiopulmonary abnormality. Dictated by: Dictated on workstation # [id number]
[2021-02-07] MEDS ORDERED: cloNIDine 0.1 MG (CATAPRES) TAB PO ONE (18:30)
[2021-02-07 18:58] VITALS: BP 154/85
== END 2021-02-07 18:56 | disposition home or self-care (01) ==
LOC: EDUNIT# 16:30 → ER 16:31
DX: I10 Essential (primary) hypertension (principal); I44.7 Left bundle-branch block, unspecified; E03.9 Hypothyroidism, unspecified; F32.9 Major depressive disorder, single episode, unspecified; Z79.890 Hormone replacement therapy; Z79.899 Other long term (current) drug therapy
CPT/HCPCS: 36415; 71045; 80053; 83735; 83874; 84439; 84443; 84484; 85025; 85610; 85730; 93005; 93041

== ENCOUNTER → 2021-04-19 | Outpatient (CLI) | payer OTHER | LOC: CARD 08:30 | PROVIDERS: ATTEND Pediatrics | DX: I35.8 Other nonrheumatic aortic valve disorders (principal); I51.7 Cardiomegaly; I44.7 Left bundle-branch block, unspecified | CPT/HCPCS: 93306 ==

== ENCOUNTER → 2021-05-18 | Outpatient (CLI) | payer OTHER ==
[~2021-05-18] VITALS: Ht 167 cm; Wt 80.0 kg
[~2021-05-18] MED LIST changes: +CATHETER FLUSH 10 ML SYR IV PRN; +REGADENOSON 0.4 MG/5 ML SYR (LEXISCAN) IV ONE
[2021-05-18 08:51] VITALS: BP 122/82
--- NOTE | 2021-05-18 11:34 | NUCLEAR STRESS TEST ---
REGADENOSON NUCLEAR STRESS Date of procedure: 05/18/2021. Primary care provider: [facility] Admitting physician: Jens Arroyo Jr., MD. INDICATION: Left bundle branch block. BASELINE ELECTROCARDIOGRAM: Sinus bradycardia at 56 bpm with left bundle branch block. STRESS TEST PROCEDURE: The patient was administered 0.4 mg of intravenous Rega denoson. The resting heart rate was 56 bpm and the peak heart rate was 125 bpm. The resting blood pressure was 122/82 mmHg and the minimum blood pressure was 122/82 mmHg. This represents a normal heart rate and a blunted blood pressure response to Regadenoson. The test was stopped due to the protocol. There was no chest discomfort during the test. There were no arrhythmias during the test. The stress electrocardiogram was indeterminate due to the left bundle branch block. NUCLEAR PROCEDURE: The patient was administered 10.7 mCi of intravenous technetium 99m Tetrofosmin at rest for the rest images. The patient was subsequently administered 29.5 mCi of intravenous technetium 99m Tetrofosmin at peak stress for the stress images. Following an appropriate wait after each injection, imaging was obtained. The images were subsequently processed and reformatted in the usual views. Gated imaging was obtained. The image quality was adequate with a mild degree of gastrointestinal attenuation artifact. CT attenuation correction was used as a adjunct to standard imaging. Both the corrected and uncorrected images were reviewed for interpretation. NUCLEAR RESULTS: There was a small, moderate intensity, fixed apical defect with no evidence of inducible ischemia. There was normal left ventricular chamber size with an end-diastolic volume of 53 mL and an end-systolic volume of 12 mL. There was no evidence of transient ischemic dilatation. The TID ratio was 0.94. There was normal wall motion in all segments with a calculated ejection fraction of 78%. IMPRESSION: 1. Normal heart rate and a blunted blood pressure response to regadenoson. 2. There was no chest discomfort or arrhythmias during the test. 3. The stress electrocardiogram was indeterminate due to the left bundle branch block. 4. There was a small, moderate intensity, fixed apical defect with no evidence of inducible ischemia. 5. There was normal wall motion in all segments with a calculated ejection fraction of 78%. 6. This is an abnormal result although represents low risk for future coronary ischemic events. Certain portions of this document may have been dictated utilizing voice recognition technology. Inherent to this technology, typographical and grammatical errors may exist. As much as I am diligent to identify and correct these mistakes, some errors may remain in the document. JENS ARROYO JR, MD May 18, 2021 11:34
== END ==
LOC: CARD 07:30
PROVIDERS: ATTEND Internal Medicine Cardiovascular Disease
DX: I44.7 Left bundle-branch block, unspecified (principal)
CPT/HCPCS: 78452; 93017; A9502

== ENCOUNTER → 2021-12-07 | Outpatient (CLI) | payer OTHER ==
[~2021-12-07] MED LIST changes: -CATHETER FLUSH 10 ML SYR IV PRN; -REGADENOSON 0.4 MG/5 ML SYR (LEXISCAN) IV ONE
--- NOTE | 2021-12-07 09:19 | Diagnostic Imaging Report ---
PROCEDURE: MRI lumbar spine. TECHNIQUE: Multiplanar, multisequence MRI of the lumbar spine was performed without contrast. INDICATION: Lumbar spine fusion. Back pain. COMPARISON: Lumbar spine radiographs 08/25/2019. MRI lumbar spine without contrast 05/13/2019. FINDINGS: There are 5 lumbar-type vertebral bodies for the purposes of this report. Grade 1 retrolisthesis of L3 on L4 has progressed since prior exams. Vertebral body heights are preserved. Normal bone marrow signal. Bilateral anirudh and pedicle screw fixation with laminectomy and interbody fusion at L4-L5. No fluid collections in the postoperative soft tissues. No abnormal signal in the conus which terminates at L1. Normal morphology of the cauda equina. Visualized pelvis and paravertebral soft tissues are unremarkable. L1-L2: No spinal canal, lateral recess or neural foraminal narrowing. L2-L3: Mild facet arthropathy. No spinal canal, lateral recess or neural foraminal narrowing. L3-L4: Increased fluid in the facet joints. Ligamentous hypertrophy. Broad-based disc bulging. This results in moderate bilateral lateral recess narrowing. Mild spinal canal narrowing. Moderate to severe bilateral neural foraminal narrowing. L4-L5: Spinal canal is decompressed well. Aajh-ke-neafpmlm left neural foraminal narrowing. L5-S1: Small central disc protrusion. Facet arthropathy. Moderate bilateral lateral recess narrowing. No spinal canal or neural foraminal narrowing. IMPRESSION: 1. Bilateral anirudh and pedicle screw fixation with laminectomy and interbody fusion L4-L5. 2. Interval progression of spondylotic change/adjacent segment disease at L3-L4 resulting in moderate bilateral lateral recess and moderate to severe bilateral neural foraminal narrowing. There is also increasing grade 1 retrolisthesis of L3 on L4 and increasing fluid in the facet joints at this level. 3. Moderate bilateral lateral recess narrowing at L5-S1 and eflj-qg-tgyfiwrv left neural foraminal narrowing at L4-L5 has progressed since the prior exam. 4. No high-grade spinal canal stenosis. 5. No acute osseous findings. Dictated by: Dictated on workstation # [id number]
== END ==
LOC: RAD 08:00
PROVIDERS: ATTEND Pediatrics
DX: M48.061 Spinal stenosis, lumbar region without neurogenic claudication (principal); M48.07 Spinal stenosis, lumbosacral region; Z98.1 Arthrodesis status
CPT/HCPCS: 72148

== ENCOUNTER → 2022-12-04 | Outpatient (CLI) | payer OTHER | LOC: CARD 08:30 | PROVIDERS: ATTEND Pediatrics | DX: R63.5 Abnormal weight gain (principal) | CPT/HCPCS: 93306 ==